=== PATIENT | female | born 1940 | race Caucasian/White ===

== ENCOUNTER 2019-10-17 12:17 | Outpatient (CLI) | payer MEDICARE, SELFPAY ==
[2019-10-17 12:37] LABS: Basophils Absolute Auto 0.1 K/mm3 (0.0-0.1); Basophils Percent Auto 0.7 % (0.2-1.2); Eosinophils Absolute Auto 0.3 K/mm3 (0-0.3); Eosinophils Percent Auto 2.5 % (0-4.4); Hematocrit 32.5 % (37.0-47.0); Hemoglobin 9.8 g/dL (12.0-15.0); Immature Granulocyte Absolute 0.35 K/mm3 (0.00-0.031); Immature Granulocyte Percent A 2.6 % (0-0.5); Lymphocytes Absolute Auto 2.33 K/mm3 (0.9-3.2); Lymphocytes Percent Auto 17.4 % (18.3-44.2); Mean Corpuscular HGB Conc 30.2 g/dl (32-36); Mean Corpuscular Hemoglobin 25.9 pg (26-34); Mean Platelet Volume 8.8 fl (7.4-10.4); Monocytes Absolute Auto 0.7 K/mm3 (0.1-0.6); Monocytes Percent Auto 5.1 % (2.6-8.5); Neutrophils Absolute Auto 9.6 K/mm3 (1.3-6.7); Neutrophils Percent Auto 71.7 % (45.5-73.1); Platelet Count Result 679 k/mm3 (150-375); Red Blood Count 3.78 M/mm3 (4.2-5.4); Red Cell Distribution Width 18.7 % (11.5-14.5); White Blood Count 13.4 K/mm3 (4.5-10.0)
[2019-10-17 15:13] LABS: Iron 48 ug/dL (37-170)
[2019-10-17 15:22] LABS: Alanine Aminotransferase 20 U/L (4-35); Albumin Level 3.7 g/dL (3.5-5.1); Alkaline Phosphatase 98 U/L (38-126); Aspartate Amino Transferase 28 U/L (14-36); Bilirubin,Total 0.5 mg/dL (0.2-1.3); Blood Urea Nitrogen 25 mg/dL (7-17); CRP 2.4 mg/dL (<1.0); Calcium 9.8 mg/dL (8.4-10.2); Carbon Dioxide 31 mmol/L (22-30); Chloride 95 mmol/L (98-107); Estimated Glomerular Filt Rate > 60; Glucose 93 mg/dL (65-105); Potassium 4.9 mmol/L (3.4-5.0); Sodium 136 mmol/L (137-145)
[2019-10-17 15:25] LABS: Percent Iron Saturation 19 % (20-50)
[2019-10-17 16:21] LABS: Vitamin B12 > 1000.0 pg/mL (239-931)
== END 2019-10-17 12:18 | disposition home or self-care (01) ==
PROVIDERS: PCP Family Medicine; Visit Provider Internal Medicine Hematology & Oncology
DX: D64.9 Anemia, unspecified (principal)
CPT/HCPCS: 36415; 80053; 82607; 82728; 83540; 83550; 85025; 86140

== ENCOUNTER 2019-10-23 12:50 | Outpatient (NON) | payer MEDICARE, SELFPAY ==
[2019-10-23 13:51] LABS: Add Urine Microscopic? YES; Appearance Urine Cloudy (Clear); Bacteria Urine Trace /hpf; Bilirubin Urine Negative (Negative); Blood Urine 3+ (Negative); Color Urine Yellow (Yellow); Glucose Urine UA Negative (Negative); Ketones Urine Negative (Negative); Leukocyte Esterase Ur 3+ LEU/UL (NEGATIVE); Mucus Urine Rare /lpf; Nitrate Urine Negative (Negative); Protein Urine 2+ mg/dL (Negative); RBC Urine >75 /hpf (0-2); Specific Grav Ur 1.018 (1.001-1.035); Squamous Epithelial Cell Urine Few /hpf (Few); Urobilinogen Urine Negative mg/dL (<2.0); WBC Clumps Urine Present /HPF; WBC Urine >75 /hpf (0-3)
== END 2019-10-23 12:51 ==
LOC: HOME HLTH 12:50
PROVIDERS: PCP Family Medicine; Visit Provider Family Medicine
DX: N39.0 Urinary tract infection, site not specified (principal); G62.81 Critical illness polyneuropathy; A41.9 Sepsis, unspecified organism; A49.1 Streptococcal infection, unspecified site
CPT/HCPCS: 81001; 87086; 87186

== ENCOUNTER 2019-11-09 09:44 | Outpatient (RCR) | payer MEDICARE, SELFPAY ==
[2019-11-09 09:50] VITALS: BMI 20.3
[2019-11-09 10:00] VITALS: BP 156/95; PULSE 87; RESP 14; TEMP 37.7; O2SAT 97
--- NOTE | 2019-11-09 13:27 | PC.NURSE ---
1040 Daptomycin 230 mg (50 ml) infusion started at 100 ml/hr per Midline in left arm.
--- NOTE | 2019-11-09 13:29 | PC.NURSE ---
1105 Daptomycin 230 mg infusion completed. Midline flushed with 10 ml of normal saline.
== END 2020-02-07 23:59 | disposition home or self-care (01) ==
LOC: ANHVASCINF 09:44
PROVIDERS: Visit Provider Internal Medicine Infectious Disease
DX: N15.1 Renal and perinephric abscess (principal)
CPT/HCPCS: 36569; 96360; 96361; 96365; C1751; J0878

== ENCOUNTER 2019-11-14 10:42 | Outpatient (CLI) | payer MEDICARE, SELFPAY ==
[2019-11-14 11:04] LABS: Basophils Absolute Auto 0.1 K/mm3 (0.0-0.1); Basophils Percent Auto 0.6 % (0.2-1.2); Eosinophils Absolute Auto 0.3 K/mm3 (0-0.3); Hematocrit 35.6 % (37.0-47.0); Hemoglobin 10.6 g/dL (12.0-15.0); Immature Granulocyte Absolute 0.05 K/mm3 (0.00-0.031); Immature Granulocyte Percent A 0.5 % (0-0.5); Lymphocytes Percent Auto 18.6 % (18.3-44.2); Mean Corpuscular HGB Conc 29.8 g/dl (32-36); Mean Corpuscular Hemoglobin 25.7 pg (26-34); Mean Corpuscular Volume 86.4 fl (80-100); Mean Platelet Volume 9.6 fl (7.4-10.4); Monocytes Absolute Auto 0.6 K/mm3 (0.1-0.6); Monocytes Percent Auto 5.8 % (2.6-8.5); Neutrophils Absolute Auto 6.9 K/mm3 (1.3-6.7); Neutrophils Percent Auto 71.5 % (45.5-73.1); Platelet Count Result 408 k/mm3 (150-375); Red Blood Count 4.12 M/mm3 (4.2-5.4); Red Cell Distribution Width 17.7 % (11.5-14.5); White Blood Count 9.7 K/mm3 (4.5-10.0)
[2019-11-14 11:07] LABS: Blood Urea Nitrogen 19 mg/dL (8-26); Carbon Dioxide 29 mmol/L (22-30); Chloride 105 mmol/L (98-109); Estimated Glomerular Filt Rate > 60; Glucose 99 mg/dL (70-105); Potassium 4.1 mmol/L (3.5-4.9); Sodium 142 mmol/L (138-146)
[2019-11-14 12:23] LABS: Iron 31 ug/dL (37-170)
[2019-11-14 12:28] LABS: Alanine Aminotransferase 11 U/L (4-35); Albumin Level 3.9 g/dL (3.5-5.1); Alkaline Phosphatase 81 U/L (38-126); Aspartate Amino Transferase 18 U/L (14-36); Bilirubin,Total 0.5 mg/dL (0.2-1.3); Blood Urea Nitrogen 20 mg/dL (7-17); CRP 6.7 mg/dL (<1.0); Calcium 9.7 mg/dL (8.4-10.2); Carbon Dioxide 28 mmol/L (22-30); Chloride 100 mmol/L (98-107); Estimated Glomerular Filt Rate > 60; Glucose 96 mg/dL (65-105); Potassium 4.3 mmol/L (3.4-5.0); Sodium 143 mmol/L (137-145)
[2019-11-14 12:34] LABS: Percent Iron Saturation 13 % (20-50)
[2019-11-15 18:25] LABS: Creatine Kinase 28 U/L (30-135)
== END 2019-11-14 10:43 | disposition home or self-care (01) ==
LOC: ANHLAB 10:43
PROVIDERS: Visit Provider Internal Medicine Hematology & Oncology
DX: D64.9 Anemia, unspecified (principal)
CPT/HCPCS: 36415; 80048; 80053; 82550; 82607; 82728; 83540; 83550; 85025; 86140

== ENCOUNTER 2019-11-16 11:06 | Outpatient (CLI) | payer MEDICARE, SELFPAY ==
[2019-11-16 11:40] LABS: Basophils Absolute Auto 0.1 K/mm3 (0.0-0.1); Basophils Percent Auto 0.8 % (0.2-1.2); Eosinophils Absolute Auto 0.2 K/mm3 (0-0.3); Eosinophils Percent Auto 2.3 % (0-4.4); Hemoglobin 10.6 g/dL (12.0-15.0); Immature Granulocyte Absolute 0.09 K/mm3 (0.00-0.031); Immature Granulocyte Percent A 0.9 % (0-0.5); Lymphocytes Percent Auto 18.5 % (18.3-44.2); Mean Corpuscular HGB Conc 29.4 g/dl (32-36); Mean Corpuscular Hemoglobin 26.1 pg (26-34); Mean Corpuscular Volume 88.7 fl (80-100); Mean Platelet Volume 9.6 fl (7.4-10.4); Monocytes Absolute Auto 0.6 K/mm3 (0.1-0.6); Monocytes Percent Auto 5.6 % (2.6-8.5); Neutrophils Absolute Auto 7.4 K/mm3 (1.3-6.7); Neutrophils Percent Auto 71.9 % (45.5-73.1); Platelet Count Result 423 k/mm3 (150-375); Red Blood Count 4.06 M/mm3 (4.2-5.4); Red Cell Distribution Width 17.8 % (11.5-14.5); White Blood Count 10.3 K/mm3 (4.5-10.0)
[2019-11-16 11:50] LABS: Hypochromasia 1+ (NORMAL)
[2019-11-16 12:26] LABS: Hemoglobin A1C 5.7 % (<5.7)
[2019-11-16 12:29] LABS: Alanine Aminotransferase 12 U/L (4-35); Albumin Level 3.9 g/dL (3.5-5.1); Alkaline Phosphatase 79 U/L (38-126); Aspartate Amino Transferase 21 U/L (14-36); Bilirubin,Total 0.4 mg/dL (0.2-1.3); Blood Urea Nitrogen 23 mg/dL (7-17); Calcium 9.7 mg/dL (8.4-10.2); Carbon Dioxide 27 mmol/L (22-30); Chloride 101 mmol/L (98-107); Estimated Glomerular Filt Rate > 60; Glucose 84 mg/dL (65-105); Potassium 4.3 mmol/L (3.4-5.0); Sodium 141 mmol/L (137-145)
[2019-11-16 13:32] LABS: CRP 3.8 mg/dL (<1.0); Creatine Kinase 27 U/L (30-135)
== END 2019-11-16 11:07 | disposition home or self-care (01) ==
LOC: ANHLAB 11:06
PROVIDERS: Visit Provider Family Medicine
DX: N39.0 Urinary tract infection, site not specified (principal); D64.9 Anemia, unspecified; N15.1 Renal and perinephric abscess; G62.81 Critical illness polyneuropathy; A41.9 Sepsis, unspecified organism; A49.1 Streptococcal infection, unspecified site; E11.22 Type 2 diabetes mellitus with diabetic chronic kidney disease; I10 Essential (primary) hypertension; R41.841 Cognitive communication deficit; R13.12 Dysphagia, oropharyngeal phase; M06.9 Rheumatoid arthritis, unspecified; I25.2 Old myocardial infarction; Z93.1 Gastrostomy status; Z99.2 Dependence on renal dialysis
CPT/HCPCS: 36415; 80053; 82550; 83036; 85025; 86140; 87086

== ENCOUNTER 2019-12-21 02:18 | Day surgery (SDC) | payer MEDICARE, SELFPAY ==
[2019-12-07 14:36] VITALS: BMI 23.0
--- NOTE | 2019-12-18 16:46 | PM.HPGS ---
History of Present Illness History of Present Illness Consent: Risks, benefits, and alternatives have been discussed and questions answered. Patient agrees to proceed with procedure. Chief complaint: Ureteral Stone, hydronephrosis Narrative: Aliya Richardson is a 79 year old female with an indwelling Ridley since developed profound septic shock following ESWL in 06/2019. Following the procedure imaging revealed a large left perinephric hematoma and multiple stone fragments. For now, we've managed to treat with indwelling stent rather than risk more aggressive interventions Review of Systems Cardiovascular: Cardiovascular: Denies chest pain, Denies lightheadedness, Denies palpitations and Denies dyspnea Respiratory: Respiratory: Denies dyspnea Gastrointestinal: Gastrointestinal: Denies diarrhea, Denies nausea and Denies vomiting Genitourinary: Genitourinary: Denies hematuria and Denies dysuria Endocrine: Endocrine: Denies palpitations [facility] Past Medical History Medical History Acute renal failure (ARF) Patient received intermittent hemodialysis between 07/23/2019 and 07/29/2019 as well as 07/31/2019 and 08/02/2019. Patient is now on long-term hemodialysis schedule managed by Dr. Gianni Larson Acute respiratory failure 07/19/2019 Anemia Anxiety Cardiac arrest Due to overwhelming sepsis and severe acidosis 07/19/2019 Chronic anemia Pt is also anaemia was treated with blood transfusion and epogen shot before, ordered epogen shot again for pt as her hb is 6. Pt will need work up for anaemia if Dr Larson does not think it is related to kidney disease, pt baseline is 7.5. Diabetes mellitus Diabetes mellitus Dialysis patient Dyslipidemia Essential tremor Family history of VRE (vancomycin resistant Enterococcus) infection Patient had VRE in her urine G tube feedings Only receiving supplemental feeds and 6 at night currently GERD (gastroesophageal reflux disease) Hemodialysis patient HTN (hypertension) Hypertension MVP (mitral valve prolapse) NSTEMI (non-ST elevated myocardial infarction) 07/19/2019 Obstructive sleep apnea Intolerant of CPAP Osteoarthritis Osteopenia after menopause Shock liver TIA (transient ischemic attack) Urethral stone Urge incontinence Uterine cancer UTI (urinary tract infection) Vancomycin-resistant enterococcus UTI Surgical History Surgical History H/O bilateral cataract extraction H/O inguinal hernia repair H/O lithotripsy H/O: hysterectomy History of bladder suspension procedure Two thousand four History of hysterectomy for malignancy History of urethral stent X2 Hx of tonsillectomy PEG (percutaneous endoscopic gastrostomy) status Placed 08/04/[address] Arboleda S/P dialysis catheter insertion Right chest S/P ureteral stent placement Family History Family History Father Acute myocardial infarction Family history of kidney disease Family history of aortic aneurysm Mother Cerebrovascular accident Mother Cerebrovascular accident Social History Social History Social History: The patient lives with her Davi. She has 2 children. 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 She is lifelong nonsmoker. She does not drink alcohol or use illicit substances. Prior to 5 weeks ago she was independent in all activities of daily living. Her primary care physician is Dr. Coni Oh. Code status is full code. The patient recently this past Wednesday came home from [facility]. Her daughter and live with her. The daughter is the POA. Barrera Smoking status: Never smoker Second hand tobacco smoke exposure: No Alcohol intake: never Substance use: never Gender identity (if verbalized by the patient): Female Bell
--- NOTE | ~2019-12-21 | XR_ITS ---
EXAMINATION: XR stent kub - surgery DATE: 12/21/2019 10:42 INDICATION: Left hydronephrosis. TECHNIQUE: 4 intraoperative fluoroscopic views of the abdomen and pelvis were obtained. I was not pre sent. Fluoroscopy exposure time was 11 seconds. COMPARISON: CT abdomen 10/14/2019 FINDINGS: The initial images demonstrate a left internal ureteral stent in expected position. The fin al images demonstrate a new left internal ureteral stent in expected position. IMPRESSION: 1. Left internal ureteral stent exchange with stent in expected position. Reviewed, dictated and finalized at location A.
--- NOTE | 2019-12-21 07:42 | WPDHPUPDATE1 ---
History and Physical Update Update Date/Time: 12/21/19 07:42 History and Physical has been reviewed, including an updated exam of the patient. There are NO changes in the patient's condition. Risks, benefits, and alternatives have been discussed and questions answered. Patient agrees to proceed with procedure.
[2019-12-21] MEDS: LACTATED RINGERS 1,000 ML 30 ML IV CONT (09:25)
[2019-12-21 09:30] LABS: Glucose Point of Care 99 (65-105)
[2019-12-21 09:40] LABS: Prothrombin Time 13.2 Seconds (11.1-14.7)
[2019-12-21 09:41] LABS: Partial Thromboplastin Time 35.1 SECONDS (22.3-36.8)
[2019-12-21 09:59] VITALS: BP 150/76; PULSE 90; RESP 20; TEMP 36.8; O2SAT 98
--- NOTE | 2019-12-21 10:08 | WPDANESEPPF ---
Anes - Initial Pre Proc Eval Procedure: Operation Date: 12/21/19 10:30 Proposed Procedures p Cystoscopy, Left Stent Exchange - Diego Villa MD Date/Time: 12/21/19 10:08 Surgeon: Diego Villa MD Pre Op Diagnosis: Ureteral Stone, hydronephrosis Patient Data Age: 79 Gender: F Height: 5 ft 3 in Weight: 58.3 kg Last Vital Signs Temp 36.8 C 12/21/19 09:59 Pulse 90 12/21/19 09:59 Resp 20 12/21/19 09:59 BP 150/76 H 12/21/19 09:59 Pulse Ox 98 12/21/19 09:59 Allergies Allergy/AdvReac Type Severity Reaction Status Date / Time tetracycline AdvReac Severe NAUSEA Verified 12/21/19 09:55 oxycodone AdvReac Unknown N&V Verified 12/21/19 09:55 Home Medications Medication Instructions Recorded Confirmed Type amitriptyline 25 mg PO HS 08/21/19 12/21/19 History baclofen 10 mg PO BID 08/21/19 12/21/19 History melatonin 3 mg PO HS PRN 08/21/19 12/21/19 History multivitamin 1 tablet PO DAILY 08/21/19 12/21/19 History zinc 50 mg PO DAILY 08/21/19 12/21/19 History Ferrex 150 150 mg PO BID 10/07/19 12/21/19 History Florastor 250 mg PO DAILY 10/07/19 12/21/19 History acetaminophen 325 mg PO Q6H PRN #30 tablet 10/15/19 12/21/19 Rx metoprolol tartrate 25 mg tablet 25 mg PO BID #180 tablet 11/02/19 12/21/19 Rx aspirin 81 mg PO DAILY 12/07/19 12/21/19 History atorvastatin 10 mg tablet 10 mg PO .QHS #90 tablet 12/07/19 12/21/19 Rx lansoprazole 30 mg capsule,delayed 30 mg PO DAILY cap 12/07/19 12/21/19 History release Laboratory Tests 12/21/19 12/21/19 09:06 09:26 PT 13.2 Seconds Seconds (11.1-14.7) INR 1.0 APTT 35.1 SECONDS SECONDS (22.3-36.8) POC Capillary Glucose 99 mg/dl mg/dl (65-105) Patient hx anesthesia problems: none Family hx anesthesia problems: none PMFSH Past Medical History Medical History Acute renal failure (ARF) Patient received intermittent hemodialysis between 07/23/2019 and 07/29/2019 as well as 07/31/2019 and 08/02/2019. Patient is now on long-term hemodialysis schedule managed by Dr. Gianni Larson Acute respiratory failure 07/19/2019 Anemia Anxiety Cardiac arrest Due to overwhelming sepsis and severe acidosis 07/19/2019 Chronic anemia Pt is also anaemia was treated with blood transfusion and epogen shot before, ordered epogen shot again for pt as her hb is 6. Pt will need work up for anaemia if Dr Larson does not think it is related to kidney disease, pt baseline is 7.5. Diabetes mellitus Diabetes mellitus Dialysis patient Dyslipidemia Essential tremor Family history of VRE (vancomycin resistant Enterococcus) infection Patient had VRE in her urine G tube feedings Only receiving supplemental feeds and 6 at night currently GERD (gastroesophageal reflux disease) Hemodialysis patient HTN (hypertension) Hypertension MVP (mitral valve prolapse) NSTEMI (non-ST elevated myocardial infarction) 07/19/2019 Obstructive sleep apnea Intolerant of CPAP Osteoarthritis Osteopenia after menopause Shock liver TIA (transient ischemic attack) Urethral stone Urge incontinence Uterine cancer UTI (urinary tract infection) Vancomycin-resistant enterococcus UTI Surgical History Surgical History H/O bilateral cataract extraction H/O inguinal hernia repair H/O lithotripsy H/O: hysterectomy History of bladder suspension procedure Two thousand four History of hysterectomy for malignancy History of urethral stent X2 Hx of tonsillectomy PEG (percutaneous endoscopic gastrostomy) status Placed 08/04/[address] Arboleda S/P dialysis catheter insertion Right chest S/P ureteral stent placement Family History Family History Father Acute myocardial infarction Family history of kidney disease Family history of aortic aneurysm Mother Cerebrovascular accident Mother Cerebro
[2019-12-21] MEDS: LIDOCAINE HCL 2% GEL UROJET 10 ML PKG MUCOUS MEM (10:27)
[2019-12-21 10:47] VITALS: BP 145/76; PULSE 78; RESP 18; O2SAT 100
--- NOTE | 2019-12-21 10:58 | PM.PROC ---
Procedure Note - Detailed Date of procedure: 12/21/19 Pre-op diagnosis: Ureteral Stone, hydronephrosis Post-op diagnosis: same Procedure performed: Cystoscopy, left ureteral stent replacement Description of procedure: The patient was brought to the operative suite where she was prepped and draped in a routine sterile fashion while in the dorsal lithotomy position. A 19 F rigid cystoscope was placed in her bladder and the bladder was circumferentially inspected. The bladder neck and urethra were endoscopically normal. The bladder mucosa was without hyperemia. TheThere was a single orthotopic ureteral orifice bilaterally. The tip of the indwelling stent as grasped. It had essentially no encrustation and, therefore, was removed with ease. I advanced .035 glidewire into the left renal pelvis under fluoroscopy. A new 4.8F variable length ureteral stent was positioned with the proximal coil in the renal pelvis and the distal coil in the bladder. Scopes and wires were removed after emptying the patient's bladder. Anesthesia: MAC Surgeon: Diego Villa MD Estimated blood loss (mL): 0 Drains: Yes (4.8F left ureteral stent) Packing: No Pathology: none sent Complications: No immediate complications Condition: stable Disposition: PACU
[2019-12-21 11:47] VITALS: BP 148/78; PULSE 76; RESP 16; O2SAT 98
[2019-12-21 12:17] VITALS: BP 150/74; PULSE 72; RESP 18; O2SAT 100
[2019-12-21 13:00] VITALS: BP 147/76; PULSE 70; RESP 16; O2SAT 100
== END 2019-12-21 13:00 | disposition home or self-care (01) ==
PROVIDERS: Anesthesiology; PCP Family Medicine; Visit Provider Urology
PROC: (CPT 52352; principal; 2019-12-21 10:30)
DX: N13.2 Hydronephrosis with renal and ureteral calculous obstruction (principal); S37.019D Minor contusion of unspecified kidney, subsequent encounter; I12.0 Hypertensive chronic kidney disease with stage 5 chronic kidney disease or end stage renal disease; E11.22 Type 2 diabetes mellitus with diabetic chronic kidney disease; N18.6 End stage renal disease; Z99.2 Dependence on renal dialysis; D64.9 Anemia, unspecified; E78.5 Hyperlipidemia, unspecified; G25.0 Essential tremor; K21.9 Gastro-esophageal reflux disease without esophagitis; I34.1 Nonrheumatic mitral (valve) prolapse; I25.2 Old myocardial infarction; G47.33 Obstructive sleep apnea (adult) (pediatric); M19.90 Unspecified osteoarthritis, unspecified site; M85.80 Other specified disorders of bone density and structure, unspecified site; Z86.73 Personal history of transient ischemic attack (TIA), and cerebral infarction without residual deficits; Z85.42 Personal history of malignant neoplasm of other parts of uterus; Z93.1 Gastrostomy status; Z79.82 Long term (current) use of aspirin
CPT/HCPCS: 52332; 36415; 85610; 85730; C1769; C2617; J0690; J2704; J7120

== ENCOUNTER 2020-01-15 11:28 | Outpatient (CLI) | payer MEDICARE, SELFPAY ==
[2020-01-15 11:41] LABS: Basophils Absolute Auto 0.1 K/mm3 (0.0-0.1); Basophils Percent Auto 0.5 % (0.2-1.2); Eosinophils Absolute Auto 0.3 K/mm3 (0-0.3); Eosinophils Percent Auto 2.6 % (0-4.4); Hematocrit 40.6 % (37.0-47.0); Hemoglobin 12.2 g/dL (12.0-15.0); Immature Granulocyte Absolute 0.06 K/mm3 (0.00-0.031); Immature Granulocyte Percent A 0.6 % (0-0.5); Lymphocytes Absolute Auto 1.65 K/mm3 (0.9-3.2); Lymphocytes Percent Auto 16.4 % (18.3-44.2); Mean Corpuscular Hemoglobin 26.8 pg (26-34); Mean Platelet Volume 10.1 fl (7.4-10.4); Monocytes Absolute Auto 0.5 K/mm3 (0.1-0.6); Monocytes Percent Auto 5.1 % (2.6-8.5); Neutrophils Absolute Auto 7.6 K/mm3 (1.3-6.7); Neutrophils Percent Auto 74.8 % (45.5-73.1); Platelet Count Result 283 k/mm3 (150-375); Red Blood Count 4.56 M/mm3 (4.2-5.4); Red Cell Distribution Width 16.3 % (11.5-14.5); White Blood Count 10.1 K/mm3 (4.5-10.0)
[2020-01-15 12:25] LABS: Iron 36 ug/dL (37-170)
[2020-01-15 12:34] LABS: Percent Iron Saturation 13 % (20-50)
== END 2020-01-15 11:29 | disposition home or self-care (01) ==
LOC: ANHLAB 11:31
PROVIDERS: PCP Family Medicine; Visit Provider Internal Medicine Hematology & Oncology
DX: D64.9 Anemia, unspecified (principal)
CPT/HCPCS: 36415; 82728; 83540; 83550; 85025

== ENCOUNTER 2020-04-12 16:06 | Outpatient (CLI) | payer MEDICARE, SELFPAY ==
--- NOTE | ~2020-04-12 | XR_ITS ---
EXAMINATION: XR abdomen/kub 1V EXAM DATE: 04/12/2020 16:27 INDICATION: Pain while urinating. Stent placed in December. Kidney stone history. TECHNIQUE: Frontal projection(s) of the abdomen for interpretation. Comparison is made to prior exami nation from 07/20/2019. FINDINGS: There is a left-sided double-J ureteral stent overlying expected position. There is calcif ic density projecting along the mid aspect of the stent, and sacrum, could be ureteral stone along it s course. This finding has been indicated, marked on the examination for review, clinical correlation . There is moderate amount of bowel stool and gas. There are bony degenerative changes. IMPRESSION: 1. Possible left mid ureteral calcification. 2. Stent in position. Reviewed, dictated and finalized at location A.
== END 2020-04-12 16:07 | disposition home or self-care (01) ==
LOC: ANHIMG 16:09
PROVIDERS: PCP Family Medicine; Visit Provider Urology
DX: N20.0 Calculus of kidney (principal)
CPT/HCPCS: 74018

== ENCOUNTER 2020-04-17 01:18 | Outpatient (CLI) | payer MEDICARE, SELFPAY ==
[2020-04-17 19:19] LABS: SARS-CoV-2 RNA PCR Negative
== END 2020-04-17 01:19 | disposition home or self-care (01) ==
LOC: ANHCOVIDDT 01:19
PROVIDERS: PCP Family Medicine; Visit Provider Urology
DX: Z01.818 Encounter for other preprocedural examination (principal); Z11.59 Encounter for screening for other viral diseases
CPT/HCPCS: 87635; C9803; U0003

== ENCOUNTER 2020-04-19 02:41 | Day surgery (SDC) | payer MEDICARE, SELFPAY ==
[2020-04-16 14:06] VITALS: BMI 24.1
--- NOTE | 2020-04-18 16:32 | PM.HPGS ---
History of Present Illness History of Present Illness Consent: Risks, benefits, and alternatives have been discussed and questions answered. Patient agrees to proceed with procedure. Chief complaint: Left Stone Narrative: Aliya Richardson is a 79 year old female well known to me with a history of recurring urolithiasis. Earlier this year she had a very complicated course following left renal ESWL which led to a fracture kidney and pyelonephritis with septic shock. Since then she has had an indwelling left ureteral stent. Multiple stone fragments have passed and she now appears to have only some small fragments in the distal left ureter. She has been she is beginning to develop intractable stent irritation leading to the decisions to do an endoscopic stone extraction and stent removal. Review of Systems Cardiovascular: Cardiovascular: Denies chest pain, Denies lightheadedness, Denies palpitations and Denies dyspnea Respiratory: Respiratory: Denies dyspnea Gastrointestinal: Gastrointestinal: Denies diarrhea, Denies nausea and Denies vomiting Genitourinary: Genitourinary: Denies hematuria and Denies dysuria Endocrine: Endocrine: Denies palpitations PMFSH Past Medical History Medical History Acute renal failure (ARF) Patient received intermittent hemodialysis between 07/23/2019 and 07/29/2019 as well as 07/31/2019 and 08/02/2019. Patient is now on long-term hemodialysis schedule managed by Dr. Gianni Larson Acute renal failure (ARF) Patient received intermittent hemodialysis between 07/23/2019 and 07/29/2019 as well as 07/31/2019 and 08/02/2019. Patient is now on long-term hemodialysis schedule managed by Dr. Gianni Larson Anemia Anemia Anemia Anxiety Anxiety Anxiety Chronic anemia Pt is also anaemia was treated with blood transfusion and epogen shot before, ordered epogen shot again for pt as her hb is 6. Pt will need work up for anaemia if Dr Larson does not think it is related to kidney disease, pt baseline is 7.5. Chronic anemia Pt is also anaemia was treated with blood transfusion and epogen shot before, ordered epogen shot again for pt as her hb is 6. Pt will need work up for anaemia if Dr Larson does not think it is related to kidney disease, pt baseline is 7.5. Chronic anemia Pt is also anaemia was treated with blood transfusion and epogen shot before, ordered epogen shot again for pt as her hb is 6. Pt will need work up for anaemia if Dr Larson does not think it is related to kidney disease, pt baseline is 7.5. Diabetes mellitus Diabetes mellitus Diabetes mellitus Dialysis patient Dyslipidemia Dyslipidemia Dyslipidemia Essential tremor Family history of VRE (vancomycin resistant Enterococcus) infection Patient had VRE in her urine Family history of VRE (vancomycin resistant Enterococcus) infection Patient had VRE in her urine Family history of VRE (vancomycin resistant Enterococcus) infection Patient had VRE in her urine G tube feedings Only receiving supplemental feeds and 6 at night currently G tube feedings Only receiving supplemental feeds and 6 at night currently G tube feedings GERD (gastroesophageal reflux disease) GERD (gastroesophageal reflux disease) GERD (gastroesophageal reflux disease) Hemodialysis patient Hemodialysis patient HTN (hypertension) Hypertension Hypertension MVP (mitral valve prolapse) MVP (mitral valve prolapse) MVP (mitral valve prolapse) Obstructive sleep apnea Intolerant of CPAP Obstructive sleep apnea Intolerant of CPAP JULIUS (obstructive sleep apnea) Osteoarthritis Osteopenia after menopause Osteopenia after menopause Parkinson's disease Shock liver Shock liver TIA (transient ischemic attack) TIA (transient ischemic attack) TIA (transient ischemic attack) Urethral stone Urethral stone Urethral stone Urge incontinence Uterine cancer Uterine cancer Uterine cancer UTI (urinary tract infection) Vancomycin-resistant
[2020-04-19] VITALS (9 sets, daily range): BP systolic 119–159; BP diastolic 63–89; PULSE 66–83; RESP 11–16; TEMP 36.1; O2SAT 97–99
--- NOTE | ~2020-04-19 | XR_ITS ---
. EXAMINATION: XR retrograde pyelo w/stent LT DATE: 04/19/2020 13:18 INDICATION: Left ureteral stone. TECHNIQUE: A intraoperative fluoroscopic views of the abdomen and pelvis were obtained. I was not pre sent. Fluoroscopy exposure time was 11 seconds. COMPARISON: CT abdomen 10/14/2019 FINDINGS: The retrograde pyelogram demonstrates left-sided hydronephrosis. The final images demonstra te a left internal ureteral stent in expected position. IMPRESSION: 1. Left-sided hydronephrosis. 2. Left internal ureteral stent in expected position. Reviewed, dictated and finalized at location A.
--- NOTE | 2020-04-19 06:46 | WPDHPUPDATE1 ---
History and Physical Update Update Date/Time: 04/19/20 06:46 History and Physical has been reviewed, including an updated exam of the patient. There are NO changes in the patient's condition. Risks, benefits, and alternatives have been discussed and questions answered. Patient agrees to proceed with procedure.
[2020-04-19] MEDS: LACTATED RINGERS 1,000 ML 30 ML IV CONT (11:50)
--- NOTE | 2020-04-19 11:54 | WPDANESEPPF ---
Anes - Initial Pre Proc Eval Procedure: Operation Date: 04/19/20 13:00 Proposed Procedures p Cystoscopy, Left Stone Extraction, Left Stent Removal With Possible Left Stent Replacement - Diego Villa MD s Holmium Laser Procedure - Diego Villa MD Date/Time: 04/19/20 11:54 Surgeon: Diego Villa MD Pre Op Diagnosis: Left Stone Patient Data Age: 79 Gender: F Height: 5 ft 3 in Weight: 61.8 kg Allergies Allergy/AdvReac Type Severity Reaction Status Date / Time tetracycline AdvReac Severe NAUSEA Verified 04/16/20 13:52 oxycodone AdvReac Unknown N&V Verified 04/16/20 13:52 Home Medications Medication Instructions Recorded Confirmed Type melatonin 3 mg PO HS PRN 08/21/19 04/16/20 History multivitamin 1 tablet PO DAILY 08/21/19 04/16/20 History zinc 50 mg PO DAILY 08/21/19 04/16/20 History Ferrex 150 150 mg PO BID 10/07/19 04/16/20 History acetaminophen 325 mg PO Q6H PRN #30 tablet 10/15/19 04/16/20 Rx lansoprazole 30 mg capsule,delayed 30 mg PO DAILY cap 12/07/19 04/16/20 History release amitriptyline 25 mg tablet 25 mg PO HS #90 tablet 12/22/19 04/16/20 Rx mirabegron 50 mg tablet,extended 50 mg PO DAILY 01/26/20 04/16/20 History release 24 hr oxybutynin chloride 5 mg tablet 5 mg PO TID 01/26/20 04/16/20 History baclofen 10 mg tablet 10 mg PO Q8H PRN #90 tablet 02/08/20 04/16/20 Rx metoprolol tartrate 25 mg tablet 25 mg PO BID #180 tablet 02/09/20 04/16/20 Rx atorvastatin 10 mg tablet 10 mg PO .QHS #90 tablet 03/05/20 04/16/20 Rx blood sugar diagnostic #100 each 04/01/20 04/07/20 Rx blood-glucose meter #1 each 04/01/20 04/07/20 Rx lancets 33 gauge #100 each 04/01/20 04/07/20 Rx aspirin 81 mg tablet,delayed 81 mg PO DAILY 04/05/20 04/16/20 History release Lactobac 40-Bifido 3-S.thermop 1 cap PO DAILY 04/16/20 04/16/20 History [Probiotic] sulfamethoxazole-trimethoprim 1 tablet PO BID 04/16/20 04/16/20 History Patient hx anesthesia problems: none Family hx anesthesia problems: none PMFSH Past Medical History Medical History Acute renal failure (ARF) Patient received intermittent hemodialysis between 07/23/2019 and 07/29/2019 as well as 07/31/2019 and 08/02/2019. Patient is now on long-term hemodialysis schedule managed by Dr. Gianni Larson Acute renal failure (ARF) Patient received intermittent hemodialysis between 07/23/2019 and 07/29/2019 as well as 07/31/2019 and 08/02/2019. Patient is now on long-term hemodialysis schedule managed by Dr. Gianni Larson Anemia Anemia Anemia Anxiety Anxiety Anxiety Chronic anemia Pt is also anaemia was treated with blood transfusion and epogen shot before, ordered epogen shot again for pt as her hb is 6. Pt will need work up for anaemia if Dr Larson does not think it is related to kidney disease, pt baseline is 7.5. Chronic anemia Pt is also anaemia was treated with blood transfusion and epogen shot before, ordered epogen shot again for pt as her hb is 6. Pt will need work up for anaemia if Dr Larson does not think it is related to kidney disease, pt baseline is 7.5. Chronic anemia Pt is also anaemia was treated with blood transfusion and epogen shot before, ordered epogen shot again for pt as her hb is 6. Pt will need work up for anaemia if Dr Larson does not think it is related to kidney disease, pt baseline is 7.5. Diabetes mellitus Diabetes mellitus Diabetes mellitus Dialysis patient Dyslipidemia Dyslipidemia Dyslipidemia Essential tremor Family history of VRE (vancomycin resistant Enterococcus) infection Patient had VRE in her urine Family history of VRE (vancomycin resistant Enterococcus) infection Patient had VRE in her urine Family history of VRE (vancomycin resistant Enterococcus) infection Patient had VRE in her urine G tube feedings Only receiving supplemental feeds and 6 at night currently G tube feedings Only receiving supplemental feeds and 6 at night currently G tube feedin
[2020-04-19] MEDS: ceFAZolin 2 GM/D5W 50 ML 2 GM/50 ML BAG IVPB (12:08)
[2020-04-19] MEDS: LIDOCAINE HCL 2% GEL UROJET 10 ML PKG MUCOUS MEM (12:46)
--- NOTE | 2020-04-19 13:21 | P.OP_ITS ---
Procedure Note - Detailed Date of procedure: 04/19/20 Pre-op diagnosis: Left Stone Post-op diagnosis: same Procedure performed: 1. Cystoscopy with left ureteral stent removal 2. Left retrograde pyelogram 3. Left ureteroscopy with laser lithotripsy and stone extraction 4. Left ureteral stent replacement Description of procedure: The patient was brought to the operative suite where she is prepped and draped in a routine sterile fashion while in the dorsal lithotomy position after the uneventful induction of a general LMA anesthetic. A 19F rigid cystoscope was placed in the bladder and the tip of the indwelling stent is grasped and the stent is removed with ease. The patient had no evidence of urethral stricture or bladder neck contracture. The bladder mucosa was endoscopically normal without hyperemia or neoplasm. There was a single, orthotopic ureteral orifice bilaterally. A 0.035 glidewire was advanced into the left renal pelvis under fluoroscopy. The distal ureter was dilated with an 8F/10F ureteral dilator. Ureteroscopy was undertaken with a short tapered semi- rigid ureteroscope and, later, a7.5F flexible ureteroscope. She has 2 large impacted stones in the left distal ureter. These were fragmented with a 273 micron holmium laser fiber and all fragments are extracted. In order to pass the 7.5 F flexible scope into the more proximal ureter I had to re-dilate with a 10cm ureteral balloon. With retrograde pyelography and the flexible ureteral scope inspected the entire collecting system and more proximal ureter. There were no additional significant stone fragments.Due to the extent of this manipul ation I did replace a 4.8F double-J ureteral stent. The proximal coil of the stent was confirmed to be in the renal pelvis and the distal coil in the bladder. The patient's bladder was emptied and he was taken to the recovery room having tolerated this procedure well. Anesthesia: GLMA Surgeon: Diego Villa MD Estimated blood loss (mL): 0 Drains: Yes (4.8F ureteral stent) Packing: No Pathology: yes Complications: No immediate complications Condition: stable Disposition: PACU
[2020-04-21 09:03] LABS: Glucose Point of Care 96 (65-105)
== END 2020-04-19 15:47 | disposition home or self-care (01) ==
PROVIDERS: PCP Family Medicine; Visit Provider Urology
PROC: (CPT 52352; principal; 2020-04-19 13:00)
PROC: (CPT 52356; 2020-04-19 13:00)
DX: N20.1 Calculus of ureter (principal); I12.0 Hypertensive chronic kidney disease with stage 5 chronic kidney disease or end stage renal disease; E11.22 Type 2 diabetes mellitus with diabetic chronic kidney disease; N18.6 End stage renal disease; Z99.2 Dependence on renal dialysis; E78.5 Hyperlipidemia, unspecified; G25.0 Essential tremor; D64.9 Anemia, unspecified; F41.9 Anxiety disorder, unspecified; K21.9 Gastro-esophageal reflux disease without esophagitis; I34.1 Nonrheumatic mitral (valve) prolapse; G47.33 Obstructive sleep apnea (adult) (pediatric); G20 Parkinson's disease; M85.80 Other specified disorders of bone density and structure, unspecified site; Z93.1 Gastrostomy status; Z86.73 Personal history of transient ischemic attack (TIA), and cerebral infarction without residual deficits; Z85.42 Personal history of malignant neoplasm of other parts of uterus; Z79.82 Long term (current) use of aspirin
CPT/HCPCS: 52356; 74420; 82365; 87635; 88300; A9270; C1726; C1769; C2617; C9803; J0690; J2405; J2704; J3010; J7120; Q9966; U0003

== ENCOUNTER 2020-07-16 10:07 | Outpatient (CLI) | payer MEDICARE, SELFPAY ==
[2020-07-16 10:21] LABS: Basophils Absolute Auto 0.1 K/mm3 (0.0-0.1); Basophils Percent Auto 0.9 % (0.2-1.2); Eosinophils Absolute Auto 0.6 K/mm3 (0-0.3); Eosinophils Percent Auto 7.2 % (0-4.4); Hematocrit 41.4 % (37.0-47.0); Hemoglobin 12.7 g/dL (12.0-15.0); Immature Granulocyte Absolute 0.06 K/mm3 (0.00-0.031); Immature Granulocyte Percent A 0.7 % (0-0.5); Lymphocytes Absolute Auto 1.64 K/mm3 (0.9-3.2); Lymphocytes Percent Auto 18.8 % (18.3-44.2); Mean Corpuscular HGB Conc 30.7 g/dl (32-36); Mean Corpuscular Hemoglobin 27.2 pg (26-34); Mean Corpuscular Volume 88.7 fl (80-100); Mean Platelet Volume 9.6 fl (7.4-10.4); Monocytes Absolute Auto 0.8 K/mm3 (0.1-0.6); Monocytes Percent Auto 8.7 % (2.6-8.5); Neutrophils Absolute Auto 5.6 K/mm3 (1.3-6.7); Neutrophils Percent Auto 63.7 % (45.5-73.1); Platelet Count Result 282 k/mm3 (150-375); Red Blood Count 4.67 M/mm3 (4.2-5.4); Red Cell Distribution Width 14.5 % (11.5-14.5); White Blood Count 8.7 K/mm3 (4.5-10.0)
[2020-07-16 10:24] LABS: Blood Urea Nitrogen 30 mg/dL (8-26); Carbon Dioxide 29 mmol/L (22-30); Chloride 104 mmol/L (98-109); Estimated Glomerular Filt Rate 43; Glucose 122 mg/dL (70-105); Sodium 143 mmol/L (138-146)
[2020-07-16 11:27] LABS: Iron 40 ug/dL (37-170)
[2020-07-16 11:36] LABS: Percent Iron Saturation 14 % (20-50)
== END 2020-07-16 10:08 | disposition home or self-care (01) ==
LOC: ANHLAB 10:09
PROVIDERS: PCP Family Medicine; Visit Provider Internal Medicine Hematology & Oncology
DX: D64.9 Anemia, unspecified (principal)
CPT/HCPCS: 36415; 80048; 82728; 83540; 83550; 85025

== ENCOUNTER 2020-11-12 13:10 | Outpatient (CLI) | payer MEDICARE, SELFPAY ==
[2020-11-12 13:46] LABS: Anion Gap 6 mmol/L (8-16); Blood Urea Nitrogen 29 mg/dL (7-17); Calcium 9.3 mg/dL (8.4-10.2); Carbon Dioxide 31 mmol/L (22-30); Chloride 106 mmol/L (98-107); Estimated Glomerular Filt Rate 53; Glucose 124 mg/dL (65-105); Sodium 143 mmol/L (137-145)
== END 2020-11-12 13:11 | disposition home or self-care (01) ==
PROVIDERS: PCP Family Medicine; Visit Provider Internal Medicine Cardiovascular Disease
DX: E11.59 Type 2 diabetes mellitus with other circulatory complications (principal); I10 Essential (primary) hypertension; Z86.79 Personal history of other diseases of the circulatory system
CPT/HCPCS: 36415; 80048

== ENCOUNTER 2021-01-14 11:16 | Outpatient (CLI) | payer MEDICARE, SELFPAY ==
[2021-01-14 11:33] LABS: Basophils Absolute Auto 0.1 K/mm3 (0.0-0.1); Eosinophils Absolute Auto 0.2 K/mm3 (0-0.3); Eosinophils Percent Auto 1.8 % (0-4.4); Hematocrit 46.2 % (37.0-47.0); Hemoglobin 14.1 g/dL (12.0-15.0); Immature Granulocyte Absolute 0.06 K/mm3 (0.00-0.031); Immature Granulocyte Percent A 0.7 % (0-0.5); Lymphocytes Absolute Auto 2.89 K/mm3 (0.9-3.2); Lymphocytes Percent Auto 32.1 % (18.3-44.2); Mean Corpuscular HGB Conc 30.5 g/dl (32-36); Mean Corpuscular Hemoglobin 26.5 pg (26-34); Mean Corpuscular Volume 86.7 fl (80-100); Mean Platelet Volume 9.8 fl (7.4-10.4); Monocytes Absolute Auto 0.6 K/mm3 (0.1-0.6); Monocytes Percent Auto 6.3 % (2.6-8.5); Neutrophils Absolute Auto 5.2 K/mm3 (1.3-6.7); Neutrophils Percent Auto 58.1 % (45.5-73.1); Platelet Count Result 290 k/mm3 (150-375); Red Blood Count 5.33 M/mm3 (4.2-5.4)
[2021-01-14 11:37] LABS: Blood Urea Nitrogen 28 mg/dL (8-26); Carbon Dioxide 31 mmol/L (22-30); Chloride 102 mmol/L (98-109); Estimated Glomerular Filt Rate 43; Glucose 91 mg/dL (70-105); Potassium 4.4 mmol/L (3.5-4.9); Sodium 141 mmol/L (138-146)
[2021-01-14 12:19] LABS: Iron 57 ug/dL (37-170)
[2021-01-14 12:25] LABS: Alanine Aminotransferase 16 U/L (4-35); Albumin Level 4.6 g/dL (3.5-5.1); Alkaline Phosphatase 78 U/L (38-126); Anion Gap 5 mmol/L (8-16); Aspartate Amino Transferase 25 U/L (14-36); Bilirubin,Total 0.7 mg/dL (0.2-1.3); Blood Urea Nitrogen 30 mg/dL (7-17); Calcium 9.6 mg/dL (8.4-10.2); Carbon Dioxide 32 mmol/L (22-30); Chloride 105 mmol/L (98-107); Estimated Glomerular Filt Rate 48; Glucose 95 mg/dL (65-105); Potassium 4.8 mmol/L (3.4-5.0); Sodium 142 mmol/L (137-145)
[2021-01-14 12:31] LABS: Percent Iron Saturation 18 % (20-50)
== END 2021-01-14 11:17 | disposition home or self-care (01) ==
LOC: ANHLAB 11:19
PROVIDERS: PCP Family Medicine; Visit Provider Internal Medicine Hematology & Oncology
DX: D64.9 Anemia, unspecified (principal)
CPT/HCPCS: 36415; 80048; 80053; 82728; 83540; 83550; 85025

== ENCOUNTER 2021-04-08 11:02 | Outpatient (CLI) | payer MEDICARE, SELFPAY ==
--- NOTE | ~2021-04-08 | XR_ITS ---
EXAMINATION: XR abdomen/kub 1V EXAM DATE: 04/08/2021 11:27 INDICATION: Left kidney stone. TECHNIQUE: Frontal projection(s) of the abdomen for interpretation. Correlation is made to CT abdomen pelvis 10/14/2019. FINDINGS: Moderate amount of colonic stool and gas. Can't identify any definite suspicious focal calc ifications through this. There is mild thoracolumbar dextroscoliosis. The spinal cord signal intensit y and intrinsic morphology is normal. There is no organomegaly. IMPRESSION: Moderate colonic stool and gas. Reviewed, dictated and finalized at location A.
== END 2021-04-08 11:03 | disposition home or self-care (01) ==
LOC: ANHIMG 11:08
PROVIDERS: PCP Physician Assistant; Visit Provider Urology
DX: N20.0 Calculus of kidney (principal)
CPT/HCPCS: 74018

== ENCOUNTER 2021-07-23 15:19 | Outpatient (CLI) | payer MEDICARE, SELFPAY ==
--- NOTE | ~2021-07-23 | XR_ITS ---
XR foot RT min 3V DATE: 07/23/2021 15:39 INDICATION: Foot pain for 3 days. No acute injury. TECHNIQUE: 4 views COMPARISON: None FINDINGS: There is diffuse osteopenia. Posterior calcaneal enthesopathy. There is hallux valgus and bunion deformity. There is mild osteoarthritis at the first metatarsophala ngeal joint and some interphalangeal joints. No fracture, dislocation, periosteal reaction or bone destruction or erosive change. IMPRESSION: Osteopenia Posterior calcaneal enthesopathy Hallux valgus and bunion deformity Polyarticular osteoarthritis Reviewed, dictated and finalized at location A.
== END 2021-07-23 15:20 | disposition home or self-care (01) ==
LOC: ANHIMG 15:23
PROVIDERS: PCP Physician Assistant; Visit Provider Physician Assistant
DX: M85.871 Other specified disorders of bone density and structure, right ankle and foot (principal); M77.31 Calcaneal spur, right foot; M19.071 Primary osteoarthritis, right ankle and foot; M20.11 Hallux valgus (acquired), right foot
CPT/HCPCS: 73630

== ENCOUNTER 2021-08-22 14:46 | Outpatient (CLI) | payer MEDICARE, SELFPAY ==
--- NOTE | ~2021-08-22 | XR_ITS ---
EXAMINATION: XR abdomen/kub 1V DATE: 08/22/2021 15:01 INDICATION: Kidney stone. TECHNIQUE: A supine view of the abdomen on 2 radiographs was obtained. COMPARISON: CT abdomen 10/14/2019, abdomen radiographs 04/08/2021 FINDINGS: There are no dilated loops of bowel. Cholelithiasis is noted. IMPRESSION: 1. No visible urolithiasis. 2. Cholelithiasis. Reviewed, dictated and finalized at location A. SER HAND
== END 2021-08-22 14:47 | disposition home or self-care (01) ==
LOC: ANHIMG 14:49
PROVIDERS: PCP Family Medicine; Visit Provider Urology
DX: Z87.442 Personal history of urinary calculi (principal); K80.20 Calculus of gallbladder without cholecystitis without obstruction
CPT/HCPCS: 74018

== ENCOUNTER 2021-12-16 09:17 | Outpatient (CLI) | payer MEDICARE, SELFPAY ==
[2021-12-16 09:57] LABS: Hematocrit 46.4 % (37.0-47.0); Hemoglobin 14.2 g/dL (12.0-15.0)
[2021-12-16 10:10] LABS: INR 0.9; Prothrombin Time 12.1 Seconds (11.1-14.7)
[2021-12-16 10:11] LABS: Partial Thromboplastin Time 37.1 SECONDS (22.3-36.8)
[2021-12-16 10:18] LABS: Anion Gap 7 mmol/L (8-16); Blood Urea Nitrogen 29 mg/dL (7-17); Calcium 9.4 mg/dL (8.4-10.2); Carbon Dioxide 31 mmol/L (22-30); Chloride 103 mmol/L (98-107); Estimated Glomerular Filt Rate 48; Glucose 160 mg/dL (65-110); Potassium 3.9 mmol/L (3.4-5.0); Sodium 141 mmol/L (137-145)
== END 2021-12-16 09:18 | disposition home or self-care (01) ==
LOC: ANHSURGERY 09:24
PROVIDERS: Anesthesiology; PCP Family Medicine; Visit Provider Urology
DX: N30.10 Interstitial cystitis (chronic) without hematuria (principal); N28.9 Disorder of kidney and ureter, unspecified; D64.9 Anemia, unspecified; E11.9 Type 2 diabetes mellitus without complications; Z01.818 Encounter for other preprocedural examination
CPT/HCPCS: 36415; 80048; 85014; 85018; 85610; 85730; 87086; 87088

== ENCOUNTER 2021-12-18 12:17 | Outpatient (CLI) | payer MEDICARE, SELFPAY ==
--- NOTE | ~2021-12-18 | CT_ITS ---
EXAMINATION: CT brain wo con EXAM DATE: 12/18/2021 12:43 INDICATION: G45.9 - Transient cerebral ischemic attack, unspecified . Dizziness episode. TECHNIQUE: Spiral CT of the head was performed without contrast. Axial, coronal and sagittal images were reviewed. The dose-length product (DLP) for this examination was 605.33 mGy-cm. The exposure w as tailored according to patient size, and iterative reconstruction (ASIR) was used as additional dos e reduction technique. Comparison is made to prior examination from 12/18/2021. FINDINGS: There is no acute intraparenchymal hemorrhage. No evidence of intraparenchymal brain mass lesion. No evidence of acute infarction. Please note that initial head CT has limited sensitivity f or small or acute infarctions. There is moderate periventricular and subcortical hypodensity, nonspe cific but probably related to small vessel ischemic disease. There is a right middle cranial fossa ar achnoid cyst unchanged There is moderate prominence of the sulci and ventricles related to cerebral atrophy. There is intracranial carotid arteriosclerosis. There are no extra-axial collections. Th ere is no mass effect or midline shift. The orbits are unremarkable. Soft tissue is unremarkable. The visualized sinuses and mastoid air cells are well aerated. IMPRESSION: 1. No acute intracranial findings. 2. Chronic age related findings. 3. Arachnoid cyst, not clinically significant. Reviewed, dictated and finalized at location B.
[2021-12-18 13:45] LABS: Basophils Absolute Auto 0.1 K/mm3 (0.0-0.1); Basophils Percent Auto 0.8 % (0.2-1.2); Eosinophils Absolute Auto 0.2 K/mm3 (0-0.3); Eosinophils Percent Auto 1.6 % (0-4.4); Hematocrit 47.5 % (37.0-47.0); Hemoglobin 14.8 g/dL (12.0-15.0); Immature Granulocyte Absolute 0.04 K/mm3 (0.00-0.031); Immature Granulocyte Percent A 0.4 % (0-0.5); Lymphocytes Percent Auto 35.7 % (18.3-44.2); Mean Corpuscular HGB Conc 31.2 g/dl (32-36); Mean Corpuscular Hemoglobin 27.6 pg (26-34); Mean Corpuscular Volume 88.6 fl (80-100); Mean Platelet Volume 10.3 fl (7.4-10.4); Monocytes Absolute Auto 0.6 K/mm3 (0.1-0.6); Monocytes Percent Auto 5.8 % (2.6-8.5); Neutrophils Absolute Auto 5.6 K/mm3 (1.3-6.7); Neutrophils Percent Auto 55.7 % (45.5-73.1); Platelet Count Result 287 k/mm3 (150-375); Red Blood Count 5.36 M/mm3 (4.2-5.4); Red Cell Distribution Width 15.8 % (11.5-14.5); White Blood Count 10.1 K/mm3 (4.5-10.0)
--- NOTE | 2021-12-18 13:48 | ECG_ITS ---
Measurements Intervals [place] Rate: 92 P: 51 RI: 200 QRS: -6 QRSD: 97 T: 63 QT: 365 QTc: 453 Interpretive Statements SINUS RHYTHM CANNOT RULE OUT ANTERIOR MYOCARDIAL INFARCTION , OF INDETERMINATE AGE [40+ ms Q WAVE AND/OR ST/T ABNORMALITY IN V3/V4] INFERIOR MYOCARDIAL INFARCTION , OF INDETERMINATE AGE [40+ ms Q WAVE AND/OR ST/T ABNORMALITY IN II/aVF] ABNORMAL ECG COMPARED TO ECG 10/07/2019 12:57:14 HEART RATE HAS DECREASED Electronically Signed On 12-18-2021 15:54:06 CDT by Jewel Conte M.D.
[2021-12-18 13:57] LABS: CRP < 0.5 mg/dL (<1.0)
== END 2021-12-18 12:18 | disposition home or self-care (01) ==
PROVIDERS: PCP Family Medicine; Visit Provider Family Medicine
DX: N30.00 Acute cystitis without hematuria (principal); G45.9 Transient cerebral ischemic attack, unspecified; R94.31 Abnormal electrocardiogram [ECG] [EKG]; G93.0 Cerebral cysts
CPT/HCPCS: 36415; 70450; 85025; 86140; 87040; 93005

== ENCOUNTER 2021-12-25 09:51 | Outpatient (CLI) | payer MEDICARE, SELFPAY ==
--- NOTE | ~2021-12-25 | US_ITS ---
EXAMINATION: US carotid duplex BI DATE: 12/25/2021 10:48 INDICATION: Carotid and cerebral atherosclerosis. Transient cerebral ischemic attack. TECHNIQUE: Grayscale, color Doppler, and pulsed Doppler images of the cervical carotid arteries were obtained. The degree of vessel stenosis is placed in one of the following categories: normal, <50%, 5 0-69%, >=70% but less than near-occlusion, near-occlusion, or total occlusion. Note that percent sten osis relative to normal distal artery lumen diameter is indirectly measured from velocity measurement s as described by Luis, et al. Radiology 2003; 229:340-346. COMPARISON: None. FINDINGS: RIGHT: The right common carotid artery (CCA) peak systolic velocity (PSV) is 151 cm/s. The right internal ca rotid artery (ICA) PSV is 76 cm/s. The right ICA end-diastolic velocity (EDV) is 18 cm/s. The right I CA/CCA PSV ratio is 0.5. Grayscale and color Doppler images yield an estimate of <50% diameter reduct ion from plaque in the ICA. The external carotid artery (ECA) PSV is 109 cm/s. There is antegrade jacqui w in the right vertebral artery. LEFT: The left CCA PSV is 70 cm/s. The left ICA PSV is 77 cm/s. The left ICA EDV is 23 cm/s. The left ICA/C CA PSV ratio is 1.1. Grayscale and color Doppler images yield an estimate of <50% diameter reduction from plaque in the ICA. The ECA PSV is 87 cm/s. There is antegrade flow in the left vertebral artery. IMPRESSION: 1. <50% stenosis in the right internal carotid artery. 2. <50% stenosis in the left internal carotid artery. Reviewed, dictated and finalized at location B.
== END 2021-12-25 09:52 | disposition home or self-care (01) ==
PROVIDERS: PCP Family Medicine; Visit Provider Family Medicine
DX: I65.23 Occlusion and stenosis of bilateral carotid arteries (principal)
CPT/HCPCS: 93880

== ENCOUNTER 2021-12-26 00:54 | Day surgery (SDC) | payer MEDICARE, SELFPAY ==
[2021-12-11 08:52] VITALS: BMI 25.0
--- NOTE | 2021-12-11 16:15 | PC.NURSE ---
Report to the Outpatient Waiting Room, entrance under the green pavilion located off [facility], at time _7:00AM on date __12/26/21 . OR Time: __9:00AM . - You and your visitor will be asked a series of questions to screen for COVID 19 for your protection. - A mask is required within the hospital. Preoperative COVID Testing Requirements: No COVID Test needed if: (proof is required; if not received patient will have Rapid Test prior to entry) - Patient has received COVID Vaccine at least 14 days prior to procedure date or - Patient has positive COVID test result within last 90 days of surgery date. COVID Test needed if above criteria is not met If not COVID vaccinated a COVID test must be conducted within 72 hours of surgery and patient is asked to isolate self from time of testing until procedure. You will go to the [facility] for your COVID testing. The [facility] site is located at the corner of [address] [facility]. You will only be called if COVID results are positive and your surgeon may reschedule your elective surgery date. Patients may have clear liquids (water, carbonated beverages, clear teas, apple juice) until 3 hours prior to surgery with a maximum of 20 ounces. - No food from midnight until time of surgery - Infants may have breast milk until 4 hours before surgery, infant formula 6 hours prior to surgery. - Children will be allowed to drink immediately following surgery. If applicable, please bring a bottle or sippy cup to assist with drinking. Juice, water, soda, and popsicles are readily available. For infants on formula, please bring formula the day of surgery. Pacifiers are allowed. Take the following medications with a SIP of water the morning of surgery: ____CEPHALEXIN, METOPROLOL Medications to discontinue per physician ____HOLD ASPIRIN 7 DAYS PRE-OP (LAST DOSE-12/19/21), HOLD ALL VITAMINS/SUPPLEMENTS 3 DAYS PRE-OP (LAST DOSE 12/22/21) Please no make-up, nail syriac, hairspray, perfume, deodorant, or body powder the day of surgery. No jewelry (including any body piercings) or valuables the day of surgery, leave them at home. Please take a shower or bath the night before, or the morning of, surgery with an antibacterial soap. Wear comfortable, loose fitting clothing. Children are encouraged to wear pajamas. - Jewelry must be removed prior to entering the operating room. Rings and piercings that are not removed may be cut off. - The hospital will not accept responsibility for valuables. - Please leave all valuables, including medications, at home the day of surgery. If you are going home after surgery, a licensed farm truck driver must drive you home. - NO public transportation without another adult. - We recommend that an adult stay with you for 24 hours following discharge. - We also recommend that you do not drive, make important decision, drink alcoholic beverages, or take any drugs that were not prescribed by your health care provider for at least 24 hours after your discharge time. For Pediatric surgeries, we recommend two adults accompany the child home (only one inside the building at this time). One visitor will be allowed to accompany the patient into the hospital. Patients visitor will be instructed to remain with patient at all times or leave the building. We will allow the visitor to come back to the postoperative area when patient is ready. Follow any additional instructions given to you from your surgeon. Telephone instructions given to _PATIENT and asked if any additional questions and then verbalized understanding. Patient advised to call surgeon office or pre surgery nurse liaison [phone] if any additional questions.
--- NOTE | 2021-12-25 05:13 | PM.IMHP ---
H&P: HPI History of Present Illness Date/Time: 12/25/21 05:13 get BOTOX for OAB. Bladder biopsy shows infmallation c/w Hunners Ulcer Chief Complaint: hunner ulcer Review of Systems Review of Systems: All systems reviewed & are unremarkable except as noted in HPI and below PMFSH Past Medical History Medical History Acute renal failure (ARF) Patient received intermittent hemodialysis between 07/23/2019 and 07/29/2019 as well as 07/31/2019 and 08/02/2019. Patient is now on long-term hemodialysis schedule managed by Dr. Gianni Larson Anemia Anxiety Chronic anemia Pt is also anaemia was treated with blood transfusion and epogen shot before, ordered epogen shot again for pt as her hb is 6. Pt will need work up for anaemia if Dr Larson does not think it is related to kidney disease, pt baseline is 7.5. Diabetes mellitus Dialysis patient Dyslipidemia Encounter for immunization Essential tremor Family history of VRE (vancomycin resistant Enterococcus) infection Patient had VRE in her urine G tube feedings Only receiving supplemental feeds and 6 at night currently GERD (gastroesophageal reflux disease) Hemodialysis patient HTN (hypertension) Hypertension MVP (mitral valve prolapse) Obstructive sleep apnea Intolerant of CPAP JULIUS (obstructive sleep apnea) Osteoarthritis Osteopenia after menopause Parkinson's disease Shock liver TIA (transient ischemic attack) Type 2 diabetes mellitus Urethral stone Urge incontinence Uterine cancer UTI (urinary tract infection) Vancomycin-resistant enterococcus UTI Surgical History Surgical History H/O bilateral cataract extraction H/O inguinal hernia repair H/O lithotripsy H/O: hysterectomy History of bladder suspension procedure Two thousand four History of hysterectomy for malignancy History of urethral stent X2 Hx of tonsillectomy PEG (percutaneous endoscopic gastrostomy) status Placed 08/04/[address] Arboleda S/P dialysis catheter insertion Right chest S/P ureteral stent placement Family History Family History Father Acute myocardial infarction Family history of kidney disease Family history of aortic aneurysm Mother Cerebrovascular accident Father No problems noted. Mother No problems noted. Mother Cerebrovascular accident Social History Social History Social History: The patient lives with her Davi. She has 2 children. 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 She is lifelong nonsmoker. She does not drink alcohol or use illicit substances. Prior to 5 weeks ago she was independent in all activities of daily living. Her primary care physician Dr. Franco/Agata Lopez PA-C. Code status is full code. The patient recently this past Wednesday came home from [facility]. Her daughter and live with her. The daughter is the Holly NICKERSON. Smoking status: Never smoker Second hand tobacco smoke exposure: No Alcohol intake: never Substance use: never Additional living arrangements comments: SPOUSE & DAUGHTER Gender identity (if verbalized by the patient): Female Spiritual care concerns: No Agree to blood products: Yes Meds Home Medications and Allergies Home Medications Medication Instructions Recorded Confirmed Type melatonin 3 mg PO HS PRN 08/21/19 12/18/21 History multivitamin 1 tablet PO DAILY 08/21/19 12/18/21 History zinc 50 mg PO DAILY 08/21/19 12/18/21 History blood sugar diagnostic #100 each 04/01/20 12/18/21 Rx blood-glucose meter #1 each 04/01/20 12/18/21 Rx aspirin 81 mg tablet,delayed 81 mg PO DAILY 04/05/20 12/18/21 History release Probiotic 1 cap PO DAILY 04/16/20 12/18/21 History atorvastatin 10 mg tablet 10 mg PO .QHS #90 tablet 08/29/21 03
--- NOTE | 2021-12-26 07:15 | WPDHPUPDATE1 ---
History and Physical Update Update Date/Time: 12/26/21 07:15 History and Physical has been reviewed, including an updated exam of the patient. There are NO changes in the patient's condition. Risks, benefits, and alternatives have been discussed and questions answered. Patient agrees to proceed with procedure.
[2021-12-26 08:00] VITALS: BP 180/84; PULSE 89; RESP 16; TEMP 36.2; O2SAT 97
[2021-12-26] MEDS: LACTATED RINGERS 1,000 ML 30 ML IV CONT (08:25)
[2021-12-26 08:32] LABS: Glucose Point of Care 114 mg/dl (65-105)
--- NOTE | 2021-12-26 08:39 | WPDANESEPPF ---
Anes - Initial Pre Proc Eval Procedure: Operation Date: 12/26/21 09:00 Proposed Procedures p Cystoscopy with Steroid Injection - Cm Ball MD Date/Time: 12/26/21 08:39 Surgeon: Cm Ball MD Pre Op Diagnosis: hunner's ulcers Patient Data Age: 81 Gender: F Height: 1.63 m Weight: 66 kg Allergies Allergy/AdvReac Type Severity Reaction Status Date / Time tetracycline AdvReac Severe NAUSEA Verified 12/18/21 10:50 oxycodone AdvReac Unknown N&V Verified 12/18/21 10:50 Home Medications Medication Instructions Recorded Confirmed Type melatonin 3 mg PO HS PRN 08/21/19 12/18/21 History multivitamin 1 tablet PO DAILY 08/21/19 12/18/21 History zinc 50 mg PO DAILY 08/21/19 12/18/21 History blood sugar diagnostic #100 each 04/01/20 12/18/21 Rx blood-glucose meter #1 each 04/01/20 12/18/21 Rx aspirin 81 mg tablet,delayed 81 mg PO DAILY 04/05/20 12/18/21 History release Probiotic 1 cap PO DAILY 04/16/20 12/18/21 History atorvastatin 10 mg tablet 10 mg PO .QHS #90 tablet 08/29/21 12/18/21 Rx lancets 33 gauge #100 each 11/03/21 12/18/21 Rx blood sugar diagnostic #100 ea 11/05/21 12/18/21 Rx acetaminophen 650 mg PO Q6H PRN 12/11/21 12/18/21 History amitriptyline 25 mg PO HS 12/11/21 12/18/21 History baclofen 10 mg PO BID PRN 12/11/21 12/18/21 History cephalexin 250 mg PO QAM 12/11/21 12/18/21 History docusate sodium [Colace] 100 mg PO TID 12/11/21 12/18/21 History ferrous sulfate [Slow Fe] 142 mg PO DAILY 12/11/21 12/18/21 History metoprolol succinate 25 mg PO QAM 12/11/21 12/18/21 History metformin 500 mg tablet,extended 1,000 mg PO QAM #90 tablet 12/17/21 12/18/21 Rx release 24 hr Laboratory Tests 12/26/21 08:26 POC Capillary Glucose 114 mg/dl H mg/dl (65-105) Patient hx anesthesia problems: none Family hx anesthesia problems: none Results Review: All pre-operative results and documents have been reviewed as part of the pre-operative evaluation. [facility] Past Medical History Medical History Acute renal failure (ARF) Patient received intermittent hemodialysis between 07/23/2019 and 07/29/2019 as well as 07/31/2019 and 08/02/2019. Patient is now on long-term hemodialysis schedule managed by Dr. Gianni Larson Anemia Anxiety Chronic anemia Pt is also anaemia was treated with blood transfusion and epogen shot before, ordered epogen shot again for pt as her hb is 6. Pt will need work up for anaemia if Dr Larson does not think it is related to kidney disease, pt baseline is 7.5. Diabetes mellitus Dialysis patient Dyslipidemia Encounter for immunization Essential tremor Family history of VRE (vancomycin resistant Enterococcus) infection Patient had VRE in her urine G tube feedings Only receiving supplemental feeds and 6 at night currently GERD (gastroesophageal reflux disease) Hemodialysis patient HTN (hypertension) Hypertension MVP (mitral valve prolapse) Obstructive sleep apnea Intolerant of CPAP JULIUS (obstructive sleep apnea) Osteoarthritis Osteopenia after menopause Parkinson's disease Shock liver TIA (transient ischemic attack) Type 2 diabetes mellitus Urethral stone Urge incontinence Uterine cancer UTI (urinary tract infection) Vancomycin-resistant enterococcus UTI Surgical History Surgical History H/O bilateral cataract extraction H/O inguinal hernia repair H/O lithotripsy H/O: hysterectomy History of bladder suspension procedure Two thousand four History of hysterectomy for malignancy History of urethral stent X2 Hx of tonsillectomy PEG (percutaneous endoscopic gastrostomy) status Placed 08/04/[address] Arboleda S/P dialysis catheter insertion Right chest S/P ureteral stent placement Family History Family History Father Acute myocardial infarction Family history of kidney disease F
[2021-12-26] MEDS: ceFAZolin 2 GM/D5W 50 ML 2 GM/50 ML BAG IVPB (09:17)
[2021-12-26] MEDS: TRIAMCINOLONE ACET INJ 40 MG/ML VIAL 200 MG XX (09:37)
[2021-12-26 09:48] VITALS: BP 143/89; PULSE 85; RESP 14; O2SAT 97
--- NOTE | 2021-12-26 09:51 | W.PM.PROC2 ---
Procedure Note - Detailed Date of Procedure 12/26/21 Pre-op Diagnosis hunner's ulcers Post-op Diagnosis Same Procedure Performed Cystoscopy, bladder biopsy, steroid injection Surgeon Cm Ball MD Anesthesia MAC Indications This is a with bladder lesion consistent inflammation. She has urgency frequency. She gets Botox. She is here today for bladder biopsy and steroid injection Findings Hunner's ulcer x2 on right lateral wall Description of Procedure She has correctly identified. Informed consent obtained. From the operating room. She was given MAC anesthesia. She was prepped and draped in a sterile fashion. She was placed in dorsal thigh position. Time-out performed. Cystoscopy revealed 2 areas of Hunner's ulceration on the right lateral wall. Will area was biopsied. I injected steroids. 40 milligrams/milliliter Kenalog. We injected 200 mils total. I fulgurated the biopsy injection sites. There was no bleeding under low insufflation pressures. She was awakened transferred to PACU in stable condition. Estimated Blood Loss 1 Drains No Packing No Pathology Yes (Bladder biopsy) Complications No immediate complications Condition Stable
[2021-12-26 10:02] LABS: Glucose Point of Care 112 mg/dl (65-105)
[2021-12-26 10:15] VITALS: BP 199/89; PULSE 79; RESP 14; O2SAT 97
--- NOTE | 2021-12-26 10:43 | SUR.PHASEII ---
DR. GREWAL NOTIFIED RE: ELEVATED BP'S. NO INTERVENTIONS ORDERED EXCEPT TO FOLLOW-UP WITH PRIMARY DOCTOR.
[2021-12-26 10:45] VITALS: BP 188/91; PULSE 74; RESP 14
== END 2021-12-26 11:00 | disposition home or self-care (01) ==
PROVIDERS: PCP Family Medicine; Visit Provider Urology
PROC: 0TBB8ZX Excision of Bladder, Via Natural or Artificial Opening Endoscopic, Diagnostic (ICD-10-PCS; CPT 52204; principal; 2021-12-26 09:00)
DX: N30.10 Interstitial cystitis (chronic) without hematuria (principal); G20 Parkinson's disease; G47.33 Obstructive sleep apnea (adult) (pediatric); I34.1 Nonrheumatic mitral (valve) prolapse; G25.0 Essential tremor; D64.9 Anemia, unspecified; E78.5 Hyperlipidemia, unspecified; I12.9 Hypertensive chronic kidney disease with stage 1 through stage 4 chronic kidney disease, or unspecified chronic kidney disease; E11.22 Type 2 diabetes mellitus with diabetic chronic kidney disease; N18.9 Chronic kidney disease, unspecified; F41.9 Anxiety disorder, unspecified; Z99.2 Dependence on renal dialysis; Z79.82 Long term (current) use of aspirin; Z79.84 Long term (current) use of oral hypoglycemic drugs; Z93.1 Gastrostomy status; Z85.42 Personal history of malignant neoplasm of other parts of uterus
CPT/HCPCS: 52204; 52283; 36415; 80048; 82948; 85014; 85018; 85610; 85730; 87086; 87088; 88305; A9270; J0690; J2704; J3301; J7120

== ENCOUNTER 2022-01-08 12:27 | Outpatient (CLI) | payer MEDICARE, SELFPAY ==
--- NOTE | 2022-01-08 12:52 | ECHO_ITS ---
Patient Info Name: Aliya Richardson Age: 81 years : 1940 Gender: Female Ht: 65 in Wt: 141 lbs BSA: 1.72 m2 HR: 91 bpm BP: 165 / 96 mmHg Technical Quality: Poor Exam Date: 01/08/2022 1:17 PM Exam Location: [facility] Patient Status: Outpatient Admit Date: 01/08/2022 Staff Ordering Physician: Agnieszka Franco MD Structural Analyst: Ilan Guidry, MARIA INES, RT Attending Provider: Agnieszka Franco MD Referring Physician: Salvador CASTRO; Exam Type: CA echo doppler color flow Study Info Indications G45.8 - Other transient cerebral ischemic attacks and related syndromes Complete two-dimensional, color flow and Doppler transthoracic echocardiogram is performed. Summary 1. Complete two-dimensional, color flow and Doppler transthoracic echocardiogram is performed. 2. Technically suboptimal study due to poor sonographic images. 3. Left ventricular chamber dimension is normal. 4. Left ventricular systolic function is normal, estimated at 65-70%. 5. There is mildly increased left ventricular wall thickness. 6. The left ventricular diastolic function is grade I diastolic dysfunction. 7. E/e' 10 is mildly elevated. 8. There is trace aortic valve regurgitation. 9. No pulmonary hypertension, estimated pulmonary arterial systolic pressure is 27 mmHg. Left Ventricle Technically suboptimal study due to poor sonographic images. E/e' 10 is mildly elevated. Left ventricular chamber dimension is normal. Left ventricular systolic function is normal, estimated at 65-70%. There is mildly increased left ventricular wall thickness. The left ventricular diastolic function is grade I diastolic dysfunction. Right Ventricle Right ventricular systolic function is normal and with normal TAPSE 2.0 cm. Right ventricular chamber dimension is not well visualized. Left Atria Left atrial chamber dimension is normal. Right Atria Right atrial chamber dimension is not well visualized. Aortic Valve The aortic valve is probable trileaflet. There is no aortic valve stenosis. There is trace aortic valve regurgitation. Pulmonic Valve The pulmonic valve is not well visualized. Mitral Valve There is no mitral valve stenosis. There is no mitral valve regurgitation. Tricuspid Valve The tricuspid valve leaflets are not well visualized. There is no tricuspid valve regurgitation. No pulmonary hypertension, estimated pulmonary arterial systolic pressure is 27 mmHg. Pericardium/Pleural There is no pericardial effusion. Inferior Vena Cava Normal inferior vena cava with >50% collapse upon inspiration consistent with normal right atrial pressure, 5 mmHg. Aorta The aortic root size at the sinus of Valsalva is not well visualized. Left Ventricular Outflow Tract Name Value Normal LVOT 2D LVOT Diameter 1.9 cm LVOT Doppler LVOT Peak Gradient 3 mmHg LVOT Mean Gradient 2 mmHg LVOT VTI 16 cm LVOT VTI/AV VTI Ratio 0.8 LVOT Stroke Volume 44 ml LVOT CO 3.6 l/min
== END 2022-01-08 12:28 | disposition home or self-care (01) ==
LOC: ANHCARD 12:32
PROVIDERS: PCP Family Medicine; Visit Provider Family Medicine
DX: G45.9 Transient cerebral ischemic attack, unspecified (principal)
CPT/HCPCS: 93306

== ENCOUNTER 2022-01-14 09:29 | Outpatient (CLI) | payer MEDICARE, SELFPAY ==
[2022-01-14 09:46] LABS: Basophils Absolute Auto 0.1 K/mm3 (0.0-0.1); Basophils Percent Auto 0.8 % (0.2-1.2); Eosinophils Absolute Auto 0.1 K/mm3 (0-0.3); Eosinophils Percent Auto 1.2 % (0-4.4); Hematocrit 52.6 % (37.0-47.0); Hemoglobin 14.7 g/dL (12.0-15.0); Immature Granulocyte Absolute 0.03 K/mm3 (0.00-0.031); Immature Granulocyte Percent A 0.3 % (0-0.5); Lymphocytes Absolute Auto 2.14 K/mm3 (0.9-3.2); Lymphocytes Percent Auto 23.5 % (18.3-44.2); Mean Corpuscular HGB Conc 27.9 g/dl (32-36); Mean Corpuscular Hemoglobin 27.2 pg (26-34); Mean Corpuscular Volume 97.4 fl (80-100); Monocytes Absolute Auto 0.4 K/mm3 (0.1-0.6); Monocytes Percent Auto 4.8 % (2.6-8.5); Neutrophils Absolute Auto 6.3 K/mm3 (1.3-6.7); Neutrophils Percent Auto 69.4 % (45.5-73.1); Platelet Count Result 149 k/mm3 (150-375); Red Cell Distribution Width 16.2 % (11.5-14.5); White Blood Count 9.1 K/mm3 (4.5-10.0)
[2022-01-14 09:55] LABS: Hypochromasia 1+ (NORMAL); Platelet Estimate Adequate (Adequate)
[2022-01-14 10:00] LABS: Blood Urea Nitrogen 32 mg/dL (8-26); Carbon Dioxide 25 mmol/L (22-30); Chloride 107 mmol/L (98-109); Estimated Glomerular Filt Rate 60; Glucose 108 mg/dL (70-105); Potassium 4.4 mmol/L (3.5-4.9); Sodium 141 mmol/L (138-146)
[2022-01-14 11:09] LABS: Alanine Aminotransferase 16 U/L (4-35); Albumin Level 4.5 g/dL (3.5-5.1); Alkaline Phosphatase 52 U/L (38-126); Anion Gap 11 mmol/L (8-16); Aspartate Amino Transferase 88 U/L (14-36); Blood Urea Nitrogen 33 mg/dL (7-17); Calcium 9.4 mg/dL (8.4-10.2); Carbon Dioxide 22 mmol/L (22-30); Chloride 107 mmol/L (98-107); Estimated Glomerular Filt Rate 60; Glucose 107 mg/dL (65-110); Potassium 4.5 mmol/L (3.4-5.0); Sodium 140 mmol/L (137-145)
== END 2022-01-14 09:30 | disposition home or self-care (01) ==
LOC: ANHLAB 09:30
PROVIDERS: PCP Family Medicine; Visit Provider Internal Medicine Hematology & Oncology
DX: D64.9 Anemia, unspecified (principal)
CPT/HCPCS: 36415; 80047; 80053; 85025

== ENCOUNTER 2022-04-09 07:32 | Outpatient (CLI) | payer MEDICARE, SELFPAY ==
--- NOTE | ~2022-04-09 | XR_ITS ---
XR abdomen/kub 1V DATE: 04/09/2022 07:57 INDICATION: Microscopic hematuria. TECHNIQUE: AP projection, 2 views COMPARISON: 04/09/2022 CT abdomen pelvis FINDINGS: A calcified calculus is noted overlying the distal left ureter, corresponding to the obstru cting calculus of the distal left ureter noted on 04/09/2022 CT abdomen pelvis examination. The several pinpoint calculi of the kidneys are not radiographically detected. No evidence of bowel obstruction. No visceromegaly is evident. Abdominal aortic and iliac arterial calcifications. IMPRESSION: Distal left ureteral calcified calculus Reviewed, dictated and finalized at [facility]. Reviewed, dictated and finalized at location B.
--- NOTE | ~2022-04-09 | CT_ITS ---
EXAMINATION: CT abdomen pelvis wo/w con DATE: 04/09/2022 08:32 INDICATION: Microscopic hematuria TECHNIQUE: Computed tomography (CT) of the abdomen and pelvis was performed without and subsequently with 130 CC Omnipaque 300 intravenous contrast. Automated exposure control and iterative reconstructi on technique were employed. Exam dose: 860.37 mGy-cm total exam DLP. COMPARISON: 04/09/2022 KUB 10/14/2019 CT abdomen 10/09/2019 CT abdomen pelvis FINDINGS: Minimal bilateral lower lobe dependent atelectasis. Prominent coronary artery calcifications. Cardiomegaly. No pericardial or pleural effusion. No hepatic or splenic or pancreatic space-occupying mass lesion. There are numerous stones in the dependent aspect of the gallbladder. No gallbladder wall thickening or pericholecystic fluid or fat stranding. No bile duct or pancreatic duct dilatation. Normal morphol ogy of the adrenal glands. Bilateral renal cysts, more numerous on the right, measuring up to approximately 1.5 cm on the right. There is approximately 1.6 x 1.3 cm area of irregular soft tissue density along the posterior aspect of the lower pole of the left kidney, with linear bands of density extending peripherally into the pe rinephric space and down. This is likely residual scarring from prior abscess of the kidney noted on 10/14/2019 CT examination. Hypernephroma would be much less likely. There is a pinpoint right lower pole renal nonobstructing calculus. There is a pinpoint nonobstructing upper pole left renal calculus. There is one or more left distal ureteral calculi, measuring up to 1.5 cm vertical length and up to 4 .7 mm transverse dimension. There is prominent proximal left hydroureteronephrosis. There is left renal atrophy with diminished thickness of the left renal cortex compared to the right. There is mild left perinephric stranding. No right ureteral calculus or right hydronephrosis. The urinary bladder is unremarkable. Status post hysterectomy. Occasional diverticula of left and right colon; no CT evidence of diverticulitis. There is a prominen t amount of fecal material throughout the colon. No evidence of appendicitis. No bowel obstruction, b owel wall thickening, pneumatosis or intraperitoneal free air. There is extensive calcification of the abdominal aorta, iliac and femoral arteries, but no aneurysm. No intraperitoneal or retroperitoneal or pelvic mass lesion or adenopathy or ascites. Fat-containing right inguinal hernia. No suspicious osteolytic or osteoblastic lesions. IMPRESSION: 4.7 x 15 mm calculus or calculi of distal left ureter with proximal moderately severe le ft hydroureteronephrosis Pinpoint nonobstructing calculus of each kidney Bilateral renal cysts Probable residual left renal scarring from prior abscess; left renal atrophy Cholelithiasis Mild left and right colon diverticulosis; no CT evidence of diverticulitis Status post hysterectomy Fat-containing right inguinal hernia Reviewed, dictated and finalized at [facility]. Reviewed, dictated and finalized at location B. IMPRESSION: 4.7 x 15 mm calculus or calculi of distal left ureter with proxima l moderately severe left hydroureteronephrosis Pinpoint nonobstructing calculus of each kidney Bilateral renal cysts Probable residual left renal scarring from prior abscess; left renal atrophy Cholelithiasis Mild left and right colon diverticulosis; no CT evidence of diverticulitis Status post hysterectomy Fat-containing right inguinal hernia
[2022-04-09 08:12] LABS: Estimated Glomerular Filt Rate 43
== END 2022-04-09 07:33 | disposition home or self-care (01) ==
PROVIDERS: PCP Family Medicine; Visit Provider Nurse Practitioner Adult Health
DX: R31.29 Other microscopic hematuria (principal); K40.90 Unilateral inguinal hernia, without obstruction or gangrene, not specified as recurrent; K57.30 Diverticulosis of large intestine without perforation or abscess without bleeding; K80.20 Calculus of gallbladder without cholecystitis without obstruction; N28.1 Cyst of kidney, acquired
CPT/HCPCS: 74018; 74178; Q9967

== ENCOUNTER 2022-04-10 10:55 | Outpatient (CLI) | payer MEDICARE, SELFPAY ==
[2022-04-10 11:43] LABS: Anion Gap 4 mmol/L (8-16); Blood Urea Nitrogen 23 mg/dL (7-17); Calcium 9.4 mg/dL (8.4-10.2); Carbon Dioxide 33 mmol/L (22-30); Chloride 102 mmol/L (98-107); Estimated Glomerular Filt Rate 60; Glucose 102 mg/dL (65-110); Sodium 139 mmol/L (137-145)
== END 2022-04-10 10:56 | disposition home or self-care (01) ==
PROVIDERS: Anesthesiology; PCP Family Medicine; Visit Provider Urology
DX: Z01.818 Encounter for other preprocedural examination (principal); E11.9 Type 2 diabetes mellitus without complications
CPT/HCPCS: 36415; 80048

== ENCOUNTER 2022-04-14 00:16 | Day surgery (SDC) | payer MEDICARE, SELFPAY ==
--- NOTE | 2022-04-10 09:25 | PC.NURSE ---
Report to the Outpatient Waiting Room, entrance under the green pavilion located off [facility], at time __1200 on date _04/14/22 . OR Time: _2:00PM . - You and your visitor will be asked a series of questions to screen for COVID 19 for your protection. - Only one visitor is allowed at this time. - The patient visitor is requested to leave or wait in car when not with patient. - A mask is required within the hospital. Patients may have clear liquids (water, carbonated beverages, clear teas, apple juice) until 3 hours prior to surgery with a maximum of 20 ounces. - No food from midnight until time of surgery - Infants may have breast milk until 4 hours before surgery, infant formula 6 hours prior to surgery. - Children will be allowed to drink immediately following surgery. If applicable, please bring a bottle or sippy cup to assist with drinking. Juice, water, soda, and popsicles are readily available. For infants on formula, please bring formula the day of surgery. Pacifiers are allowed. Take the following medications with a SIP of water the morning of surgery: __METOPROLOL Medications to discontinue per physician __ASPIRIN PER DR SERNA ALL VITAMINS AND SUPPLEMENTS 3 DAYS PRE OP Date to take last dose___04/10/22 Please no make-up, nail sri lankan, hairspray, perfume, deodorant, or body powder the day of surgery. No jewelry (including any body piercings) or valuables the day of surgery, leave them at home. Please take a shower or bath the night before, or the morning of, surgery with an antibacterial soap. Wear comfortable, loose fitting clothing. Children are encouraged to wear pajamas. - Jewelry must be removed prior to entering the operating room. Rings and piercings that are not removed may be cut off. - The hospital will not accept responsibility for valuables. - Please leave all valuables, including medications, at home the day of surgery. If you are going home after surgery, a licensed motor coach driver must drive you home. - NO public transportation without another adult. - We recommend that an adult stay with you for 24 hours following discharge. - We also recommend that you do not drive, make important decision, drink alcoholic beverages, or take any drugs that were not prescribed by your health care provider for at least 24 hours after your discharge time. For Pediatric surgeries, we recommend two adults accompany the child home (only one inside the building at this time). Follow any additional instructions given to you from your surgeon. If you or anyone in your household have experienced Covid symptoms in the past week, please notify your surgeon or the nurse liaison at the phone number below for possible testing. Telephone instructions given to __PATIENT and asked if any additional questions and then verbalized understanding. Patient advised to call surgeon office or pre surgery nurse liaison [phone] if any additional questions.
[2022-04-10 09:33] VITALS: BMI 22.9
--- NOTE | 2022-04-13 14:20 | WPDANESEPPF ---
Anes - Initial Pre Proc Eval Procedure: Operation Date: 04/14/22 15:00 Proposed Procedures p Cystoscopy, Left Ureteroscopy, Left Stone Extraction, Possible Left Retrograde Pyelogram, Possible Left Stent Placement, Possible Holmium Laser Procedure - Diego Villa MD Date/Time: 04/13/22 14:20 Surgeon: Diego Villa MD Pre Op Diagnosis: Left Ureteral Stone Patient Data Age: 81 Gender: F Height: 1.68 m Weight: 64.45 kg Allergies Allergy/AdvReac Type Severity Reaction Status Date / Time tetracycline AdvReac Severe NAUSEA Verified 04/10/22 09:11 oxycodone AdvReac Unknown N&V Verified 04/10/22 09:11 Home Medications Medication Instructions Recorded Confirmed Type melatonin 3 mg tablet 3 mg PO HS PRN Insomnia 08/21/19 04/10/22 History multivitamin 1 tablet PO DAILY 08/21/19 04/10/22 History zinc 50 mg tablet 50 mg PO DAILY 08/21/19 04/10/22 History blood sugar diagnostic (Blood #100 ea 04/01/20 01/07/22 Rx Glucose Test strips) blood-glucose meter #1 ea 04/01/20 01/07/22 Rx aspirin 81 mg tablet,delayed 81 mg PO DAILY 04/05/20 04/10/22 History release (Adult Low Dose Aspirin) Lactobacillus 40-Bifidobact 1 cap PO DAILY 04/16/20 04/10/22 History 3-S.thermophilus 100 billion cell capsule (Probiotic) lancets 33 gauge (OneTouch Delica #100 ea 11/03/21 01/07/22 Rx Lancets) blood sugar diagnostic (OneTouch #100 ea 11/05/21 01/07/22 Rx Ultra Test strips) acetaminophen 325 mg tablet 650 mg PO Q6H PRN Pain 12/11/21 04/10/22 History docusate sodium 100 mg capsule 100 mg PO TID 12/11/21 04/10/22 History (Colace) metoprolol succinate 25 mg 25 mg PO QAM 12/11/21 04/10/22 History tablet,extended release 24 hr atorvastatin 10 mg tablet 10 mg PO .QHS #90 tabs 02/17/22 04/10/22 Rx amitriptyline 25 mg tablet 25 mg PO HS #90 tabs 03/03/22 04/10/22 Rx metformin 500 mg tablet,extended 1,000 mg PO QAM #90 tabs 03/03/22 04/10/22 Rx release 24 hr baclofen 10 mg tablet 10 mg PO BID PRN muscle spasm #90 04/08/22 04/10/22 Rx tabs solifenacin 5 mg tablet 5 mg PO HS 04/10/22 04/10/22 History Patient hx anesthesia problems: none Family hx anesthesia problems: none Results Review: All pre-operative results and documents have been reviewed as part of the pre-operative evaluation. [facility] Past Medical History Medical History (Updated 04/13/22 @ 14:30 by Armin Monroe MD) Acute renal failure (ARF) Patient received intermittent hemodialysis between 07/23/2019 and 07/29/2019 as well as 07/31/2019 and 08/02/2019. Patient is now on long-term hemodialysis schedule managed by Dr. Gianni Larson Anemia Anxiety Anxiety Cardiac arrest Chronic anemia Pt is also anaemia was treated with blood transfusion and epogen shot before, ordered epogen shot again for pt as her hb is 6. Pt will need work up for anaemia if Dr Larson does not think it is related to kidney disease, pt baseline is 7.5. 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 G tube feedings Only receiving supplemental feeds and 6 at night currently GERD (gastroesophageal reflux disease) GERD (gastroesophageal reflux disease) Hemodialysis patient HTN (hypertension) Hypertension Hypertension MVP (mitral valve prolapse) MVP (mitral valve prolapse) NSTEMI (non-ST elevated myocardial infarction) Obstructive sleep apnea Intolerant of CPAP Obstructive sleep apnea Intolerant of CPAP JULIUS (obstructive sleep apnea) Osteoarthritis Osteopenia after menopause Parkinson's disease Polyneuropathy associated with critical illness Shock liver TIA (transient ischemic attack) TIA (transient ischemic attack) TIA (transient ischemic attack) Type 2 diabetes mellitus Urethral stone Urge incontinence Uterine cancer UTI (urinary tract infection) Vanc
--- NOTE | ~2022-04-14 | XR_ITS ---
EXAMINATION: XR retrograde pyelo w/stent LT DATE: 04/14/2022 16:24 INDICATION: Left internal ureteral stent placement TECHNIQUE: Fluoroscopic images from a left internal ureteral stent placement are submitted for review . 93 seconds of fluoroscopy time. 93 fluoroscopic images. FINDINGS: There is a left double-J internal ureteral stent projecting in expected position, with proximal [place] loop at the level of the renal pelvis and distal loop is not visualized. IMPRESSION: 1. Left internal ureteral stent placement. Please refer to real-time procedural findings for detail s. Reviewed, dictated and finalized at location A. IMPRESSION: 1. Left internal ureteral stent placement. Please refer to real-time procedur al findings for details.
[2022-04-14 13:30] VITALS: BP 171/92; PULSE 104; RESP 16; TEMP 36.8; O2SAT 97
[2022-04-14] MEDS: LACTATED RINGERS 1,000 ML 30 ML IV CONT (13:30)
[2022-04-14 13:42] LABS: Glucose Point of Care 98 mg/dl (65-105)
--- NOTE | 2022-04-14 13:57 | PM.HPGS ---
History of Present Illness History of Present Illness Consent: Risks, benefits, and alternatives have been discussed and questions answered. Patient agrees to proceed with procedure. Chief complaint: Left Ureteral Stone Narrative: Aliya Richardson is a 81 year old female with a history of recurrent urolithiasis who has required several urological procedures in the past. She recently presented with atypical flank discomfort and imaging reveals a 5 x 15 mm left distal ureteral calculus. After discussion of options she has elected to proceed with cystoscopy with left ureteroscopy, laser lithotripsy and stone extraction with possible stent placement. This is where the risk including, lot limited to, adverse cardiopulmonary events, residual stone fragments and possible need for stent placement. Review of Systems Cardiovascular: Cardiovascular: Denies chest pain, Denies lightheadedness, Denies palpitations and Denies dyspnea Respiratory: Respiratory: Denies dyspnea Gastrointestinal: Gastrointestinal: Denies diarrhea, Denies nausea and Denies vomiting Genitourinary: Genitourinary: Denies hematuria and Denies dysuria Endocrine: Endocrine: Denies palpitations [facility] Past Medical History Medical History (Updated 04/14/22 @ 13:59 by Diego Villa MD) Acute renal failure (ARF) Patient received intermittent hemodialysis between 07/23/2019 and 07/29/2019 as well as 07/31/2019 and 08/02/2019. Patient is now on long-term hemodialysis schedule managed by Dr. Gianni Larson Anemia Anxiety Anxiety Cardiac arrest Chronic anemia Pt is also anaemia was treated with blood transfusion and epogen shot before, ordered epogen shot again for pt as her hb is 6. Pt will need work up for anaemia if Dr Larson does not think it is related to kidney disease, pt baseline is 7.5. 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 G tube feedings Only receiving supplemental feeds and 6 at night currently GERD (gastroesophageal reflux disease) GERD (gastroesophageal reflux disease) Hemodialysis patient HTN (hypertension) Hypertension Hypertension MVP (mitral valve prolapse) MVP (mitral valve prolapse) NSTEMI (non-ST elevated myocardial infarction) Obstructive sleep apnea Intolerant of CPAP Obstructive sleep apnea Intolerant of CPAP JULIUS (obstructive sleep apnea) Osteoarthritis Osteopenia after menopause Parkinson's disease Polyneuropathy associated with critical illness Shock liver TIA (transient ischemic attack) TIA (transient ischemic attack) TIA (transient ischemic attack) Type 2 diabetes mellitus Urethral stone Urge incontinence Uterine cancer UTI (urinary tract infection) Vancomycin-resistant enterococcus UTI Surgical History Surgical History H/O bilateral cataract extraction H/O inguinal hernia repair H/O lithotripsy H/O: hysterectomy History of bladder suspension procedure Two thousand four History of hysterectomy for malignancy History of urethral stent X2 Hx of tonsillectomy PEG (percutaneous endoscopic gastrostomy) status Placed 08/04/[address] Arboleda S/P dialysis catheter insertion Right chest S/P ureteral stent placement Family History Family History Father Acute myocardial infarction Family history of kidney disease Family history of aortic aneurysm Mother Cerebrovascular accident Father No problems noted. Mother No problems noted. Mother Cerebrovascular accident Social History Social History Social History: The patient lives with her Davi. She has 2 children. 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 She
[2022-04-14] MEDS: ceFAZolin 2 GM/D5W 50 ML 2 GM/50 ML BAG IVPB (15:37)
--- NOTE | 2022-04-14 15:37 | WPDHPUPDATE1 ---
History and Physical Update Update Date/Time: 04/14/22 15:37 History and Physical has been reviewed, including an updated exam of the patient. There are NO changes in the patient's condition. Risks, benefits, and alternatives have been discussed and questions answered. Patient agrees to proceed with procedure.
[2022-04-14] MEDS: LIDOCAINE HCL 2% GEL UROJET 10 ML PKG MUCOUS MEM (15:53)
[2022-04-14 16:27] VITALS: BP 153/84; PULSE 96; RESP 18; TEMP 36.4; O2SAT 100
--- NOTE | 2022-04-14 16:35 | SUR.PHASEI ---
1630- oral airway removed
--- NOTE | 2022-04-14 16:35 | W.PM.PROC2 ---
Procedure Note - Detailed Date of Procedure 04/14/22 Pre-op Diagnosis Left Ureteral Stone Post-op Diagnosis Same Procedure Performed Cystoscopy, left ureteroscopy with laser lithotripsy, stone extraction, left ureteral pyelogram and stent placement Surgeon Diego Villa MD Description of Procedure The patient was brought to the operative suite where she is prepped and draped in a routine sterile fashion while in the dorsal lithotomy position after the uneventful induction of a general LMA anesthetic. A 19F rigid cystoscope was placed in the bladder. The patient had no evidence of urethral stricture or bladder neck contracture. The bladder mucosa was endoscopically normal without hyperemia or neoplasm. There was a single, orthotopic ureteral orifice bilaterally. A 0.035 glidewire was advanced into the left renal pelvis under fluoroscopy. The distal ureter was dilated with an 8F/10F ureteral dilator. Ureteroscopy was undertaken with a short tapered semi-rigid ureteroscope. With ureteroscopy I fractured the stone into smaller pieces using a 273micron Holmium laser fiber with the Holmium laser. I was able to then extract the stone pieces using a 1.9F Escape, disposable stone basket. Due to the extent of this manipulation I did place a 4.8F double-J ureteral stent. First outlined the renal pelvis via a retrograde pyelogram with an angiographic catheter. The proximal coil of the stent was confirmed to be in the renal pelvis and the distal coil in the bladder. The patient's bladder was emptied and he was taken to the recovery room having tolerated this procedure well. Drains Yes Packing No Pathology Yes Complications No immediate complications Disposition PACU
[2022-04-14 16:42] VITALS: BP 154/94; PULSE 84; RESP 14; O2SAT 99
[2022-04-14 16:50] LABS: Glucose Point of Care 83 mg/dl (65-105)
[2022-04-14 16:57] VITALS: BP 147/85; PULSE 81; RESP 16; O2SAT 98
[2022-04-14 17:05] VITALS: BP 156/96; PULSE 79; RESP 16
[2022-04-14 17:35] VITALS: BP 167/81; RESP 80
== END 2022-04-14 17:50 | disposition home or self-care (01) ==
PROVIDERS: PCP Family Medicine; Visit Provider Urology
PROC: (CPT 52352; principal; 2022-04-14 15:00)
DX: N20.1 Calculus of ureter (principal); I12.9 Hypertensive chronic kidney disease with stage 1 through stage 4 chronic kidney disease, or unspecified chronic kidney disease; E11.22 Type 2 diabetes mellitus with diabetic chronic kidney disease; N18.9 Chronic kidney disease, unspecified; E78.5 Hyperlipidemia, unspecified; I25.2 Old myocardial infarction; K21.9 Gastro-esophageal reflux disease without esophagitis; Z99.2 Dependence on renal dialysis; D64.9 Anemia, unspecified; F41.9 Anxiety disorder, unspecified; G25.0 Essential tremor; I34.1 Nonrheumatic mitral (valve) prolapse; G47.33 Obstructive sleep apnea (adult) (pediatric); G20 Parkinson's disease; Z86.73 Personal history of transient ischemic attack (TIA), and cerebral infarction without residual deficits; G62.9 Polyneuropathy, unspecified; Z93.1 Gastrostomy status; Z79.84 Long term (current) use of oral hypoglycemic drugs; Z79.82 Long term (current) use of aspirin
CPT/HCPCS: 52356; 36415; 74420; 80048; 82365; 82948; 88300; A9270; C1769; C1887; C2617; J0131; J0690; J2405; J2704; J3010; J7120; Q9966

== ENCOUNTER 2022-06-23 16:16 | Observation (INO) | payer MEDICARE, SELFPAY ==
[2022-06-23] VITALS (20 sets, daily range): BP systolic 148–190; BP diastolic 56–99; PULSE 69–81; RESP 13–24; TEMP 36.1–36.6; O2SAT 95–100; BMI 18.7
--- NOTE | ~2022-06-23 | MR_ITS ---
EXAMINATION: MR brain/brain stem wo/w con DATE: 06/24/2022 08:20 INDICATION: Dysarthria. TECHNIQUE: Magnetic resonance imaging (MRI) of the brain and brainstem was performed without and with 12 mL MultiHance intravenous contrast. COMPARISON: Brain MRI 11/03/2011, head CT 06/23/2022 FINDINGS: There are scattered foci of old microhemorrhage in the brain including in the deep fragoso nuc lei. There are scattered areas of nonspecific increased T2-weighted signal intensity in the cerebral white matter and vi. There is a 3.5 x 2.1 cm arachnoid cyst anterior to right temporal lobe. There is a small old infarct in the right basal ganglia. There is no intracranial hemorrhage, acute infarct ion, or abnormal intracranial mass lesion. The ventricles are normal in size. There are likely change s of ocular lens replacement surgeries. There is mild mucosal thickening in the ethmoid sinuses. IMPRESSION: 1. 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 2. Extensive nonspecific cerebral white matter disease and scattered foci of old microhemorrhage in t he brain, likely chronic hypertensive encephalopathy. Reviewed, dictated and finalized at location A. IMPRESSION: 1. 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 2. Extensive nonspecific cerebral white matter disease and scattered foci of ol d microhemorrhage in the brain, likely chronic hypertensive encephalopathy.
--- NOTE | ~2022-06-23 | XR_ITS ---
EXAMINATION: XR chest 1V portable Exam Date/Time: 06/23/2022 17:10 CDT HISTORY: r/o cva Comparison: 10/07/2019. RESULT: Lines, tubes, and devices: None. Lungs and pleura: Slightly low volumes with senescent change and bibasilar scar/atelectasis. Cardiomediastinal silhouette: Stable aortic ectasia and cardiomegaly. Other: No acute osseous or upper abdominal finding. IMPRESSION: No acute cardiopulmonary process. Reviewed, dictated and finalized at location K.
--- NOTE | ~2022-06-23 | CT_ITS ---
EXAMINATION: CT brain wo con DATE: 06/23/2022 16:33 INDICATION: r/o cva . TECHNIQUE: Computed tomography (CT) of the head was performed without intravenous contrast. The mA wa s adjusted according to patient size. Iterative reconstruction technique was employed. The dose-lengt h product was 605.33 mGy-cm. COMPARISON: None FINDINGS: No acute intracranial hemorrhage or extra-axial fluid collection. No hydrocephalus, mass, or herniation. No acute ischemic infarct. Unremarkable dural venous sinus attenuation. No acute osseous abnormality. The aerated spaces are clear. Moderate atrophy and chronic white matter change. Atherosclerotic intracranial calcification. Ectatic cerebral arteries. Right middle cranial fossa arachnoid cyst. Bilateral lens replacements. IMPRESSION: No acute intracranial process. Results reported telephonically to Dr. Young by Dr. Ann at 4: 38 PM on 06/23/2022. Reviewed, dictated and finalized at location K.
--- NOTE | ~2022-06-23 | US_ITS ---
EXAMINATION: US carotid duplex BI DATE: 06/24/2022 18:07 INDICATION: Infarct in right basal ganglia. Transient ischemic attack. TECHNIQUE: Grayscale, color Doppler, and pulsed Doppler images of the cervical carotid arteries were obtained. The degree of vessel stenosis is placed in one of the following categories: normal, <50%, 5 0-69%, >=70% but less than near-occlusion, near-occlusion, or total occlusion. Note that percent sten osis relative to normal distal artery lumen diameter is indirectly measured from velocity measurement s as described by Luis, et al. Radiology 2003; 229:340-346. COMPARISON: Ultrasound 12/25/2021 FINDINGS: RIGHT: The right common carotid artery (CCA) peak systolic velocity (PSV) is 96 cm/s. The right internal car otid artery (ICA) PSV is 112 cm/s. The right ICA end-diastolic velocity (EDV) is 27 cm/s. The right I CA/CCA PSV ratio is 1.2. Grayscale and color Doppler images yield an estimate of <50% diameter reduct ion from plaque in the ICA. There is antegrade flow in the right vertebral artery. LEFT: The left CCA PSV is 79 cm/s. The left ICA PSV is 71 cm/s. The left ICA EDV is 11 cm/s. The left ICA/C CA PSV ratio is 0.9. Grayscale and color Doppler images yield an estimate of <50% diameter reduction from plaque in the ICA. There is antegrade flow in the left vertebral artery. IMPRESSION: 1. <50% stenosis in the right internal carotid artery. 2. <50% stenosis in the left internal carotid artery. Reviewed, dictated and finalized at location A.
--- NOTE | 2022-06-23 16:22 | ECG_ITS ---
Measurements Intervals [place] Rate: P: CA: QRS: QRSD: T: QT: QTc: Interpretive Statements NORMAL SINUS RHYTHM WITH BORDERLINE FIRST-DEGREE AV BLOCK POOR R-WAVE PROGRESSION POSSIBLE OLD INFERIOR MYOCARDIAL INFARCTION NO PRIOR TRACING FOR COMPARISON Electronically Signed On 07-01-2022 19:42:05 CDT by Sierra Del Real M.D.
[2022-06-23 16:46] LABS: Basophils Absolute Auto 0.1 K/mm3 (0.0-0.1); Basophils Percent Auto 0.8 % (0.2-1.2); Eosinophils Absolute Auto 0.4 K/mm3 (0-0.3); Eosinophils Percent Auto 3.7 % (0-4.4); Hematocrit 45.7 % (37.0-47.0); Immature Granulocyte Absolute 0.05 K/mm3 (0.00-0.031); Immature Granulocyte Percent A 0.5 % (0-0.5); Lymphocytes Absolute Auto 2.74 K/mm3 (0.9-3.2); Lymphocytes Percent Auto 28.6 % (18.3-44.2); Mean Corpuscular HGB Conc 30.6 g/dl (32-36); Mean Corpuscular Hemoglobin 27.1 pg (26-34); Mean Corpuscular Volume 88.4 fl (80-100); Mean Platelet Volume 10.7 fl (7.4-10.4); Monocytes Absolute Auto 0.6 K/mm3 (0.1-0.6); Monocytes Percent Auto 6.4 % (2.6-8.5); Neutrophils Absolute Auto 5.8 K/mm3 (1.3-6.7); Platelet Count Result 311 k/mm3 (150-375); Red Blood Count 5.17 M/mm3 (4.2-5.4); Red Cell Distribution Width 15.5 % (11.5-14.5); White Blood Count 9.6 K/mm3 (4.5-10.0)
[2022-06-23 16:55] LABS: Alanine Aminotransferase 17 U/L (6-35); Albumin Level 4.7 g/dL (3.5-5.1); Alkaline Phosphatase 67 U/L (38-126); Anion Gap 9 mmol/L (8-16); Aspartate Amino Transferase 25 U/L (14-36); Bilirubin,Total 0.6 mg/dL (0.2-1.3); Blood Urea Nitrogen 26 mg/dL (7-17); Calcium 9.6 mg/dL (8.4-10.2); Carbon Dioxide 29 mmol/L (22-30); Chloride 104 mmol/L (98-107); Estimated CRCL calculation 40 ml/min; Estimated Glomerular Filt Rate 60; Glucose 105 mg/dL (65-110); Potassium 4.3 mmol/L (3.4-5.0); Sodium 142 mmol/L (137-145)
[2022-06-23 17:06] LABS: Troponin I < 0.012 ng/mL (0.000-0.034)
--- NOTE | 2022-06-23 17:53 | ED.NEUROSD ---
HPI - Neuro Symptoms/Deficit General Chief Complaint: Suspected CVA Stated Complaint: Confusion, Slurred Speech Per Time Seen by Provider: 06/23/22 16:25 History of Present Illness HPI Narrative: Patient is an 81-year-old female who presents ER with some confusion. Patient came outside and began walk around the house slurring her words. No facial droop. No weakness arm or leg. Patient has history of TIA in the past. Patient recently had UTI and finished antibiotics couple weeks ago. Recurred around 3 PM and has improved. Patient still has seems to be slow processing but does not appear to have expressive aphasia or dysarthria. Related Data Home Medications Medication Instructions Recorded Confirmed melatonin 3 mg tablet 3 mg PO HS PRN Insomnia 08/21/19 04/14/22 multivitamin 1 tablet PO DAILY 08/21/19 04/14/22 zinc 50 mg tablet 50 mg PO DAILY 08/21/19 04/14/22 aspirin 81 mg tablet,delayed 81 mg PO DAILY 04/05/20 04/14/22 release (Adult Low Dose Aspirin) Lactobacillus 40-Bifidobact 1 cap PO DAILY 04/16/20 04/14/22 3-S.thermophilus 100 billion cell capsule (Probiotic) acetaminophen 325 mg tablet 650 mg PO Q6H PRN Pain 12/11/21 04/14/22 docusate sodium 100 mg capsule 100 mg PO TID 12/11/21 04/14/22 (Colace) metoprolol succinate 25 mg 25 mg PO QAM 12/11/21 04/14/22 tablet,extended release 24 hr solifenacin 5 mg tablet 5 mg PO HS 04/10/22 04/14/22 Allergies Allergy/AdvReac Type Severity Reaction Status Date / Time tetracycline AdvReac Severe NAUSEA Verified 06/23/22 16:43 oxycodone AdvReac Unknown N&V Verified 06/23/22 16:43 Review of Systems Review of Systems: ROS unobtainable: Yes unobtainable due to medical condition PMFSH Past Medical History Medical History (Updated 06/23/22 @ 18:55 by Asif Young MD) Acute renal failure (ARF) Patient received intermittent hemodialysis between 07/23/2019 and 07/29/2019 as well as 07/31/2019 and 08/02/2019. Patient is now on long-term hemodialysis schedule managed by Dr. Gianni Larson Anemia Anxiety Anxiety Cardiac arrest Chronic anemia Pt is also anaemia was treated with blood transfusion and epogen shot before, ordered epogen shot again for pt as her hb is 6. Pt will need work up for anaemia if Dr Larson does not think it is related to kidney disease, pt baseline is 7.5. 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 G tube feedings Only receiving supplemental feeds and 6 at night currently GERD (gastroesophageal reflux disease) GERD (gastroesophageal reflux disease) Hemodialysis patient HTN (hypertension) Hypertension Hypertension MVP (mitral valve prolapse) MVP (mitral valve prolapse) NSTEMI (non-ST elevated myocardial infarction) Obstructive sleep apnea Intolerant of CPAP Obstructive sleep apnea Intolerant of CPAP JULIUS (obstructive sleep apnea) Osteoarthritis Osteopenia after menopause Parkinson's disease Polyneuropathy associated with critical illness Shock liver TIA (transient ischemic attack) TIA (transient ischemic attack) TIA (transient ischemic attack) Type 2 diabetes mellitus Urethral stone Urge incontinence Uterine cancer UTI (urinary tract infection) Vancomycin-resistant enterococcus UTI Surgical History Surgical History H/O bilateral cataract extraction H/O inguinal hernia repair H/O lithotripsy H/O: hysterectomy History of bladder suspension procedure Two thousand four History of hysterectomy for malignancy History of urethral stent X2 Hx of tonsillectomy PEG (percutaneous endoscopic gastrostomy) status Placed 08/04/[address] Arboleda S/P dialysis catheter insertion Right chest S/P ureteral stent placement Family History Family History (Review
[2022-06-23 17:57] LABS: Appearance Urine Slightly Cloudy (Clear); Bilirubin Urine Negative (Negative); Blood Urine Trace-lysed (Negative); Color Urine Yellow (Yellow); Glucose Urine UA Negative (Negative); Ketones Urine Negative (Negative); Leukocyte Esterase Ur Negative LEU/UL (Negative); Nitrate Urine Positive (Negative); Protein Urine Negative (Negative); Specific Grav Ur 1.015 (1.001-1.035); Urobilinogen Urine 0.2 mg/dL (<2.0)
[2022-06-23 18:03] LABS: Bacteria Urine Trace /hpf
[2022-06-23 18:05] LABS: Add Urine Microscopic? YES
[2022-06-23 20:12] LABS: INR 1.1; Prothrombin Time 14.2 Seconds (11.1-14.7)
[2022-06-23 20:13] LABS: Partial Thromboplastin Time 38.1 SECONDS (22.3-36.8)
--- NOTE | 2022-06-23 21:26 | ADMGEN ---
This patient, Aliya Richardson, was admitted to Medical Room 243-. Patient/family oriented to hospital policies and general routines including ID bracelet, bed and alarms, visiting hours, pain management, procedures, bathroom and other care routines, personal items, smoking policy, room service/diet, and visiting hours. Information on how to activate the Rapid Response Team has been discussed. Patient/Family are encouraged to report perceived risks to care and to ask questions if they do not understand what they are told or what they should do.
--- NOTE | 2022-06-23 22:52 | PM.IMHP ---
H&P: HPI History of Present Illness Date/Time: 06/23/22 22:52 Chief Complaint: speech disturbance Narrative: This is an 81-year-old female with past medical history significant for type 2 diabetes mellitus, non insulin dependent, dyslipidemia, essential tremor, gastroesophageal reflux disease, hypertension, Parkinson's disease, mitral valve prolapse, obstructive sleep apnea. patient presents to the emergency room after she had an episode of slurred speech she lives at home with who witnessed this event upon presentation to emergency room patient had resolution of symptoms. Patient is able to provide some history denies any headaches, vision changes, fevers, rigors, night sweats, cough, sputum production, shortness of breath. patient just recently was treated for urinary tract infection in the outpatient setting. preliminary workup was significant for CT of the head: IMPRESSION:? No acute intracranial process. a urinalysis showed 10-15 wbc's per high-power field patient has been admitted for further evaluation management and treatment. Review of Systems Review of Systems: Slurred speech Constitutional: Constitutional: Denies chills, Denies fever(s), Denies malaise, Denies night sweats and Denies weakness Eyes: Eyes: Denies change in vision ENT: Denies dysphagia, Denies vertigo, Denies dizziness and Denies odynophagia Cardiovascular: Cardiovascular: Denies chest pain, Denies syncope, Denies irregular heart rhythm, Denies lightheadedness, Denies palpitations and Denies dyspnea on exertion Respiratory: Respiratory: Denies chest congestion, Denies cough, Denies excessive phlegm production, Denies pain on inspiration, Denies dyspnea and Denies dyspnea on exertion Gastrointestinal: Gastrointestinal: Denies abdominal pain, Denies dyspepsia, Denies heartburn, Denies diarrhea, Denies nausea and Denies vomiting Genitourinary: Genitourinary: Denies dysuria Musculoskeletal: Musculoskeletal: Denies myalgias, Denies limited range of motion, Denies muscle weakness and Denies neck pain Integumentary/Breasts: Skin/Breast: Denies rash Neurologic: Reports Abnormal speech present, Denies vertigo, Denies dizziness, Denies focal weakness and Denies Sensory deficit (Neuro) Psychiatric: Psychiatric: Reports no additional psychiatric complaints and Reports as per HPI Endocrine: Endocrine: Denies cold intolerance, Denies fatigue, Denies flushing, Denies heat intolerance, Denies polyphagia, Denies polydipsia and Denies palpitations Hematologic/Lymphatic: Hematologic/Lymphatic: Reports no additional hematologic/lymphatic complaints and Reports as per HPI Allergic/Immunologic: Allergic/Immunologic: Reports no additional allergic/immunologic complaints and Reports as per HPI [facility] Past Medical History Medical History (Updated 06/23/22 @ 18:55 by Asif Young MD) Acute renal failure (ARF) Patient received intermittent hemodialysis between 07/23/2019 and 07/29/2019 as well as 07/31/2019 and 08/02/2019. Patient is now on long-term hemodialysis schedule managed by Dr. Gianni Larson Anemia Anxiety Anxiety Cardiac arrest Chronic anemia Pt is also anaemia was treated with blood transfusion and epogen shot before, ordered epogen shot again for pt as her hb is 6. Pt will need work up for anaemia if Dr Larson does not think it is related to kidney disease, pt baseline is 7.5. 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 G tube feedings Only receiving supplemental feeds and 6 at night currently GERD (gastroesophageal reflux disease) GERD (gastroesophageal reflux disease) Hemodialysis patient HTN (hypertension) Hypertension Hypertension MVP (mitral valve prolapse) MVP (mitral valve prolapse) NSTEMI (non-ST elevated myocard
[2022-06-24] VITALS (9 sets, daily range): BP systolic 140–167; BP diastolic 60–77; PULSE 71–83; RESP 16–18; TEMP 36.2–37; O2SAT 95–97
--- NOTE | 2022-06-24 | ECHO_ITS ---
Patient Info Name: Aliya Richardson Age: 81 years : 1940 Gender: Female HR: 72 bpm BP: 143 / 63 mmHg Heart Rhythm: Sinus Rhythm Technical Quality: Fair Exam Date: 06/24/2022 4:20 PM Exam Location: [facility] Pulmonary Patient Status: Inpatient Admit Date: 06/23/2022 Staff Ordering Physician: Madison Camargo MD Cancer Genetic Counselor: Agnes Rodriguez RDCS Attending Provider: Jaime Mata MD Referring Physician: Raman JACK; Exam Type: CA echo limited w bubble study Study Info Indications - TIA Limited two-dimensional transthoracic echocardiogram is performed with agitated saline. Contrast/Agitated Saline Contrast/Ag. Saline: Agitated Saline Amount: 20.00 ml Administered By: Agnes Rodriguez RDCS Existing IV Access: Yes IV Access Condition: patent with no signs of infiltration Summary 1. Limited study with limited views. 2. Left ventricular systolic function is normal, estimated at 65-70%. 3. Right ventricular chamber dimension is normal. 4. Right ventricular systolic function is normal. 5. No evidence for roilp-cq-grww shunt with injection of agitated saline with and without Valsalva. Left Ventricle Left ventricular systolic function is normal, estimated at 65-70%. Limited study with limited views. Right Ventricle Right ventricular chamber dimension is normal. Right ventricular systolic function is normal. Atrial Septum No evidence for xbais-ur-bglh shunt with injection of agitated saline with and without Valsalva. Mitral Valve The mitral valve has normal leaflets. Tricuspid Valve The tricuspid valve leaflets are normal. Report Signatures
[2022-06-24] MEDS: ACIDOPHILUS/BULGARICUS CHEWABLE TABLET 2 TABLET BY MOUTH (08:41)
[2022-06-24] MEDS: METOPROLOL SUCCINATE EXT REL 50 MG TABCR PO (08:42)
[2022-06-24] MEDS: ZINC SULFATE 220 MG CAPSULE PO (08:44)
[2022-06-24] MEDS: DOCUSATE SODIUM 100 MG CAPSULE PO ×3 (08:44→19:16)
[2022-06-24] MEDS: HEPARIN SODIUM 5,000 UNITS/ML VIAL 5000 UNITS SUB-Q ×2 (08:44→21:43)
[2022-06-24] MEDS: MULTIVITAMINS THERAPEUTIC TAB (*BKC) 1 TABLET PO (08:44)
--- NOTE | 2022-06-24 14:04 | PM.IMPN ---
Progress Note: A&P Assessment and Plan (1) Dysarthria: Code(s): R47.1 - Dysarthria and anarthria Status: Acute (2) Diabetes mellitus: Qualifiers: Diabetes mellitus complication status: without complication Diabetes mellitus prison insulin use: without prison use Diabetes mellitus type: type 2 Qualified Code(s): E11.9 - Type 2 diabetes mellitus without complications Code(s): E11.9 - Type 2 diabetes mellitus without complications Status: Acute (3) Obstructive sleep apnea: Code(s): G47.33 - Obstructive sleep apnea (adult) (pediatric) Status: Chronic (4) TIA (transient ischemic attack): Code(s): G45.9 - Transient cerebral ischemic attack, unspecified Status: Acute (5) Dyslipidemia: Code(s): E78.5 - Hyperlipidemia, unspecified Status: Acute (6) UTI (urinary tract infection): Qualifiers: Hematuria presence: without hematuria Urinary tract infection type: acute cystitis Qualified Code(s): N30.00 - Acute cystitis without hematuria Code(s): N39.0 - Urinary tract infection, site not specified Status: Acute (7) Hypertension: Qualifiers: Hypertension type: essential hypertension Qualified Code(s): I10 - Essential (primary) hypertension Code(s): I10 - Essential (primary) hypertension Status: Chronic (8) Obstructive sleep apnea: Code(s): G47.33 - Obstructive sleep apnea (adult) (pediatric) Status: Chronic Plan 06/23/22 (1) Dysarthria:resolved at the time of emergency room presentation ?MRI in the morning ?CT head reviewed ?supportive care (2) Diabetes mellitus: ?insulin sliding scale as needed (3) GERD (gastroesophageal reflux disease): ?PPI (4) Obstructive sleep apnea: ?continue CPAP at nighttime 06/24/22 recurrent episodes of slurred speech with confusion US carotid ECHO MRI EEG hydralazine 10mg IV q 8h prn Keppra 500mg PO BID PT/OT/ST ordered but pt declines all therapies c/s Dr Castillo Subjective Date/time seen: 06/24/22 14:04 pt ready to leave but has not completed workup yet case reviewed w Dr Castillo Review of Systems Review of Systems: All systems reviewed & are unremarkable except as noted in HPI and below Exam Narrative: GEN: NAD, AAOx3, cooperative HEENT: NCAT, MMM, EOMI Neck: no JVD Heart: S1S2 RRR Lungs: CTA B/l Abd: soft, NT, ND, bowel sounds normoactive Ext: moves all, no cyanosis, no clubbing, no edema Neuro: moves all extremities equally, no focal deficits appreciated CN intact Psych: mood and affect congruent Objective Data Vital Signs Vital Signs: Vital Signs - 24 hr 06/23/22 16:39 06/23/22 16:51 06/23/22 16:56 Temperature 97.9 F Pulse Rate 81 78 78 Respiratory Rate 18 22 H Blood Pressure 190/99 H Pulse Oximetry 97 98 Oxygen Delivery Room Air 06/23/22 17:00 06/23/22 17:01 06/23/22 17:15 Temperature Pulse Rate 79 78 81 Respiratory Rate 21 H 19 13 Blood Pressure 176/79 H Pulse Oximetry 98 98 98 Oxygen Delivery 06/23/22 17:30 06/23/22 17:31 06/23/22 17:45 Temperature Pulse Rate 73 71 71 Respiratory Rate 22 H 17 22 H Blood Pressure 155/65 H Pulse Oximetry 95 96 98 Oxygen Delivery 06/23/22 18:00 06/23/22 18:01 06/23/22 18:15 Temperature Pulse Rate 72 69 77 Respiratory Rate 20 21 H 19 Blood Pressure 148/67 H Pulse Oximetry 100 100 100 Oxygen Delivery 06/23/22 18:30 06/23/22 18:31 06/23/22 19:01 Temperature Pulse Rate 73 71 73 Respiratory Rate 19 20 21 H Blood Pressure 151/62 H 170/76 H Pulse Oximetry 96 96 99 Oxygen Delivery 06/23/22 19:31 06/23/22 20:01 06/23/22 20:31 Temperature Pulse Rate 73 69 74 Respiratory Rate 18 24 H 17 Blood Pressure 151/56 H 160/73 H 157/73 H Pulse Oximetry 98 100 97 Oxygen Delivery 06/23/22 22:32 06/23/22 22:58 06/23/22 23:02 Temperature 97.0 F L Pulse Rate 75 71 Respiratory Rate 18 Blood Pressure
--- NOTE | 2022-06-24 14:07 | PC.NURSE ---
On 06/24/22, the student, [Kathy Valiente], provided care and completed [facility] documentation on this patient. I have reviewed the student's documentation and agree with the findings.
--- NOTE | 2022-06-24 14:38 | PCPTNOTE ---
Hospitalist is cancelling PT and OT orders.
[2022-06-24] MEDS: levETIRAcetam 500 MG TABLET PO (21:43)
[2022-06-24] MEDS: AMITRIPTYLINE HCL 25 MG TABLET PO (21:43)
[2022-06-24] MEDS: ATORVASTATIN 10 MG TABLET PO (21:43)
[2022-06-24] MEDS: MELATONIN 3 MG TABLET PO (21:43)
[2022-06-24] MEDS: SOLIFENACIN 5 MG TABLET PO (21:43)
[2022-06-24] MEDS: BACLOFEN 10 MG TABLET PO (21:49)
[2022-06-24] MEDS: ACETAMINOPHEN 325 MG TABLET 650 MG PO (21:50)
[2022-06-25] VITALS: BP 119/52; PULSE 73; PULSE 77; RESP 12; TEMP 36.6; O2SAT 97
[2022-06-25 04:00] VITALS: BP 119/45; PULSE 70; PULSE 75; RESP 16; TEMP 36.5; O2SAT 97
[2022-06-25 05:08] LABS: Basophils Absolute Auto 0.1 K/mm3 (0.0-0.1); Basophils Percent Auto 0.9 % (0.2-1.2); Eosinophils Absolute Auto 0.4 K/mm3 (0-0.3); Eosinophils Percent Auto 5.8 % (0-4.4); Hematocrit 41.1 % (37.0-47.0); Hemoglobin 12.8 g/dL (12.0-15.0); Immature Granulocyte Absolute 0.03 K/mm3 (0.00-0.031); Immature Granulocyte Percent A 0.4 % (0-0.5); Lymphocytes Absolute Auto 2.58 K/mm3 (0.9-3.2); Lymphocytes Percent Auto 33.7 % (18.3-44.2); Mean Corpuscular HGB Conc 31.1 g/dl (32-36); Mean Corpuscular Volume 86.7 fl (80-100); Mean Platelet Volume 10.8 fl (7.4-10.4); Monocytes Absolute Auto 0.6 K/mm3 (0.1-0.6); Monocytes Percent Auto 7.5 % (2.6-8.5); Neutrophils Percent Auto 51.7 % (45.5-73.1); Platelet Count Result 280 k/mm3 (150-375); Red Blood Count 4.74 M/mm3 (4.2-5.4); Red Cell Distribution Width 15.4 % (11.5-14.5); White Blood Count 7.7 K/mm3 (4.5-10.0)
[2022-06-25 05:28] LABS: Anion Gap 12 mmol/L (8-16); Blood Urea Nitrogen 18 mg/dL (7-17); Calcium 8.9 mg/dL (8.4-10.2); Carbon Dioxide 27 mmol/L (22-30); Chloride 104 mmol/L (98-107); Estimated CRCL calculation 41 ml/min; Estimated Glomerular Filt Rate 60; Glucose 111 mg/dL (65-110); Magnesium 2.3 mg/dL (1.6-2.3); Potassium 3.7 mmol/L (3.4-5.0); Sodium 143 mmol/L (137-145)
[2022-06-25 08:00] VITALS: PULSE 74
[2022-06-25 09:30] VITALS: PULSE 93
[2022-06-25] MEDS: DOCUSATE SODIUM 100 MG CAPSULE PO ×2 (09:30→12:18)
[2022-06-25] MEDS: ZINC SULFATE 220 MG CAPSULE PO (09:30)
[2022-06-25] MEDS: MULTIVITAMINS THERAPEUTIC TAB (*BKC) 1 TABLET PO (09:30)
[2022-06-25] MEDS: METOPROLOL SUCCINATE EXT REL 50 MG TABCR PO (09:30)
[2022-06-25 09:31] VITALS: BP 158/82; PULSE 93; RESP 14; O2SAT 95
[2022-06-25] MEDS: ACIDOPHILUS/BULGARICUS CHEWABLE TABLET 2 TABLET BY MOUTH (09:31)
[2022-06-25] MEDS: lisinopriL 10 MG TABLET PO (09:32)
[2022-06-25] MEDS: levETIRAcetam 500 MG TABLET PO (09:32)
[2022-06-25] MEDS: HEPARIN SODIUM 5,000 UNITS/ML VIAL 5000 UNITS SUB-Q (09:38)
[2022-06-25] MEDS: NITROFURANTOIN MONOHYD MACROCR 100 MG CAP PO (10:41)
[2022-06-25] MEDS: BACLOFEN 10 MG TABLET PO (12:18)
--- NOTE | 2022-06-25 15:06 | PM.DS ---
DS: Admitting Diagnosis Discharge Date 06/25/22 Admitting Diagnosis (1) Dysarthria: ?Code(s): R47.1 - Dysarthria and anarthria ?Status:?Acute (2) Diabetes mellitus: ?Qualifiers: ?Diabetes mellitus type:?type 2??Diabetes mellitus fpc insulin use:?without fpc use??Diabetes mellitus complication status:?without complication? Qualified Code(s):?E11.9 - Type 2 diabetes mellitus without complications ?Code(s): (3) GERD (gastroesophageal reflux disease): ?Qualifiers: ?Esophagitis presence:?with esophagitis? Qualified Code(s):?K21.0 - Gastro-esophageal reflux disease with esophagitis (4) Obstructive sleep apnea: ?Code(s): DS: Discharge Diagnosis Discharge Diagnosis (1) Dysarthria: Code(s): R47.1 - Dysarthria and anarthria Status: Acute (2) Diabetes mellitus: Qualifiers: Diabetes mellitus type: type 2 Diabetes mellitus fpc insulin use: without fpc use Diabetes mellitus complication status: without complication Qualified Code(s): E11.9 - Type 2 diabetes mellitus without complications Code(s): E11.9 - Type 2 diabetes mellitus without complications Status: Acute (3) Obstructive sleep apnea: Code(s): G47.33 - Obstructive sleep apnea (adult) (pediatric) Status: Chronic (4) TIA (transient ischemic attack): Code(s): G45.9 - Transient cerebral ischemic attack, unspecified Status: Acute (5) Dyslipidemia: Code(s): E78.5 - Hyperlipidemia, unspecified Status: Acute (6) UTI (urinary tract infection): Qualifiers: Urinary tract infection type: acute cystitis Hematuria presence: without hematuria Qualified Code(s): N30.00 - Acute cystitis without hematuria Code(s): N39.0 - Urinary tract infection, site not specified Status: Acute (7) Hypertension: Qualifiers: Hypertension type: essential hypertension Qualified Code(s): I10 - Essential (primary) hypertension Code(s): I10 - Essential (primary) hypertension Status: Chronic (8) Multiple drug resistant organism (MDRO) culture positive: Code(s): Z16.24 - Resistance to multiple antibiotics Status: Acute (9) Acute metabolic encephalopathy: Code(s): G93.41 - Metabolic encephalopathy Status: Acute DS: Summary Hospital Course Reason for hospitalization: stroke like symptoms Hospital Course: 06/23/22 (1) Dysarthria:resolved at the time of emergency room presentation ?MRI in the morning ?CT head reviewed ?supportive care (2) Diabetes mellitus: ?insulin sliding scale as needed (3) GERD (gastroesophageal reflux disease): ?PPI (4) Obstructive sleep apnea: ?continue CPAP at nighttime 06/24/22 recurrent episodes of slurred speech with confusion US carotid ECHO MRI EEG hydralazine 10mg IV q 8h prn Keppra 500mg PO BID PT/OT/ST ordered but pt declines all therapies c/s Dr Castillo 06/25/22 seizure not ruled out dc home on Keppra and f/u w Dr Castillo in his office UTI MDRO dc home on Nitrofuantion x 10 days ASA added to statin x TIA Lisinopril added to home meds x improved bp control dc home in stable condition and f/u w PCP within 3 days f/u w Dr Castillo next week for results from EEG and further recs Status at Discharge Cognitive/behavioral status at discharge: at baseline Functional status at discharge: independent ambulation Time Spent with Patient Time attestation: Total time spent providing and/or coordinating discharge services: Exam Narrative: GEN: NAD, AAOx3, cooperative HEENT: NCAT, MMM, EOMI Neck: no JVD Heart: S1S2 RRR Lungs: CTA B/l Abd: soft, NT, ND, bowel sounds normoactive Ext: moves all, no cyanosis, no clubbing, no edema Neuro: moves all extremities equally, no focal deficits appreciated CN intact Psych: mood and affect congruent DS: Data Data Completed and Pending Labs on day of discharge: Labs from last 24 hours
[2022-06-25 15:14] VITALS: BP 144/73; PULSE 77; RESP 16; TEMP 36.2; O2SAT 97
--- NOTE | 2022-06-29 11:09 | WPDNEUROLOGY ---
Neurology EEG Report General Information Date of Study: 06/25/22 TEST Routine EEG DIAGNOSIS Seizure-like activity CONDITION OF RECORDING Awake and drowsy EEG NUMBER [id number] CLINICAL HISTORY Patient had history of recurrent episodes of slurred speech with confusion EEG DESCRIPTION During the awake state with eyes closed the background consists of 8 Hz posterior dominant rhythm which attenuates appropriately with eye opening. The recording is continuous. There is a well developed anterior-posterior gradient. There is occasional predominantly bifrontal rhythmic delta activity. With drowsiness there is was waxing and waning of the dominant rhythm with eventual replacement by a mixture of beta, alpha, and theta activity. Patient did not achieve stage II sleep. There are no epileptiform discharges or seizures during this recording. Hyperventilation and photic stimulation were not performed. IMPRESSION This is an abnormal EEG recorded in the awake and drowsy state due to the presence of occasional bifrontal predominant rhythmic delta activity, indicating focal cerebral dysfunction. There are no electrographic seizures identified, nor are there any epileptiform discharges. Clinical correlation is recommended.
== END 2022-06-25 16:50 | disposition home or self-care (01) ==
LOC: ANHED 18:55 → ANH2MED 20:44
PROVIDERS: Admitting Provider Internal Medicine; Emergency Provider Emergency Medicine; PCP Family Medicine; Visit Provider Hospitalist
DX: G45.9 Transient cerebral ischemic attack, unspecified (principal); E11.42 Type 2 diabetes mellitus with diabetic polyneuropathy; K21.00 Gastro-esophageal reflux disease with esophagitis, without bleeding; G47.33 Obstructive sleep apnea (adult) (pediatric); I12.9 Hypertensive chronic kidney disease with stage 1 through stage 4 chronic kidney disease, or unspecified chronic kidney disease; E11.22 Type 2 diabetes mellitus with diabetic chronic kidney disease; N18.9 Chronic kidney disease, unspecified; Z99.2 Dependence on renal dialysis; E78.5 Hyperlipidemia, unspecified; N30.00 Acute cystitis without hematuria; Z16.24 Resistance to multiple antibiotics; G93.41 Metabolic encephalopathy; R41.0 Disorientation, unspecified; D64.89 Other specified anemias; R90.82 White matter disease, unspecified; D68.9 Coagulation defect, unspecified; M19.90 Unspecified osteoarthritis, unspecified site; M85.80 Other specified disorders of bone density and structure, unspecified site; G20 Parkinson's disease; G25.0 Essential tremor; R94.31 Abnormal electrocardiogram [ECG] [EKG]; Z87.440 Personal history of urinary (tract) infections; Z86.74 Personal history of sudden cardiac arrest; I34.1 Nonrheumatic mitral (valve) prolapse; Z79.1 Long term (current) use of non-steroidal anti-inflammatories (NSAID); Z79.82 Long term (current) use of aspirin; Z79.899 Other long term (current) drug therapy
CPT/HCPCS: 36415; 51701; 70450; 70553; 71045; 80048; 80053; 81001; 83735; 84484; 85025; 85610; 85730; 87086; 87147; 87181; 87186; 93005; 93308; 93880; 95816; 96372; 96375; 99285; A9270; A9577; G0378; J0696; J1644

== ENCOUNTER 2022-09-24 07:29 | Outpatient (CLI) | payer MEDICARE, SELFPAY ==
[2022-09-24 07:59] LABS: Cholesterol 177 mg/dL (0-200); HDL Direct 43 mg/dL; Triglycerides 228 mg/dL (<150)
[2022-09-24 08:10] LABS: LDL Cholesterol Direct 81 mg/dL
== END 2022-09-24 07:30 | disposition home or self-care (01) ==
LOC: ANHLAB 07:35
PROVIDERS: PCP Family Medicine; Visit Provider Internal Medicine Cardiovascular Disease
DX: E11.69 Type 2 diabetes mellitus with other specified complication (principal); E78.2 Mixed hyperlipidemia
CPT/HCPCS: 36415; 80061

== ENCOUNTER 2022-10-14 13:53 | Observation (INO) | payer MEDICARE, SELFPAY ==
[2022-10-14] VITALS (22 sets, daily range): BP systolic 112–177; BP diastolic 40–86; PULSE 79–102; RESP 14–28; TEMP 36.4–36.8; O2SAT 95–98; BMI 23.4
--- NOTE | ~2022-10-14 | CT_ITS ---
EXAMINATION: CT brain wo con DATE: 10/14/2022 15:17 INDICATION: Syncope. TECHNIQUE: Computed tomography (CT) of the head was performed without intravenous contrast. The mA wa s adjusted according to patient size. Iterative reconstruction technique was employed. The dose-lengt h product was 605.33 mGy-cm. COMPARISON: Head CT 06/23/2022 FINDINGS: There is a 3.2 x 1.9 cm arachnoid cyst anterior to right temporal lobe. There are scattered areas of low attenuation in the cerebral white matter. There is no intracranial hemorrhage, acute in farction, or abnormal intracranial mass lesion. There are old infarcts in the bilateral basal ganglia . The ventricles are normal in size. There are likely changes of ocular lens replacement surgeries. T here is mild mucosal thickening in the ethmoid sinuses. The mastoid air cells are normal. There is le ft posterior superior scalp soft tissue swelling. IMPRESSION: 1. Old lacunar infarcts in the bilateral basal ganglia. 2. Stable extensive nonspecific cerebral white matter disease, which likely represents chronic small vessel ischemic disease. Reviewed, dictated and finalized at location A. ATER IMPRESSION: 1. Old lacunar infarcts in the bilateral basal ganglia. 2. Stable extensive nonspecific cerebral white matter disease, which likely rep resents chronic small vessel ischemic disease.
--- NOTE | ~2022-10-14 | CT_ITS ---
EXAMINATION: CT abdomen pelvis wo con DATE: 10/14/2022 20:20 INDICATION: nodule buttocks TECHNIQUE: Computed tomography (CT) of the abdomen and pelvis was performed without intravenous contr ast. Automated exposure control and iterative reconstruction technique were employed. The dose-length product was 399.79 mGy-cm. COMPARISON: None. FINDINGS: Lower thorax: Senescent change in the lungs. Mild dependent atelectasis/scar. Aortic ectasia. Coronar y artery calcification. Dilated central pulmonary arteries as can be seen with pulmonary arterial hyp ertension. Mitral and aortic valve calcification. Mild cardiomegaly. Liver: Normal. Biliary/Gallbladder: Cholelithiasis. No bile duct dilation. Pancreas: Mild fatty atrophy. Spleen: Normal. Adrenals:No mass. Kidneys: No suspicious mass. Multiple punctate bilateral nonobstructing calculi. No hydronephrosis. G rossly stable left midpole scar. Left renal scar/atrophy. GI tract: No small or large bowel dilation. Normal appendix. Diverticulosis without diverticulitis. Mesentery/Peritoneum: No ascites, mass, or free air. Retroperitoneum: No mass. Atherosclerotic abdominal aortic and/or arterial calcifications. Pelvis: Distended urinary bladder without significant wall thickening. Surgically absent uterus.. Soft Tissues: Mild subcutaneous stranding overlying the left gluteus gerhard. Uncomplicated appearing small fat-containing umbilical and right sided inguinal hernias. Bones: No acute osseous finding. IMPRESSION: Mild subcutaneous stranding overlying the left gluteus gerhard muscle, may represent contusion or arnold ma. No other acute abdominopelvic process detected. Reviewed, dictated and finalized at location K. LING BROKER IMPRESSION: Mild subcutaneous stranding overlying the left gluteus gerhard muscle, may repr esent contusion or edema. No other acute abdominopelvic process detected.
--- NOTE | ~2022-10-14 | US_ITS ---
Procedure: Duplex Doppler examination of the bilateral carotids. Indication: Syncope Technique: Real time, color-flow and pulse wave Doppler examination of the bilateral carotids was performed. Findings: Rico scale ultrasonography of the right neck demonstrated small calcified plaques at the right caroti d bulb. There was demonstration of normal color-flow and Doppler waveforms within the right common, i nternal and external carotid arteries. The peak systolic velocities in the right common, internal and external carotid arteries were demonstrated to be 109 cm/sec, 110 cm/sec and 102 cm/sec respectively . The right ICA/CCA ratio was 1.4.The proximal right internal carotid artery demonstrates 0% stenosis relative to the normal distal artery lumen diameter. Rico scale sonography of the left neck demonstrated small calcified plaques at the left carotid bulb. There was demonstration of normal color-flow and wave forms within the left common, internal and ext ernal carotid arteries. The peak systolic velocities in the left common, internal and external caroti d arteries were demonstrated to be 92cm/sec, 94 cm/sec and 88 cm/sec respectively. The left ICA/CCA r atio was 1.1. The proximal left internal carotid artery demonstrates 0% stenosis relative to the norm al distal artery lumen diameter. There was antegrade flow demonstrated in the bilateral vertebral arteries. Impression: No hemodynamically significant stenosis of the bilateral internal carotid arteries. Antegrade flow in the bilateral vertebral arteries. Note: The methodology used is an indirect measurement validated against a direct method (such as the NASCET criteria) that compares diameters at the stenosis to the distal ICA. Reviewed, dictated and finalized at location . P SETTER Impression: No hemodynamically significant stenosis of the bilateral internal carotid arter ies. Antegrade flow in the bilateral vertebral arteries. Note: The methodology used is an indirect measurement validated against a direct meth od (such as the NASCET criteria) that compares diameters at the stenosis to the distal ICA.
--- NOTE | ~2022-10-14 | XR_ITS ---
EXAMINATION: XR chest 1V DATE: 10/14/2022 15:25 INDICATION: Syncope. TECHNIQUE: A single frontal view of the chest was obtained. COMPARISON: Chest single view 06/23/2022, CT abdomen and pelvis 04/09/2022 FINDINGS: There is no pneumonia, pleural effusion, or pneumothorax. The heart size is normal. IMPRESSION: 1. No acute cardiopulmonary disease. Reviewed, dictated and finalized at location A. LINE ATTENDANT
--- NOTE | ~2022-10-14 | MR_ITS ---
EXAMINATION: MR brain/brain stem wo/w con DATE: 10/15/2022 07:57 INDICATION: Syncope. TECHNIQUE: Magnetic resonance imaging (MRI) of the brain and brainstem was performed without and with 12 mL MultiHance intravenous contrast. COMPARISON: Head CT 10/14/2022, brain MRI 06/24/2022 FINDINGS: There are scattered foci of old microhemorrhage involving the cerebrum, bilateral deep fragoso nuclei, vi, and cerebellum. There are scattered areas of nonspecific increased T2-weighted signal intensity in the cerebral white matter, deep fragoso nuclei, and vi. There is a 3.7 x 2.3 cm arachnoid cyst anterior to right temporal lobe. There is an old infarct in the right basal ganglia. There is a small old infarct in left cerebellum. There is no acute ischemic infarct or abnormal mass lesion. Th e ventricles are normal in size. There are likely changes of ocular lens replacement surgeries. The p aranasal sinuses are clear. The mastoid air cells are normal. IMPRESSION: 1. Small old infarcts in the right basal ganglia and left cerebellum. 2. Stable extensive nonspecific cerebral white matter disease and disease of the deep fragoso nuclei and vi and scattered foci of old microhemorrhage in the brain, likely chronic hypertensive encephalopa thy. Reviewed, dictated and finalized at location A. IL LOSS PREVENTION OFFICER IMPRESSION: 1. Small old infarcts in the right basal ganglia and left cerebellum. 2. Stable extensive nonspecific cerebral white matter disease and disease of th e deep fragoso nuclei and vi and scattered foci of old microhemorrhage in the br ain, likely chronic hypertensive encephalopathy.
--- NOTE | ~2022-10-14 | CT_ITS ---
EXAMINATION: CT lumbar spine wo con DATE: 10/14/2022 15:18 INDICATION: fall, low back pain . TECHNIQUE: Computed tomography (CT) of the lumbar spine was performed without intravenous contrast. A utomated exposure control and iterative reconstruction technique were employed. The dose-length produ ct was 910.57 mGy-cm. COMPARISON: CT abdomen pelvis 04/09/2022. FINDINGS: Mild lumbar scoliosis. 5 nonrib-bearing lumbar-type vertebral bodies. Pedicles intact. Norm al vertebral body alignment. Vertebral body heights preserved. Multilevel mild degenerative disc dise ase. Multilevel moderate-severe facet hypertrophy. No severe central canal or neural foraminal narrow ing. Moderate central canal stenosis at L3-4 and L4-5. 5 mm left subarticular protrusion at L3-4 whic h contributes to moderate left neural foraminal narrowing. Moderate left neural foraminal narrowing a lso noted at L4-5 and L5-S1. Bibasilar pulmonary scar/atelectasis. Atherosclerotic calcification. Lef t renal scarring/atrophy. IMPRESSION: No acute fracture or traumatic malalignment in the lumbar spine. Reviewed, dictated and finalized at location K. PRESSURE FIRER
--- NOTE | 2022-10-14 13:59 | ECG_ITS ---
Measurements Intervals Regina Rate: 95 P: 48 MD: 192 QRS: 1 QRSD: 96 T: 53 QT: 359 QTc: 453 Interpretive Statements SINUS RHYTHM ANTERIOR INFARCT, AGE INDETERMINATE INFERIOR INFARCT, AGE INDETERMINATE BORDERLINE ST ABNORMALITY- HIGH LATERAL LEADS BASELINE ARTIFACT- V6 ABNORMAL ECG COMPARED TO ECG 12/18/2021 13:54:05 NO SIGNIFICANT CHANGES Electronically Signed On 10-14-2022 14:58:22 COMPENSATION/BENEFITS SPECIALIST by Paul Cohen D.O.
[2022-10-14 14:16] LABS: Basophils Absolute Auto 0.1 K/mm3 (0.0-0.1); Basophils Percent Auto 0.8 % (0.2-1.2); Eosinophils Absolute Auto 0.1 K/mm3 (0-0.3); Eosinophils Percent Auto 1.7 % (0-4.4); Hematocrit 45.2 % (37.0-47.0); Immature Granulocyte Absolute 0.06 K/mm3 (0.00-0.031); Immature Granulocyte Percent A 0.7 % (0-0.5); Lymphocytes Absolute Auto 2.27 K/mm3 (0.9-3.2); Lymphocytes Percent Auto 26.8 % (18.3-44.2); Mean Corpuscular Hemoglobin 27.1 pg (26-34); Mean Corpuscular Volume 87.4 fl (80-100); Mean Platelet Volume 10.1 fl (7.4-10.4); Monocytes Absolute Auto 0.6 K/mm3 (0.1-0.6); Neutrophils Absolute Auto 5.4 K/mm3 (1.3-6.7); Platelet Count Result 283 k/mm3 (150-375); Red Blood Count 5.17 M/mm3 (4.2-5.4); Red Cell Distribution Width 16.2 % (11.5-14.5); White Blood Count 8.5 K/mm3 (4.5-10.0)
[2022-10-14 14:25] LABS: Alanine Aminotransferase 19 U/L (6-35); Albumin Level 4.2 g/dL (3.5-5.1); Alkaline Phosphatase 72 U/L (38-126); Anion Gap 6 mmol/L (8-16); Aspartate Amino Transferase 27 U/L (14-36); Bilirubin,Total 0.7 mg/dL (0.2-1.3); Blood Urea Nitrogen 25 mg/dL (7-17); Calcium 8.9 mg/dL (8.4-10.2); Carbon Dioxide 29 mmol/L (22-30); Chloride 105 mmol/L (98-107); Estimated CRCL calculation 34 ml/min; Estimated Glomerular Filt Rate 53; Glucose 139 mg/dL (65-110); Potassium 4.4 mmol/L (3.4-5.0); Sodium 140 mmol/L (137-145)
--- NOTE | 2022-10-14 15:06 | ED.SYNCOPE ---
HPI - Syncope General Chief Complaint: Syncope Stated Complaint: fall vs syncope Time Seen by Provider: 10/14/22 14:04 History of Present Illness HPI narrative: Patient is an 81-year-old female with a history of hypertension, CVA, hyperlipidemia, cardiomyopathy presenting with syncope. Patient states that she was in the kitchen making chili when she suddenly passed out. No prodrome. She fell straight back. Her daughter heard the thump and went up to check on her immediately. States that she found the patient on the ground and she seemed somewhat confused. No seizure-like activity. By the time EMS arrived, was back to baseline. Patient denies prior episodes of syncope. Denies chest pain, palpitations, shortness of breath. Currently complains of tailbone pain. No numbness or weakness. No recent infectious symptoms. Related Data Home Medications Medication Instructions Recorded Confirmed melatonin 3 mg tablet 3 mg PO HS 08/21/19 10/14/22 multivitamin 1 tablet PO DAILY 08/21/19 10/14/22 Lactobacillus 40-Bifidobact 1 cap PO DAILY 04/16/20 10/14/22 3-S.thermophilus 100 billion cell capsule (Probiotic) acetaminophen 325 mg tablet 650 mg PO Q6H PRN Pain 12/11/21 10/14/22 docusate sodium 100 mg capsule 100 mg PO TID 12/11/21 10/14/22 (Colace) solifenacin 5 mg tablet 5 mg PO HS 04/10/22 10/14/22 metoprolol succinate 50 mg 50 mg PO DAILY 06/23/22 10/14/22 tablet,extended release 24 hr atorvastatin 10 mg tablet 20 mg PO .QHS 10/14/22 10/14/22 d-mannose 500 mg capsule (AZO 2,000 mg PO DAILY 10/14/22 10/14/22 D-Mannose) Allergies Allergy/AdvReac Type Severity Reaction Status Date / Time tetracycline AdvReac Severe NAUSEA Verified 10/14/22 18:02 oxycodone AdvReac Unknown N&V Verified 10/14/22 18:02 Review of Systems Review of Systems: All systems reviewed & are unremarkable except as noted in HPI and below PMFSH Past Medical History Medical History (Updated 10/15/22 @ 17:11 by Bridget Mathur MD) Acute renal failure (ARF) Patient received intermittent hemodialysis between 07/23/2019 and 07/29/2019 as well as 07/31/2019 and 08/02/2019. Patient is now on long-term hemodialysis schedule managed by Dr. Gianni Larson Anemia Anxiety Anxiety Cardiac arrest Chronic anemia Pt is also anemia was treated with blood transfusion and epogen shot before, ordered epogen shot again for pt as her hb is 6. Pt will need work up for anaemia if Dr Larson does not think it is related to kidney disease, pt baseline is 7.5. 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 G tube feedings Only receiving supplemental feeds and 6 at night currently GERD (gastroesophageal reflux disease) GERD (gastroesophageal reflux disease) History of renal dialysis HTN (hypertension) Hypertension Hypertension MVP (mitral valve prolapse) MVP (mitral valve prolapse) NSTEMI (non-ST elevated myocardial infarction) Obstructive sleep apnea Intolerant of CPAP Obstructive sleep apnea Intolerant of CPAP JULIUS (obstructive sleep apnea) Osteoarthritis Osteopenia after menopause Polyneuropathy associated with critical illness Shock liver TIA (transient ischemic attack) TIA (transient ischemic attack) TIA (transient ischemic attack) Type 2 diabetes mellitus Urethral stone Urge incontinence Uterine cancer UTI (urinary tract infection) Vancomycin-resistant enterococcus UTI Surgical History Surgical History H/O bilateral cataract extraction H/O inguinal hernia repair H/O lithotripsy H/O: hysterectomy History of bladder suspension procedure Two thousand four History of hysterectomy for malignancy History of urethral stent X2 Hx of tonsillectomy PEG (percutaneous endoscopic gastrostomy) s
[2022-10-14] MEDS: SODIUM CHLORIDE 0.9% IV 1,000 ML 999 ML IV CONT (15:30)
[2022-10-14 15:46] LABS: Appearance Urine Cloudy (Clear); Bilirubin Urine Negative (Negative); Blood Urine Trace-intact (Negative); Color Urine Yellow (Yellow); Glucose Urine UA Negative (Negative); Ketones Urine Negative (Negative); Leukocyte Esterase Ur Trace LEU/UL (Negative); Nitrate Urine Negative (Negative); Protein Urine 1+ mg/dL (Negative); Urobilinogen Urine 0.2 mg/dL (<2.0); pH Urine 6.5 (5.0-9.0)
[2022-10-14 15:52] LABS: Prothrombin Time 13.1 Seconds (11.1-14.7)
[2022-10-14 15:53] LABS: Lactic Acid Reflex 2.4 mmol/L (0.7-2.0); Partial Thromboplastin Time 35.6 SECONDS (22.3-36.8)
[2022-10-14 15:55] LABS: Add Urine Microscopic? YES; Bacteria Urine Trace /hpf; WBC Urine 21-30 /hpf
[2022-10-14 16:10] LABS: NT Pro B Type Natriuretic Pept 558 pg/mL (19.9-100); Troponin I < 0.012 ng/mL (0.000-0.034)
--- NOTE | 2022-10-14 16:43 | PM.IMHP ---
H&P: HPI History of Present Illness Date/Time: 10/14/22 16:43 Chief Complaint: Syncope Narrative: This is an 81 year female patient who has a history of hypertension CVA hyperlipidemia and cardiomyopathy. The patient came to the hospital with complaints of syncope. In the past was thought that she had seizures and was on Keppra but had a bad reaction to Keppra. She had an EEG that was negative and is no longer on Keppra. The patient stated that she was in the kitchen make in [facility] when she suddenly passed out. She had no prodromal symptoms. The patient stated that she just woke up on the floor and was somewhat confused. She stated she did hit her head. She denies any seizure activity. When EMS arrived on scene the patient was back to her normal baseline. She denied any chest pain or shortness of breath. No fever chills. No dizziness. No numbness or tingling no weakness. No recent infections. No new medications. Lactic acid is 2.4. Troponin is nonreactive. BNP is only 558. Influenza A/B and COVID all negative. Chest x-ray was read as no acute cardiopulmonary disease. Lumbar spine CT was read as no acute fracture or traumatic malalignment and lumbar spine. CT of the head was read as old lacunar infarcts in the bilateral basal ganglia. Stable extensive nonspecific cerebral white matter disease which likely represents chronic small vessel ischemic disease. Patient was given IV fluids and IV Tylenol. The patient is being admitted to inpatient status on the date of service of 10/14/2022. Review of Systems Review of Systems: See HPI All systems reviewed & are unremarkable except as noted in HPI and below Constitutional: Constitutional: Reports as per HPI and Reports no additional constitutional complaints Eyes: Eyes: Reports as per HPI and Reports no additional eye complaints ENT: Reports system reviewed and no additional complaints, except as documented and Reports Normal hearing present Cardiovascular: Cardiovascular: Reports no additional cardiovascular complaints Respiratory: Respiratory: Reports no additional respiratory complaints and Reports no additional respiratory complaints Gastrointestinal: Gastrointestinal: Reports as per HPI and Reports no additional gastrointestinal complaints Musculoskeletal: Musculoskeletal: Reports no additional musculoskeletal complaints Integumentary/Breasts: Skin/Breast: Reports system reviewed and no additional complaints, except as docu and Reports as per HPI Neurologic: Reports system reviewed and no additional complaints, except as documented, Reports as per HPI and Reports Normal hearing present Psychiatric: Psychiatric: Reports no additional psychiatric complaints and Reports as per HPI Endocrine: Endocrine: Reports no additional endocrine complaints Hematologic/Lymphatic: Hematologic/Lymphatic: Reports no additional hematologic/lymphatic complaints Allergic/Immunologic: Allergic/Immunologic: Reports no additional allergic/immunologic complaints [facility] Past Medical History Medical History (Updated 10/14/22 @ 19:19 by Julia Mendoza NP) Acute renal failure (ARF) Patient received intermittent hemodialysis between 07/23/2019 and 07/29/2019 as well as 07/31/2019 and 08/02/2019. Patient is now on long-term hemodialysis schedule managed by Dr. Gianni Larson Anemia Anxiety Anxiety Cardiac arrest Chronic anemia Pt is also anemia was treated with blood transfusion and epogen shot before, ordered epogen shot again for pt as her hb is 6. Pt will need work up for anaemia if Dr Larson does not think it is related to kidney disease, pt baseline is 7.5. 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
[2022-10-14 16:48] LABS: Influenza A QL RT-PCR Negative (Negative); Influenza B QL RT-PCR Negative (Negative); SARS-CoV-2 RNA PCR Negative
--- NOTE | 2022-10-14 18:08 | ADMGEN ---
This patient, Aliya Richardson, was admitted to 2 Medical Room 256-. Patient/family oriented to hospital policies and general routines including ID bracelet, bed and alarms, visiting hours, pain management, procedures, bathroom and other care routines, personal items, smoking policy, room service/diet, and visiting hours. Information on how to activate the Rapid Response Team has been discussed. Patient/Family are encouraged to report perceived risks to care and to ask questions if they do not understand what they are told or what they should do. Report received from YUKI Cheema.
[2022-10-14 18:39] LABS: Reflex Lactic Acid Yes or No Add Lactic
[2022-10-14 19:15] LABS: Troponin I < 0.012 ng/mL (0.000-0.034)
[2022-10-14] MEDS: AMITRIPTYLINE HCL 25 MG TABLET PO (20:07)
[2022-10-14] MEDS: DOCUSATE SODIUM 100 MG CAPSULE PO (20:07)
[2022-10-14] MEDS: SOLIFENACIN 5 MG TABLET PO (20:07)
[2022-10-14] MEDS: ACETAMINOPHEN 325 MG TABLET 650 MG PO (20:07)
[2022-10-14] MEDS: ATORVASTATIN 10 MG TABLET 20 MG PO (20:07)
[2022-10-14] MEDS: MELATONIN 3 MG TABLET PO (20:08)
[2022-10-14 21:49] LABS: Troponin I < 0.012 ng/mL (0.000-0.034)
[2022-10-14 21:59] LABS: Glucose Point of Care 150 mg/dl (65-105)
[2022-10-15] VITALS (15 sets, daily range): BP systolic 127–135; BP diastolic 60–74; PULSE 79–111; RESP 14–16; TEMP 36.5–36.8; O2SAT 93–96
--- NOTE | 2022-10-15 | ECHO_ITS ---
Patient Info Name: Aliya Richardson Age: 81 years : 1940 Gender: Female Ht: 65 in Wt: 156 lbs BSA: 1.82 m2 HR: 93 bpm BP: 128 / 73 mmHg Technical Quality: Poor Exam Date: 10/15/2022 9:34 AM Exam Location: [facility] Patient Status: Inpatient Admit Date: 10/14/2022 Staff Ordering Physician: Julia Mendoza NP [employer] Kitchen: Ilan Guidry RDCS, RT Attending Provider: Jv Padilla MD Referring Physician: Reji IGLESIAS; Exam Type: CA echo doppler color flow Study Info Indications R55 - Syncope and collapse Complete two-dimensional, color flow and Doppler transthoracic echocardiogram is performed. Summary 1. Complete two-dimensional, color flow and Doppler transthoracic echocardiogram is performed. 2. Technically suboptimal study due to poor sonographic images. 3. Left ventricular chamber dimension is normal. 4. Left ventricular systolic function is normal, estimated at 60-65%. 5. There is moderately increased left ventricular wall thickness. 6. The left ventricular diastolic function is grade I diastolic dysfunction. Left Ventricle Technically suboptimal study due to poor sonographic images. Tissue doppler E/e' is not measured. Left ventricular chamber dimension is normal. Left ventricular systolic function is normal, estimated at 60-65%. There is moderately increased left ventricular wall thickness. The left ventricular diastolic function is grade I diastolic dysfunction. Right Ventricle Right ventricular chamber dimension is not well visualized. Left Atria Left atrial chamber dimension is normal. Right Atria Right atrial chamber dimension is not well visualized. Aortic Valve The aortic valve is not well visualized. Cannot determine number of aortic valve leaflets. There is no aortic valve stenosis based on valve area and gradients. There is no aortic valve regurgitation. Pulmonic Valve The pulmonic valve is not well visualized. Mitral Valve There is no mitral valve stenosis. There is no mitral valve regurgitation. Tricuspid Valve The tricuspid valve leaflets are not well visualized. There is no tricuspid valve regurgitation. Pericardium/Pleural There is no pericardial effusion. Inferior Vena Cava Inferior vena cava is not well visualized. Aorta The aortic root size at the sinus of Valsalva is not well visualized. Left Ventricular Outflow Tract Name Value Normal LVOT 2D LVOT Diameter 2.0 cm LVOT Doppler LVOT Peak Gradient 5 mmHg LVOT Mean Gradient 3 mmHg LVOT VTI 19 cm LVOT VTI/AV VTI Ratio 0.9 LVOT Stroke Volume 58 ml LVOT CO 5.8 l/min LVOT CI 3.2 l/min/m2 Mitral Valve Name Value Normal MV Doppler
[2022-10-15] MEDS: ACETAMINOPHEN 325 MG TABLET 650 MG PO ×3 (01:35→20:32)
[2022-10-15 05:32] LABS: Basophils Absolute Auto 0.1 K/mm3 (0.0-0.1); Basophils Percent Auto 0.8 % (0.2-1.2); Eosinophils Absolute Auto 0.2 K/mm3 (0-0.3); Hematocrit 40.3 % (37.0-47.0); Hemoglobin 12.2 g/dL (12.0-15.0); Immature Granulocyte Absolute 0.07 K/mm3 (0.00-0.031); Immature Granulocyte Percent A 0.7 % (0-0.5); Lymphocytes Absolute Auto 2.88 K/mm3 (0.9-3.2); Lymphocytes Percent Auto 28.5 % (18.3-44.2); Mean Corpuscular HGB Conc 30.3 g/dl (32-36); Mean Corpuscular Hemoglobin 26.8 pg (26-34); Mean Corpuscular Volume 88.4 fl (80-100); Mean Platelet Volume 10.1 fl (7.4-10.4); Monocytes Absolute Auto 0.8 K/mm3 (0.1-0.6); Monocytes Percent Auto 7.7 % (2.6-8.5); Neutrophils Absolute Auto 6.1 K/mm3 (1.3-6.7); Neutrophils Percent Auto 60.3 % (45.5-73.1); Platelet Count Result 235 k/mm3 (150-375); Red Blood Count 4.56 M/mm3 (4.2-5.4); White Blood Count 10.1 K/mm3 (4.5-10.0)
[2022-10-15 05:38] LABS: Lactic Acid Reflex 1.8 mmol/L (0.7-2.0)
[2022-10-15 05:40] LABS: Alanine Aminotransferase 17 U/L (6-35); Albumin Level 3.7 g/dL (3.5-5.1); Alkaline Phosphatase 63 U/L (38-126); Anion Gap 7 mmol/L (8-16); Aspartate Amino Transferase 23 U/L (14-36); Bilirubin,Total 0.8 mg/dL (0.2-1.3); Blood Urea Nitrogen 21 mg/dL (7-17); Calcium 8.2 mg/dL (8.4-10.2); Carbon Dioxide 26 mmol/L (22-30); Chloride 107 mmol/L (98-107); Estimated CRCL calculation 34 ml/min; Estimated Glomerular Filt Rate 53; Glucose 109 mg/dL (65-110); Magnesium 2.2 mg/dL (1.6-2.3); Potassium 3.9 mmol/L (3.4-5.0); Sodium 140 mmol/L (137-145)
[2022-10-15 08:28] LABS: Glucose Point of Care 113 mg/dl (65-105)
[2022-10-15] MEDS: DOCUSATE SODIUM 100 MG CAPSULE PO ×3 (08:35→17:16)
[2022-10-15] MEDS: MULTIVITAMINS THERAPEUTIC TAB (*BKC) 1 TABLET PO (08:35)
[2022-10-15] MEDS: METOPROLOL SUCCINATE EXT REL 50 MG TABCR PO (08:35)
[2022-10-15] MEDS: LOSARTAN POTASSIUM 50 MG TABLET PO (08:36)
[2022-10-15] MEDS: ASPIRIN 81 MG ENTERIC TABLET PO (08:36)
[2022-10-15 12:09] LABS: Glucose Point of Care 126 mg/dl (65-105)
[2022-10-15 13:40] LABS: Hemoglobin A1C 5.9 % (<5.7)
--- NOTE | 2022-10-15 15:53 | PM.IMPN ---
Progress Note: A&P Assessment and Plan (1) Syncope and collapse: Code(s): R55 - Syncope and collapse Status: Acute Assessment and Plan: -orthostatic blood pressures Q shift -CT scan of the brain was negative for anything acute but shows an old infarction. -echo has been ordered. -carotid Dopplers -the patient is diabetic but her blood sugar was noted to be 139. -monitor telemetry overnight. -the patient may need to be sent home on a Holter monitor. -in the past the patient was on Keppra for possibility of seizures. However she had an EEG and that was ruled out. -the patient does take baclofen but I am unsure of if she took any prior to her syncopal episode. 10/15/2022 interval history: patient remains clinically stable denies any complaint chest pain shortness a breath or dizziness so far CT scan of the head, CT scan of the cervical spine, and MRI of the brain do not show any acute injury similarly bilateral carotid ultrasound did not show any stenosis, cardiac echo is pending, will have PT OT evaluate the patient patient may benefit with acute rehab will continue to monitor. (2) Stroke of right basal ganglia: Code(s): I63.81 - Other cerebral infarction due to occlusion or stenosis of small artery Status: Acute Assessment and Plan: -old infarction was noted on her CT tonight. The patient is already on an aspirin. (3) Diabetes mellitus: Qualifiers: Diabetes mellitus type: type 2 Diabetes mellitus group home insulin use: without terminal clerk use Diabetes mellitus complication status: without complication Qualified Code(s): E11.9 - Type 2 diabetes mellitus without complications Code(s): E11.9 - Type 2 diabetes mellitus without complications Status: Acute Assessment and Plan: -holding metformin -Accu-Cheks AC and HS with sliding scale insulin and hypoglycemic protocol. -check A1c. -diabetic diet (4) Hypertension: Qualifiers: Hypertension type: primary hypertension Qualified Code(s): I10 - Essential (primary) hypertension Code(s): I10 - Essential (primary) hypertension Status: Chronic Assessment and Plan: -continue with losartan -continue metoprolol (5) TIA (transient ischemic attack): Code(s): G45.9 - Transient cerebral ischemic attack, unspecified Status: Acute Assessment and Plan: -continue with aspirin. (6) Dyslipidemia: Code(s): E78.5 - Hyperlipidemia, unspecified Status: Acute Assessment and Plan: -continue with atorvastatin Plan Is reported that the patient has a lump on her right buttocks. Most likely a hematoma. However I will get a CT of pelvis and abdomen without contrast. Subjective Date/time seen: 10/15/22 15:53 Chief Complaint: HPI-Syncope Narrative: This is an 81 year female patient who has a history of hypertension CVA hyperlipidemia and cardiomyopathy.? The patient came to the hospital with complaints of syncope.? In the past was thought that she had seizures and was on Keppra but had a bad reaction to Keppra.? She had an EEG that was negative and is no longer on Keppra.? The patient stated that she was in the kitchen make in [facility] when she suddenly passed out.? She had no prodromal symptoms.? The patient stated that she just woke up on the floor and was somewhat confused.? She stated she did hit her head.? She denies any seizure activity.? When EMS arrived on scene the patient was back to her normal baseline.? She denied any chest pain or shortness of breath.? No fever chills.? No dizziness.? No numbness or tingling no weakness.? No recent infections.? No new medications.? Lactic acid is 2.4.? Troponin is nonreactive.? BNP is only 558.? Influenza A/B and COVID all negative.? Chest x-ray was read as no acute cardiopulmonary disease.? Lumbar spine CT was read as no acute fracture or traumatic malalignment and lumbar spine.? CT of the head was read as old lacunar infarcts in the bi
[2022-10-15] MEDS: NONFORMULARY NUTRITIONAL SUPPLEMENT 1 EACH XX (17:18)
[2022-10-15 17:31] LABS: Glucose Point of Care 86 mg/dl (65-105)
[2022-10-15] MEDS: MELATONIN 3 MG TABLET PO (20:31)
[2022-10-15] MEDS: AMITRIPTYLINE HCL 25 MG TABLET PO (20:31)
[2022-10-15] MEDS: ATORVASTATIN 10 MG TABLET 20 MG PO (20:31)
[2022-10-15] MEDS: SOLIFENACIN 5 MG TABLET PO (20:32)
[2022-10-15 20:58] LABS: Glucose Point of Care 168 mg/dl (65-105)
[2022-10-16] VITALS: PULSE 85
[2022-10-16 04:00] VITALS: PULSE 95
[2022-10-16 05:47] VITALS: BP 128/77; PULSE 96; RESP 16; TEMP 36.9; O2SAT 98
[2022-10-16 08:00] VITALS: PULSE 83
[2022-10-16 08:37] LABS: Glucose Point of Care 109 mg/dl (65-105)
[2022-10-16] MEDS: ACETAMINOPHEN 325 MG TABLET 650 MG PO (08:43)
[2022-10-16] MEDS: DOCUSATE SODIUM 100 MG CAPSULE PO (08:44)
[2022-10-16] MEDS: LOSARTAN POTASSIUM 50 MG TABLET PO (08:44)
[2022-10-16] MEDS: ASPIRIN 81 MG ENTERIC TABLET PO (08:44)
[2022-10-16 08:45] VITALS: PULSE 99
[2022-10-16] MEDS: MULTIVITAMINS THERAPEUTIC TAB (*BKC) 1 TABLET PO (08:45)
[2022-10-16] MEDS: METOPROLOL SUCCINATE EXT REL 50 MG TABCR PO (08:45)
[2022-10-16] MEDS: ACIDOPHILUS/BULGARICUS CHEWABLE TABLET 1 TABLET PO (10:14)
--- NOTE | 2022-10-16 11:19 | PM.DS ---
DS: Admitting Diagnosis Discharge Date October 16, 2022 Admitting Diagnosis Syncope DS: Discharge Diagnosis Discharge Diagnosis (1) Syncope and collapse: Code(s): R55 - Syncope and collapse Status: Acute Assessment and Plan: Workup unrevealing (2) Stroke of right basal ganglia: Code(s): I63.81 - Other cerebral infarction due to occlusion or stenosis of small artery Status: Acute Assessment and Plan: -old infarction was noted on her CT tonight. The patient is already on an aspirin. (3) Diabetes mellitus: Qualifiers: Diabetes mellitus type: type 2 Diabetes mellitus jail insulin use: without terminal makeup operator use Diabetes mellitus complication status: without complication Qualified Code(s): E11.9 - Type 2 diabetes mellitus without complications Code(s): E11.9 - Type 2 diabetes mellitus without complications Status: Acute Assessment and Plan: -holding metformin -Accu-Cheks AC and HS with sliding scale insulin and hypoglycemic protocol. -check A1c. -diabetic diet (4) Hypertension: Qualifiers: Hypertension type: primary hypertension Qualified Code(s): I10 - Essential (primary) hypertension Code(s): I10 - Essential (primary) hypertension Status: Chronic Assessment and Plan: -continue with losartan -continue metoprolol (5) TIA (transient ischemic attack): Code(s): G45.9 - Transient cerebral ischemic attack, unspecified Status: Acute Assessment and Plan: -continue with aspirin. (6) Dyslipidemia: Code(s): E78.5 - Hyperlipidemia, unspecified Status: Acute Assessment and Plan: -continue with atorvastatin Plan Is reported that the patient has a lump on her right buttocks. Most likely a hematoma. However I will get a CT of pelvis and abdomen without contrast. DS: Summary Hospital Course Hospital Course: Patient is an 81-year-old female came with syncope. Vitals have remained stable. Workup was unrevealing. Echo was noted and normal. Should be sent home on a Holter monitor and follow Cardiology. Time Spent with Patient Time attestation: Total time spent providing and/or coordinating discharge services: Exam Narrative: Patient is comfortable, NAD HEENT: eyes are clear and none icteric LUNGS: normal respiratory effort ABD: not distended Lower extremities: no edema SKIN: nonjaundiced Neuro: grossly intact. DS: Data Data Completed and Pending Labs on day of discharge: Labs from last 24 hours 10/16/22 10/15/22 10/15/22 08:15 20:30 17:16 POC Capillary Glucose 109 H 168 H 86 Hemoglobin A1c 10/15/22 10/15/22 12:02 05:13 POC Capillary Glucose 126 H Hemoglobin A1c 5.9 H Discharge Plan Discharge Attending physician on discharge: Americo Dominguez Discharging Clinician: Americo Dominguez Patient Disposition: Home, Self-Care Activity: no preference Diet: as tolerated Patient Instructions: Antibiotic Form Stand Alone Forms: General Discharge Information Follow-up/Referrals: Agnieszka Franco MD [Primary Care Provider] - Jewel Conte MD [Physician] - Discharge Medications: Continued docusate sodium [Colace] 100 mg Capsule 100 mg PO TID acetaminophen 325 mg tablet 650 mg PO Q6H PRN (Reason: Pain) metoprolol succinate 50 mg tablet extended release 24 hr 50 mg PO DAILY aspirin 81 mg tablet,delayed release (DR/EC) 81 mg PO DAILY Qty: 30 2RF atorvastatin 10 mg tablet 20 mg PO .QHS AZO D-Mannose 500 mg Capsule 2,000 mg PO DAILY Rx Instructions: Take 4 tabs daily multivitamin Tablet 1 tablet PO DAILY Hold Instructions: Order Change melatonin 3 mg tablet 3 mg PO HS Hold Instructions: Order Change Probiotic 100 billion cell Capsule 1 cap PO DAILY solifenacin 5 mg tablet 5 mg PO HS (DME) blood-glucose meter Misc See Rx Instru
[2022-10-16 12:26] LABS: Glucose Point of Care 155 mg/dl (65-105)
== END 2022-10-16 12:36 | disposition home health service (06) ==
LOC: ANHED 15:06 → ANH2MED 17:57
PROVIDERS: Nurse Practitioner; Admitting Provider Internal Medicine; Emergency Provider Emergency Medicine; PCP Family Medicine; Visit Provider Chiropractor
DX: R55 Syncope and collapse (principal); I10 Essential (primary) hypertension; E78.5 Hyperlipidemia, unspecified; Z99.2 Dependence on renal dialysis; K21.9 Gastro-esophageal reflux disease without esophagitis; G47.33 Obstructive sleep apnea (adult) (pediatric); Z86.73 Personal history of transient ischemic attack (TIA), and cerebral infarction without residual deficits; Z85.42 Personal history of malignant neoplasm of other parts of uterus; Z79.82 Long term (current) use of aspirin; E11.9 Type 2 diabetes mellitus without complications
CPT/HCPCS: 36415; 51701; 70450; 70553; 71045; 72131; 74176; 80053; 81001; 82948; 83036; 83605; 83735; 83880; 84443; 84484; 85025; 85610; 85730; 87086; 87088; 87636; 93005; 93306; 93880; 96361; 96365; 99285; A9270; A9577; G0378; J0131; J7030

== ENCOUNTER 2022-11-13 11:00 | Outpatient (CLI) | payer MEDICARE, SELFPAY ==
--- NOTE | ~2022-11-13 | XR_ITS ---
XR abdomen/kub 1V 11/13/2022 11:32 Indication: History of kidney stones Procedure: KUB Comparison: Comparison to multiple prior studies sequentially, with oldest reviewed study dated 04/12. Findings: Bowel gas pattern is nonobstructive. Moderate gas in the stomach. Moderate colonic fecal lo ading. Bowel content obscures the kidneys limiting evaluation for renal stones there is lower thoraci c and lumbar spondylosis. No acute osseous abnormality. Impression: 1: No acute abdominal abnormality. Reviewed, dictated and finalized at location B. ITIAN CHIEF Impression: 1: No acute abdominal abnormality.
--- NOTE | ~2022-11-13 | US_ITS ---
EXAMINATION: US retroperitoneal comp DATE: 11/13/2022 12:06 INDICATION: hypertension TECHNIQUE: Multiple ultrasound grayscale images of the kidneys were obtained. COMPARISON: CT abdomen and pelvis dated 10/14/2022 FINDINGS: The right kidney measures 10.7 x 5.4 x 4.5 cm. The left kidney measures 7.1 x 3.2 x 3.8 cm. The kidne ys demonstrate normal echogenicity. Small echogenic foci with posterior twinkle artifact at both kidn eys corresponding to bilateral small renal stones on prior CT. There is no hydronephrosis in either k idney. No stones identified. The bladder is normal. IMPRESSION: 1. Bilateral nonobstructing nephrolithiasis with no hydronephrosis. 2. Asymmetric mild left renal atrophy. Reviewed, dictated and finalized at location A. [employer]
== END 2022-11-13 11:01 | disposition home or self-care (01) ==
PROVIDERS: PCP Family Medicine; Visit Provider Urology
DX: N20.0 Calculus of kidney (principal)
CPT/HCPCS: 74018; 76770

== ENCOUNTER 2022-12-07 02:23 | Day surgery (SDC) | payer MEDICARE, SELFPAY ==
[2022-12-04 15:36] VITALS: BMI 22.6
[2022-12-07 07:45] VITALS: BP 173/83; PULSE 72; RESP 19; TEMP 36.2; O2SAT 96; BMI 23.8
[2022-12-07 08:30] VITALS: BP 168/77; PULSE 70; RESP 18; O2SAT 99
[2022-12-07 08:44] VITALS: BP 187/89; PULSE 79; RESP 14; O2SAT 98
--- NOTE | 2022-12-07 08:49 | P.PCNCC_ITS ---
Cardiac Cath Procedure Note Date of procedure:: 12/07/22 Performing physician:: Americo Fabian MD Indication:: Intermittent/unexplained syncope Brief clinical history:: This is an 82-year-old woman who is followed by my partner in the office who has been having syncopal episodes which are unexplained. Outpatient event monitoring has failed to yield a diagnosis and for this reason a loop recorder implant has been scheduled for today Procedure Procedure performed:: Implantation of Medtronic Linq loop recorder Sedation/Medication given:: No sedation Access site:: Left anterior chest Estimated blood loss:: Minimal Procedure note:: Patient was brought to the cardiac catheterization old area where the left anterior chest wall was prepped and draped in the normal fashion. A wilma was made in the midclavicular line in the 4th intercostal space. 1% lidocaine was injected for local anesthesia. The LINQ insertion kit was opened and the puncture tool was used to create a stab at the wilma that was created. Following this the LINQ device was deployed using the insertion tool inferior to the puncture wound uneventfully. Manual pressure was held for hemostasis a drop of bio glue was placed and a Band-Aid. Findings:: Patient received Medtronic LINQ 2 loop recorder serial number [id number] Conclusion:: Uncomplicated implantation of Medtronic LINQ loop recorder for evaluation of unexplained intermittent syncope in this 82-year-old lady Americo Fabian MD [facility]
[2022-12-07 08:50] VITALS: BP 173/81; PULSE 75; RESP 12; O2SAT 100
[2022-12-07 08:55] VITALS: BP 173/93; PULSE 75; RESP 20; O2SAT 99
[2022-12-07 09:03] VITALS: BP 152/77; PULSE 71; RESP 22; O2SAT 97
== END 2022-12-07 09:39 | disposition home or self-care (01) ==
PROVIDERS: PCP Family Medicine; Visit Provider Specialist
PROC: (CPT 33285; principal; 2022-12-07 08:30)
DX: R55 Syncope and collapse (principal)
CPT/HCPCS: 33285; C1764

== ENCOUNTER 2023-01-13 08:18 | Emergency (ER) | payer MEDICARE, SELFPAY ==
--- NOTE | ~2023-01-13 | XR_ITS ---
EXAMINATION: XR hip RT 2V w AP pelvis DATE: 01/13/2023 09:14 INDICATION: Right hip pain. Fall. TECHNIQUE: An anteroposterior view of the pelvis and 2 views of right hip were obtained. COMPARISON: CT abdomen and pelvis 10/14/2022 FINDINGS: There is lumbar dextrocurvature and mild spondylosis. No fracture. There is mild osteoarthr itis of the hips. IMPRESSION: 1. Mild osteoarthritis of the hips. Reviewed, dictated and finalized at location A.
--- NOTE | ~2023-01-13 | CT_ITS ---
EXAMINATION: CT brain wo con INDICATION: Head injury COMPARISON: 10/14/2022 TECHNIQUE: Standard unenhanced head CT. The dose-length product (DLP) was 681.00 mGy-cm. The mA was a djusted according to patient size. Iterative reconstruction technique was employed. FINDINGS: There is a large right lateral frontal scalp hematoma. There is an acute subdural hematoma along the right frontoparietal convexity extending anteriorly into the right temporal fossa. Maximum thickness is 1.4 cm. A small contrecoup subdural hematoma seen along the left frontal and temporal lo bes. There is no acute intraparenchymal hemorrhage. No evidence of mass lesion. No evidence of acute infarction. There is mild periventricular and subcortical hypodensity probably related to small vesse l ischemic disease. There is mild prominence of the sulci and ventricles related to cerebral atrophy. Intracranial calcified cerebral atherosclerosis is noted. Changes in the globes are likely from ocul ar lens surgery. The visualized sinuses and mastoid air cells are well aerated. IMPRESSION: 1. Acute bilateral subdural hematomas, right greater than left with mild mass effect on the right. Th carloz findings were discussed with Dr. Asif Young MD in the Emergency Department at 0920 hours on 01/13/2023. 2. Age related findings. Reviewed, dictated and finalized at location B. IMPRESSION: 1. Acute bilateral subdural hematomas, right greater than left with mild mass e ffect on the right. These findings were discussed with Jim Wolff in the Emergency Department at 0920 hours on 01/13/2023. 2. Age related findings.
[2023-01-13 08:30] VITALS: BP 150/88; BP 166/120; PULSE 78; PULSE 91; RESP 16; RESP 18; TEMP 36.8; TEMP 37; O2SAT 97
[2023-01-13 09:25] VITALS: BP 170/71; PULSE 72; RESP 18; O2SAT 98
--- NOTE | 2023-01-13 09:36 | ED.HEATRA ---
HPI - Head Injury General Chief complaint: Head Injury Stated complaint: fall, head injury Time Seen by Provider: 01/13/23 08:29 History of Present Illness HPI Narrative: Patient is an 82-year-old female who presents ER with head injury. Was going into her bathroom this morning and tripped and fell. She struck her head on the ground. No loss of consciousness. She denies change in vision or hearing. Has some pain to her right hip but has no pain with range of motion. She is on Plavix and aspirin due to TIAs in the past. Patient also has history of non-ST elevation MO. Related Data Home Medications Medication Instructions Recorded Confirmed melatonin 3 mg tablet 3 mg PO HS 08/21/19 01/11/23 multivitamin 1 tablet PO DAILY 08/21/19 01/11/23 Lactobacillus 40-Bifidobact 1 cap PO DAILY 04/16/20 01/11/23 3-S.thermophilus 100 billion cell capsule (Probiotic) acetaminophen 325 mg tablet 325 mg PO Q6H PRN Pain 12/11/21 01/11/23 docusate sodium 100 mg capsule 100 mg PO TID 12/11/21 01/11/23 (Colace) solifenacin 5 mg tablet 5 mg PO HS 04/10/22 01/11/23 metoprolol succinate 50 mg 50 mg PO DAILY 06/23/22 01/11/23 tablet,extended release 24 hr atorvastatin 10 mg tablet 40 mg PO QHS 10/14/22 01/11/23 d-mannose 500 mg capsule (AZO 8,000 mg PO DAILY 10/14/22 01/11/23 D-Mannose) zinc 50 mg tablet 50 mg PO DAILY 12/04/22 01/11/23 clopidogrel 75 mg tablet 75 mg PO DAILY 01/11/23 01/11/23 losartan 100 mg tablet 100 mg PO DAILY 01/11/23 01/11/23 Allergies Allergy/AdvReac Type Severity Reaction Status Date / Time tetracycline AdvReac Severe NAUSEA Verified 01/13/23 08:26 oxycodone AdvReac Unknown N&V Verified 01/13/23 08:26 Review of Systems Review of Systems: All systems reviewed & are unremarkable except as noted in HPI and below Eyes: Eyes: Denies change in vision ENT: Denies nasal congestion and Denies sore throat Cardiovascular: Cardiovascular: Denies chest pain, Denies rapid heart rate and Denies radiating jaw, neck or arm pain Gastrointestinal: Gastrointestinal: Denies abdominal pain, Denies nausea and Denies vomiting Musculoskeletal: Musculoskeletal: Denies back pain, Reports arthralgias and Denies joint swelling Neurologic: Denies dizziness, Denies syncope, Reports headache(s), Denies focal weakness and Denies numbness PMFSH Past Medical History Medical History (Updated 01/13/23 @ 09:40 by Asif Young MD) Acute renal failure (ARF) Patient received intermittent hemodialysis between 07/23/2019 and 07/29/2019 as well as 07/31/2019 and 08/02/2019. Patient is now on long-term hemodialysis schedule managed by Dr. Gianni Larson Anemia Anxiety Anxiety CAD (coronary artery disease) Cardiac arrest Chronic anemia Pt is also anemia was treated with blood transfusion and epogen shot before, ordered epogen shot again for pt as her hb is 6. Pt will need work up for anaemia if Dr Larson does not think it is related to kidney disease, pt baseline is 7.5. 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 G tube feedings Only receiving supplemental feeds and 6 at night currently GERD (gastroesophageal reflux disease) GERD (gastroesophageal reflux disease) History of renal dialysis HTN (hypertension) Hypertension Hypertension MVP (mitral valve prolapse) MVP (mitral valve prolapse) NSTEMI (non-ST elevated myocardial infarction) Obstructive sleep apnea Intolerant of CPAP Obstructive sleep apnea Intolerant of CPAP JULIUS (obstructive sleep apnea) Osteoarthritis Osteopenia after menopause Polyneuropathy associated with critical illness Shock liver TIA (transient ischemic attack) TIA (transient ischemic attack) TIA (transient ischemic attack) Type 2 diabetes mellitus Urethral stone Urge incontinence Uterine cance
--- NOTE | 2023-01-13 09:40 | PC.NURSE ---
C Collar placed per EDP Dr Hector RICHARDS
[2023-01-13 09:50] LABS: Basophils Absolute Auto 0.1 K/mm3 (0.0-0.1); Basophils Percent Auto 0.9 % (0.2-1.2); Eosinophils Absolute Auto 0.2 K/mm3 (0-0.3); Eosinophils Percent Auto 1.8 % (0-4.4); Hematocrit 41.2 % (37.0-47.0); Hemoglobin 12.6 g/dL (12.0-15.0); Immature Granulocyte Absolute 0.06 K/mm3 (0.00-0.031); Immature Granulocyte Percent A 0.7 % (0-0.5); Lymphocytes Absolute Auto 1.57 K/mm3 (0.9-3.2); Lymphocytes Percent Auto 17.4 % (18.3-44.2); Mean Corpuscular HGB Conc 30.6 g/dl (32-36); Mean Corpuscular Hemoglobin 27.1 pg (26-34); Mean Corpuscular Volume 88.6 fl (80-100); Mean Platelet Volume 10.5 fl (7.4-10.4); Monocytes Absolute Auto 0.5 K/mm3 (0.1-0.6); Monocytes Percent Auto 5.1 % (2.6-8.5); Neutrophils Absolute Auto 6.7 K/mm3 (1.3-6.7); Neutrophils Percent Auto 74.1 % (45.5-73.1); Platelet Count Result 246 k/mm3 (150-375); Red Blood Count 4.65 M/mm3 (4.2-5.4); Red Cell Distribution Width 15.8 % (11.5-14.5)
[2023-01-13 10:03] LABS: Anion Gap 5 mmol/L (8-16); Blood Urea Nitrogen 27 mg/dL (7-17); Calcium 9.4 mg/dL (8.4-10.2); Carbon Dioxide 32 mmol/L (22-30); Chloride 104 mmol/L (98-107); Estimated CRCL calculation 34 ml/min; Estimated Glomerular Filt Rate 53; Glucose 122 mg/dL (65-110); Potassium 4.3 mmol/L (3.4-5.0); Sodium 141 mmol/L (137-145)
[2023-01-13 10:12] LABS: Appearance Urine Clear (Clear); Bacteria Urine 2+ /hpf; Bilirubin Urine Negative (Negative); Blood Urine Negative (Negative); Color Urine Yellow (Yellow); Glucose Urine UA Negative (Negative); Ketones Urine Negative (Negative); Leukocyte Esterase Ur 1+ LEU/UL (Negative); Need Manual Microscopic Reviewed; Nitrate Urine Positive (Negative); Non Pathogenic Casts 0-2; Protein Urine Trace mg/dL (Negative); RBC Urine 0-2 /hpf (0-2); Specific Grav Ur 1.014 (1.001-1.035); Squamous Epithelial Cell Urine None seen /hpf (Few); Urobilinogen Urine 0.2 mg/dL (<2.0); WBC Urine 21-50 /hpf
[2023-01-13] MEDS: ONDANSETRON INJ 4 MG/2 ML VIAL IV PUSH (10:14)
[2023-01-13] MEDS: MORPHINE SULFATE (*CRX) 2 MG/ML INJ IV PUSH (10:14)
[2023-01-13 10:25] VITALS: BP 161/64; PULSE 90; RESP 18; O2SAT 96
[2023-01-13 10:28] LABS: Add Urine Microscopic? YES
== END 2023-01-13 10:35 | disposition short-term general hospital (02) ==
PROVIDERS: Emergency Provider Emergency Medicine; PCP Family Medicine
DX: S06.5X0A Traumatic subdural hemorrhage without loss of consciousness, initial encounter (principal); E78.5 Hyperlipidemia, unspecified; I25.10 Atherosclerotic heart disease of native coronary artery without angina pectoris; D64.9 Anemia, unspecified; I10 Essential (primary) hypertension; E11.42 Type 2 diabetes mellitus with diabetic polyneuropathy; I25.2 Old myocardial infarction; G47.33 Obstructive sleep apnea (adult) (pediatric); K21.9 Gastro-esophageal reflux disease without esophagitis; M16.0 Bilateral primary osteoarthritis of hip; M85.80 Other specified disorders of bone density and structure, unspecified site; Z85.42 Personal history of malignant neoplasm of other parts of uterus; Z86.73 Personal history of transient ischemic attack (TIA), and cerebral infarction without residual deficits; Z87.440 Personal history of urinary (tract) infections; Z87.442 Personal history of urinary calculi; Z98.42 Cataract extraction status, left eye; Z98.41 Cataract extraction status, right eye; Z90.710 Acquired absence of both cervix and uterus; Z79.02 Long term (current) use of antithrombotics/antiplatelets; Z79.82 Long term (current) use of aspirin; Z79.84 Long term (current) use of oral hypoglycemic drugs; W01.0XXA Fall on same level from slipping, tripping and stumbling without subsequent striking against object, initial encounter
CPT/HCPCS: 36415; 70450; 73502; 80048; 81001; 85025; 87086; 96374; 96375; 99285; J2270; J2405; L0140

== ENCOUNTER 2023-03-03 08:26 | Observation (INO) | payer MEDICARE, SELFPAY ==
--- NOTE | ~2023-03-03 | XR_ITS ---
EXAMINATION: XR chest 2V DATE: 03/03/2023 INDICATION: Confusion, superior TECHNIQUE: AP and lateral views of the chest are obtained. COMPARISON: None available FINDINGS: The lungs are free of acute opacities. No pleural effusion or pneumothorax. Cardiomegaly is noted. There is mild thoracic spondylosis. An electronic device is implanted in the anterior subcuta neous tissues over the left heart. IMPRESSION: 1. No acute cardiopulmonary abnormality. Reviewed, dictated and finalized at location A.
--- NOTE | ~2023-03-03 | CT_ITS ---
EXAMINATION: CT brain wo con DATE: 03/04/2023 12:34 INDICATION: Altered mental status. Subdural hematoma. TECHNIQUE: Computed tomography (CT) of the head was performed without intravenous contrast. The mA wa s adjusted according to patient size. Iterative reconstruction technique was employed. The dose-lengt h product was 832.33 mGy-cm. COMPARISON: Head CT 03/03/2023, 01/13/23 FINDINGS: There are changes of right-sided parietal craniotomy with underlying dural thickening versu s chronic small subdural hematoma. There are scattered areas of low attenuation in the cerebral white matter. There is no acute ischemic infarct or abnormal mass lesion. The ventricles are normal in siz e. The paranasal sinuses are clear. There are likely changes of ocular lens replacement surgeries. Th e mastoid air cells are normal. IMPRESSION: 1. Stable right parietal dural thickening versus chronic small subdural hematoma subjacent to the craft artist niotomy. 2. Stable extensive nonspecific cerebral white matter disease, which likely represents chronic small vessel ischemic disease. Reviewed, dictated and finalized at location A. IMPRESSION: 1. Stable right parietal dural thickening versus chronic small subdural hematom a subjacent to the craniotomy. 2. Stable extensive nonspecific cerebral white matter disease, which likely rep resents chronic small vessel ischemic disease.
--- NOTE | ~2023-03-03 | CT_ITS ---
EXAMINATION: CT brain wo con INDICATION: Altered mental status COMPARISON: 01/13/2023 TECHNIQUE: Standard unenhanced head CT. The dose-length product (DLP) was 681 mGy-cm. The mA was adju sted according to patient size. Iterative reconstruction technique was employed. FINDINGS: There are changes of interval right frontoparietal craniotomy and subdural hematoma evacuat ion. A trace amount of residual subacute extra-axial subdural hemorrhage is seen. The previously desc ribed left subdural hematoma is no longer identified. There is no acute intraparenchymal hemorrhage. No evidence of mass lesion. No evidence of acute infarction. There is mild periventricular and subcor tical hypodensity probably related to small vessel ischemic disease. There is mild prominence of the sulci and ventricles related to cerebral atrophy. Intracranial calcified cerebral atherosclerosis is noted. There are no extra-axial collections. There is no mass effect or midline shift. Changes in the globes are likely from ocular lens surgery. The visualized sinuses and mastoid air cells are well ae rated. IMPRESSION: 1. Interval right subdural hematoma evacuation with trace amount of residual subacute hematoma seen. Resolved left subdural hematoma. 2. Age related findings. Reviewed, dictated and finalized at location A. IMPRESSION: 1. Interval right subdural hematoma evacuation with trace amount of residual steven bacute hematoma seen. Resolved left subdural hematoma. 2. Age related findings.
--- NOTE | ~2023-03-03 | US_ITS ---
US renal BI DATE: 03/06/2023 10:28 INDICATION: Acute urinary retention TECHNIQUE: Real-time imaging of kidneys and urinary bladder COMPARISON: 10/14/2022 CT abdomen pelvis 10/14/2019 CT abdomen FINDINGS: The right kidney measures approximately 10.5 cm length, left kidney 7.7 cm. There is chroni c small left kidney since 10/14/2022. Left renal abscess or emphysematous pyelonephritis was noted on 10/14/2019. No renal mass lesion or hydronephrosis is detected on either side. The urinary bladder is unremarkable. IMPRESSION: Chronic left renal atrophy No evidence of hydronephrosis of either kidney Reviewed, dictated and finalized at Location A. Reviewed, dictated and finalized at location A.
[2023-03-03 20:00] VITALS: BP 140/60; PULSE 86; PULSE 89; RESP 16; TEMP 36.1; O2SAT 94
[2023-03-03 22:06] LABS: Glucose Point of Care 151 mg/dl (65-105)
--- NOTE | 2023-03-03 22:24 | PC.NURSE ---
Paper documentation exists on this patient due to [employer] downtime on 03/03/23 from 0030 to [1930] .
[2023-03-04] VITALS (10 sets, daily range): BP systolic 129–142; BP diastolic 59–80; PULSE 72–100; RESP 18; TEMP 36.2–36.8; O2SAT 95–100
--- NOTE | 2023-03-04 04:20 | HP_ITS ---
DATE OF SERVICE: 03/03/2023 TIME OF EVALUATION: 1929 CHIEF COMPLAINT: Altered mental status. HISTORY OF THE PRESENT ILLNESS: This is a very pleasant 82-year-old female with history of fall and traumatic subdural hematomas complicated by focal seizures on 01/13/2023, stroke, hypertension, hyperlipidemia, diabetes, sleep apnea, and several other comorbidities who presented to the emergency department from home for evaluation of altered mental status. At the time of my evaluation, she is alert and oriented x3; however, she does not really remember the events that occurred last night and earlier this morning and thus some of the following history is obtained via a review of her electronic medical records and information provided by her familiy. As mentioned above, she sustained a fall at home on 01/13/2023, and brain CT showed bilateral subdural hematomas for which she had a right-sided craniotomy with evacuation of the hematoma. She was discharged to [facility] on 02/10/2023 and she was discharged home just 3 days ago. Since last night, the patient has reportedly had a change in mentation. Family members report that she has been talking excessively and her behavior has been erratic. They gave several examples including the patient attempting to climb the stairs with a walker, going to the bathroom and trying to urinate with her clothes on, and hallucinating that her mother and grandmother were running down the klein. Family members were concerned that she had another stroke or perhaps urine infection. On arrival to the emergency department, her blood pressure was 155/72, pulse 87, respiratory rate 16, pulse ox 96% on room air, and temperature 97.6. Brain CT showed interval right subdural hematoma evacuation with a trace amount of residual subacute hematoma and resolved left subdural hematoma as well as age-related findings. Her labs were really unremarkable and her UA was normal. She was admitted to the medical tele floor for closer monitoring. At the time of my evaluation this evening, she is alert and oriented x4. At times, she has circumstantial speech, but she is able to provide a pretty good history. She complains of a mild headache, where she had her craniotomy, which is not unusual for her. She denies fever, chills, sweats, sinus congestion, sore throat, cough, chest pain, shortness of breath, nausea, vomiting, diarrhea, and dysuria. She takes Tylenol at home for pain and does not think that she has been taking anything stronger. MEDICAL HISTORY: 1. Traumatic bilateral subdural hematoma complicated by focal seizures on 01/13/2023. 2. Cerebrovascular accident. 3. Hypertension. 4. Hyperlipidemia. 5. Obstructive sleep apnea, intolerant to CPAP. 6. Type 2 diabetes mellitus. 7. History of transient ischemic attack, on aspirin and Plavix. 8. History of syncope. 9. Gastroesophageal reflux disease. 10. History of kidney stones. 11. Osteoarthritis. 12. Anemia. 13. Anxiety. 14. History of uterine cancer. SURGICAL HISTORY: 1. Right craniotomy with hematoma evacuation. 2. Cataract extraction with lens implant. 3. Lithotripsy. 4. Bladder suspension. 5. Tonsillectomy. 6. Hysterectomy. HOME MEDICATIONS: 1. Hydroxyzine 25 mg q.6 hours as needed for itching. 2. Nystatin powder topically q.12 hours. 3. Lidocaine patch 1 patch transdermally daily. 4. Multivitamin daily. 5. Melatonin 3 mg at bedtime. 6. Probiotic daily. 7. Acetaminophen 325 mg q.6 hours as needed for pain. 8. Solifenacin 5 mg at bedtime. 9. Metoprolol succinate 50 mg daily. 10. Amitriptyline 25 mg at bedtime. 11. Atorvastatin 40 mg at bedtime. 12. Zinc 500 mg daily. 13. Metformin 1000 mg twice daily. 14. Losartan 100 mg daily. 15. Baclofen 10 mg q.12 hours as needed. 16. Docusate sodi
[2023-03-04] MEDS: ACETAMINOPHEN 325 MG TABLET PO ×2 (04:37→18:44)
[2023-03-04 08:14] LABS: Glucose Point of Care 101 mg/dl (65-105)
[2023-03-04] MEDS: MULTIVITAMINS THERAPEUTIC TAB (*BKC) 1 TABLET PO (08:56)
[2023-03-04] MEDS: LOSARTAN POTASSIUM 100 MG TABLET PO (08:56)
[2023-03-04] MEDS: ZINC SULFATE 220 MG CAPSULE PO (08:56)
[2023-03-04] MEDS: ACIDOPHILUS/BULGARICUS CHEWABLE TABLET 1 TABLET PO (08:56)
[2023-03-04] MEDS: METOPROLOL SUCCINATE EXT REL 50 MG TABCR PO (08:57)
[2023-03-04] MEDS: LIDOCAINE 5% PATCH 1 PATCH TRANSDERM (09:01)
[2023-03-04] MEDS: TOLNAFTATE 1% POWDER 45 GM BTL 1 APPLIC TOPICAL ×2 (09:27→20:47)
[2023-03-04 09:46] LABS: Basophils Absolute Auto 0.1 K/mm3 (0.0-0.1); Basophils Percent Auto 0.7 % (0.2-1.2); Eosinophils Absolute Auto 0.2 K/mm3 (0-0.3); Eosinophils Percent Auto 2.5 % (0-4.4); Immature Granulocyte Absolute 0.04 K/mm3 (0.00-0.031); Immature Granulocyte Percent A 0.6 % (0-0.5); Lymphocytes Absolute Auto 1.94 K/mm3 (0.9-3.2); Lymphocytes Percent Auto 27.1 % (18.3-44.2); Mean Corpuscular HGB Conc 29.7 g/dl (32-36); Mean Corpuscular Hemoglobin 27.6 pg (26-34); Mean Corpuscular Volume 92.7 fl (80-100); Mean Platelet Volume 10.1 fl (7.4-10.4); Monocytes Absolute Auto 0.4 K/mm3 (0.1-0.6); Neutrophils Absolute Auto 4.5 K/mm3 (1.3-6.7); Neutrophils Percent Auto 63.1 % (45.5-73.1); Platelet Count Result 357 k/mm3 (150-375); Red Blood Count 3.99 M/mm3 (4.2-5.4); Red Cell Distribution Width 19.1 % (11.5-14.5); White Blood Count 7.2 K/mm3 (4.5-10.0)
[2023-03-04 09:56] LABS: Ammonia < 9 umol/L (9-30)
[2023-03-04 10:00] LABS: Anion Gap 4 mmol/L (8-16); Blood Urea Nitrogen 19 mg/dL (7-17); Calcium 9.1 mg/dL (8.4-10.2); Carbon Dioxide 33 mmol/L (22-30); Chloride 105 mmol/L (98-107); Estimated Glomerular Filt Rate > 60; Glucose 119 mg/dL (65-110); Potassium 4.1 mmol/L (3.4-5.0); Sodium 142 mmol/L (137-145)
[2023-03-04 11:09] LABS: Folic Acid > 20.0 ng/mL (2.76->20)
[2023-03-04 11:42] LABS: Glucose Point of Care 189 mg/dl (65-105)
[2023-03-04 12:01] LABS: Troponin I < 0.012 ng/mL (0.000-0.034)
[2023-03-04 12:01] LABS: Hematocrit 39.6 % (37.0-47.0); Hemoglobin 11.9 g/dL (12.0-15.0); Mean Corpuscular HGB Conc 30.1 g/dl (32-36); Mean Corpuscular Hemoglobin 27.9 pg (26-34); Mean Corpuscular Volume 92.7 fl (80-100); Red Blood Count 4.27 M/mm3 (4.2-5.4); White Blood Count 8.9 K/mm3 (4.5-10.0)
[2023-03-04 12:02] LABS: Basophils Absolute Auto 0.1 K/mm3 (0.0-0.1); Basophils Percent Auto 0.9 % (0.2-1.2); Eosinophils Absolute Auto 0.2 K/mm3 (0-0.3); Eosinophils Percent Auto 1.9 % (0-4.4); Immature Granulocyte Absolute 0.06 K/mm3 (0.00-0.031); Immature Granulocyte Percent A 0.7 % (0-0.5); Lymphocytes Absolute Auto 1.66 K/mm3 (0.9-3.2); Lymphocytes Percent Auto 18.7 % (18.3-44.2); Mean Platelet Volume 10.4 fl (7.4-10.4); Monocytes Absolute Auto 0.5 K/mm3 (0.1-0.6); Monocytes Percent Auto 5.3 % (2.6-8.5); Neutrophils Absolute Auto 6.4 K/mm3 (1.3-6.7); Neutrophils Percent Auto 72.5 % (45.5-73.1); Platelet Count Result 368 k/mm3 (150-375); Red Cell Distribution Width 19.5 % (11.5-14.5)
[2023-03-04 12:03] LABS: Appearance Urine Clear (Clear); Bilirubin Urine Negative (Negative); Blood Urine Negative (Negative); Color Urine Yellow (Yellow); Glucose Urine UA Negative (Negative); Ketones Urine Negative (Negative); Nitrate Urine Negative (Negative); Protein Urine Negative (Negative); Specific Grav Ur 1.013 (1.001-1.035)
[2023-03-04 12:04] LABS: Add Urine Microscopic? NO; Leukocyte Esterase Ur Negative LEU/UL (Negative); Urobilinogen Urine 0.2 mg/dL (<2.0)
[2023-03-04 12:05] LABS: Anion Gap 7 mmol/L (8-16); Carbon Dioxide 31 mmol/L (22-30); Chloride 101 mmol/L (98-107); Potassium 4.4 mmol/L (3.4-5.0); Sodium 139 mmol/L (137-145)
[2023-03-04 12:06] LABS: Alanine Aminotransferase 19 U/L (6-35); Albumin Level 4.5 g/dL (3.5-5.1); Alkaline Phosphatase 70 U/L (38-126); Aspartate Amino Transferase 36 U/L (14-36); Bilirubin,Total 1.3 mg/dL (0.2-1.3); Blood Urea Nitrogen 25 mg/dL (7-17); Calcium 9.6 mg/dL (8.4-10.2); Estimated Glomerular Filt Rate > 60; Glucose 105 mg/dL (65-110); Troponin I < 0.012 ng/mL (0.000-0.034)
--- NOTE | 2023-03-04 12:27 | WPDNEURCNPN ---
Assessment and Plan Assessment and plan (1) Seizure: Code(s): R56.9 - Unspecified convulsions Status: Acute (2) Bilateral subdural hematomas: Code(s): S06.5XAA - Traumatic subdural hemorrhage with loss of consciousness status unknown, initial encounter Status: Acute (3) Stroke-like symptom: Code(s): R29.90 - Unspecified symptoms and signs involving the nervous system Status: Acute (4) Diabetes mellitus: Qualifiers: Diabetes mellitus type: type 2 Diabetes mellitus custodial insulin use: without emt intermediate use Diabetes mellitus complication status: without complication Qualified Code(s): E11.9 - Type 2 diabetes mellitus without complications Code(s): E11.9 - Type 2 diabetes mellitus without complications Status: Acute (5) Hypertension: Qualifiers: Hypertension type: primary hypertension Qualified Code(s): I10 - Essential (primary) hypertension Code(s): I10 - Essential (primary) hypertension Status: Chronic Plan transfer for the change in the mental status with all the ongoing medical problems as outlined above a CT scan of the head will be repeated and further adjustment in the treatment will be accordingly Consult date: 03/04/23 HPI: Aliya Richardson is a 82 year old female admitted to the hospital on transfer from the acute rehab of [facility] with resultant focal seizures. Patient has ongoing history of 1. Congestive heart failure 2. Hypertension 3. Hyperlipidemia 4. Obstructive sleep apnea 5. Type 2 diabetes mellitus 6. TIA has been on aspirin and Plavix. She initially presented to [facility] January 13, 2023 subsequent to a fall at home on initial evaluation in the emergency room she was documented to have bilateral subdural hematoma 1.4cm on the right and 0.5cm on the left with 1 to 2 mm midline shift and small amount of subarachnoid hemorrhage as well she was transferred to [facility] where a repeat CT scan documented enlarging right cerebral convexity subdural hematoma with increased extension posteriorly and a midline shift of 7mm she was somewhat drowsy but was opening the eyes to commands and was following the commands accordingly a CT scan of the head was repeated by the neurosurgical service she received 2units of platelets aspirin and Plavix were discontinued she was continued on valproate for the prevention of seizures as she was allergic to Keppra she was never documented to have atrial fibrillation or flutter or bradycardia by the cardiac evaluation subsequently it was noted that her subdural hematoma on the right side was somewhat increased overnight EEG was done at [facility] to rule out the possibly of seizure and patient was documented to have focal right hemispheric slowing but no active seizures in the hospital it was documented that she had left twitching on the face with left gaze deviation when a repeat EEG was altered neurology was consulted for focal status epilepticus when she was started on Depakote 500 mg b.i.d. along with Vimpat 200 mg b.i.d. and Onfi 5 mg b.i.d. as her neurological status was not improving and she was developing the focal seizures is small craniotomy was performed for the evacuation of hematoma on January 26, 2023 on February 01, 2023 she had an MBS and mother advanced dysphagia 1 puree diet nectar thick liquids and NG tube removed. Now she has been transferred back to the hospital with maximum message for the bed mobility minute assist for eating Maria Teresa for grooming Main for upper body dressing and dependent for the lower body dressing PMFSH Past Medical History Medical History Acute renal failure (ARF) Patient received intermittent hemodialysis between 07/23/2019 and 07/29/2019 as well as 07/31/2019 and 08/02/2019. Patient is now on long-term hemodialysis schedule managed by Dr. Gianni Larson Anemia Anxiety Anxiety CAD (coronary artery disease) Cardiac arrest
--- NOTE | 2023-03-04 15:41 | PM.IMPN ---
Progress Note: A&P Assessment and Plan (1) Altered mental status: Qualifiers: Altered mental status type: disorientation Qualified Code(s): R41.0 - Disorientation, unspecified Code(s): R41.82 - Altered mental status, unspecified Status: Acute Assessment and Plan: Patient presented to the ED from home for evaluation of altered mental status. Patient currently AOx4 and back to baseline. CT head with interval right subdural hematoma evacuation with trace amount of residual subacute hematoma seen. Resolved left subdural hematoma 03/04/[address] head shows stable right parietal dural thickening versus chronic small subdural hematoma subjacent to the craniotomy. Stable extensive nonspecific cerebral white matter disease, which likely represents chronic small vessel ischemic disease. UA reportedly negative on admission serum electrolytes within normal limits B12, folate and TSH within normal limits neurology consulted and appreciate recommendations. patient reportedly was had focal seizures at [place], but resolved and she was taken off antiepileptic medications after craniotomy procedure. PT/OT evaluation Patient is not hypoglycemic. 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 Continue losartan at home dose. Time Spent With Patient Time with patient: 25 - 35 minutes Subjective Date/time seen: 03/04/23 15:41 Interval history: Patient is working with OT. She c/o burning with urination today. She has chronic headaches that are unchanged. She denies vision changes, facial droop, facial paresthesia, slurred speech, word finding, unilateral extremity weakness or paresthesia. Review of Systems Review of Systems: All systems reviewed & are unremarkable except as noted in HPI and below Exam Narrative: GENERAL:? Thin, frail-appearing female, sitting up in bed. HEENT:? Recent craniotomy for subdural evacuation.? PERRL. EOM intact without nystagmus. Mucous membranes moist. NECK:? Supple.? No JVD. ? RESPIRATORY:? Lungs are clear to auscultation. RR regular and unlabored. CARDIOVASCULAR:? Regular rate and rhythm with normal S1, S2. ?No murmur. GASTROINTESTINAL:? Abdomen soft, nontender, nondistended with positive bowel sounds. No suprapubic tenderness. SKIN:? Warm, dry, and slightly pale. EXTREMITIES:? No cyanosis, clubbing, or edema.? Peripheral pulses palpable. NEUROLOGIC:? alert and oriented x4.? Cranial nerves II through XII intact.? No pronator drift. BUE 4/5 strength. BLE 3-4/5 strength.?LLE minimally weaker than right. no facial droop or tongue deviation. No tremors or fasciculation. PSYCHIATRIC:? pleasant and cooperative.? Neutral mood and affect. Objective Data Vital Signs Vital Signs: Vital Signs - 24 hr 03/03/23 20:00 03/03/23 23:27 03/04/23 00:00 Temperature Pulse Rate 89 84 Respiratory Rate Blood Pressure Pulse Oximetry Oxygen Delivery Room Air 03/03/23 20:00 03/04/23 04:19 03/04/23 04:00 Temperature 97 F L 97.6 F Pulse Rate 86 77 75 Respiratory Rate 16
--- NOTE | 2023-03-04 16:18 | PCPTNOTE ---
On 03/04/23, the student, [Nati Villasenor], provided care and completed [facility] documentation on this patient. I have reviewed the student's documentation and agree with the findings.
[2023-03-04 16:46] LABS: Glucose Point of Care 151 mg/dl (65-105)
[2023-03-04] MEDS: MELATONIN 3 MG TABLET PO (20:41)
[2023-03-04] MEDS: AMITRIPTYLINE HCL 25 MG TABLET PO (20:41)
[2023-03-04] MEDS: SOLIFENACIN 5 MG TABLET PO (20:41)
[2023-03-04] MEDS: ATORVASTATIN 40 MG TABLET PO (20:41)
[2023-03-04] MEDS: SENNA/DOCUSATE SODIUM TABLET 1 TAB PO (20:41)
[2023-03-04 21:00] LABS: Glucose Point of Care 144 mg/dl (65-105)
[2023-03-05] VITALS (10 sets, daily range): BP systolic 123–132; BP diastolic 53–77; PULSE 75–111; RESP 16–18; TEMP 36.2–36.6; O2SAT 95–100; BMI 22.4
--- NOTE | 2023-03-05 05:05 | PC.NURSE ---
Patient voided for first time tonight only 125 ml. Bladder scan done and 393ml remain. Patient unable to void any more. Called and spoke with Dr. Lind. New orders received to straight cath patient.
[2023-03-05 06:00] LABS: Add Urine Microscopic? YES; Appearance Urine Clear (Clear); Bacteria Urine None Seen /hpf; Bilirubin Urine Negative (Negative); Blood Urine 1+ (Negative); Color Urine Yellow (Yellow); Glucose Urine UA Negative (Negative); Ketones Urine Negative (Negative); Leukocyte Esterase Ur 1+ LEU/UL (Negative); Need Manual Microscopic Reviewed; Nitrate Urine Positive (Negative); Non Pathogenic Casts 0-2; Protein Urine 2+ mg/dL (Negative); RBC Urine 0-2 /hpf (0-2); Specific Grav Ur 1.016 (1.001-1.035); Squamous Epithelial Cell Urine None seen /hpf (Few); Urobilinogen Urine 0.2 mg/dL (<2.0); WBC Urine 51-100 /hpf; pH Urine 6.5 (5.0-9.0)
--- NOTE | 2023-03-05 08:02 | P.PNIM_ITS ---
Progress Note: A&P Assessment and Plan (1) Altered mental status: Qualifiers: Altered mental status type: disorientation Qualified Code(s): R41.0 - Disorientation, unspecified Code(s): R41.82 - Altered mental status, unspecified Status: Acute Assessment and Plan: Patient presented to the ED from home for evaluation of altered mental status. Patient currently AOx4 and back to baseline. * CT head with interval right subdural hematoma evacuation with trace amount of residual subacute hematoma seen. Resolved left subdural hematoma * 03/04/[address] head shows stable right parietal dural thickening versus chronic small subdural hematoma subjacent to the craniotomy. Stable extensive nonspecific cerebral white matter disease, which likely represents chronic small vessel ischemic disease. * UA reportedly negative on admission * serum electrolytes within normal limits * B12, folate and TSH within normal limits * neurology consulted and appreciate recommendations. * patient reportedly was had focal seizures at [place], but resolved and she was taken off antiepileptic medications after craniotomy procedure. * PT/OT evaluation * Patient is not hypoglycemic. * It may be secondary to polypharmacy versus recurrent/persistent UTI as 03/05/23 UA suggests acute infection. 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 Continue losartan at home dose. (5) UTI (urinary tract infection): Qualifiers: Hematuria presence: without hematuria Urinary tract infection type: acute cystitis Qualified Code(s): N30.00 - Acute cystitis without hematuria Code(s): N39.0 - Urinary tract infection, site not specified Status: Acute Assessment and Plan: UA repeated 03/04 d/t c/o dysuria. * UA shows 2+ protein, 1+ blood, positive nitrates, 1+ leukocytes, 51-100 WBC. * Prior urine culture from 02/15/23 showing pseudomonas aeruginosa resistant to fluoroquinolones. * Review of acute rehab notes shows patient was treated with Rocephin for UTI at that time, which would not cover. * 03/05 start Cefepime 2 grams Q12 hours. Adjust dose based on culture results. If confirms pseudomonas infection, patient will need IV antibiotic therapy given it has been resistant to the only oral option * Stop Vesicare that can cause urinary retention and lead to UTIs. Plan CODE STATUS: FULL CODE Discharge disposition: recently treated at acute rehab and discharged home, awaiting SNF rehab placement. Time Spent With Patient Time with
--- NOTE | 2023-03-05 08:02 | PM.IMPN ---
Progress Note: A&P Assessment and Plan (1) Altered mental status: Qualifiers: Altered mental status type: disorientation Qualified Code(s): R41.0 - Disorientation, unspecified Code(s): R41.82 - Altered mental status, unspecified Status: Acute Assessment and Plan: Patient presented to the ED from home for evaluation of altered mental status. Patient currently AOx4 and back to baseline. CT head with interval right subdural hematoma evacuation with trace amount of residual subacute hematoma seen. Resolved left subdural hematoma 03/04/[address] head shows stable right parietal dural thickening versus chronic small subdural hematoma subjacent to the craniotomy. Stable extensive nonspecific cerebral white matter disease, which likely represents chronic small vessel ischemic disease. UA reportedly negative on admission serum electrolytes within normal limits B12, folate and TSH within normal limits neurology consulted and appreciate recommendations. patient reportedly was had focal seizures at [place], but resolved and she was taken off antiepileptic medications after craniotomy procedure. PT/OT evaluation Patient is not hypoglycemic. It may be secondary to polypharmacy versus recurrent/persistent UTI as 03/05/23 UA suggests acute infection. 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 Continue losartan at home dose. (5) UTI (urinary tract infection): Qualifiers: Hematuria presence: without hematuria Urinary tract infection type: acute cystitis Qualified Code(s): N30.00 - Acute cystitis without hematuria Code(s): N39.0 - Urinary tract infection, site not specified Status: Acute Assessment and Plan: UA repeated 03/04 d/t c/o dysuria. UA shows 2+ protein, 1+ blood, positive nitrates, 1+ leukocytes, 51-100 WBC. Prior urine culture from 02/15/23 showing pseudomonas aeruginosa resistant to fluoroquinolones. Review of acute rehab notes shows patient was treated with Rocephin for UTI at that time, which would not cover. 03/05 start Cefepime 2 grams Q12 hours. Adjust dose based on culture results. If confirms pseudomonas infection, patient will need IV antibiotic therapy given it has been resistant to the only oral option Stop Vesicare that can cause urinary retention and lead to UTIs. Plan CODE STATUS: FULL CODE Discharge disposition: recently treated at acute rehab and discharged home, awaiting SNF rehab placement. Time Spent With Patient Time with patient: 25 - 35 minutes Subjective Date/time seen: 03/05/23 08:02 Interval history: She has not urinated since the Pure-Wick was stopped this afternoon. She denies lower abdominal pain, flank pain, N/V/D. Family does not know if she had a BM since last Wednesday. Patient is unsure. She had to be straight catheterized overnight with -425 mL drained. Review of Systems Review of Systems:
[2023-03-05 08:45] LABS: Glucose Point of Care 107 mg/dl (65-105)
[2023-03-05] MEDS: ACIDOPHILUS/BULGARICUS CHEWABLE TABLET 1 TABLET PO (08:48)
[2023-03-05] MEDS: LOSARTAN POTASSIUM 100 MG TABLET PO (08:48)
[2023-03-05] MEDS: MULTIVITAMINS THERAPEUTIC TAB (*BKC) 1 TABLET PO (08:48)
[2023-03-05] MEDS: METOPROLOL SUCCINATE EXT REL 50 MG TABCR PO (08:48)
[2023-03-05] MEDS: TOLNAFTATE 1% POWDER 45 GM BTL 1 APPLIC TOPICAL ×2 (08:52→20:09)
[2023-03-05] MEDS: CEFEPIME 1 GM/NS 50 ML 1 GM/50 ML BAG IVPB ×2 (09:54→20:09)
[2023-03-05 12:38] LABS: Glucose Point of Care 111 mg/dl (65-105)
[2023-03-05 17:09] LABS: Glucose Point of Care 96 mg/dl (65-105)
[2023-03-05] MEDS: ACETAMINOPHEN 325 MG TABLET PO (19:20)
[2023-03-05] MEDS: ATORVASTATIN 40 MG TABLET PO (20:09)
[2023-03-05] MEDS: MELATONIN 3 MG TABLET PO (20:09)
[2023-03-05] MEDS: AMITRIPTYLINE HCL 25 MG TABLET PO (20:09)
[2023-03-05] MEDS: SENNA/DOCUSATE SODIUM TABLET 1 TAB PO (20:09)
[2023-03-05 20:59] LABS: Glucose Point of Care 192 mg/dl (65-105)
[2023-03-06] VITALS (8 sets, daily range): BP systolic 113–134; BP diastolic 53–70; PULSE 76–92; RESP 16–18; TEMP 36–36.8; O2SAT 95–99
[2023-03-06 06:07] LABS: Basophils Absolute Auto 0.1 K/mm3 (0.0-0.1); Basophils Percent Auto 0.8 % (0.2-1.2); Eosinophils Absolute Auto 0.2 K/mm3 (0-0.3); Eosinophils Percent Auto 2.9 % (0-4.4); Hematocrit 36.4 % (37.0-47.0); Hemoglobin 10.6 g/dL (12.0-15.0); Immature Granulocyte Absolute 0.04 K/mm3 (0.00-0.031); Immature Granulocyte Percent A 0.5 % (0-0.5); Lymphocytes Absolute Auto 2.14 K/mm3 (0.9-3.2); Lymphocytes Percent Auto 27.9 % (18.3-44.2); Mean Corpuscular HGB Conc 29.1 g/dl (32-36); Mean Corpuscular Hemoglobin 27.1 pg (26-34); Mean Corpuscular Volume 93.1 fl (80-100); Mean Platelet Volume 10.2 fl (7.4-10.4); Monocytes Absolute Auto 0.5 K/mm3 (0.1-0.6); Monocytes Percent Auto 6.8 % (2.6-8.5); Neutrophils Absolute Auto 4.7 K/mm3 (1.3-6.7); Neutrophils Percent Auto 61.1 % (45.5-73.1); Platelet Count Result 345 k/mm3 (150-375); Red Blood Count 3.91 M/mm3 (4.2-5.4); Red Cell Distribution Width 18.7 % (11.5-14.5); White Blood Count 7.7 K/mm3 (4.5-10.0)
[2023-03-06 06:27] LABS: Alanine Aminotransferase 16 U/L (6-35); Albumin Level 3.9 g/dL (3.5-5.1); Alkaline Phosphatase 59 U/L (38-126); Anion Gap 7 mmol/L (8-16); Aspartate Amino Transferase 19 U/L (14-36); Bilirubin,Total 0.9 mg/dL (0.2-1.3); Blood Urea Nitrogen 22 mg/dL (7-17); Calcium 9.1 mg/dL (8.4-10.2); Carbon Dioxide 31 mmol/L (22-30); Chloride 102 mmol/L (98-107); Estimated CRCL calculation 42 ml/min; Estimated Glomerular Filt Rate > 60; Glucose 109 mg/dL (65-110); Sodium 140 mmol/L (137-145)
[2023-03-06 06:31] LABS: Anisocytosis 1+ (NORMAL); Hypochromasia 2+ (NORMAL); Platelet Estimate Adequate (Adequate); Schistocytes None Seen (NORMAL)
[2023-03-06 07:52] LABS: Hemoglobin A1C 5.3 % (<5.7)
[2023-03-06] MEDS: METOPROLOL SUCCINATE EXT REL 50 MG TABCR PO (08:07)
[2023-03-06] MEDS: MULTIVITAMINS THERAPEUTIC TAB (*BKC) 1 TABLET PO (08:08)
[2023-03-06] MEDS: TOLNAFTATE 1% POWDER 45 GM BTL 1 APPLIC TOPICAL ×2 (08:08→20:19)
[2023-03-06] MEDS: ACIDOPHILUS/BULGARICUS CHEWABLE TABLET 1 TABLET PO (08:08)
[2023-03-06] MEDS: ZINC SULFATE 220 MG CAPSULE PO (08:08)
[2023-03-06] MEDS: LOSARTAN POTASSIUM 100 MG TABLET PO (08:08)
[2023-03-06] MEDS: CEFEPIME 1 GM/NS 50 ML 1 GM/50 ML BAG IVPB ×2 (08:10→20:12)
[2023-03-06 08:31] LABS: Glucose Point of Care 105 mg/dl (65-105)
--- NOTE | 2023-03-06 09:39 | P.PNIM_ITS ---
Progress Note: A&P Assessment and Plan (1) Altered mental status: Qualifiers: Altered mental status type: disorientation Qualified Code(s): R41.0 - Disorientation, unspecified Code(s): R41.82 - Altered mental status, unspecified Status: Acute Assessment and Plan: Patient presented to the ED from home for evaluation of altered mental status. Patient currently AOx4 and back to baseline. * CT head with interval right subdural hematoma evacuation with trace amount of residual subacute hematoma seen. Resolved left subdural hematoma * 03/04/[address] head shows stable right parietal dural thickening versus chronic small subdural hematoma subjacent to the craniotomy. Stable extensive nonspecific cerebral white matter disease, which likely represents chronic small vessel ischemic disease. * UA reportedly negative on admission * serum electrolytes within normal limits * B12, folate and TSH within normal limits * neurology consulted and appreciate recommendations. * patient reportedly was had focal seizures at [place], but resolved and she was taken off antiepileptic medications after craniotomy procedure. * PT/OT evaluation * Patient is not hypoglycemic. * It may be secondary to polypharmacy versus recurrent/persistent UTI as 03/05/23 UA suggests acute infection. * Appears at baseline. 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 Continue losartan at home dose. (5) UTI (urinary tract infection): Qualifiers: Hematuria presence: without hematuria Urinary tract infection type: acute cystitis Qualified Code(s): N30.00 - Acute cystitis without hematuria Code(s): N39.0 - Urinary tract infection, site not specified Status: Acute Assessment and Plan: UA repeated 03/04 d/t c/o dysuria. * UA shows 2+ protein, 1+ blood, positive nitrates, 1+ leukocytes, 51-100 WBC. * Prior urine culture from 02/15/23 showing pseudomonas aeruginosa resistant to fluoroquinolones. * Review of acute rehab notes shows patient was treated with Rocephin for UTI at that time, which would not cover. * 03/05 start Cefepime 2 grams Q12 hours. Adjust dose based on culture results. If confirms pseudomonas infection, patient will need IV antibiotic therapy given it has been resistant to the only oral option * Stop Vesicare that can cause urinary retention and lead to UTIs. (6) Urinary retention: Code(s): R33.9 - Retention of urine, unspecified Status: Acute Assessment and Plan: Patient requiring straight catheterization again thi
--- NOTE | 2023-03-06 09:39 | PM.IMPN ---
Progress Note: A&P Assessment and Plan (1) Altered mental status: Qualifiers: Altered mental status type: disorientation Qualified Code(s): R41.0 - Disorientation, unspecified Code(s): R41.82 - Altered mental status, unspecified Status: Acute Assessment and Plan: Patient presented to the ED from home for evaluation of altered mental status. Patient currently AOx4 and back to baseline. CT head with interval right subdural hematoma evacuation with trace amount of residual subacute hematoma seen. Resolved left subdural hematoma 03/04/[address] head shows stable right parietal dural thickening versus chronic small subdural hematoma subjacent to the craniotomy. Stable extensive nonspecific cerebral white matter disease, which likely represents chronic small vessel ischemic disease. UA reportedly negative on admission serum electrolytes within normal limits B12, folate and TSH within normal limits neurology consulted and appreciate recommendations. patient reportedly was had focal seizures at [place], but resolved and she was taken off antiepileptic medications after craniotomy procedure. PT/OT evaluation Patient is not hypoglycemic. It may be secondary to polypharmacy versus recurrent/persistent UTI as 03/05/23 UA suggests acute infection. Appears at baseline. 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 Continue losartan at home dose. (5) UTI (urinary tract infection): Qualifiers: Hematuria presence: without hematuria Urinary tract infection type: acute cystitis Qualified Code(s): N30.00 - Acute cystitis without hematuria Code(s): N39.0 - Urinary tract infection, site not specified Status: Acute Assessment and Plan: UA repeated 03/04 d/t c/o dysuria. UA shows 2+ protein, 1+ blood, positive nitrates, 1+ leukocytes, 51-100 WBC. Prior urine culture from 02/15/23 showing pseudomonas aeruginosa resistant to fluoroquinolones. Review of acute rehab notes shows patient was treated with Rocephin for UTI at that time, which would not cover. 03/05 start Cefepime 2 grams Q12 hours. Adjust dose based on culture results. If confirms pseudomonas infection, patient will need IV antibiotic therapy given it has been resistant to the only oral option Stop Vesicare that can cause urinary retention and lead to UTIs. (6) Urinary retention: Code(s): R33.9 - Retention of urine, unspecified Status: Acute Assessment and Plan: Patient requiring straight catheterization again this morning. Patient voided 100, PVR 458, straight cath 400. Start Tamsulosin 0.4 mg daily Vesicare stopped check renal US for hydronephrosis consult Urology given retention and frequent UTIs Plan CODE STATUS: FULL CODE Discharge disposition: recently treated at acute rehab and discharged home, awaiting SNF rehab placement. Time Spent With Patient Time with patient: 25 - 35 leora
--- NOTE | 2023-03-06 11:07 | WPDURCON ---
Assessment and Plan Assessment and plan (1) Urinary retention: Code(s): R33.9 - Retention of urine, unspecified Status: Acute Assessment and Plan: Retention - check PVR every 8 hours - if PVR > 300, perform CIC - patient states she would like to avoid a [place] catheter Plan UTI - treat per primary medical team Urology Consult Note HPI Date Seen: 03/06/23 Requesting Physician: Americo Dominguez MD Primary Care Provider: Agnieszka Franco MD Consult Narrative Narrative: Aliya Richardson is a 82 year old female with urinary retention and UTI. She reports a history of overactive bladder treated by Dr. Ball with Botox injections. She states another Botox was scheduled for April. During this hospitalization, she has had elevated post void residual urine volumes. She has required CIC. In discussion with her nurse, the last PVR was 150cc about and hour or 2 ago. The patient reports no bladder pain. NO flank pain. She does have a UTI, and a new culture is pending as there was concern for resistance to oral antibiotics per the notes from the primary team. [facility] Past Medical History Medical History Acute renal failure (ARF) Patient received intermittent hemodialysis between 07/23/2019 and 07/29/2019 as well as 07/31/2019 and 08/02/2019. Patient is now on long-term hemodialysis schedule managed by Dr. Gianni Larson Anemia Anxiety Anxiety CAD (coronary artery disease) Cardiac arrest Chronic anemia Pt is also anemia was treated with blood transfusion and epogen shot before, ordered epogen shot again for pt as her hb is 6. Pt will need work up for anaemia if Dr Larson does not think it is related to kidney disease, pt baseline is 7.5. 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 G tube feedings Only receiving supplemental feeds and 6 at night currently GERD (gastroesophageal reflux disease) GERD (gastroesophageal reflux disease) History of renal dialysis HTN (hypertension) Hypertension Hypertension MVP (mitral valve prolapse) MVP (mitral valve prolapse) NSTEMI (non-ST elevated myocardial infarction) Obstructive sleep apnea Intolerant of CPAP Obstructive sleep apnea Intolerant of CPAP JULIUS (obstructive sleep apnea) Osteoarthritis Osteopenia after menopause Polyneuropathy associated with critical illness Shock liver TIA (transient ischemic attack) TIA (transient ischemic attack) TIA (transient ischemic attack) Type 2 diabetes mellitus Urethral stone Urge incontinence Uterine cancer UTI (urinary tract infection) Vancomycin-resistant enterococcus UTI Surgical History Surgical History H/O bilateral cataract extraction H/O inguinal hernia repair H/O lithotripsy H/O: hysterectomy History of bladder suspension procedure Two thousand four History of hysterectomy for malignancy History of urethral stent X2 Hx of tonsillectomy PEG (percutaneous endoscopic gastrostomy) status Placed 08/04/[address] Arboleda S/P dialysis catheter insertion Right chest S/P ureteral stent placement Family History Family History Father Acute myocardial infarction Family history of kidney disease Family history of aortic aneurysm Mother Cerebrovascular accident Father No problems noted. Mother No problems noted. Mother Cerebrovascular accident Social History Social History Social History: The patient lives with her Davi. She has 2 children. 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 She is lifelong nonsmoker. She does not drink alcohol or use
[2023-03-06 12:27] LABS: Glucose Point of Care 133 mg/dl (65-105)
[2023-03-06] MEDS: ACETAMINOPHEN 325 MG TABLET PO (14:39)
--- NOTE | 2023-03-06 14:46 | PCPTNOTE ---
On 03/06/23, the student, [Nati Villasenor], provided care and completed [facility] documentation on this patient. I have reviewed the student's documentation and agree with the findings.
[2023-03-06 17:23] LABS: Glucose Point of Care 112 mg/dl (65-105)
[2023-03-06] MEDS: AMITRIPTYLINE HCL 25 MG TABLET PO (20:11)
[2023-03-06] MEDS: MELATONIN 3 MG TABLET PO (20:11)
[2023-03-06] MEDS: SENNA/DOCUSATE SODIUM TABLET 1 TAB PO (20:11)
[2023-03-06] MEDS: ATORVASTATIN 40 MG TABLET PO (20:11)
[2023-03-06 20:35] LABS: Glucose Point of Care 138 mg/dl (65-105)
[2023-03-07] MEDS: ACETAMINOPHEN 325 MG TABLET PO ×3 (03:37→20:29)
[2023-03-07 05:07] VITALS: BP 113/50; PULSE 76; RESP 18; TEMP 36.5; O2SAT 97
[2023-03-07 08:42] LABS: Glucose Point of Care 101 mg/dl (65-105)
[2023-03-07 09:30] VITALS: PULSE 101; RESP 18; O2SAT 97
[2023-03-07 09:33] VITALS: PULSE 101
[2023-03-07] MEDS: METOPROLOL SUCCINATE EXT REL 50 MG TABCR PO (09:33)
[2023-03-07] MEDS: MULTIVITAMINS THERAPEUTIC TAB (*BKC) 1 TABLET PO (09:33)
[2023-03-07] MEDS: TAMSULOSIN HCL 0.4 MG CAPSULE PO (09:33)
[2023-03-07] MEDS: LOSARTAN POTASSIUM 100 MG TABLET PO (09:33)
[2023-03-07] MEDS: ZINC SULFATE 220 MG CAPSULE PO (09:34)
[2023-03-07] MEDS: ACIDOPHILUS/BULGARICUS CHEWABLE TABLET 1 TABLET PO (09:34)
[2023-03-07] MEDS: TOLNAFTATE 1% POWDER 45 GM BTL 1 APPLIC TOPICAL ×2 (09:35→20:30)
[2023-03-07] MEDS: LINEZOLID 600 MG TABLET PO (10:51)
[2023-03-07 11:35] LABS: Glucose Point of Care 135 mg/dl (65-105)
--- NOTE | 2023-03-07 11:41 | P.DS_ITS ---
DS: Admitting Diagnosis Discharge Date 03/07/2023 DS: Discharge Diagnosis Discharge Diagnosis (1) Altered mental status: Qualifiers: Altered mental status type: disorientation Qualified Code(s): R41.0 - Disorientation, unspecified Code(s): R41.82 - Altered mental status, unspecified Status: Acute Assessment and Plan: Patient presented to the ED from home for evaluation of altered mental status. Patient currently AOx4 and back to baseline. * CT head with interval right subdural hematoma evacuation with trace amount of residual subacute hematoma seen. Resolved left subdural hematoma * 03/04/[address] head shows stable right parietal dural thickening versus chronic small subdural hematoma subjacent to the craniotomy. Stable extensive nonspecific cerebral white matter disease, which likely represents chronic small vessel ischemic disease. * UA reportedly negative on admission * serum electrolytes within normal limits * B12, folate and TSH within normal limits * neurology consulted and appreciate recommendations. * patient reportedly was had focal seizures at [place], but resolved and she was taken off antiepileptic medications after craniotomy procedure. * PT/OT evaluation * Patient is not hypoglycemic. * It may be secondary to polypharmacy versus recurrent/persistent UTI as 03/05/23 UA suggests acute infection. * Appears at baseline. (2) Hyperlipidemia: Qualifiers: Hyperlipidemia type: unspecified Qualified Code(s): E78.5 - Hyperlipidemia, unspecified Code(s): E78.5 - Hyperlipidemia, unspecified Status: Chronic Assessment and Plan: Chronic, continue statin (3) Diabetes mellitus: Qualifiers: Diabetes mellitus complication status: without complication Diabetes mellitus terminal block assembler insulin use: without jail use Diabetes mellitus type: type 2 Qualified Code(s): E11.9 - Type 2 diabetes mellitus without complications Code(s): E11.9 - Type 2 diabetes mellitus without complications Status: Chronic Assessment and Plan: Chronic, * hold metformin inpatient * accu-checks AC/HS with aspart sliding scale insulin and hypoglycemia protocol * A1c 5.3% (4) Hypertension: Qualifiers: Hypertension type: primary hypertension Qualified Code(s): I10 - Essential (primary) hypertension Code(s): I10 - Essential (primary) hypertension Status: Chronic Assessment and Plan: Chronic. Continue losartan at home dose. (5) UTI (urinary tract infection): Qualifiers: Hematuria presence: without hematuria Urinary tract infection type: acute cystitis Qualified Code(s): N30.00 - Acute cystitis without hematuria Code(s): N39.0 - Urinary tract infection, site not specified Status: Acute Assessment and Plan: UA repeated 03/04 d/t c/o dysuria. * UA shows 2+ protein, 1+ blood, positive nitrates, 1+ leukocytes, 51-100 WBC. * Prior urine culture from 02/15/23 showing pseudomonas aeruginosa resistant to fluoroquinolones. * Review of acute rehab notes shows patient was treated with Rocephin for UTI at that time, which would not cover. * 03/05 start Cefepime 2 grams Q12 hours. Adjust dose based on culture results. If confirms pseudomonas infection, patient will need IV antibiotic therapy given it has been resistant to the only oral option * Stop Vesicare that can cause urinary retention and lead to UTIs. (6) Urinary retention: Code(s): R33.9 - Retention of urine, unspecified Status: Acute
--- NOTE | 2023-03-07 11:41 | PM.DS ---
DS: Admitting Diagnosis Discharge Date 03/07/2023 DS: Discharge Diagnosis Discharge Diagnosis (1) Altered mental status: Qualifiers: Altered mental status type: disorientation Qualified Code(s): R41.0 - Disorientation, unspecified Code(s): R41.82 - Altered mental status, unspecified Status: Acute Assessment and Plan: Patient presented to the ED from home for evaluation of altered mental status. Patient currently AOx4 and back to baseline. CT head with interval right subdural hematoma evacuation with trace amount of residual subacute hematoma seen. Resolved left subdural hematoma 03/04/[address] head shows stable right parietal dural thickening versus chronic small subdural hematoma subjacent to the craniotomy. Stable extensive nonspecific cerebral white matter disease, which likely represents chronic small vessel ischemic disease. UA reportedly negative on admission serum electrolytes within normal limits B12, folate and TSH within normal limits neurology consulted and appreciate recommendations. patient reportedly was had focal seizures at [place], but resolved and she was taken off antiepileptic medications after craniotomy procedure. PT/OT evaluation Patient is not hypoglycemic. It may be secondary to polypharmacy versus recurrent/persistent UTI as 03/05/23 UA suggests acute infection. Appears at baseline. (2) Hyperlipidemia: Qualifiers: Hyperlipidemia type: unspecified Qualified Code(s): E78.5 - Hyperlipidemia, unspecified Code(s): E78.5 - Hyperlipidemia, unspecified Status: Chronic Assessment and Plan: Chronic, continue statin (3) Diabetes mellitus: Qualifiers: Diabetes mellitus complication status: without complication Diabetes mellitus custodial insulin use: without rat exterminator use Diabetes mellitus type: type 2 Qualified Code(s): E11.9 - Type 2 diabetes mellitus without complications Code(s): E11.9 - Type 2 diabetes mellitus without complications Status: Chronic Assessment and Plan: Chronic, hold metformin inpatient accu-checks AC/HS with aspart sliding scale insulin and hypoglycemia protocol A1c 5.3% (4) Hypertension: Qualifiers: Hypertension type: primary hypertension Qualified Code(s): I10 - Essential (primary) hypertension Code(s): I10 - Essential (primary) hypertension Status: Chronic Assessment and Plan: Chronic. Continue losartan at home dose. (5) UTI (urinary tract infection): Qualifiers: Hematuria presence: without hematuria Urinary tract infection type: acute cystitis Qualified Code(s): N30.00 - Acute cystitis without hematuria Code(s): N39.0 - Urinary tract infection, site not specified Status: Acute Assessment and Plan: UA repeated 03/04 d/t c/o dysuria. UA shows 2+ protein, 1+ blood, positive nitrates, 1+ leukocytes, 51-100 WBC. Prior urine culture from 02/15/23 showing pseudomonas aeruginosa resistant to fluoroquinolones. Review of acute rehab notes shows patient was treated with Rocephin for UTI at that time, which would not cover. 03/05 start Cefepime 2 grams Q12 hours. Adjust dose based on culture results. If confirms pseudomonas infection, patient will need IV antibiotic therapy given it has been resistant to the only oral option Stop Vesicare that can cause urinary retention and lead to UTIs. (6) Urinary retention: Code(s): R33.9 - Retention of urine, unspecified Status: Acute Assessment and Plan: Patient requiring straight catheterization again this morning. Patient voided 100, PVR 458, straight cath 400. Start Tamsulosin 0.4 mg daily Vesicare stopped check renal US for hydronephrosis consult Urology given retention and frequent UTIs Plan CODE STATUS: FULL CODE Discharge disposition: recently treated at acute rehab and discharged home, awaiting SNF rehab placement.
--- NOTE | 2023-03-07 13:58 | P.PNIM_ITS ---
Progress Note: A&P Assessment and Plan (1) Altered mental status: Qualifiers: Altered mental status type: disorientation Qualified Code(s): R41.0 - Disorientation, unspecified Code(s): R41.82 - Altered mental status, unspecified Status: Resolved Assessment and Plan: Patient presented to the ED from home for evaluation of altered mental status. Patient currently AOx4 and back to baseline. * CT head with interval right subdural hematoma evacuation with trace amount of residual subacute hematoma seen. Resolved left subdural hematoma * 03/04/[address] head shows stable right parietal dural thickening versus chronic small subdural hematoma subjacent to the craniotomy. Stable extensive nonspecific cerebral white matter disease, which likely represents chronic small vessel ischemic disease. * UA reportedly negative on admission * serum electrolytes within normal limits * B12, folate and TSH within normal limits * neurology consulted and appreciate recommendations. * patient reportedly was had focal seizures at [place], but resolved and she was taken off antiepileptic medications after craniotomy procedure. * PT/OT evaluation * Patient is not hypoglycemic. * It may be secondary to polypharmacy versus recurrent/persistent UTI as 03/05/23 UA suggests acute infection. * Appears at baseline. Consider outpatient dementia workup when urinary symptoms and infection resolved. (2) Hyperlipidemia: Qualifiers: Hyperlipidemia type: unspecified Qualified Code(s): E78.5 - Hyperlipidemia, unspecified Code(s): E78.5 - Hyperlipidemia, unspecified Status: Chronic Assessment and Plan: Chronic, continue statin (3) Diabetes mellitus: Qualifiers: Diabetes mellitus type: type 2 Diabetes mellitus technician terminal and repeater insulin use: without fpc use Diabetes mellitus complication status: without complication Qualified Code(s): E11.9 - Type 2 diabetes mellitus without complications Code(s): E11.9 - Type 2 diabetes mellitus without complications Status: Chronic Assessment and Plan: Chronic, * hold metformin inpatient * accu-checks AC/HS with aspart sliding scale insulin and hypoglycemia protocol * A1c 5.3% * Stable. (4) Hypertension: Qualifiers: Hypertension type: primary hypertension Qualified Code(s): I10 - Essential (primary) hypertension Code(s): I10 - Essential (primary) hypertension Status: Chronic Assessment and Plan: Chronic. Continue losartan at home dose. (5) UTI (urinary tract infection): Qualifiers: Urinary tract infection type: acute cystitis Hematuria presence: without hematuria Qualified Code(s): N30.00 - Acute cystitis without hematuria Code(s): N39.0 - Urinary tract infection, site not specified Status: Acute Assessment and Plan: UA repeated 03/04 d/t c/o dysuria. * UA shows 2+ protein, 1+ blood, positive nitrates, 1+ leukocytes, 51-100 WBC. * Prior urine culture from 02/15/23 showing pseudomonas aeruginosa resistant to fluoroquinolones. * Review of acute rehab notes shows patient was treated with Rocephin for UTI at that time, which would not cover. * 03/05 start Cefepime 2 grams Q12 hours; given 03/05-03/07 stopped d/t culture results. * Stopped Vesicare that can cause urinary retention and lead to UTIs. * 03/07 urine culture shows Enterococcus growth pansensitive. Change to amoxicillin 500 mg Q8 hours x7 days. Continue to address urinary retention to prevent future infections. (6) Urinary retention:
--- NOTE | 2023-03-07 13:58 | PM.IMPN ---
Progress Note: A&P Assessment and Plan (1) Altered mental status: Qualifiers: Altered mental status type: disorientation Qualified Code(s): R41.0 - Disorientation, unspecified Code(s): R41.82 - Altered mental status, unspecified Status: Resolved Assessment and Plan: Patient presented to the ED from home for evaluation of altered mental status. Patient currently AOx4 and back to baseline. CT head with interval right subdural hematoma evacuation with trace amount of residual subacute hematoma seen. Resolved left subdural hematoma 03/04/[address] head shows stable right parietal dural thickening versus chronic small subdural hematoma subjacent to the craniotomy. Stable extensive nonspecific cerebral white matter disease, which likely represents chronic small vessel ischemic disease. UA reportedly negative on admission serum electrolytes within normal limits B12, folate and TSH within normal limits neurology consulted and appreciate recommendations. patient reportedly was had focal seizures at [place], but resolved and she was taken off antiepileptic medications after craniotomy procedure. PT/OT evaluation Patient is not hypoglycemic. It may be secondary to polypharmacy versus recurrent/persistent UTI as 03/05/23 UA suggests acute infection. Appears at baseline. Consider outpatient dementia workup when urinary symptoms and infection resolved. 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 (4) Hypertension: Qualifiers: Hypertension type: primary hypertension Qualified Code(s): I10 - Essential (primary) hypertension Code(s): I10 - Essential (primary) hypertension Status: Chronic Assessment and Plan: Chronic. Continue losartan at home dose. (5) UTI (urinary tract infection): Qualifiers: Urinary tract infection type: acute cystitis Hematuria presence: without hematuria Qualified Code(s): N30.00 - Acute cystitis without hematuria Code(s): N39.0 - Urinary tract infection, site not specified Status: Acute Assessment and Plan: UA repeated 03/04 d/t c/o dysuria. UA shows 2+ protein, 1+ blood, positive nitrates, 1+ leukocytes, 51-100 WBC. Prior urine culture from 02/15/23 showing pseudomonas aeruginosa resistant to fluoroquinolones. Review of acute rehab notes shows patient was treated with Rocephin for UTI at that time, which would not cover. 03/05 start Cefepime 2 grams Q12 hours; given 03/05-03/07 stopped d/t culture results. Stopped Vesicare that can cause urinary retention and lead to UTIs. 03/07 urine culture shows Enterococcus growth pansensitive. Change to amoxicillin 500 mg Q8 hours x7 days. Continue to address urinary retention to prevent future infections. (6) Urinary retention: Code(s): R33.9 - Retention of urine, unspecified Status: Acute Assessment and Plan: Patient requiring straight catheterization again this morning. Patient voided 100, PVR 458, straight cath 400. Start Tamsulosin 0.4 mg daily Vesicare stopped renal US negative for hydronephrosis consulted Urology given retention and frequent UTIs 03/07 patient is still requiring intermitte
[2023-03-07 14:00] VITALS: BP 168/90; PULSE 97; RESP 18; TEMP 36.6; O2SAT 93
[2023-03-07] MEDS: AMOXICILLIN 500 MG CAPSULE PO ×2 (14:45→20:29)
[2023-03-07 17:07] LABS: Glucose Point of Care 112 mg/dl (65-105)
[2023-03-07 20:26] LABS: Glucose Point of Care 183 mg/dl (65-105)
[2023-03-07] MEDS: SENNA/DOCUSATE SODIUM TABLET 1 TAB PO (20:29)
[2023-03-07] MEDS: MELATONIN 3 MG TABLET PO (20:29)
[2023-03-07] MEDS: AMITRIPTYLINE HCL 25 MG TABLET PO (20:29)
[2023-03-07] MEDS: ATORVASTATIN 40 MG TABLET PO (20:29)
[2023-03-07 21:41] VITALS: BP 142/65; PULSE 88; RESP 20; TEMP 36.4; O2SAT 97
[2023-03-08] MEDS: AMOXICILLIN 500 MG CAPSULE PO ×2 (05:19→11:23)
[2023-03-08 05:22] VITALS: BP 155/75; PULSE 79; RESP 18; TEMP 36.4; O2SAT 95
[2023-03-08] MEDS: ACETAMINOPHEN 325 MG TABLET PO (05:49)
[2023-03-08 08:16] LABS: Glucose Point of Care 100 mg/dl (65-105)
[2023-03-08 08:59] LABS: Basophils Absolute Auto 0.1 K/mm3 (0.0-0.1); Basophils Percent Auto 0.9 % (0.2-1.2); Eosinophils Absolute Auto 0.2 K/mm3 (0-0.3); Eosinophils Percent Auto 2.7 % (0-4.4); Hematocrit 37.9 % (37.0-47.0); Hemoglobin 11.3 g/dL (12.0-15.0); Immature Granulocyte Absolute 0.05 K/mm3 (0.00-0.031); Immature Granulocyte Percent A 0.6 % (0-0.5); Lymphocytes Absolute Auto 1.73 K/mm3 (0.9-3.2); Lymphocytes Percent Auto 22.4 % (18.3-44.2); Mean Corpuscular HGB Conc 29.8 g/dl (32-36); Mean Corpuscular Hemoglobin 27.4 pg (26-34); Monocytes Absolute Auto 0.4 K/mm3 (0.1-0.6); Monocytes Percent Auto 5.4 % (2.6-8.5); Neutrophils Absolute Auto 5.2 K/mm3 (1.3-6.7); Platelet Count Result 353 k/mm3 (150-375); Red Blood Count 4.12 M/mm3 (4.2-5.4); White Blood Count 7.7 K/mm3 (4.5-10.0)
[2023-03-08 09:16] LABS: Anion Gap 6 mmol/L (8-16); Blood Urea Nitrogen 18 mg/dL (7-17); Calcium 9.1 mg/dL (8.4-10.2); Carbon Dioxide 30 mmol/L (22-30); Chloride 106 mmol/L (98-107); Estimated CRCL calculation 54 ml/min; Estimated Glomerular Filt Rate > 60; Glucose 109 mg/dL (65-110); Sodium 142 mmol/L (137-145)
[2023-03-08 09:28] LABS: Hypochromasia 1+ (NORMAL); Platelet Estimate Adequate (Adequate); Schistocytes None Seen (NORMAL)
[2023-03-08 10:00] VITALS: PULSE 72; RESP 18; O2SAT 95
--- NOTE | 2023-03-08 11:12 | PCPTNOTE ---
On 03/08/23, the student SAUL Meraz, provided care and completed [facility] documentation on this patient. I have reviewed the student's documentation and agree with the findings.
[2023-03-08 11:23] VITALS: PULSE 72
[2023-03-08] MEDS: METOPROLOL SUCCINATE EXT REL 50 MG TABCR PO (11:23)
[2023-03-08] MEDS: MULTIVITAMINS THERAPEUTIC TAB (*BKC) 1 TABLET PO (11:23)
[2023-03-08] MEDS: LOSARTAN POTASSIUM 100 MG TABLET PO (11:23)
[2023-03-08] MEDS: ACIDOPHILUS/BULGARICUS CHEWABLE TABLET 1 TABLET PO (11:23)
[2023-03-08] MEDS: ZINC SULFATE 220 MG CAPSULE PO (11:23)
[2023-03-08] MEDS: TOLNAFTATE 1% POWDER 45 GM BTL 1 APPLIC TOPICAL (11:24)
[2023-03-08] MEDS: TAMSULOSIN HCL 0.4 MG CAPSULE PO (11:24)
--- NOTE | 2023-03-08 12:12 | P.DS_ITS ---
DS: Admitting Diagnosis Discharge Date 03/08/2023 Admitting Diagnosis Altered mental status Hypertension, chronic Type 2 diabetes mellitus, chronic Hyperlipidemia, chronic H/O traumatic bilateral subdural hematomas DS: Discharge Diagnosis Discharge Diagnosis (1) Altered mental status: Qualifiers: Altered mental status type: disorientation Qualified Code(s): R41.0 - Disorientation, unspecified Code(s): R41.82 - Altered mental status, unspecified Status: Resolved Assessment and Plan: Patient presented to the ED from home for evaluation of altered mental status. Patient currently AOx4 and back to baseline. * CT head with interval right subdural hematoma evacuation with trace amount of residual subacute hematoma seen. Resolved left subdural hematoma * 03/04/[address] head shows stable right parietal dural thickening versus chronic small subdural hematoma subjacent to the craniotomy. Stable extensive nonspecific cerebral white matter disease, which likely represents chronic small vessel ischemic disease. * UA reportedly negative on admission. Repeat UA 03/05 positive nitrates, 1+ leukocytes, WBC 51-100. * serum electrolytes within normal limits * B12, folate and TSH within normal limits * neurology consulted and appreciate recommendations- patient reportedly was had focal seizures at [place], but resolved and she was taken off antiepileptic medications after craniotomy procedure. * PT/OT evaluation * Patient is not hypoglycemic. * May be secondary to polypharmacy versus recurrent/persistent UTI as 03/05/23 UA suggests acute infection. * Returned to baseline. Consider outpatient dementia workup when urinary symptoms and infection resolved. (2) Hyperlipidemia: Qualifiers: Hyperlipidemia type: unspecified Qualified Code(s): E78.5 - Hyperlipidemia, unspecified Code(s): E78.5 - Hyperlipidemia, unspecified Status: Chronic Assessment and Plan: Chronic, continue statin (3) Diabetes mellitus: Qualifiers: Diabetes mellitus complication status: without complication Diabetes mellitus skilled nursing insulin use: without terminal makeup operator use Diabetes mellitus type: type 2 Qualified Code(s): E11.9 - Type 2 diabetes mellitus without complications Code(s): E11.9 - Type 2 diabetes mellitus without complications Status: Chronic Assessment and Plan: Chronic, * hold metformin inpatient * accu-checks AC/HS with aspart sliding scale insulin and hypoglycemia protocol * A1c 5.3% * Stable. (4) Hypertension: Qualifiers: Hypertension type: primary hypertension Qualified Code(s): I10 - Essential (primary) hypertension Code(s): I10 - Essential (primary) hypertension Status: Chronic Assessment and Plan: Chronic. Continue losartan at home dose. (5) UTI (urinary tract infection): Qualifiers: Hematuria presence: without hematuria Urinary tract infection type: acute cystitis Qualified Code(s): N30.00 - Acute cystitis without hematuria Code(s): N39.0 - Urinary tract infection, site not specified Status: Acute Assessment and Plan: UA repeated 03/04 d/t c/o dysuria. * UA shows 2+ protein, 1+ blood, positive nitrates, 1+ leukocytes, 51-100 WBC. * Prior urine culture from 02/15/23 showing pseudomonas aeruginosa resistant to fluoroquinolones. * Review of acute rehab notes shows patient was treated with Rocephin for UTI at that time, which would not cover. * 03/05 start Cefepime 2 grams Q12 hours; given 03/05-03/07 s
--- NOTE | 2023-03-08 12:12 | PM.DS ---
DS: Admitting Diagnosis Discharge Date 03/08/2023 Admitting Diagnosis Altered mental status Hypertension, chronic Type 2 diabetes mellitus, chronic Hyperlipidemia, chronic H/O traumatic bilateral subdural hematomas DS: Discharge Diagnosis Discharge Diagnosis (1) Altered mental status: Qualifiers: Altered mental status type: disorientation Qualified Code(s): R41.0 - Disorientation, unspecified Code(s): R41.82 - Altered mental status, unspecified Status: Resolved Assessment and Plan: Patient presented to the ED from home for evaluation of altered mental status. Patient currently AOx4 and back to baseline. CT head with interval right subdural hematoma evacuation with trace amount of residual subacute hematoma seen. Resolved left subdural hematoma 03/04/[address] head shows stable right parietal dural thickening versus chronic small subdural hematoma subjacent to the craniotomy. Stable extensive nonspecific cerebral white matter disease, which likely represents chronic small vessel ischemic disease. UA reportedly negative on admission. Repeat UA 03/05 positive nitrates, 1+ leukocytes, WBC 51-100. serum electrolytes within normal limits B12, folate and TSH within normal limits neurology consulted and appreciate recommendations- patient reportedly was had focal seizures at [place], but resolved and she was taken off antiepileptic medications after craniotomy procedure. PT/OT evaluation Patient is not hypoglycemic. May be secondary to polypharmacy versus recurrent/persistent UTI as 03/05/23 UA suggests acute infection. Returned to baseline. Consider outpatient dementia workup when urinary symptoms and infection resolved. (2) Hyperlipidemia: Qualifiers: Hyperlipidemia type: unspecified Qualified Code(s): E78.5 - Hyperlipidemia, unspecified Code(s): E78.5 - Hyperlipidemia, unspecified Status: Chronic Assessment and Plan: Chronic, continue statin (3) Diabetes mellitus: Qualifiers: Diabetes mellitus complication status: without complication Diabetes mellitus public speaking professor insulin use: without public speaking professor use Diabetes mellitus type: type 2 Qualified Code(s): E11.9 - Type 2 diabetes mellitus without complications Code(s): E11.9 - Type 2 diabetes mellitus without complications Status: Chronic Assessment and Plan: Chronic, hold metformin inpatient accu-checks AC/HS with aspart sliding scale insulin and hypoglycemia protocol A1c 5.3% Stable. (4) Hypertension: Qualifiers: Hypertension type: primary hypertension Qualified Code(s): I10 - Essential (primary) hypertension Code(s): I10 - Essential (primary) hypertension Status: Chronic Assessment and Plan: Chronic. Continue losartan at home dose. (5) UTI (urinary tract infection): Qualifiers: Hematuria presence: without hematuria Urinary tract infection type: acute cystitis Qualified Code(s): N30.00 - Acute cystitis without hematuria Code(s): N39.0 - Urinary tract infection, site not specified Status: Acute Assessment and Plan: UA repeated 03/04 d/t c/o dysuria. UA shows 2+ protein, 1+ blood, positive nitrates, 1+ leukocytes, 51-100 WBC. Prior urine culture from 02/15/23 showing pseudomonas aeruginosa resistant to fluoroquinolones. Review of acute rehab notes shows patient was treated with Rocephin for UTI at that time, which would not cover. 03/05 start Cefepime 2 grams Q12 hours; given 03/05-03/07 stopped d/t culture results. Stopped Vesicare that can cause urinary retention and lead to UTIs. 03/07 urine culture shows Enterococcus growth pansensitive. Changed to amoxicillin 500 mg Q8 hours x7 days. 03/08 PVR <300 mL today. No chronic or intermittent indwelling catheter needed. (6) Urinary retention: Code(s): R33.9 - Retention of urine, unspecified Status: Acute Assessment and Plan: [place]
[2023-03-08 12:13] LABS: Glucose Point of Care 165 mg/dl (65-105)
== END 2023-03-08 14:40 | disposition home health service (06) ==
LOC: ANHED 21:07 → ANH3MED 22:39
PROVIDERS: Nurse Practitioner Family; Admitting Provider Chiropractor; Emergency Provider Emergency Medicine; PCP Family Medicine; Visit Provider Student in an Organized Health Care Education/Training Program
DX: R41.82 Altered mental status, unspecified (principal); E78.5 Hyperlipidemia, unspecified; I10 Essential (primary) hypertension; N30.00 Acute cystitis without hematuria; B95.2 Enterococcus as the cause of diseases classified elsewhere; R33.9 Retention of urine, unspecified; E11.9 Type 2 diabetes mellitus without complications; R35.0 Frequency of micturition; R11.0 Nausea; N32.81 Overactive bladder; N26.1 Atrophy of kidney (terminal); K21.9 Gastro-esophageal reflux disease without esophagitis; D64.9 Anemia, unspecified; G47.33 Obstructive sleep apnea (adult) (pediatric); Z99.89 Dependence on other enabling machines and devices; I25.10 Atherosclerotic heart disease of native coronary artery without angina pectoris; Z98.890 Other specified postprocedural states; R90.82 White matter disease, unspecified; F41.9 Anxiety disorder, unspecified; R51.9 Headache, unspecified; Z87.891 Personal history of nicotine dependence; Z86.79 Personal history of other diseases of the circulatory system; Z86.73 Personal history of transient ischemic attack (TIA), and cerebral infarction without residual deficits; Z85.42 Personal history of malignant neoplasm of other parts of uterus; Z86.74 Personal history of sudden cardiac arrest; Z87.440 Personal history of urinary (tract) infections; Z79.84 Long term (current) use of oral hypoglycemic drugs; Z79.1 Long term (current) use of non-steroidal anti-inflammatories (NSAID); Z79.82 Long term (current) use of aspirin; Z79.02 Long term (current) use of antithrombotics/antiplatelets; Z79.899 Other long term (current) drug therapy; Z82.3 Family history of stroke
CPT/HCPCS: 36415; 70450; 71046; 76775; 80048; 80053; 81001; 81003; 82140; 82607; 82746; 82948; 83036; 84443; 84484; 85025; 86140; 87086; 87147; 87181; 87186; 96365; 97110; 97116; 97161; 97530; 99285; A9270; G0378; J0692

== ENCOUNTER 2023-03-12 12:48 | Outpatient (CLI) | payer MEDICARE, SELFPAY ==
--- NOTE | ~2023-03-12 | XR_ITS ---
MODIFIED ESOPHAGRAM HISTORY: Fluid in the larynx causing is fixation. TECHNIQUE: Modified barium esophagram was performed on 03/12/2023. I administered fluoroscopy and perf ormed the exam with speech pathologist. Patient was seated for lateral fluoroscopic imaging for kelsi stion of thin liquids, pudding, solids and quantified amounts, followed by thin liquids in uncontroll ed amounts. This was recorded on tape. A single fluoroscopic spot image was also recorded. The DAP fo r this procedure was 1.194 Gycm2. The amount of fluoroscopy time used during this procedure was 1.8 m inutes. FINDINGS: Oral stage: Adequate function. Pharyngeal stage: Single episode of transient trace laryngeal penetration without aspiration. Otherwi se normal. Cervical/esophageal stage: Adequate function. IMPRESSION: Single episode of transient trace laryngeal penetration without aspiration. Otherwise nor mal study. Please correlate with speech pathologist findings and specific feeding recommendations. Reviewed, dictated and finalized at location A. IMPRESSION: Single episode of transient trace laryngeal penetration without asp iration. Otherwise normal study. Please correlate with speech pathologist findi ngs and specific feeding recommendations.
--- NOTE | ~2023-03-12 | XR_ITS ---
XR chest 2V 03/12/2023 13:42 Indication: Cough Procedure: AP and lateral views of the chest Comparison: 10/14/2022 Findings: Cardiomegaly. No focal air space disease, pulmonary edema, pleural effusion or suspected pn eumothorax. There is atherosclerosis and ectasia of the aorta. Impression: 1: No acute cardiopulmonary disease. Reviewed, dictated and finalized at location [] Impression: 1: No acute cardiopulmonary disease.
--- NOTE | 2023-03-12 14:25 | REHSTMBS ---
Assessment and note entered by Julee Nicolas, BREAKER TABLE WORKER Modified Barium Swallow Evaluation Feeding Type Recommended Oral Food Consistency Regular, Level 7 Liquid Consistency Thin (0) ST Clinical Summary MODIFIED BARIUM SWALLOW STUDY (MBSS) This patient was seen for a Modified Barium Swallow at the request of her physician. She reported she fell and had a brain bleed and was taken to [facility] for treatment. Patient reported her swallowing was assessed and she was placed on thickened liquids. Patient then entered [facility] and received a Modified Barium Swallow prior to discharge which indicated that she passed and no longer required thickener in her liquids. Patient stated that she thinks this MBS was ordered because of coughing on thin liquids. Patient was presented with thin liquid contrast medium, pudding mixed with semi-solid contrast medium, and crackers/fruit coated with the semi- solid mixture. She independently used head flexion with all consistencies. Today the patient exhibited only one instance of trace penetration on thin liquid per spoon, not replicated again or with larger amounts of thin liquid per cup. Results indicate this patient's swallowing skills are grossly within normal limits. She may have thin liquid but should continue to use head flexion on all consistencies. Thank you for this referral.
== END 2023-03-12 12:49 | disposition home or self-care (01) ==
PROVIDERS: PCP Family Medicine; Visit Provider Family Medicine
DX: T17.320A Food in larynx causing asphyxiation, initial encounter (principal); R05.9 Cough, unspecified
CPT/HCPCS: 71046; 92611

== ENCOUNTER 2023-04-08 15:53 | Outpatient (CLI) | payer MEDICARE, SELFPAY ==
--- NOTE | ~2023-04-08 | CT_ITS ---
EXAMINATION: CT brain wo con DATE: 04/08/2023 16:28 INDICATION: SUBDURAL HEMORRHAGE . TECHNIQUE: Computed tomography (CT) of the head was performed without intravenous contrast. The mA wa s adjusted according to patient size. Iterative reconstruction technique was employed. The dose-lengt h product was 605.33 mGy-cm. COMPARISON: 03/04/2023, 01/13/2023; MR brain 10/15/2022. FINDINGS: No acute intracranial hemorrhage or extra-axial fluid collection. Small chronic right hemispheric sub dural collection/thickening, remains heterogeneous, overall smaller in size measuring up to 5 mm (pre viously 7 mm). No hydrocephalus, mass, or herniation. No acute ischemic infarct. Unremarkable dural venous sinus attenuation. No acute osseous abnormality. Right parietal craniotomy defect The aerated spaces are clear. Moderate atrophy and severe chronic white matter change. Atherosclerotic intracranial calcification. Bilateral lens replacements. 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 IMPRESSION: No acute intracranial process. Improving right parietal postsurgical change/small chronic subdural. Reviewed, dictated and finalized at location K. IMPRESSION: No acute intracranial process. Improving right parietal postsurgical change/sma ll chronic subdural.
== END 2023-04-08 15:54 | disposition home or self-care (01) ==
PROVIDERS: PCP Family Medicine
DX: I62.00 Nontraumatic subdural hemorrhage, unspecified (principal)
CPT/HCPCS: 70450

== ENCOUNTER 2023-07-09 09:30 | Outpatient (RCR) | payer MEDICARE, SELFPAY ==
--- NOTE | 2023-04-13 12:42 | PTOPEVAL1 ---
Assessment and note entered by Carlitos Hoover, PT Evaluation Information Assessment Status Evaluation Diagnosis TIA, Generalized weakness Subjective Information Reports that she had a history of sepsis last year and spent sometime in the Rehab center. She had a TIA in December resulting in a fall and subdural hematoma. She spent time in Acute care, Rehab institute, and home health which was discharged last week. She was independent prior to December with all activity. Denies any pain. She is using a cane around the house but a wheeled walker for outside and long distances. She would like to be more active and build her endurance. Wants to be able to climb steps to get into congregation. Reported Pain Level Pain Score 0: Self Report Assessment PT Clinical Summary Patient demonstrating deficits in strength, endurance, and stability with all functional activity at this time. She presents with deficits placing her in the high fall risk category and this is consistent with her medical history since TIA. She will benefit from skilled therapy to address these deficits for full functional improvement and fall risk reduction. Plan of Care Interventions Gait Training,Neuro Re-education,Therapeutic Activities,Therapeutic Exercise PT Services Indicated Yes These treatments will address the objective and functional deficits as defined above. The patient will be advanced safely and appropriately in order for the patient to progress towards his/her prior level of function. Additional exercises will be introduced and as well as a comprehensive home exercise program upon discharge, if needed, ?to ensure carryover of functional gains achieved in the clinic. This treatment plan has been reviewed and agreement upon by the patient.
--- NOTE | 2023-04-13 12:42 | OPREHPOC ---
Outpatient Therapy Plan of Care This is a Multidisciplinary Plan of Care that may contain components documented by all disciplines (PT, OT, and ST.) PT Problem 1 PT Problem #1 Knowledge Deficit PT Goal 1 Goal Independent with HEP for LE strengthening PT Goal 2 Target Visit 24 PT Problem 2 PT Problem #2 Impaired Balance PT Goal 1 Goal Demonstrate 10 point improvement in Tinetti score to reduce fall risk Target Visit 24 PT Problem 3 PT Problem #3 Impaired Strength PT Goal 1 Goal Improve ayan hip flexion strength to 4+/5 to improve foot clearence to reduce fall risk Target Visit 24 PT Goal 2 Goal Improve ayan knee hip abduction strength to 4/5 to improve lateral stability with standing and transfer activity Target Visit 24 PT Problem 4 PT Problem #4 Impaired Gait PT Goal 1 Goal Ambulate with even stride length bilaterally with use of spc and no lateral deviation Target Visit 24
--- NOTE | 2023-05-04 10:48 | OPREHPOC ---
Outpatient Therapy Plan of Care This is a Multidisciplinary Plan of Care that may contain components documented by all disciplines (PT, OT, and ST.) PT Problem 1 PT Problem #1 Knowledge Deficit PT Goal 1 Goal Independent with HEP for LE strengthening Target Visit 24 Progress Partially Met PT Goal 2 Target Visit 24 PT Problem 2 PT Problem #2 Impaired Balance PT Goal 1 Goal Demonstrate 10 point improvement in Tinetti score to reduce fall risk Target Visit 24 Comment not assessed 05/04/23 PT Problem 3 PT Problem #3 Impaired Strength PT Goal 1 Goal Improve ayan hip flexion strength to 4+/5 to improve foot clearence to reduce fall risk Target Visit 24 Progress Partially Met PT Goal 2 Goal Improve ayan knee hip abduction strength to 4/5 to improve lateral stability with standing and transfer activity New goal 3. Improve pelvic floor strength to 3/5 to decrease urinary incontinence New goal 4. Improve pelvic floor endurance to 10 seconds to decrease urinary incontinence Target Visit 24 Progress Partially Met PT Problem 4 PT Problem #4 Impaired Gait PT Goal 1 Goal Ambulate with even stride length bilaterally with use of spc and no lateral deviation Target Visit 24 Progress Partially Met PT Problem 5 PT Problem #5 Impaired Functional ADLs PT Goal 1 Goal 1. Patient able to do typical ADL's with no more than 2 instances of urinary incontinence a week Target Visit 24
--- NOTE | 2023-05-04 10:48 | PTOPREEVAL ---
Assessment and note entered by Latha Van DPT Evaluation Information Assessment Status Re-evaluation Diagnosis TIA, Generalized weakness Subjective Information Pt reports she is feeling that therapy is helping, has only been using her walker in the middle of the night. Using the cane during the day but sometimes goes without a device at all. No falls since starting therapy. Has been able to navigate stairs at [employer] and home. Thinks her legs feel like they have gotten stronger so far. Pt reports she gets a lot of incontinence. Wakes frequently at night to void. States her urologist wants her to keep up fluid intake for the health of her kidneys. Incontinence 3-4 times a day. Wears multiple pads and diapers a day. Voids a couple times a day. Burning with urination maybe every other time . BM once a day. Fecal incontinence daily. Reports incontinence started after her fall in late December. Denies history of pelvic pain. Has had 1 vaginal delivery, no complications. Hysterectomy in approximately 2011, surgery for prolapse in 1998. History of frequent kidney stones. Patient goal: get rid of accidents, be able to go while on the toilet. Reported Pain Level Pain Score 0: Self Report Assessment PT Clinical Summary The patient has made progress so far in therapy and reports improvements in her ability to navigate stairs, walk without an assistive device, and has been able to cook more. She demonstrates improved LE strength and improved 5 time sit to stand score as well. She also reports urinary incontinence that occurs multiple times a day. She demonstrates significantly decreased pelvic floor strength and endurance and will highly benefit from additional skilled therapy to address her strength, balance, and incontinence to return to prior level of function. Plan of Care Interventions Electrical Stimulation,Gait Training,Hot Pack/Cold Pack,Manual Therapy,Neuro Re-education,Patient/ Caregiver Education,Therapeutic Activities, Therapeutic Exercise PT Services Indicated Yes Treatment Frequency and 3 times a week for 12 visits Duration These treatments will address the objective and functional deficits as d
--- NOTE | 2023-05-27 10:22 | OPREHPOC ---
Outpatient Therapy Plan of Care This is a Multidisciplinary Plan of Care that may contain components documented by all disciplines (PT, OT, and ST.) PT Problem 1 PT Problem #1 Knowledge Deficit PT Goal 1 Goal Independent with HEP for LE strengthening Target Visit 24 Progress Partially Met PT Goal 2 Target Visit 24 PT Problem 2 PT Problem #2 Impaired Balance PT Goal 1 Goal Demonstrate 10 point improvement in Tinetti score to reduce fall risk Target Visit 24 Progress Partially Met Comment improved 5 points PT Problem 3 PT Problem #3 Impaired Strength PT Goal 1 Goal Improve ayan hip flexion strength to 4+/5 to improve foot clearence to reduce fall risk Target Visit 24 Progress Partially Met PT Goal 2 Goal Improve ayan knee hip abduction strength to 4/5 to improve lateral stability with standing and transfer activity New goal 3. Improve pelvic floor strength to 3/5 to decrease urinary incontinence New goal 4. Improve pelvic floor endurance to 10 seconds to decrease urinary incontinence Target Visit 24 Progress Partially Met Comment 4. Improved to 8 seconds PT Problem 4 PT Problem #4 Impaired Gait PT Goal 1 Goal Ambulate with even stride length bilaterally with use of spc and no lateral deviation Target Visit 24 Progress Partially Met PT Problem 5 PT Problem #5 Impaired Functional ADLs PT Goal 1 Goal 1. Patient able to do typical ADL's with no more than 2 instances of urinary incontinence a week Target Visit 24 Progress Partially Met Comment no incontinence in the last 24 hours
--- NOTE | 2023-05-27 10:22 | PTOPPROG ---
Assessment and note entered by Latha Van DPT Evaluation Information Assessment Status Progress Diagnosis TIA, Generalized weakness Subjective Information Pt reports no falls. Does not feel back to normal with her typical walking ability. Was able to go to the grocery store once with her and used the cart for support. States she has not had any urinary incontinence in the past 24 hours which is great . Also is not rushing to the bathroom quite as much. Wants to continue addressing gait to take longer/more normal steps. Assessment PT Clinical Summary The patient has continued to make progress in therapy and reports improvements in her walking ability and was able to go to the grocery store once with assistance. She also reports no incontinence for the last day and less rushing to void. She demonstrates a 5 point improvement on the Tinetti but continues to remain in the high fall risk category. She also demonstrates improved pelvic floor endurance but continued weakness. She will highly benefit from continued skilled therapy to improve her overall strength, gait, and balance in order to reduce incontinence and return to full function. Plan of Care Interventions Gait Training,Manual Therapy,Neuro Re-education, Patient/Caregiver Education,Therapeutic Activities, Therapeutic Exercise PT Services Indicated Yes Treatment Frequency and 3 x a week for 12 visits Duration These treatments will address the objective and functional deficits as defined above. The patient will be advanced safely and appropriately in order for the patient to progress towards his/her prior level of function. Additional exercises will be introduced and as well as a comprehensive home exercise program upon discharge, if needed, ?to ensure carryover of functional gains achieved in the clinic. This treatment plan has been reviewed and agreement upon by the patient.
--- NOTE | 2023-06-01 09:57 | PCPTNOTE ---
Patient called and canceled appointment due to illness.
--- NOTE | 2023-06-18 13:44 | OPREHPOC ---
Outpatient Therapy Plan of Care This is a Multidisciplinary Plan of Care that may contain components documented by all disciplines (PT, OT, and ST.) PT Problem 1 PT Problem #1 Knowledge Deficit PT Goal 1 Goal Independent with HEP for LE strengthening Target Visit 32 Progress Partially Met PT Goal 2 Target Visit 24 PT Problem 2 PT Problem #2 Impaired Balance PT Goal 1 Goal Demonstrate 10 point improvement in Tinetti score to reduce fall risk Target Visit 32 Progress Partially Met Comment improved 8 points PT Problem 3 PT Problem #3 Impaired Strength PT Goal 1 Goal Improve ayan hip flexion strength to 4+/5 to improve foot clearence to reduce fall risk Target Visit 32 Progress Partially Met PT Goal 2 Goal Improve ayan knee hip abduction strength to 4/5 to improve lateral stability with standing and transfer activity New goal 3. Improve pelvic floor strength to 3/5 to decrease urinary incontinence New goal 4. Improve pelvic floor endurance to 10 seconds to decrease urinary incontinence Target Visit 32 Progress Partially Met Comment 4. Improved to 8 seconds PT Problem 4 PT Problem #4 Impaired Gait PT Goal 1 Goal Ambulate with even stride length bilaterally with use of spc and no lateral deviation Target Visit 32 Progress Partially Met PT Problem 5 PT Problem #5 Impaired Functional ADLs PT Goal 1 Goal 1. Patient able to do typical ADL's with no more than 2 instances of urinary incontinence a week Target Visit 32 Progress Partially Met Comment no incontinence in the last 24 hours
--- NOTE | 2023-06-18 13:45 | PTOPPROG ---
Assessment and note entered by Latha Van DPT Evaluation Information Assessment Status Progress Diagnosis TIA, Generalized weakness Subjective Information Pt reports no recent falls. Reports she is able to hold her bladder more now but is still getting incontinence. Able to do more of her normal activities now but is still not cooking as much, not able to carry a basket of laundry. Keeps someone close by when takes a shower in the event she needs help but she does shower independently. Assessment PT Clinical Summary The patient has continued to make good progress in therapy and reports decreased frequency of incontinence and no recent falls. She does continue to have difficulty with some activities including carrying a laundry basket and cooking. She demonstrates improved LE strength, improved balance score on the Tinetti to the medium fall risk category, and improved pelvic floor strength. She will benefit from further therapy to continue reducing incontinence and improving strength and balance. Plan of Care Interventions Gait Training,Manual Therapy,Neuro Re-education, Patient/Caregiver Education,Therapeutic Activities, Therapeutic Exercise PT Services Indicated Yes Treatment Frequency and 2 times a week for 8 visits Duration These treatments will address the objective and functional deficits as defined above. The patient will be advanced safely and appropriately in order for the patient to progress towards his/her prior level of function. Additional exercises will be introduced and as well as a comprehensive home exercise program upon discharge, if needed, ?to ensure carryover of functional gains achieved in the clinic. This treatment plan has been reviewed and agreement upon by the patient.
== END 2023-07-12 23:59 | disposition home or self-care (01) ==
LOC: ANHGOSHPT 09:30
PROVIDERS: PCP Family Medicine; Visit Provider Physician Assistant
DX: S06.5XAD Traumatic subdural hemorrhage with loss of consciousness status unknown, subsequent encounter (principal); Z86.73 Personal history of transient ischemic attack (TIA), and cerebral infarction without residual deficits
CPT/HCPCS: 97110; 97112; 97116; 97161; 97530

== ENCOUNTER 2023-07-12 10:10 | Outpatient (CLI) | payer MEDICARE, SELFPAY ==
[2023-07-12 19:06] LABS: Hematocrit 46.1 % (37.0-47.0); Hemoglobin 13.6 g/dL (12.0-15.0); Mean Corpuscular HGB Conc 29.5 g/dl (32-36); Mean Corpuscular Hemoglobin 25.8 pg (26-34); Mean Corpuscular Volume 87.3 fl (80-100); Mean Platelet Volume 11.4 fl (7.4-10.4); Platelet Count Result 289 k/mm3 (150-375); Red Blood Count 5.28 M/mm3 (4.2-5.4); Red Cell Distribution Width 17.6 % (11.5-14.5); White Blood Count 7.8 K/mm3 (4.5-10.0)
[2023-07-12 19:11] LABS: Iron 53 ug/dL (37-170)
[2023-07-12 19:21] LABS: Percent Iron Saturation 14 % (20-50)
[2023-07-12 20:51] LABS: Alanine Aminotransferase 17 U/L (6-35); Albumin Level 4.6 g/dL (3.5-5.1); Alkaline Phosphatase 72 U/L (38-126); Anion Gap 10 mmol/L (8-16); Aspartate Amino Transferase 36 U/L (14-36); Bilirubin,Total 1.1 mg/dL (0.2-1.3); Blood Urea Nitrogen 26 mg/dL (7-17); Calcium 9.7 mg/dL (8.4-10.2); Carbon Dioxide 30 mmol/L (22-30); Chloride 103 mmol/L (98-107); Cholesterol 138 mg/dL (0-200); Estimated Glomerular Filt Rate > 60; Glucose 91 mg/dL (65-110); HDL Direct 45 mg/dL; Potassium 4.3 mmol/L (3.4-5.0); Sodium 143 mmol/L (137-145); Triglycerides 138 mg/dL (<150)
[2023-07-12 21:05] LABS: LDL Cholesterol Direct 61 mg/dL
[2023-07-12 23:52] LABS: Hemoglobin A1C 6.1 % (<5.7)
== END 2023-07-12 10:11 | disposition home or self-care (01) ==
PROVIDERS: PCP Family Medicine; Visit Provider Physician Assistant
DX: D64.9 Anemia, unspecified (principal); Z13.1 Encounter for screening for diabetes mellitus; E11.9 Type 2 diabetes mellitus without complications; Z13.220 Encounter for screening for lipoid disorders
CPT/HCPCS: 36415; 80053; 80061; 83036; 83540; 83550; 85027

== ENCOUNTER 2023-08-11 11:00 | Outpatient (RCR) | payer MEDICARE, SELFPAY ==
--- NOTE | 2023-07-14 10:17 | OPREHPOC ---
Outpatient Therapy Plan of Care This is a Multidisciplinary Plan of Care that may contain components documented by all disciplines (PT, OT, and ST.) PT Problem 1 PT Problem #1 Knowledge Deficit PT Goal 1 Goal Independent with HEP for LE strengthening Target Visit 32 Progress Partially Met PT Problem 2 PT Problem #2 Impaired Balance PT Goal 1 Goal 1. Demonstrate 10 point Tinetti improvement to reduce fall risk Target Visit 32 Progress Met PT Problem 3 PT Problem #3 Impaired Strength PT Goal 1 Goal Improve ayan hip flexion strength to 4+/5 to improve foot clearance to reduce fall risk Target Visit 32 Progress Met PT Goal 2 Goal Improve ayan knee hip abduction strength to 4/5 to improve lateral stability with standing and transfer activity New goal 3. Improve pelvic floor strength to 3/5 to decrease urinary incontinence New goal 4. Improve pelvic floor endurance to 10 seconds to decrease urinary incontinence Target Visit 3 Progress Partially Met PT Problem 4 PT Problem #4 Impaired Gait PT Goal 1 Goal Ambulate with even stride length ayan with use of spc and no lateral deviation Target Visit 32 Progress Partially Met
--- NOTE | 2023-07-14 10:17 | PTOPPROG ---
Assessment and note entered by Latha Van DPT Evaluation Information Assessment Status Progress Subjective Information Pt reports she is feeling ok today. Pt reports therapy is going well and feels that she is getting better. States she is noticing she is able to do stairs easier and feels more stable when walking. Is going out to [employer] and the grocery store. Is not yet going down her driveway again as it is steep and kassidy. Reports her incontinence has improved and thinks it has only happened once in the last week. Can hold urge to void 2 minutes. Assessment PT Clinical Summary The patient has continued to make good progress in therapy and reports her gait stability has improved at home. She also reports decreased urinary incontinence to 1 time in the last week. She demonstrates improved LE strength, improved pelvic floor endurance, and a 4 point improvement on the Tinetti. Due to her progress but continued weakness she will benefit from further therapy to improve strength and safety as well as to further reduce incontinence. Plan of Care Interventions Gait Training,Manual Therapy,Neuro Re-education, Patient/Caregiver Education,Therapeutic Activities, Therapeutic Exercise PT Services Indicated Yes Treatment Frequency and 1 time a week for 4 visits Duration These treatments will address the objective and functional deficits as defined above. The patient will be advanced safely and appropriately in order for the patient to progress towards his/her prior level of function. Additional exercises will be introduced and as well as a comprehensive home exercise program upon discharge, if needed, ?to ensure carryover of functional gains achieved in the clinic. This treatment plan has been reviewed and agreement upon by the patient.
--- NOTE | 2023-08-11 11:46 | PTOPDC ---
Assessment and note entered by Latha Van DPRoderick Evaluation Information Assessment Status Discharge Subjective Information Pt reports she is not really using her cane at home. Has continued to be able to get out and navigate stairs to go to [employer]. Still not able to do laundry due to difficulty carrying a basket of laundry down the stairs. Reports the incontinence has been happening if she waits to void too long. Occurring 1-2 times a day, medium volume. Reported Pain Level Pain Score 0: Self Report Assessment PT Clinical Summary The patient has made good progress overall in therapy. She reports improved function and balance , and less reliance on her cane. She demonstrates improved LE strength. Due to her progress, plan for discharge at this times. She and her family have been educated on ways to continue improving independently and to follow up with MD and/or PT as needed. Plan of Care PT Services Indicated No
== END 2023-08-11 13:31 | disposition home or self-care (01) ==
LOC: ANHGOSHPT 11:00
PROVIDERS: PCP Family Medicine; Visit Provider Physician Assistant
DX: S06.5XAD Traumatic subdural hemorrhage with loss of consciousness status unknown, subsequent encounter (principal); R32 Unspecified urinary incontinence; Z86.73 Personal history of transient ischemic attack (TIA), and cerebral infarction without residual deficits
CPT/HCPCS: 97110; 97112; 97530

== ENCOUNTER → 2023-08-17 11:43 | Outpatient (CLI) | payer MEDICARE, SELFPAY ==
--- NOTE | ~2023-08-17 | XR_ITS ---
XR abdomen/kub 1V 08/17/2023 12:00 INDICATION: Kidney stones TECHNIQUE: KUB COMPARISON: 11/13/2022 FINDINGS: Bowel gas pattern is normal. Moderate colonic fecal loading. There is no evidence of free a ir, mass, organomegaly, ascites or obstruction. No abnormal calculi are seen. The bones appear inta ct. IMPRESSION: 1: No acute abdominal abnormality identified. Reviewed, dictated and finalized at location L. CLEANER
== END ==
PROVIDERS: PCP Family Medicine; Visit Provider Urology
DX: N20.0 Calculus of kidney (principal)
CPT/HCPCS: 74018

== ENCOUNTER 2023-12-09 13:16 | Outpatient (CLI) | payer MEDICARE, SELFPAY ==
[2023-12-09 14:51] LABS: Influenza A QL RT-PCR Negative (Negative); Influenza B QL RT-PCR Negative (Negative); RSV RNA, RT-PCR Negative (Negative); SARS-CoV-2 RNA PCR Positive (Negative)
== END 2023-12-09 13:17 | disposition home or self-care (01) ==
LOC: ANHLAB 13:16
PROVIDERS: PCP Family Medicine; Visit Provider Family Medicine
DX: U07.1 COVID-19 (principal)
CPT/HCPCS: 87637

== ENCOUNTER 2024-02-24 11:55 | Observation (INO) | payer MEDICARE, SELFPAY ==
[2024-02-24] VITALS (9 sets, daily range): BP systolic 111–184; BP diastolic 57–86; PULSE 79–97; RESP 16–19; TEMP 36.1–36.9; O2SAT 97–100
--- NOTE | ~2024-02-24 | US_ITS ---
EXAMINATION: US renal BI DATE: 02/24/2024 12:43 INDICATION: Hematuria. TECHNIQUE: Multiple ultrasound grayscale images of the kidneys were obtained. COMPARISON: Ultrasound 03/06/2023, CT abdomen and pelvis was FINDINGS: The right kidney measures 9.2 x 5.3 x 5.1 cm. The left kidney measures 6.9 cm, but is not well visual ized. The kidneys demonstrate normal parenchymal echogenicity. There is no hydronephrosis. The bladde r is decompressed by a Ridley catheter. There are gallstones in the gallbladder, which is normal in si ze. IMPRESSION: 1. Mild atrophy of left kidney. No hydronephrosis. Reviewed, dictated and finalized at location A.
--- NOTE | 2024-02-24 12:07 | ED.FEMALEGU ---
HPI - Female Genitourinary General Chief complaint: Urogenital-Female Stated complaint: blood clots in catheter Time Seen by Provider: 02/24/24 12:01 Source: patient and family Mode of arrival: ambulatory Limitations: no limitations History of Present Illness HPI Narrative: 83-year-old female (goes by Nikole ) presents with concern for hematuria and blood clots in her leg bag with her indwelling Ridley catheter. Patient was seen by Urology yesterday and was advised to come to the emergency department today when this problem persisted. Her symptoms started Wednesday but have continually gotten worse. She was seen by Marta the physician bioinformatics assistant for Urology yesterday and has previously been under the care of urologists Dr. Urbina and Dr. Evans. Underwent Botox recently. 81mg aspirin discontinued; no other anticoagulation. States she has been on cephalexin for UTI prophylaxis and is on soliphencicin for overactive bladder. Denies any abdominal or back/flank pain. No fevers but family is concerned as she has a history of sepsis. Urology physician bioinformatics assistant Marta had a ready called in advance to notify the emergency department this patient's arrival. Recommended 3 would be placed and start continuous bladder irrigation and obtain renal ultrasound and consult Urology. Patient recently on cefdinir. Related Data Home Medications Medication Instructions Recorded Confirmed Lactobacillus 40-Bifidobact 1 cap PO DAILY 04/16/20 12/28/23 3-S.thermophilus 100 billion cell capsule (Probiotic) acetaminophen 325 mg tablet 325 mg PO Q6H PRN Pain 12/11/21 12/28/23 zinc 50 mg tablet 50 mg PO DAILY 12/04/22 12/28/23 losartan 100 mg tablet 100 mg PO DAILY 01/11/23 12/28/23 cephalexin 250 mg capsule 250 mg PO DAILY 03/25/23 12/28/23 solifenacin 5 mg tablet 5 mg PO DAILY 12/28/23 12/28/23 Allergies Allergy/AdvReac Type Severity Reaction Status Date / Time tetracycline AdvReac Severe NAUSEA Verified 12/28/23 10:42 oxycodone AdvReac Unknown N&V Verified 12/28/23 10:42 [facility] Past Medical History Medical History (Updated 02/24/24 @ 13:09 by Gwendolyn Mak MD) Acute renal failure (ARF) Patient received intermittent hemodialysis between 07/23/2019 and 07/29/2019 as well as 07/31/2019 and 08/02/2019. Patient is now on long-term hemodialysis schedule managed by Dr. Gianni Larson Anemia Anxiety Bilateral subdural hematomas December 2022 CAD (coronary artery disease) Cardiac arrest Chronic anemia Pt is also anemia was treated with blood transfusion and epogen shot before, ordered epogen shot again for pt as her hb is 6. Pt will need work up for anaemia if Dr Larson does not think it is related to kidney disease, pt baseline is 7.5. Coagulopathy Dialysis patient Dyslipidemia Encephalopathy Encounter for immunization Essential tremor Family history of VRE (vancomycin resistant Enterococcus) infection Patient had VRE in her urine G tube feedings Only receiving supplemental feeds and 6 at night currently GERD (gastroesophageal reflux disease) History of renal dialysis Hypertension MVP (mitral valve prolapse) NSTEMI (non-ST elevated myocardial infarction) Obstructive sleep apnea Intolerant of CPAP Osteoarthritis Osteopenia after menopause Polyneuropathy associated with critical illness Shock liver TIA (transient ischemic attack) Type 2 diabetes mellitus Urethral stone Urge incontinence Uterine cancer UTI (urinary tract infection) Vancomycin-resistant enterococcus UTI Surgical History Surgical History H/O bilateral cataract extraction H/O craniotomy H/O inguinal hernia repair H/O lithotripsy H/O: hysterectomy History of bladder suspension procedure Two thousand four History of hysterectomy for malignancy History of urethral stent X2 Hx of tonsillectomy PEG (percutaneous endoscopic gastrostomy) status Placed 08/04/[address] Arboleda S/P dialysis catheter in
--- NOTE | 2024-02-24 12:26 | WPDURCON ---
Urology Consult Note HPI Date Seen: 02/24/24 Primary Care Provider: Agnieszka Franco MD Consult Narrative Narrative: Aliya Richardson is a 83 year old female with a history of overactive bladder maintained on Botox injections q.6 months was being seen in consultation for gross hematuria. She had her routine Botox injection on 02/18/2024 and took 3 days of prophylactic Bactrim following this. She reports that she had some mild hematuria for about 2 days after the initial Botox injection but this promptly resolved. Unfortunately, shortly after she had recurrence of gross hematuria and presented to the office yesterday, 02/23/24 with concerns of grossly bloody urine x1 day. In the office, her urine was bright red and she had of bladder scan that showed about 560 cc of urine. A Ridley catheter was placed but had difficulty draining due to blood clots. The catheter was irrigated with return of large clots and eventually urine became clear and was flowing freely. The patient was started on cefdinir, which she has taken 2 doses of so far, and instructed to hold aspirin. She was also instructed to call the office or go to ER if bleeding worsened. She returned to the office this morning with persistent gross hematuria and after discussion, it was recommended that she proceed to the emergency room to have appropriate labs and imaging and initiate CBI. On arrival to the emergency room, her vital signs were stable and she is afebrile. A 3 way catheter was placed and she has been started on CBI. Renal ultrasound was completed without evidence of clots in the bladder. Hemoglobin and hematocrit are stable. [facility] Past Medical History Medical History (Updated 02/24/24 @ 12:26 by Gwendolyn Mak MD) Acute renal failure (ARF) Patient received intermittent hemodialysis between 07/23/2019 and 07/29/2019 as well as 07/31/2019 and 08/02/2019. Patient is now on long-term hemodialysis schedule managed by Dr. Gianni Larson Anemia Anxiety Bilateral subdural hematomas December 2022 CAD (coronary artery disease) Cardiac arrest Chronic anemia Pt is also anemia was treated with blood transfusion and epogen shot before, ordered epogen shot again for pt as her hb is 6. Pt will need work up for anaemia if Dr Larson does not think it is related to kidney disease, pt baseline is 7.5. Coagulopathy Dialysis patient Dyslipidemia Encephalopathy Encounter for immunization Essential tremor Family history of VRE (vancomycin resistant Enterococcus) infection Patient had VRE in her urine G tube feedings Only receiving supplemental feeds and 6 at night currently GERD (gastroesophageal reflux disease) History of renal dialysis Hypertension MVP (mitral valve prolapse) NSTEMI (non-ST elevated myocardial infarction) Obstructive sleep apnea Intolerant of CPAP Osteoarthritis Osteopenia after menopause Polyneuropathy associated with critical illness Shock liver TIA (transient ischemic attack) Type 2 diabetes mellitus Urethral stone Urge incontinence Uterine cancer UTI (urinary tract infection) Vancomycin-resistant enterococcus UTI Surgical History Surgical History H/O bilateral cataract extraction H/O craniotomy H/O inguinal hernia repair H/O lithotripsy H/O: hysterectomy History of bladder suspension procedure Two thousand four History of hysterectomy for malignancy History of urethral stent X2 Hx of tonsillectomy PEG (percutaneous endoscopic gastrostomy) status Placed 08/04/[address] Arboleda S/P dialysis catheter insertion Right chest S/P ureteral stent placement Family History Family History Father Acute myocardial infarction Family history of kidney disease Family history of aortic aneurysm Mother Cerebrovascular accident Father No problems noted. Mother No problems noted. Mother Cerebrovascular ac
[2024-02-24 12:28] LABS: Basophils Absolute Auto 0.1 K/mm3 (0.0-0.1); Basophils Percent Auto 0.7 % (0.2-1.2); Eosinophils Absolute Auto 0.2 K/mm3 (0-0.3); Eosinophils Percent Auto 1.8 % (0-4.4); Hematocrit 43.5 % (37.0-47.0); Hemoglobin 13.7 g/dL (12.0-15.0); Immature Granulocyte Absolute 0.04 K/mm3 (0.00-0.031); Immature Granulocyte Percent A 0.4 % (0-0.5); Lymphocytes Percent Auto 31.3 % (18.3-44.2); Mean Corpuscular HGB Conc 31.5 g/dl (32-36); Mean Platelet Volume 10.9 fl (7.4-10.4); Monocytes Absolute Auto 0.5 K/mm3 (0.1-0.6); Neutrophils Absolute Auto 5.4 K/mm3 (1.3-6.7); Neutrophils Percent Auto 59.8 % (45.5-73.1); Platelet Count Result 253 k/mm3 (150-375); Red Blood Count 4.89 M/mm3 (4.2-5.4); Red Cell Distribution Width 16.4 % (11.5-14.5)
[2024-02-24 12:46] LABS: Prothrombin Time 13.2 Seconds (11.1-14.7)
[2024-02-24 12:47] LABS: Partial Thromboplastin Time 35.7 Seconds (22.3-36.8)
[2024-02-24 12:53] LABS: Alanine Aminotransferase 16 U/L (6-35); Albumin Level 4.7 g/dL (3.5-5.1); Alkaline Phosphatase 54 U/L (38-126); Anion Gap 7 mmol/L (4-12); Aspartate Amino Transferase 29 U/L (14-36); Bilirubin,Total 1.1 mg/dL (0.2-1.3); Blood Urea Nitrogen 28 mg/dL (7-17); Calcium 9.8 mg/dL (8.4-10.2); Carbon Dioxide 26 mmol/L (22-30); Chloride 108 mmol/L (98-107); Estimated Glomerular Filt Rate 60; Glucose 90 mg/dL (65-110); Sodium 141 mmol/L (137-145)
--- NOTE | 2024-02-24 13:18 | PM.IMHP ---
H&P: HPI History of Present Illness Date/Time: 02/24/24 13:18 Chief Complaint: Gross hematuria Narrative: Aliya Richardson is a 83 year old female with a history of overactive bladder maintained on Botox injections q.6 months was being seen in consultation for gross hematuria. She had her routine Botox injection on 02/18/2024 and took 3 days of prophylactic Bactrim following this. She reports that she had some mild hematuria for about 2 days after the initial Botox injection but this promptly resolved. Unfortunately, shortly after she had recurrence of gross hematuria and presented to the office yesterday, 02/23/24 with concerns of grossly bloody urine x1 day. In the office, her urine was bright red and she had of bladder scan that showed about 560 cc of urine. A Ridley catheter was placed but had difficulty draining due to blood clots. The catheter was irrigated with return of large clots and eventually urine became clear and was flowing freely. The patient was started on cefdinir, which she has taken 2 doses of so far, and instructed to hold aspirin. She was also instructed to call the office or go to ER if bleeding worsened. She returned to the office this morning with persistent gross hematuria and after discussion, it was recommended that she proceed to the emergency room to have appropriate labs and imaging and initiate CBI. On arrival to the emergency room, her vital signs were stable and she is afebrile. A 3 way catheter was placed and she has been started on CBI. Renal ultrasound was completed without evidence of clots in the bladder. Hemoglobin and hematocrit are stable. Review of Systems Review of Systems: All systems reviewed & are unremarkable except as noted in HPI and below PMFSH Past Medical History Medical History (Updated 02/24/24 @ 13:09 by Gwendolyn Mak MD) Acute renal failure (ARF) Patient received intermittent hemodialysis between 07/23/2019 and 07/29/2019 as well as 07/31/2019 and 08/02/2019. Patient is now on long-term hemodialysis schedule managed by Dr. Gianni Larson Anemia Anxiety Bilateral subdural hematomas December 2022 CAD (coronary artery disease) Cardiac arrest Chronic anemia Pt is also anemia was treated with blood transfusion and epogen shot before, ordered epogen shot again for pt as her hb is 6. Pt will need work up for anaemia if Dr Neo does not think it is related to kidney disease, pt baseline is 7.5. Coagulopathy Dialysis patient Dyslipidemia Encephalopathy Encounter for immunization Essential tremor Family history of VRE (vancomycin resistant Enterococcus) infection Patient had VRE in her urine G tube feedings Only receiving supplemental feeds and 6 at night currently GERD (gastroesophageal reflux disease) History of renal dialysis Hypertension MVP (mitral valve prolapse) NSTEMI (non-ST elevated myocardial infarction) Obstructive sleep apnea Intolerant of CPAP Osteoarthritis Osteopenia after menopause Polyneuropathy associated with critical illness Shock liver TIA (transient ischemic attack) Type 2 diabetes mellitus Urethral stone Urge incontinence Uterine cancer UTI (urinary tract infection) Vancomycin-resistant enterococcus UTI Surgical History Surgical History H/O bilateral cataract extraction H/O craniotomy H/O inguinal hernia repair H/O lithotripsy H/O: hysterectomy History of bladder suspension procedure Two thousand four History of hysterectomy for malignancy History of urethral stent X2 Hx of tonsillectomy PEG (percutaneous endoscopic gastrostomy) status Placed 08/04/[address] Arboleda S/P dialysis catheter insertion Right chest S/P ureteral stent placement Family History Family History Father Acute myocardial infarction Family history of kidney disease Family history of aortic aneurysm Mother Cerebrovascular
[2024-02-24 14:30] LABS: Appearance Urine Turbid (Clear); Blood Urine 3+ (Negative); Color Urine Red (Yellow); Glucose Urine UA Negative (Negative); Ketones Urine Negative (Negative); Leukocyte Esterase Ur 2+ LEU/UL (Negative); Nitrate Urine Positive (Negative); Protein Urine 3+ mg/dL (Negative); Urobilinogen Urine 0.2 mg/dL (<2.0); pH Urine 5.5 (5.0-9.0)
[2024-02-24 14:36] LABS: RBC Urine >100 /hpf (0-2)
[2024-02-24 14:43] LABS: Add Urine Microscopic? YES
--- NOTE | 2024-02-24 15:08 | ADMGEN ---
This patient, Aliya Richardson, was admitted to [facility] Surg Room 307-02. Patient/family oriented to hospital policies and general routines including ID bracelet, bed and alarms, visiting hours, pain management, procedures, bathroom and other care routines, personal items, smoking policy, room service/diet, and visiting hours. Information on how to activate the Rapid Response Team has been discussed. Patient/Family are encouraged to report perceived risks to care and to ask questions if they do not understand what they are told or what they should do.
[2024-02-24 19:28] LABS: Hematocrit 40.8 % (37.0-47.0); Hemoglobin 12.6 g/dL (12.0-15.0)
[2024-02-24] MEDS: oxyBUTYnin CHLORIDE 5 MG TABLET PO (21:00)
--- NOTE | 2024-02-24 21:30 | PM.IMCN ---
Assessment and Plan Assessment and plan (1) Gross hematuria: Code(s): R31.0 - Gross hematuria Status: Acute Assessment and Plan: - UA consistent with UTI - urine culture obtained on 02/23 - 3 way catheter placed, CBI started, titrate to keep urine clean - US renal bilateral: Mild atrophy of left kidney. No hydronephrosis. - urology to primarily managed - hold ASA - trend labs (2) Urinary retention: Code(s): R33.9 - Retention of urine, unspecified Status: Acute Assessment and Plan: - bladder scan in Urology office on 02/22 showed mL, Ridley placed - exchanged to 3 way catheter today for CBI - may be secondary to UTI - Urology to manage - Solifenacin discontinued (3) UTI (urinary tract infection): Qualifiers: Hematuria presence: without hematuria Urinary tract infection type: acute cystitis Qualified Code(s): N30.00 - Acute cystitis without hematuria Code(s): N39.0 - Urinary tract infection, site not specified Status: Acute Assessment and Plan: - UA: Red, turbid, 3+ protein, 3+ blood, positive nitrates, 2+ leuks, greater than 100 RBC, 6-10 WBC. Unable to test for epithelial cells, bacteria, casts. - UC pending, obtained on 02/23 - previous micro reviewed, has hx of multidrug resistant UTI in 2021 and in 2019 - started on Ceftriaxone on 02/23 per Urology (4) Chronic anemia: Code(s): D64.9 - Anemia, unspecified Status: Acute Assessment and Plan: - Hgb 13.7 -> 12.6 - monitor CBC (5) Diabetes mellitus: Qualifiers: Diabetes mellitus complication status: without complication Diabetes mellitus termite helper insulin use: without termite helper use Diabetes mellitus type: type 2 Qualified Code(s): E11.9 - Type 2 diabetes mellitus without complications Code(s): E11.9 - Type 2 diabetes mellitus without complications Status: Chronic Assessment and Plan: - hypoglycemia protocol - POC blood glucose ACHS - home medication: hold metformin - correct regimen ordered - low dose TIDWM and HS - A1C 6.8% on 12/28/2023 (6) Hypertension: Qualifiers: Hypertension type: essential hypertension Qualified Code(s): I10 - Essential (primary) hypertension Code(s): I10 - Essential (primary) hypertension Status: Chronic Assessment and Plan: - chronic, currently 149/80 - continue home medications: losartan 100 mg daily - monitor Plan Patient here with gross hematuria, UA consistent with UTI, 3 way catheter placed for CBI. Primary management through urology. Started on ceftriaxone on 02/23. Does have history of MDR UTIs in 2019 in 2018. Urine culture pending. Home medications reviewed and resumed as appropriate. Diet: Diabetic GI Prophylaxis: Not currently indicated DVT Prophylaxis: SCDs Lines: Peripheral Code Status: Full code HPI Date of Consult Consult date: 02/25/24 Primary Care Provider: Agnieszka Franco MD Consult Narrative Reason for consult: Medical Managment Narrative: 83 y/o F presents here with gross hematuria with PMH of overactive bladder (treatment with Botox [id number]), acute renal failure (on HD in 2018), bilateral SDH (2022), CAD, cardiac arrest, chronic anemia, essential tremor, G-tube feeds??, GERD, HTN, MVP, NSTEMI, JULIUS (intolerant of CPAP), TIA, diabetes, uterine cancer, and urethral stone. The patient presents here with gross hematuria from her indwelling Ridley (placed on 02/22). Has been receiving Botox injections every 6 months for treatment of overactive bladder, most recent injection on 02/18/2024, was placed on a prophylactic Bactrim x3 days post injection. Has previously developed an infection after another injection treatment. Reports onset of mild hematuria on 02/19, 2 days after the Botox injection, that was short in duration and resolved with the 3 day course of Bactrim. Patient presented to the Urology office yesterday, 02/22, due to fausto
[2024-02-24] MEDS: AMITRIPTYLINE HCL 25 MG TABLET PO (21:47)
[2024-02-25] MEDS: MELATONIN 3 MG TABLET PO ×2 (03:11→21:34)
[2024-02-25 06:00] VITALS: BP 141/83; PULSE 88; RESP 18; TEMP 35.6; O2SAT 98
[2024-02-25 06:05] LABS: Basophils Absolute Auto 0.1 K/mm3 (0.0-0.1); Eosinophils Absolute Auto 0.2 K/mm3 (0-0.3); Eosinophils Percent Auto 2.7 % (0-4.4); Hematocrit 42.2 % (37.0-47.0); Hemoglobin 12.9 g/dL (12.0-15.0); Immature Granulocyte Absolute 0.05 K/mm3 (0.00-0.031); Immature Granulocyte Percent A 0.6 % (0-0.5); Lymphocytes Absolute Auto 2.64 K/mm3 (0.9-3.2); Lymphocytes Percent Auto 31.8 % (18.3-44.2); Mean Corpuscular HGB Conc 30.6 g/dl (32-36); Mean Corpuscular Hemoglobin 27.7 pg (26-34); Mean Corpuscular Volume 90.8 fl (80-100); Mean Platelet Volume 10.9 fl (7.4-10.4); Monocytes Absolute Auto 0.6 K/mm3 (0.1-0.6); Monocytes Percent Auto 6.6 % (2.6-8.5); Neutrophils Absolute Auto 4.8 K/mm3 (1.3-6.7); Neutrophils Percent Auto 57.3 % (45.5-73.1); Platelet Count Result 231 k/mm3 (150-375); Red Blood Count 4.65 M/mm3 (4.2-5.4); Red Cell Distribution Width 16.2 % (11.5-14.5); White Blood Count 8.3 K/mm3 (4.5-10.0)
[2024-02-25 06:07] LABS: Alanine Aminotransferase 16 U/L (6-35); Albumin Level 4.2 g/dL (3.5-5.1); Alkaline Phosphatase 51 U/L (38-126); Anion Gap 5 mmol/L (4-12); Aspartate Amino Transferase 24 U/L (14-36); Bilirubin,Total 0.9 mg/dL (0.2-1.3); Blood Urea Nitrogen 22 mg/dL (7-17); Calcium 9.3 mg/dL (8.4-10.2); Carbon Dioxide 28 mmol/L (22-30); Chloride 108 mmol/L (98-107); Estimated Glomerular Filt Rate 60; Glucose 102 mg/dL (65-110); Potassium 4.5 mmol/L (3.4-5.0); Sodium 141 mmol/L (137-145)
--- NOTE | 2024-02-25 07:03 | WPDUROPN2 ---
Progress Note: A&P Assessment and Plan (1) Gross hematuria: Code(s): R31.0 - Gross hematuria Status: Acute Assessment and Plan: urine clear on very slow CBI. Will stop CBI this morning and plan voiding trial later this morning if urine remains clear. Subjective Subjective Date/Time Seen: 02/25/24 07:03 Interval history: Occasional bladder spasms overnight but otherwise feeling well. Urine clear on slow CBI Review of Systems Review of Systems: All systems reviewed & are unremarkable except as noted in HPI and below Exam Const: General: no acute distress Resp: Effort & Inspection: normal respiratory effort GI: Inspection: non-distended GI Palp: No abdominal tenderness and No Guarding due to palpation present (GI) Auscultation: normal bowel sounds Urinary Catheter: Urinary Catheter: patent and draining and urine clear Objective Data Vital Signs Vital Signs: Vital Signs - 24 hr 02/24/24 12:08 02/24/24 12:08 02/24/24 12:31 Temperature 98.5 F Pulse Rate 97 88 Respiratory Rate 18 17 Blood Pressure 162/73 H 162/73 H 119/61 Pulse Oximetry 100 99 97 Oxygen Delivery Room Air 02/24/24 13:01 02/24/24 13:16 02/24/24 13:32 Temperature Pulse Rate Respiratory Rate Blood Pressure 140/58 L 149/67 H 111/57 L Pulse Oximetry 98 99 Oxygen Delivery 02/24/24 13:46 02/24/24 14:01 02/24/24 14:57 Temperature Pulse Rate 87 79 Respiratory Rate 16 19 Blood Pressure 124/77 118/86 Pulse Oximetry 98 97 Oxygen Delivery Room Air 02/24/24 15:45 02/24/24 21:15 Temperature 97.5 F L 97 F L Pulse Rate 81 80 Respiratory Rate 18 18 Blood Pressure 149/80 H 184/75 H Pulse Oximetry 98 97 Oxygen Delivery Intake/Output Intake/Output: Intake & Output 02/22/24 02/23/24 02/24/24 02/25/24 23:59 23:59 23:59 23:59 Intake Total 290 Output Total 3256 7150 Balance -1937 -0157 Meds/Results Medications: Active Medications Generic Name Dose Route Start Last Admin Trade Name Freq PRN Reason Stop Dose Admin Acetaminophen 325 mg 02/24/24 21:36 Acetaminophen 325 Mg Tablet PO Q6H PRN Pain Amitriptyline HCl 25 mg 02/24/24 21:45 02/24/24 21:47 Amitriptyline Hcl 25 Mg Tablet PO 25 mg HS [facility] Administration Atorvastatin Calcium 40 mg 02/25/24 09:00 Atorvastatin 40 Mg Tablet PO DAILY [facility] Baclofen 10 mg 02/25/24 09:00 Baclofen 10 Mg Tablet PO DAILY [facility] Dextrose 12.5 gm 02/24/24 21:37 Dextrose 50% 25 Gm/50 Ml Syringe IV PUSH PRN PRN Hypoglycemia Protocol Glucagon 1 mg 02/24/24 21:37 Glucagon For Inj 1 Mg Vial IM PRN PRN Hypoglycemia Protocol Glucose 15 gm 02/24/24 21:37 Glucose Oral Gel 15 Gm Of Glucse In 37.5 Gm Tube PO PRN PRN Hypoglycemia Protocol Ceftriaxone Sodium 1 gm in 50 mls @ 100 mls/hr 02/25/24 12:00 Rocephin 1 Gm/Ns 50 Ml IVPB Q24H YNES Dextrose 1,000 mls @ 100 mls/hr 02/24/24 21:37 Dextrose 5% 1,000 Ml IVPB PRN PRN Hypoglycemia Protocol Insulin Aspart 2 - 5 units 02/25/24 08:00 Insulin Aspart (*Bkc) 100 Units/Ml SUB-Q TIDWM [facility] Protocol Losartan Potassium 100 mg 02/25/24 09:00 Losartan Potassium 100 Mg Tablet PO DAILY [facility] Melatonin 3 mg 02/25/24 21:00 Melatonin 3 Mg Tablet PO HS [facility] Miscellaneous Information 1 each 02/24/24 00:01 External Med History Indicates Patient Takes Baclofen 10 Mg Every 12 Hours Prn, Please Cla XX 03/25/24 00:00 CLARIFY [facility] Ondansetron HCl 4 mg 02/24/24 13:19 Ondansetron Inj 4 Mg/2 Ml Vial IV PUSH Q4H PRN Nausea Oxybutynin Chloride 5 mg 02/24/24 15:37 02/24/24 21:00 Oxybutynin Chloride 5 Mg Tablet PO 5 mg TID PRN Administration bladder spasms Saccharomyces Boulardii 250 mg 02/25/24 09:00 Saccharomyces Boulardii 250 Mg Capsule PO TID [facility] Zinc Sulfate 50 mg 02/25/24 09:00
[2024-02-25] MEDS: ACETAMINOPHEN 325 MG TABLET PO ×2 (08:26→21:34)
[2024-02-25] MEDS: oxyBUTYnin CHLORIDE 5 MG TABLET PO ×3 (08:26→21:42)
[2024-02-25] MEDS: ATORVASTATIN 40 MG TABLET PO (08:26)
[2024-02-25] MEDS: LOSARTAN POTASSIUM 100 MG TABLET PO (08:27)
[2024-02-25 09:02] VITALS: O2SAT 98
[2024-02-25 09:12] LABS: Glucose Point of Care 120 mg/dl (65-105)
--- NOTE | 2024-02-25 09:12 | PM.IMPN ---
Progress Note: A&P Assessment and Plan (1) Gross hematuria: Code(s): R31.0 - Gross hematuria Status: Acute Assessment and Plan: - UA consistent with UTI - urine culture obtained on 02/23: pending - CBI discontinued, plan for voiding trial today - US renal bilateral: Mild atrophy of left kidney. No hydronephrosis. - urology to primarily managed - hold ASA - trend labs (2) Urinary retention: Code(s): R33.9 - Retention of urine, unspecified Status: Acute Assessment and Plan: - bladder scan in Urology office on 02/22 showed mL, Ridley placed, exchanged to 3 way catheter today for CBI, CBI discontinued this am - may be secondary to UTI - Urology to manage - Solifenacin discontinued (3) UTI (urinary tract infection): Qualifiers: Hematuria presence: without hematuria Urinary tract infection type: acute cystitis Qualified Code(s): N30.00 - Acute cystitis without hematuria Code(s): N39.0 - Urinary tract infection, site not specified Status: Acute Assessment and Plan: - UA: Red, turbid, 3+ protein, 3+ blood, positive nitrates, 2+ leuks, greater than 100 RBC, 6-10 WBC. Unable to test for epithelial cells, bacteria, casts. - UC pending, obtained on 02/23 - previous micro reviewed, has hx of multidrug resistant UTI in 2021 and in 2019 - started on Ceftriaxone on 02/23 per Urology (4) Chronic anemia: Code(s): D64.9 - Anemia, unspecified Status: Acute Assessment and Plan: - Hgb 13.7 -> 12.6 - monitor CBC (5) Diabetes mellitus: Qualifiers: Diabetes mellitus complication status: without complication Diabetes mellitus nursing home insulin use: without supervisor intermediates use Diabetes mellitus type: type 2 Qualified Code(s): E11.9 - Type 2 diabetes mellitus without complications Code(s): E11.9 - Type 2 diabetes mellitus without complications Status: Chronic Assessment and Plan: - hypoglycemia protocol - POC blood glucose ACHS - home medication: hold metformin - correct regimen ordered - low dose TIDWM and HS - A1C 6.8% on 12/28/2023 (6) Hypertension: Qualifiers: Hypertension type: essential hypertension Qualified Code(s): I10 - Essential (primary) hypertension Code(s): I10 - Essential (primary) hypertension Status: Chronic Assessment and Plan: - chronic, currently 149/80 - continue home medications: losartan 100 mg daily - monitor Time Spent With Patient Time with patient: 25 - 35 minutes Subjective Date/time seen: 02/25/24 09:12 Interval history: 83 y/o F presents here with gross hematuria with PMH of overactive bladder (treatment with Botox [id number]), acute renal failure (on HD in 2018), bilateral SDH (2022), CAD, cardiac arrest, chronic anemia, essential tremor, G-tube feeds??, GERD, HTN, MVP, NSTEMI, JULIUS (intolerant of CPAP), TIA, diabetes, uterine cancer, and urethral stone. Patient is pleasant lying in bed. Urology evaluated patient earlier this morning and stopped the CBI as the urine was clear, however during my assessment patient had clots clogging the catheter. The urine at that time was dark red with several clots present that required nurse to suction clots out with syringe to clear the catheter. RN called to inform urology. Patient denies any pain and is non tender on exam. Patient remains on rocephin at this time with urine culture pending. Review of Systems Review of Systems: All systems reviewed & are unremarkable except as noted in HPI and below Exam Narrative: AF HR 92 RR 18 SpO2 96 BP 146/70 General: female in no acute respiratory distress who is nontoxic appearing, lying semi recumbent in bed. HEENT: Normocephalic. Atraumatic. Pupils equal round reactive to light. Extraocular movement intact. Sclera clear and anicteric. No facial asymmetry. Chest: Lungs are clear to auscultation bilaterally. No wheezes or crackles. CV: Heart was regular rate and rhythm
[2024-02-25 11:43] LABS: Glucose Point of Care 149 mg/dl (65-105)
[2024-02-25 14:00] VITALS: BP 146/70; PULSE 92; TEMP 35.8; O2SAT 96
[2024-02-25 16:41] LABS: Glucose Point of Care 142 mg/dl (65-105)
[2024-02-25] MEDS: SACCHAROMYCES BOULARDII 250 MG CAPSULE PO (17:07)
[2024-02-25 20:00] VITALS: PULSE 82; RESP 16; O2SAT 97
[2024-02-25 21:02] VITALS: BP 135/61; PULSE 82; RESP 16; TEMP 36.7; O2SAT 97
[2024-02-25] MEDS: AMITRIPTYLINE HCL 25 MG TABLET PO (21:34)
[2024-02-26] MEDS: ACETAMINOPHEN 325 MG TABLET PO ×2 (02:39→20:43)
[2024-02-26 05:20] VITALS: BP 142/74; PULSE 79; RESP 18; TEMP 36.4; O2SAT 98
[2024-02-26 06:13] LABS: Basophils Absolute Auto 0.1 K/mm3 (0.0-0.1); Basophils Percent Auto 1.2 % (0.2-1.2); Eosinophils Absolute Auto 0.2 K/mm3 (0-0.3); Eosinophils Percent Auto 3.2 % (0-4.4); Hematocrit 39.5 % (37.0-47.0); Hemoglobin 12.2 g/dL (12.0-15.0); Immature Granulocyte Absolute 0.02 K/mm3 (0.00-0.031); Immature Granulocyte Percent A 0.3 % (0-0.5); Lymphocytes Absolute Auto 2.34 K/mm3 (0.9-3.2); Lymphocytes Percent Auto 32.1 % (18.3-44.2); Mean Corpuscular HGB Conc 30.9 g/dl (32-36); Mean Corpuscular Hemoglobin 27.9 pg (26-34); Mean Corpuscular Volume 90.4 fl (80-100); Mean Platelet Volume 10.7 fl (7.4-10.4); Monocytes Absolute Auto 0.5 K/mm3 (0.1-0.6); Monocytes Percent Auto 7.4 % (2.6-8.5); Neutrophils Absolute Auto 4.1 K/mm3 (1.3-6.7); Neutrophils Percent Auto 55.8 % (45.5-73.1); Platelet Count Result 219 k/mm3 (150-375); Red Blood Count 4.37 M/mm3 (4.2-5.4); Red Cell Distribution Width 15.8 % (11.5-14.5); White Blood Count 7.3 K/mm3 (4.5-10.0)
[2024-02-26 06:24] LABS: Alanine Aminotransferase 19 U/L (6-35); Albumin Level 3.8 g/dL (3.5-5.1); Alkaline Phosphatase 50 U/L (38-126); Anion Gap 5 mmol/L (4-12); Aspartate Amino Transferase 25 U/L (14-36); Bilirubin,Total 0.7 mg/dL (0.2-1.3); Blood Urea Nitrogen 20 mg/dL (7-17); Calcium 9.2 mg/dL (8.4-10.2); Carbon Dioxide 29 mmol/L (22-30); Chloride 108 mmol/L (98-107); Estimated Glomerular Filt Rate 60; Glucose 109 mg/dL (65-110); Sodium 142 mmol/L (137-145)
[2024-02-26 07:24] LABS: Glucose Point of Care 109 mg/dl (65-105)
[2024-02-26] MEDS: LOSARTAN POTASSIUM 100 MG TABLET PO (09:20)
[2024-02-26] MEDS: ATORVASTATIN 40 MG TABLET PO (09:20)
--- NOTE | 2024-02-26 11:09 | PM.DS ---
DS: Admitting Diagnosis Discharge Date 02/26/24 Admitting Diagnosis Clot retention DS: Discharge Diagnosis Discharge Diagnosis Plan D/c home after clot evac and CBI/catheter removed. DS: Summary Hospital Course Hospital Course: Clot retnetion - s/p clot evac, and catheter with CBI. Catheter removed 02/25 and patient urinated. Status at Discharge Cognitive/behavioral status at discharge: sTABLE Time Spent with Patient Time attestation: Total time spent providing and/or coordinating discharge services: Exam : Other: Completely cleear urine DS: Data Data Completed and Pending Labs on day of discharge: Labs from last 24 hours 02/26/24 02/26/24 02/26/24 07:19 06:00 05:58 WBC 7.3 RBC 4.37 Hgb 12.2 Hct 39.5 MCV 90.4 MCH 27.9 MCHC 30.9 L RDW 15.8 H Plt Count 219 MPV 10.7 H Immature Gran % (Auto) 0.3 Neut % (Auto) 55.8 Lymph % (Auto) 32.1 [place] % (Auto) 7.4 Eos % (Auto) 3.2 Baso % (Auto) 1.2 Lymph # (Auto) 2.34 [place] # (Auto) 0.5 Eos # (Auto) 0.2 Baso # (Auto) 0.1 Abs Immat Gran (auto) 0.02 Absolute Neuts (auto) 4.1 Absolute Nucleated RBC 0.000 Nucleated RBC % 0.0 Sodium 142 Potassium 4.0 Chloride 108 H Carbon Dioxide 29 Anion Gap 5 BUN 20 H Creatinine 0.90 Estim Creat Clear Calc Not Reportable Estimated GFR 60 Glucose 109 POC Capillary Glucose 109 H Calcium 9.2 Total Bilirubin 0.7 AST 25 ALT 19 Alkaline Phosphatase 50 Total Protein 7.0 Albumin 3.8 02/25/24 02/25/24 16:32 11:25 WBC RBC Hgb Hct MCV MCH MCHC RDW Plt Count MPV Immature Gran % (Auto) Neut % (Auto) Lymph % (Auto) [place] % (Auto) Eos % (Auto) Baso % (Auto) Lymph # (Auto) [place] # (Auto) Eos # (Auto) Baso # (Auto) Abs Immat Gran (auto) Absolute Neuts (auto) Absolute Nucleated RBC Nucleated RBC % Sodium Potassium Chloride Carbon Dioxide Anion Gap BUN Creatinine Estim Creat Clear Calc Estimated GFR Glucose POC Capillary Glucose 142 H 149 H Calcium Total Bilirubin AST ALT Alkaline Phosphatase Total Protein Albumin Discharge Plan Discharge Attending physician on discharge: Diego Villa Consulting providers: Diego Villa; Jaime Mata Discharging Clinician: Diego Villa Patient Disposition: Home, Self-Care Activity: other - see discharge instructions Diet: other - see discharge instructions Discharge Instructions: 1) Activity: no driving or important decisions x24 hours. 2) Diet: resume your normal, pre-admission diet. 3) Follow-up: 2-3 weeks / call for appointment ([phone]). Patient Instructions: Antibiotic Form, Pain Management in Older Adults (DC) Stand Alone Forms: General Discharge Information Follow-up/Referrals: Diego Villa MD [Physician] - Discharge Medications: Continued losartan 100 mg tablet 100 mg PO DAILY acetaminophen 325 mg tablet 325 mg PO Q6H PRN (Reason: Pain) zinc 50 mg Tablet 50 mg PO DAILY Probiotic 100 billion cell Capsule 1 cap PO DAILY baclofen 10 mg tablet 10 mg PO DAILY (DME) lancets [FreeStyle Lancets] 28 gauge misc See Rx Instructions .Route Qty: 100 4RF Rx Instructions: use As directed daily to check glucose (DME) blood-glucose meter [FreeStyle Precision Edward Meter] Misc See Rx Instructions .ROUTE .MEDSUPPLY Qty: 1 0RF Rx Instructions: Use to check blood sugar daily while fasting atorvastatin 40 mg tablet 40 mg PO DAILY Qty: 90 2RF (DME) FreeStyle Test Strip See Rx Instructions .Route Qty: 100 4RF Rx Instructions: use daily As directed to check glucose metformin 500 mg tablet extended release 24 hr 1,000 mg PO QAM Qty: 90 2RF amitriptyline 25 mg tablet 25 mg PO HS Qty: 90 1RF Rx Instructions:
[2024-02-26 11:50] LABS: Glucose Point of Care 143 mg/dl (65-105)
[2024-02-26 14:00] VITALS: BP 133/64; PULSE 96; RESP 14; TEMP 36.8; O2SAT 96
--- NOTE | 2024-02-26 15:27 | PM.IMPN ---
Progress Note: A&P Assessment and Plan (1) Gross hematuria: Code(s): R31.0 - Gross hematuria Status: Acute Assessment and Plan: -urine culture, final no growth -patient voiding on her own - US renal bilateral: Mild atrophy of left kidney. No hydronephrosis. - urology to primarily managed, urology has recommended discharge to home, hospitalist service will sign off - hold ASA (2) Urinary retention: Code(s): R33.9 - Retention of urine, unspecified Status: Acute Assessment and Plan: - bladder scan in Urology office on 02/22 showed mL, Ridley placed, exchanged to 3 way catheter today for CBI, CBI discontinued this am - may be secondary to UTI - Urology to manage - Solifenacin discontinued (3) UTI (urinary tract infection): Qualifiers: Urinary tract infection type: acute cystitis Hematuria presence: without hematuria Qualified Code(s): N30.00 - Acute cystitis without hematuria Code(s): N39.0 - Urinary tract infection, site not specified Status: Acute Assessment and Plan: - UA: Red, turbid, 3+ protein, 3+ blood, positive nitrates, 2+ leuks, greater than 100 RBC, 6-10 WBC. Unable to test for epithelial cells, bacteria, casts. 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 Diabetes mellitus complication status: without complication Qualified Code(s): E11.9 - Type 2 diabetes mellitus without complications Code(s): E11.9 - Type 2 diabetes mellitus without complications Status: Chronic Assessment and Plan: - hypoglycemia protocol - POC blood glucose ACHS - home medication: hold metformin - correct regimen ordered - low dose TIDWM and HS - A1C 6.8% on 12/28/2023 (6) Hypertension: Qualifiers: Hypertension type: essential hypertension Qualified Code(s): I10 - Essential (primary) hypertension Code(s): I10 - Essential (primary) hypertension Status: Chronic Assessment and Plan: - chronic, currently 149/80 - continue home medications: losartan 100 mg daily - monitor Time Spent With Patient Time with patient: 25 - 35 minutes Subjective Date/time seen: 02/26/24 15:27 Interval history: 83 y/o F presents here with gross hematuria with PMH of overactive bladder (treatment with Botox [id number]), acute renal failure (on HD in 2018), bilateral SDH (2022), CAD, cardiac arrest, chronic anemia, essential tremor, G-tube feeds??, GERD, HTN, MVP, NSTEMI, JULIUS (intolerant of CPAP), TIA, diabetes, uterine cancer, and urethral stone. Patient is pleasant sitting on the side of the bed. Urology evaluated patient earlier this morning and has recommended discharge to home. Labs reviewed, urine culture final with no growth, labs unremarkable.Pt reports she was not able to sleep well last night, she is somewhat anxious to be discharged home. Review of Systems Review of Systems: All systems reviewed & are unremarkable except as noted in HPI and below Exam Narrative: General: female in no acute respiratory distress who is nontoxic appearing, sitting bedside with family in the room HEENT: Normocephalic. Atraumatic. Pupils equal round reactive to light. Extraocular movement intact. Sclera clear and anicteric. No facial asymmetry. Chest: Lungs are clear to auscultation bilaterally. No wheezes or crackles. CV: Heart was regular rate and rhythm. S1-S2. No murmurs, gallops, or rubs. Abd: Abdomen was soft. Nontender. Nondistended. Positive bowel sounds. No organomegaly or masses. : No Ridley catheter present, patient voiding on her own Ext: No clubbing, cyanosis, or edema. 2+ DP pulses bilaterally. Neuro: Patient is alert and oriented x4. Cranial nerves
[2024-02-26 16:37] LABS: Glucose Point of Care 122 mg/dl (65-105)
[2024-02-26] MEDS: SACCHAROMYCES BOULARDII 250 MG CAPSULE PO (17:22)
[2024-02-26] MEDS: AMITRIPTYLINE HCL 25 MG TABLET PO (20:43)
[2024-02-26 20:44] LABS: Glucose Point of Care 181 mg/dl (65-105)
[2024-02-26] MEDS: MELATONIN 3 MG TABLET PO (20:44)
[2024-02-26 21:10] VITALS: BP 166/87; PULSE 99; RESP 18; TEMP 36.6; O2SAT 97
[2024-02-26 21:48] VITALS: BMI 23.6
--- NOTE | 2024-02-26 22:46 | PC.NURSE ---
I did a post void bladder scan which pt was retaining 374mL. I called Dr. Winkler and informed him of the situation. He instructed me to do another post void scan after pt has had additional time to go. He ordered me to place a fournier catheter if pt bladder scanned more than 300mL and for pt to be discharged with the fournier in place and it would be addressed outpatient. Pt voided two more times and then was bladder scanned again which revealed 455mL retention. I then placed a fournier catheter as ordered.
[2024-02-27 05:43] VITALS: BP 159/82; PULSE 83; RESP 18; TEMP 36.4; O2SAT 98
[2024-02-27 06:23] LABS: Basophils Absolute Auto 0.1 K/mm3 (0.0-0.1); Basophils Percent Auto 0.9 % (0.2-1.2); Eosinophils Absolute Auto 0.2 K/mm3 (0-0.3); Eosinophils Percent Auto 3.1 % (0-4.4); Hematocrit 40.6 % (37.0-47.0); Hemoglobin 12.8 g/dL (12.0-15.0); Immature Granulocyte Absolute 0.03 K/mm3 (0.00-0.031); Immature Granulocyte Percent A 0.4 % (0-0.5); Lymphocytes Absolute Auto 2.48 K/mm3 (0.9-3.2); Lymphocytes Percent Auto 33.3 % (18.3-44.2); Mean Corpuscular HGB Conc 31.5 g/dl (32-36); Mean Corpuscular Hemoglobin 28.2 pg (26-34); Mean Corpuscular Volume 89.4 fl (80-100); Mean Platelet Volume 10.5 fl (7.4-10.4); Monocytes Absolute Auto 0.5 K/mm3 (0.1-0.6); Monocytes Percent Auto 6.7 % (2.6-8.5); Neutrophils Absolute Auto 4.1 K/mm3 (1.3-6.7); Neutrophils Percent Auto 55.6 % (45.5-73.1); Platelet Count Result 234 k/mm3 (150-375); Red Blood Count 4.54 M/mm3 (4.2-5.4); Red Cell Distribution Width 15.9 % (11.5-14.5); White Blood Count 7.5 K/mm3 (4.5-10.0)
[2024-02-27 06:42] LABS: Alanine Aminotransferase 26 U/L (6-35); Albumin Level 4.2 g/dL (3.5-5.1); Alkaline Phosphatase 55 U/L (38-126); Anion Gap 6 mmol/L (4-12); Aspartate Amino Transferase 35 U/L (14-36); Bilirubin,Total 0.7 mg/dL (0.2-1.3); Blood Urea Nitrogen 21 mg/dL (7-17); Calcium 9.3 mg/dL (8.4-10.2); Carbon Dioxide 29 mmol/L (22-30); Chloride 107 mmol/L (98-107); Estimated CRCL calculation 33 ml/min; Estimated Glomerular Filt Rate 53; Glucose 111 mg/dL (65-110); Potassium 3.9 mmol/L (3.4-5.0); Sodium 142 mmol/L (137-145)
[2024-02-27 07:33] LABS: Glucose Point of Care 117 mg/dl (65-105)
[2024-02-27] MEDS: ATORVASTATIN 40 MG TABLET PO (08:21)
[2024-02-27] MEDS: LOSARTAN POTASSIUM 100 MG TABLET PO (08:21)
--- NOTE | 2024-02-27 10:29 | WPDUROPN2 ---
Progress Note: A&P Assessment and Plan (1) Gross hematuria: Code(s): R31.0 - Gross hematuria Status: Acute Plan 83F with botox injection s/p clot evacuation now with fournier catheter draining clear off CBI. - Remove fournier today, trial of void. If passes, potential discharge today. Time Spent With Patient Time with patient: 25 - 35 minutes Subjective Subjective Date/Time Seen: 02/26/24 10:29 Interval history: NAEO. Catheter in place, CBI off, clear yellow. Pt feeling well, anxious to have fournier removed. Exam Urinary Catheter: Urinary Catheter: patent and draining, urine clear and urine pink Objective Data Vital Signs Vital Signs: Vital Signs - 24 hr 02/26/24 14:00 02/26/24 21:10 02/26/24 20:00 Temperature 36.8 C 36.6 C Pulse Rate 96 99 Respiratory Rate 14 18 Blood Pressure 133/64 166/87 H Pulse Oximetry 96 97 Oxygen Delivery Room Air 02/27/24 05:43 Temperature 36.4 C Pulse Rate 83 Respiratory Rate 18 Blood Pressure 159/82 H Pulse Oximetry 98 Oxygen Delivery Intake/Output Intake/Output: Intake & Output 02/24/24 02/25/24 02/26/24 02/27/24 23:59 23:59 23:59 23:59 Intake Total 920 627 2834 470 Output Total 2225 4700 2850 300 [facility]1935 -4172 -212 170 Meds/Results Medications: Active Medications Generic Name Dose Route Start Last Admin Trade Name Freq PRN Reason Stop Dose Admin Acetaminophen 325 mg 02/24/24 21:36 02/26/24 20:43 Acetaminophen 325 Mg Tablet PO 325 mg Q6H PRN Administration Pain Amitriptyline HCl 25 mg 02/24/24 21:45 02/26/24 20:43 Amitriptyline Hcl 25 Mg Tablet PO 25 mg HS YNES Administration Atorvastatin Calcium 40 mg 02/25/24 09:00 02/27/24 08:21 Atorvastatin 40 Mg Tablet PO 40 mg DAILY YNES Administration Baclofen 10 mg 02/27/24 09:00 Baclofen 10 Mg Tablet PO Q12H PRN MUSCLE SPASM Dextrose 12.5 gm 02/24/24 21:37 Dextrose 50% 25 Gm/50 Ml Syringe IV PUSH PRN PRN Hypoglycemia Protocol Glucagon 1 mg 06/06/24 21:37 Glucagon For Inj 1 Mg Vial IM PRN PRN Hypoglycemia Protocol Glucose 15 gm 02/24/24 21:37 Glucose Oral Gel 15 Gm Of Glucse In 37.5 Gm Tube PO PRN PRN Hypoglycemia Protocol Ceftriaxone Sodium 1 gm in 50 mls @ 100 mls/hr 02/25/24 12:00 02/26/24 13:26 Rocephin 1 Gm/Ns 50 Ml IVPB Infused Q24H YNES Infusion Dextrose 1,000 mls @ 100 mls/hr 02/24/24 21:37 Dextrose 5% 1,000 Ml IVPB PRN PRN Hypoglycemia Protocol Insulin Aspart 2 - 5 units 02/25/24 08:00 02/27/24 07:52 Insulin Aspart (*Bkc) 100 Units/Ml SUB-Q Not Given TIDWM YNES Protocol Losartan Potassium 100 mg 02/25/24 09:00 02/27/24 08:21 Losartan Potassium 100 Mg Tablet PO 100 mg DAILY YNES Administration Melatonin 3 mg 02/25/24 21:00 02/26/24 20:44 Melatonin 3 Mg Tablet PO 3 mg HS YNES Administration Ondansetron HCl 4 mg 02/24/24 13:19 Ondansetron Inj 4 Mg/2 Ml Vial IV PUSH Q4H PRN Nausea Oxybutynin Chloride 5 mg 02/24/24 15:37 02/25/24 21:42 Oxybutynin Chloride 5 Mg Tablet PO 5 mg TID PRN Administration bladder spasms Saccharomyces Boulardii 250 mg 02/25/24 09:00 02/27/24 08:19 Saccharomyces Boulardii 250 Mg Capsule PO Not Given TID YNES Zinc Sulfate 50 mg 02/25/24 09:00 02/27/24 08:19 Zinc Sulfate 220 Mg Capsule PO Not Given DAILY [facility] Radiology Results: ITS Impressions Renal Ultrasound 02/24/24 12:48 IMPRESSION: 1. Mild atrophy of left kidney. No hydronephrosis. Labs Labs: Laboratory Results - last 24 hr 02/26/24 02/26/24 02/26/24 11:45 16:31 20:41 WBC RBC Hgb Hct MCV MCH MCHC RDW Plt Count MPV Immature Gran % (Auto) Neut % (Auto) Lymph % (Auto) [place] % (Auto) Eos % (Auto) Baso % (Auto) Lymph # (Auto) [place] # (Auto) Eos # (Auto) Baso # (Auto)
[2024-02-27 11:32] LABS: Glucose Point of Care 147 mg/dl (65-105)
--- NOTE | 2024-02-27 11:37 | WPDUROPN2 ---
Progress Note: A&P Assessment and Plan (1) Urinary retention: Code(s): R33.9 - Retention of urine, unspecified Status: Acute Assessment and Plan: 83F with botox to bladder s/p clot evacuation now with completely clear urine but urinary retention, catheter in place. - Keep catheter in place. In hospital one more day per patietn preference, then discharge tomorrow with likely trial of void in office outpatient. Subjective Subjective Date/Time Seen: 02/27/24 11:37 Interval history: Urinated with clear yellow urine but had PVR of above 400; therefore catheter was replaced overnight. Patient doing well today but very anxious about going home with a catheter. Exam : Other: Catheter in place, clear yellow urine. Objective Data Vital Signs Vital Signs: Vital Signs - 24 hr 02/26/24 14:00 02/26/24 21:10 02/26/24 20:00 Temperature 36.8 C 36.6 C Pulse Rate 96 99 Respiratory Rate 14 18 Blood Pressure 133/64 166/87 H Pulse Oximetry 96 97 Oxygen Delivery Room Air 02/27/24 05:43 02/27/24 08:00 Temperature 36.4 C Pulse Rate 83 Respiratory Rate 18 Blood Pressure 159/82 H Pulse Oximetry 98 Oxygen Delivery Room Air Intake/Output Intake/Output: Intake & Output 02/24/24 02/25/24 02/26/24 02/27/24 23:59 23:59 23:59 23:59 Intake Total 558 685 6185 470 Output Total 2225 4700 2850 300 [facility] -1935 -4172 -212 170 Meds/Results Medications: Active Medications Generic Name Dose Route Start Last Admin Trade Name Freq PRN Reason Stop Dose Admin Acetaminophen 325 mg 02/24/24 21:36 02/26/24 20:43 Acetaminophen 325 Mg Tablet PO 325 mg Q6H PRN Administration Pain Amitriptyline HCl 25 mg 02/24/24 21:45 02/26/24 20:43 Amitriptyline Hcl 25 Mg Tablet PO 25 mg HS YNES Administration Atorvastatin Calcium 40 mg 02/25/24 09:00 02/27/24 08:21 Atorvastatin 40 Mg Tablet PO 40 mg DAILY YNES Administration Baclofen 10 mg 02/27/24 09:00 Baclofen 10 Mg Tablet PO Q12H PRN MUSCLE SPASM Dextrose 12.5 gm 02/24/24 21:37 Dextrose 50% 25 Gm/50 Ml Syringe IV PUSH PRN PRN Hypoglycemia Protocol Glucagon 1 mg 02/24/24 21:37 Glucagon For Inj 1 Mg Vial IM PRN PRN Hypoglycemia Protocol Glucose 15 gm 02/24/24 21:37 Glucose Oral Gel 15 Gm Of Glucse In 37.5 Gm Tube PO PRN PRN Hypoglycemia Protocol Ceftriaxone Sodium 1 gm in 50 mls @ 100 mls/hr 02/25/24 12:00 02/26/24 13:26 Rocephin 1 Gm/Ns 50 Ml IVPB Infused Q24H YNES Infusion Dextrose 1,000 mls @ 100 mls/hr 02/24/24 21:37 Dextrose 5% 1,000 Ml IVPB PRN PRN Hypoglycemia Protocol Insulin Aspart 2 - 5 units 02/25/24 08:00 02/27/24 07:52 Insulin Aspart (*Bkc) 100 Units/Ml SUB-Q Not Given TIDWM [facility] Protocol Losartan Potassium 100 mg 02/25/24 09:00 02/27/24 08:21 Losartan Potassium 100 Mg Tablet PO 100 mg DAILY YNES Administration Melatonin 3 mg 02/25/24 21:00 02/26/24 20:44 Melatonin 3 Mg Tablet PO 3 mg HS YNES Administration Ondansetron HCl 4 mg 02/24/24 13:19 Ondansetron Inj 4 Mg/2 Ml Vial IV PUSH Q4H PRN Nausea Oxybutynin Chloride 5 mg 02/24/24 15:37 02/25/24 21:42 Oxybutynin Chloride 5 Mg Tablet PO 5 mg TID PRN Administration bladder spasms Saccharomyces Boulardii 250 mg 02/25/24 09:00 02/27/24 08:19 Saccharomyces Boulardii 250 Mg Capsule PO Not Given TID YNES Zinc Sulfate 50 mg 02/25/24 09:00 02/27/24 08:19 Zinc Sulfate 220 Mg Capsule PO Not Given DAILY [facility] Radiology Results: ITS Impressions Renal Ultrasound 02/24/24 12:48 IMPRESSION: 1. Mild atrophy of left kidney. No hydronephrosis. Labs Labs: Laboratory Results - last 24 hr 02/26/24 02/26/24 02/26/24 11:45 16:31 20:41 WBC RBC Hgb Hct MCV MCH MCHC RDW Plt Count MPV Immature Gran % (Auto)
[2024-02-27 14:00] VITALS: BP 121/62; PULSE 101; RESP 22; TEMP 36.5; O2SAT 96
[2024-02-27 16:31] LABS: Glucose Point of Care 122 mg/dl (65-105)
[2024-02-27] MEDS: SACCHAROMYCES BOULARDII 250 MG CAPSULE PO (17:06)
[2024-02-27 20:37] LABS: Glucose Point of Care 160 mg/dl (65-105)
[2024-02-27] MEDS: MELATONIN 3 MG TABLET PO (21:00)
[2024-02-27] MEDS: AMITRIPTYLINE HCL 25 MG TABLET PO (21:00)
[2024-02-27 21:11] VITALS: BP 140/83; PULSE 94; RESP 18; TEMP 36.7; O2SAT 97
[2024-02-28] MEDS: ACETAMINOPHEN 325 MG TABLET PO (00:18)
--- NOTE | 2024-02-28 05:57 | WPDUROPN2 ---
Progress Note: A&P Assessment and Plan (1) Gross hematuria: Code(s): R31.0 - Gross hematuria Status: Acute (2) Urinary retention: Code(s): R33.9 - Retention of urine, unspecified Status: Acute Assessment and Plan: One more voiding trial today. If fails, will need to go home with a catheter Subjective Subjective Date/Time Seen: 02/28/24 05:57 Interval history: Comfortable, no complaints Review of Systems Review of Systems: All systems reviewed & are unremarkable except as noted in HPI and below Exam Const: General: no acute distress Resp: Effort & Inspection: normal respiratory effort GI: Inspection: non-distended GI Palp: No abdominal tenderness and No Guarding due to palpation present (GI) Auscultation: normal bowel sounds Objective Data Vital Signs Vital Signs: Vital Signs - 24 hr 02/27/24 08:00 02/27/24 14:00 02/27/24 21:11 Temperature 97.7 F 98.1 F Pulse Rate 101 H 94 Respiratory Rate 22 H 18 Blood Pressure 121/62 140/83 Pulse Oximetry 96 97 Oxygen Delivery Room Air 02/27/24 21:00 Temperature Pulse Rate Respiratory Rate Blood Pressure Pulse Oximetry Oxygen Delivery Room Air Intake/Output Intake/Output: Intake & Output 02/25/24 02/26/24 02/27/24 02/28/24 23:59 23:59 23:59 23:59 Intake Total 528 2638 1548 Output Total 4700 2850 800 Balance -4172 -194 748 Meds/Results Medications: Active Medications Generic Name Dose Route Start Last Admin Trade Name Freq PRN Reason Stop Dose Admin Acetaminophen 325 mg 02/24/24 21:36 02/28/24 00:18 Acetaminophen 325 Mg Tablet PO 325 mg Q6H PRN Administration Pain Amitriptyline HCl 25 mg 02/24/24 21:45 02/27/24 21:00 Amitriptyline Hcl 25 Mg Tablet PO 25 mg HS YNES Administration Atorvastatin Calcium 40 mg 02/25/24 09:00 02/27/24 08:21 Atorvastatin 40 Mg Tablet PO 40 mg DAILY YNES Administration Baclofen 10 mg 02/27/24 09:00 Baclofen 10 Mg Tablet PO Q12H PRN MUSCLE SPASM Dextrose 12.5 gm 02/24/24 21:37 Dextrose 50% 25 Gm/50 Ml Syringe IV PUSH PRN PRN Hypoglycemia Protocol Glucagon 1 mg 02/24/24 21:37 Glucagon For Inj 1 Mg Vial IM PRN PRN Hypoglycemia Protocol Glucose 15 gm 02/24/24 21:37 Glucose Oral Gel 15 Gm Of Glucse In 37.5 Gm Tube PO PRN PRN Hypoglycemia Protocol Ceftriaxone Sodium 1 gm in 50 mls @ 100 mls/hr 02/25/24 12:00 02/27/24 13:46 Rocephin 1 Gm/Ns 50 Ml IVPB Infused Q24H YNES Infusion Dextrose 1,000 mls @ 100 mls/hr 02/24/24 21:37 Dextrose 5% 1,000 Ml IVPB PRN PRN Hypoglycemia Protocol Insulin Aspart 2 - 5 units 02/25/24 08:00 02/27/24 17:06 Insulin Aspart (*Bkc) 100 Units/Ml SUB-Q Not Given TIDWM [facility] Protocol Losartan Potassium 100 mg 02/25/24 09:00 02/27/24 08:21 Losartan Potassium 100 Mg Tablet PO 100 mg DAILY YNES Administration Melatonin 3 mg 02/25/24 21:00 02/27/24 21:00 Melatonin 3 Mg Tablet PO 3 mg HS YNES Administration Ondansetron HCl 4 mg 02/24/24 13:19 Ondansetron Inj 4 Mg/2 Ml Vial IV PUSH Q4H PRN Nausea Oxybutynin Chloride 5 mg 02/24/24 15:37 02/25/24 21:42 Oxybutynin Chloride 5 Mg Tablet PO 5 mg TID PRN Administration bladder spasms Saccharomyces Boulardii 250 mg 02/25/24 09:00 02/27/24 17:06 Saccharomyces Boulardii 250 Mg Capsule PO 250 mg TID YNES Administration Zinc Sulfate 50 mg 02/25/24 09:00 02/27/24 08:19 Zinc Sulfate 220 Mg Capsule PO Not Given DAILY [facility] Radiology Results: ITS Impressions Renal Ultrasound 02/24/24 12:48 IMPRESSION: 1. Mild atrophy of left kidney. No hydronephrosis. Labs Labs: Laboratory Results - last 24 hr 02/27/24 02/27/24 02/27/24 06:15 07:22 11:22 WBC 7.5 RBC 4.54 Hgb 12.8 Hct 40.6 MCV 89.4 MCH 28.2 MCHC 31.5 L RDW 15.9 H P
[2024-02-28 06:00] VITALS: BP 120/82; PULSE 93; RESP 18; TEMP 36.7; O2SAT 96
[2024-02-28 06:25] LABS: Basophils Absolute Auto 0.1 K/mm3 (0.0-0.1); Basophils Percent Auto 0.9 % (0.2-1.2); Eosinophils Absolute Auto 0.2 K/mm3 (0-0.3); Eosinophils Percent Auto 3.1 % (0-4.4); Hematocrit 39.2 % (37.0-47.0); Hemoglobin 12.3 g/dL (12.0-15.0); Immature Granulocyte Absolute 0.03 K/mm3 (0.00-0.031); Immature Granulocyte Percent A 0.4 % (0-0.5); Lymphocytes Absolute Auto 2.49 K/mm3 (0.9-3.2); Lymphocytes Percent Auto 32.3 % (18.3-44.2); Mean Corpuscular HGB Conc 31.4 g/dl (32-36); Mean Corpuscular Volume 89.3 fl (80-100); Mean Platelet Volume 10.7 fl (7.4-10.4); Monocytes Absolute Auto 0.5 K/mm3 (0.1-0.6); Neutrophils Absolute Auto 4.4 K/mm3 (1.3-6.7); Neutrophils Percent Auto 56.3 % (45.5-73.1); Platelet Count Result 233 k/mm3 (150-375); Red Blood Count 4.39 M/mm3 (4.2-5.4); Red Cell Distribution Width 15.7 % (11.5-14.5); White Blood Count 7.7 K/mm3 (4.5-10.0)
[2024-02-28 06:26] LABS: Alanine Aminotransferase 30 U/L (6-35); Albumin Level 3.9 g/dL (3.5-5.1); Alkaline Phosphatase 53 U/L (38-126); Anion Gap 3 mmol/L (4-12); Aspartate Amino Transferase 34 U/L (14-36); Bilirubin,Total 0.7 mg/dL (0.2-1.3); Blood Urea Nitrogen 25 mg/dL (7-17); Calcium 9.1 mg/dL (8.4-10.2); Carbon Dioxide 32 mmol/L (22-30); Chloride 105 mmol/L (98-107); Estimated CRCL calculation 33 ml/min; Estimated Glomerular Filt Rate 53; Glucose 113 mg/dL (65-110); Potassium 3.8 mmol/L (3.4-5.0); Sodium 140 mmol/L (137-145)
[2024-02-28 07:54] LABS: Glucose Point of Care 113 mg/dl (65-105)
[2024-02-28] MEDS: LOSARTAN POTASSIUM 100 MG TABLET PO (08:53)
[2024-02-28] MEDS: SACCHAROMYCES BOULARDII 250 MG CAPSULE PO (08:54)
[2024-02-28] MEDS: ATORVASTATIN 40 MG TABLET PO (08:54)
[2024-02-28] MEDS: ZINC SULFATE 220 MG CAPSULE PO (08:55)
[2024-02-28 12:00] LABS: Glucose Point of Care 140 mg/dl (65-105)
--- NOTE | 2024-02-28 12:34 | PM.DS ---
DS: Admitting Diagnosis Discharge Date 02/28/2024 Admitting Diagnosis Gross hematuria DS: Discharge Diagnosis Discharge Diagnosis (1) Gross hematuria: Code(s): R31.0 - Gross hematuria Status: Acute (2) Urinary retention: Code(s): R33.9 - Retention of urine, unspecified Status: Acute DS: Summary Hospital Course Hospital Course: Aliya Richardson is an 83 year old female with a history of overactive bladder maintained on botox injections q6 months who was admitted for gross hematuria after Botox injection on 02/18/24. She was admitted on 02/24/24 for persistent gross hematuria requiring CBI. CBI was slowly weaned and urine eventually cleared. Solifenacin was discontinued due to retention. On 02/28/24 her fournier catheter was removed and she was able to void without difficulty. She will f/u in1-2 weeks for repeat bladder scan. She felt overall much improved and felt comfortable with plans for discharge home. Discussed worrisome signs and symtpoms for which to return and all questions answered. Status at Discharge Overall status at discharge: patient is back to baseline Time Spent with Patient Time attestation: Total time spent providing and/or coordinating discharge services:35 minutes Time spent: Greater than 30 minutes Exam Narrative: General: Awake, alert, comfortable, no acute distress HEENT: Normocephalic, atraumatic, sclerae anicteric Respiratory: Normal respiratory effort, no accessory muscle use Abdomen: Nondistended, soft, nontender : fournier draining dark red urine Skin: Normal coloration, warm and dry Neurologic: No focal neuro deficits noted Psychiatric: Appropriate mood and affect, judgment and insight intact DS: Data Data Completed and Pending Labs on day of discharge: Labs from last 24 hours 02/28/24 02/28/24 02/28/24 11:22 07:36 05:55 WBC 7.7 RBC 4.39 Hgb 12.3 Hct 39.2 MCV 89.3 MCH 28.0 MCHC 31.4 L RDW 15.7 H Plt Count 233 MPV 10.7 H Immature Gran % (Auto) 0.4 Neut % (Auto) 56.3 Lymph % (Auto) 32.3 [place] % (Auto) 7.0 Eos % (Auto) 3.1 Baso % (Auto) 0.9 Lymph # (Auto) 2.49 [place] # (Auto) 0.5 Eos # (Auto) 0.2 Baso # (Auto) 0.1 Abs Immat Gran (auto) 0.03 Absolute Neuts (auto) 4.4 Absolute Nucleated RBC 0.000 Nucleated RBC % 0.0 Sodium 140 Potassium 3.8 Chloride 105 Carbon Dioxide 32 H Anion Gap 3 L BUN 25 H Creatinine 1.00 Estim Creat Clear Calc 33 Estimated GFR 53 L Glucose 113 H POC Capillary Glucose 140 H 113 H Calcium 9.1 Total Bilirubin 0.7 AST 34 ALT 30 Alkaline Phosphatase 53 Total Protein 7.0 Albumin 3.9 02/27/24 02/27/24 20:34 16:28 WBC RBC Hgb Hct MCV MCH MCHC RDW Plt Count MPV Immature Gran % (Auto) Neut % (Auto) Lymph % (Auto) [place] % (Auto) Eos % (Auto) Baso % (Auto) Lymph # (Auto) [place] # (Auto) Eos # (Auto) Baso # (Auto) Abs Immat Gran (auto) Absolute Neuts (auto) Absolute Nucleated RBC Nucleated RBC % Sodium Potassium Chloride Carbon Dioxide Anion Gap BUN Creatinine Estim Creat Clear Calc Estimated GFR Glucose POC Capillary Glucose 160 H 122 H Calcium Total Bilirubin AST ALT Alkaline Phosphatase Total Protein Albumin Discharge Plan Discharge Attending physician on discharge: Diego Villa Consulting providers: Diego Villa; Jaime Mata Discharging Clinician: Marta Juárez Patient Disposition: Home, Self-Care Activity: other - see discharge instructions Diet: other - see discharge instructions Discharge Instructions: 1) Activity: no driving or important decisions x24 hours. 2) Diet: resume your normal, pre-admission diet. 3) Follow-up: 2-3 weeks / call for appointment ([phone]). 4) Stop taking solifenacin Patient Instructions: Antibiotic Form, Pain M
[2024-02-28 14:00] VITALS: BP 130/59; PULSE 99; RESP 16; TEMP 35.9; O2SAT 93
== END 2024-02-28 16:25 | disposition home or self-care (01) ==
LOC: ANHED 14:01 → ANH3MEDSUR 14:19
PROVIDERS: Student in an Organized Health Care Education/Training Program; Admitting Provider Urology; Emergency Provider Student in an Organized Health Care Education/Training Program; PCP Family Medicine; Visit Provider Nurse Practitioner Acute Care
DX: N30.01 Acute cystitis with hematuria (principal); R33.9 Retention of urine, unspecified; Z96.0 Presence of urogenital implants; R79.89 Other specified abnormal findings of blood chemistry; I10 Essential (primary) hypertension; E78.5 Hyperlipidemia, unspecified; I25.2 Old myocardial infarction; G47.33 Obstructive sleep apnea (adult) (pediatric); I25.10 Atherosclerotic heart disease of native coronary artery without angina pectoris; D64.9 Anemia, unspecified; Z99.2 Dependence on renal dialysis; K21.9 Gastro-esophageal reflux disease without esophagitis; I34.1 Nonrheumatic mitral (valve) prolapse; E11.9 Type 2 diabetes mellitus without complications; N32.81 Overactive bladder; Z86.73 Personal history of transient ischemic attack (TIA), and cerebral infarction without residual deficits; Z85.42 Personal history of malignant neoplasm of other parts of uterus; Z93.1 Gastrostomy status; Z79.84 Long term (current) use of oral hypoglycemic drugs; Z79.82 Long term (current) use of aspirin
CPT/HCPCS: 36415; 76775; 80053; 81001; 82948; 85014; 85018; 85025; 85610; 85730; 87086; 96365; 99285; A9270; G0378; J0696

== ENCOUNTER 2024-06-22 12:15 | Emergency (ER) | payer MEDICARE, SELFPAY ==
--- NOTE | ~2024-06-22 | XR_ITS ---
EXAMINATION: XR chest 2V DATE: 06/22/2024 12:51 INDICATION: 4 days of shortness of breath TECHNIQUE: PA and lateral views of the chest were obtained. COMPARISON: Chest radiograph dated 03/12/2023 FINDINGS: The lungs remain clear with no focal airspace opacities, pulmonary edema, pleural effusion or pneumot horax. The cardiomediastinal silhouette is normal. 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 IMPRESSION: 1. No acute cardiopulmonary disease. Reviewed, dictated and finalized at location A.
[2024-06-22 12:32] VITALS: BP 106/95; PULSE 104; RESP 20; TEMP 36.6; O2SAT 98
--- NOTE | 2024-06-22 12:35 | ED.SOB ---
HPI - SOB/Dyspnea General Chief Complaint: Shortness of Breath/Dyspnea Stated Complaint: sob Time Seen by Provider: 06/22/24 12:35 Source: patient Mode of arrival: ambulatory Limitations: no limitations History of Present Illness HPI Narrative: 83 y/o female with hx CAD, TIA, DM HTN presented for c/o 'shortness of breath' for about 4 days. Patient states I cannot breathe through my nose. She is accompanied by . Denies chest pain, palpitations, cough, n/v/d/f/c. No treatment for nasal congestion. Says PCP advised evaluation. Related Data Home Medications Medication Instructions Recorded Confirmed Lactobacillus 40-Bifidobact 1 cap PO DAILY 04/16/20 06/22/24 3-S.thermophilus 100 billion cell capsule (Probiotic) acetaminophen 325 mg tablet 325 mg PO Q6H PRN Pain 12/11/21 06/22/24 zinc 50 mg tablet 50 mg PO DAILY 12/04/22 06/22/24 losartan 100 mg tablet 100 mg PO DAILY 01/11/23 06/22/24 baclofen 10 mg tablet 10 mg PO Q12H 02/24/24 06/22/24 ascorbate calcium (vitamin C) 500 500 mg PO BID 06/22/24 06/22/24 mg tablet aspirin 81 mg tablet,delayed 81 mg PO DAILY 06/22/24 06/22/24 release cephalexin 250 mg tablet 250 mg PO DAILY 06/22/24 06/22/24 docusate sodium 100 mg capsule 100 mg PO DAILY 06/22/24 06/22/24 (Colace) ferrous sulfate 137 mg (45 mg 137 mg PO USEASDIRECTD 06/22/24 06/22/24 iron) tablet,extended release melatonin 3 mg capsule 3 mg PO HS PRN Sleep 06/22/24 06/22/24 multivit with minerals-iron 18 1 tablet PO DAILY 06/22/24 06/22/24 mg-folic ac 400 mcg-vit K 25 mcg tablet (Adults Multivitamin) Allergies Allergy/AdvReac Type Severity Reaction Status Date / Time tetracycline AdvReac Severe NAUSEA Verified 06/22/24 12:28 oxycodone AdvReac Unknown N&V Verified 06/22/24 12:28 Review of Systems Review of Systems: CONSTITUTIONAL: Denies body aches, fever, chills, or sweats. EYES: Denies visual changes, redness, or discharge. ENT: reports rhinorrhea, congestion, denies sore throat, or otalgia. CARDIOVASCULAR: Denies chest pain, palpitations, or edema. RESPIRATORY: Reports sob, denies cough, wheezing. GASTROINTESTINAL: Denies abdominal pain, nausea, vomiting, or diarrhea. SKIN: Denies rash, itching, or wounds. MUSCULOSKELETAL: Denies back pain, joint pain, or myalgia. NEUROLOGIC: Denies headache All systems reviewed & are unremarkable except as noted in HPI and below PMFSH Past Medical History Medical History Acute renal failure (ARF) Patient received intermittent hemodialysis between 07/23/2019 and 07/29/2019 as well as 07/31/2019 and 08/02/2019. Patient is now on long-term hemodialysis schedule managed by Dr. Gianni Larson Anemia Anxiety Bilateral subdural hematomas Fall/December 2022 CAD (coronary artery disease) Cardiac arrest Chronic anemia Pt is also anemia was treated with blood transfusion and epogen shot before, ordered epogen shot again for pt as her hb is 6. Pt will need work up for anaemia if Dr Larson does not think it is related to kidney disease, pt baseline is 7.5. 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
[2024-06-22 12:38] VITALS: BP 106/95; PULSE 104; RESP 20; TEMP 36.6; O2SAT 98
[2024-06-22 12:58] LABS: EDCOVIDSCREEN Negative (Negative)
== END 2024-06-22 13:14 | disposition home or self-care (01) ==
PROVIDERS: Emergency Provider Nurse Practitioner Family; PCP Family Medicine
DX: J06.9 Acute upper respiratory infection, unspecified (principal); I25.10 Atherosclerotic heart disease of native coronary artery without angina pectoris; E11.9 Type 2 diabetes mellitus without complications; I10 Essential (primary) hypertension; Z86.73 Personal history of transient ischemic attack (TIA), and cerebral infarction without residual deficits; Z79.82 Long term (current) use of aspirin; E78.5 Hyperlipidemia, unspecified; K21.9 Gastro-esophageal reflux disease without esophagitis; Z85.42 Personal history of malignant neoplasm of other parts of uterus; Z87.891 Personal history of nicotine dependence; Z20.822 Contact with and (suspected) exposure to COVID-19
CPT/HCPCS: 71046; 87426; 99213; G0463

== ENCOUNTER 2024-11-01 10:30 | Outpatient (RCR) | payer MEDICARE, SELFPAY ==
[2024-08-24 08:18] VITALS: BMI 21.3
[2024-09-28 13:30] VITALS: BMI 21.2
[2024-09-28 14:41] VITALS: BMI 21.2
== END 2024-11-20 08:57 | disposition home or self-care (01) ==
LOC: ANHDMC 10:30
PROVIDERS: PCP Family Medicine; Visit Provider Family Medicine
DX: E11.9 Type 2 diabetes mellitus without complications (principal); Z71.3 Dietary counseling and surveillance
CPT/HCPCS: 97802; 97803; G0108

== ENCOUNTER 2025-01-08 01:41 | Day surgery (SDC) | payer MEDICARE, SELFPAY ==
[2025-01-05 12:27] VITALS: BMI 21.7
[2025-01-08] VITALS (14 sets, daily range): BP systolic 160–176; BP diastolic 69–104; PULSE 82–102; RESP 11–26; TEMP 36.1–36.7; O2SAT 97–100; BMI 22.5
--- OUTSIDE RECORDS SUMMARY | 2025-01-08 01:45 | XMS_ITS | Clinical Summary ---
Author Organization [facility] Address [address] [place] [id number] Phone Care Team Providers Care Spinner Box Name Role Phone Swati Oh MD Primary Care Provider [phone] Allergies Active Allergy Reactions Criticality Noted Date Comments Oxycodone Nausea And Vomiting Low 03/08/2012 Tetracycline Nausea Only,Nausea And Vomiting Low Medications baclofen (LIORESAL) 10 MG tablet TK 1/2 TO 1 T PO TID PRN 07/03/2019 Active amitriptyline (ELAVIL) 25 MG tablet 09/29/2019 Active Ferrous Fumarate 324 (106 Fe) MG tablet Take 324 mg by mouth Active lansoprazole (PREVACID) [address] capsule TK 1 C VIA FEEDING TUBE BID 10/06/2019 Active metoprolol tartrate (LOPRESSOR) 25 MG tablet TK 1 T PO BID 11/02/2019 Active mirtazapine (REMERON) 15 MG tablet TK 1 T PO QD 10/23/2019 Active Active Problems Problem Noted Date Diagnosed Date Acute kidney failure 09/03/2019 Anemia in chronic kidney disease 09/03/2019 Hyperlipidemia 04/22/2018 Benign hypertension 04/22/2018 Immunizations Immunization Administration Dates Next Due Influenza TIV (IM) 05/21/2019 Influenza, Injectable, Quadrivalent 07/03/2019 Influenza, Injectable, Quadrivalent, Preservativ e Free 06/21/2018 Pneumococcal Conjugate 05/21/2017 Pneumococcal Conjugate 13-Valent 08/08/2015 Pneumococcal Polysaccharide 05/11/2005 TD Preservative Free 05/11/2005 Zoster 04/12/2006 Social History Tobacco Use Types Packs/Day Years Used Date Smoking Tobacco: Never Smokeless Tobacco: Never Alcohol Use Standard Drinks/Week Comments Not Currently 0 (1 standard drink = 0.6 oz pur e alcohol) Comments Unknown Sex and Gender Information Value Date Recorded Sex Assigned at Not on file Legal Sex Female 1:59 PM MST Gender Identity Not on file Sexual Orientation Not on file Last Filed Vital Signs Vital Sign Reading Time Taken Comments Blood Pressure 130/76 12/04/2019 11:15 AM CDT Pulse 84 12/04/2019 11:15 AM CDT Temperature 35.9 C (96.7 F) 12/04/2019 11:15 AM CDT Respiratory Rate - - Oxygen Saturation - - Inhaled Oxygen Concentration - - Weight 59.4 kg (131 lb) 12/04/2019 11:15 AM CDT Height 160 cm (5' 3 ) 12/04/2019 11:15 AM CDT Body Mass Index 23.21 12/04/2019 11:15 AM CDT Plan of Treatment Health Maintenance Due Date Last Done Comments Influenza Vaccine (Season Ended) 2025 05/21/20, 06/21/2018 Pneumococcal PPSV23/PCV13 65 + Years / Low and Medium Risk Completed 08/08/2015, 05/11/2005 Insurance [employer] MED[employer]ARE Care Teams Spinner Box Relationship Specialty Start Date End Date Swati Oh MD [address] [place] [id number] PCP - General Internal Medicine 08/31/19
--- OUTSIDE RECORDS SUMMARY | 2025-01-08 01:45 | XMS_ITS | Encounter Summary ---
Author Organization [facility] Address [address] [facility] Attn: Epic Prelude ADT NETO GARCIA [address] Care Team Providers Care Internal Controls Manager Name Role Phone Swati Oh MD Primary Care Provi patricia Encounter Details Date Type Department Care Team (Late st Contact Info) Description 01/23/1995 Outpatient Historical Conversion, History Social History Tobacco Use Types Packs/Day Years Used Date Smoking Tobacco: Never Assessed Comments Unknown Sex and Gender Information Value Date Recorded Sex Assigned at Not on file Legal Sex Female 5:13 AM CELL COVERER Gender Identity Not on file Sexual Orientation Not on file documented as of this encounter Plan of Treatment Upcoming Encounters Date Type Department Care Team (Late st Contact Info) Description 2025 11:00 AM CELL COVERER Office Visit [facility] Oncology and Hematology - [place] [address] [facility] [address] [place] [address] Zhou Gustafson MD [address] [facility] [address] [place] [address] documented as of this encounter Visit Diagnoses Not on filedocumented in this encounter Care Teams Internal Controls Manager Relationship Specialty Start Date End Date Swati Oh MD [address] [place] [address] PCP - General Family Practice 10/17/19 documented as of this encounter
--- OUTSIDE RECORDS SUMMARY | 2025-01-08 01:45 | XMS_ITS | Clinical Summary ---
Author Organization [facility] miguelina [facility] Address [address] [facility] [place] [address] Care Team Providers Care Folding Machine Operator Name Role Phone Swati Oh MD Primary Care Provi patricia Allergies Active Allergy Reactions Criticality Noted Date Comments Oxycodone Nausea and Vomiting Low 03/08/2012 Tetracycline Nausea and Vomiting Low 02/09/2012 Medications lansoprazole (PREVACID) 30 mg Capsule, Delayed Release(E.C.) TK 1 C VIA FEEDING TUBE BID 10/06/2019 Active amitriptyline (ELAVIL) 25 mg tablet 09/29/2019 Active mirtazapine (REMERON) 15 mg tablet 10/02/2019 Active traMADol (ULTRAM) 50 mg tablet TK 1 T PO Q 6 H PRN FOR PAIN 10/15/2019 Active Saccharomyces boulardii (FLORASTOR) 250 mg Capsule Take by mouth. Active vitamin A 10,000 unit capsule Take 10,000 Units by mouth daily. Active ferrous fumarate (FERROCITE,HEMO CYTE) 324 mg (106 mg iron) Tablet Take 324 mg by mouth. Active calcium as carbonate (TUMS) 500 mg (200 mg elemental) Tablet, Chewable Take by mouth. Active polyethylene glycol 3350 (MIRALAX) 17 gram/dose Powder Take 17 Grams by mouth daily. Dissolve in 8 ounces of fluid and drink entire liquid Active Zinc Gluconate 100 mg Tablet Take by mouth. Active heparin, porcine, pf, 10 unit/mL Syringe 11/09/2019 Act elizabet linezolid (ZYVOX) 600 mg tablet TK 1 T PO BID 11/02/2019 Activ e NORMAL SALINE FLUSH Syringe 11/09/2019 Activ e atorvastatin (LIPITOR) 10 mg tablet TK 1 T PO QHS 12/07/2019 Activ e oxybutynin chloride (DITROPAN) 5 mg tablet TK 1 T PO TID PRN 12/28/2019 Active baclofen (LIORESAL) 10 mg tablet TK 1 T PO BID 12/22/2019 Activ e acetaminophen (TYLENOL) 325 mg tablet Take 325 mg by mouth. Active aspirin (ECOTRIN EC) 81 mg Tablet, Delayed Release (E.C.) Take 81 mg by mouth. 07/03/2020 Active ferrous sulfate (SLOW RELEASE IRON) 159 mg (45 mg iron) Tablet Sustained Release Take by mouth. Active HYDROcodone-ingrid taminophen (NORCO) 5-325 mg tablet TK 1-2 TS PO Q 6 H PRN 04/19/2020 Active acidophilus-pec tin, citrus 100 million cell-10 mg Capsule Take by mouth. Active melatonin 3 mg Tablet Take 3 mg by mouth. Active Myrbetriq 50 mg Extended Release 24 hour tablet TK 1 T PO D 06/23/2020 Active mirabegron (MYRBETRIQ) 50 mg Extended Release 24 hour tablet Take 50 mg by mouth. Active Multivitamin Capsule Take 1 Capsule by mouth. Active ondansetron (ZOFRAN ODT) 4 mg Tablet, Rapid Dissolve DIS 1 T ON THE TONGUE Q 6 H PRF NAUSEA 04/23/2020 Active sulfamethoxazol e-trimethoprim (BACTRIM DS) 800-160 mg tablet TK 1 T PO BID 04/20/2020 Activ e zinc 50 mg Tablet Take 50 mg by mouth. Active docusate sodium (COLACE) 100 mg capsule Take by mouth. Active metoprolol succinate (TOPROL XL) 25 mg Extended Release 24 hour tablet Take 25 mg by mouth daily. 10/24/2021 Active Active Problems Problem Noted Date Diagnosed Date Chronic anemia 10/17/2019 Encounters Date Type Department Care Team Description 11/07/2024 External Device Data [facility] ABSTRACTION Provider, Abstract 2024 4:30 PM GED PREPARATION TEACHER Telephone Check Up [facility] Oncology and Hematology - [place] [address] [place] [phone] Zhou Gustafson MD Chronic anemia (Primary Dx) 10/24/2024 External Device Data [facility] ABSTRACTION Provider, Abstract 10/24/2024 External Device Data [facility] ABSTRACTION Provider, Abstract 10/24/[address] [facility] Oncology and Hematology - [place] [address] [place] [phone] Zhou Gustafson MD 10/23/[address] [facility] Oncology and Hematology - [place] [address] [place] [phone] Zhou Gustafson MD 10/20/[address] [facility] Oncology and Hematology - [place] [address] [place] [phone] Zhou Gustafson MD labs for appts 10/19/[address] [facility] Oncology and Hematology - [place] [address] [place] [address] Zhou Gustafson MD Chronic anemia (Primary Dx) from Last 3 Months Family History Medical History Relation Name Comments Heart Disease Father Relation Name Status Comments Brother Alive Daughter Alive Father Mother Son Alive Social History Tobacco Use Types Packs/Day Years Used Date Smoking Tobacco: Never Smokeless Tobacco: Never Tobacco Cessation:Counseling Given: Not Answered Alcohol Use Standard Drinks/Week Comments Not Currently 0 (1 standard drink = 0.6 oz pur e alcohol) Comments No Sex and Gender Information Value Date Recorded Sex Assigned at Not on file Legal Sex Female 5:13 AM GED PREPARATION TEACHER Gender Identity Not on file Sexual Orientation Not on file Last Filed Vital Signs Vital Sign Reading Time Taken Comments Blood Pressure 150/80 08/04/2023 11:35 AM GED PREPARATION TEACHER Pulse 107 08/04/2023 11:27 AM GED PREPARATION TEACHER Temperature 36.9 C (98.4 F) 08/04/2023 11:27 AM GED PREPARATION TEACHER Respiratory Rate 18 08/04/2023 11:27 AM GED PREPARATION TEACHER Oxygen Saturation 98% 08/04/2023 11:27 AM GED PREPARATION TEACHER Inhaled Oxygen Concentration - - Weight 63.2 kg (139 lb 6.4 oz) 08/04/2023 11:27 AM GED PREPARATION TEACHER Height 161.3 cm (5' 3.5 ) 01/14/2022 10:00 AM CD T Body Mass Index 24.31 01/14/2022 10:00 AM CDT Plan of Treatment Upcoming Encounters Date Type Department Care Team (Late st Contact Info) Description 2025 11:00 AM GED PREPARATION TEACHER Office Visit [facility] Oncology and Hematology - [place] [address] [facility] [address] [place] [address] Zhou Gustafson MD [address] [facility] [address] [place] [address] Health Maintenance Due Date Last Done Comments DIABETES ANNUAL FOOT EXAM 1957 DIABETES ANNUAL RETINAL EXAM 1957 DIABETES MICROALBUMIN ANNUAL SCREEN 1957 LDL CHOLESTEROL ANNUAL 1957 OSTEOPOROSIS SCREENING 2004 DTAP/TDAP/TD VACCINES (1 - Tdap) 05/12/2005 05/11/20 05 ZOSTER VACCINE (2 of 3) 06/07/2006 04/12/2006 RSV VACCINE (60+ or ) (1 - 1-dose 75+ series) 2014 DIABETES HBA1C Q 6 MONTHS 06/27/2023 12/26/2022, 03/2023 INFLUENZA VACCINE (#1) 2024 , 05/21/2019, 06/21/2018 PNEUMOCOCCAL VACCINE 50+ YEARS Completed 0 05/21/2017, 08/07/2015, 05/11/2005 Procedures Procedure Name Priority Date/Time Associated Diagnosis Comments CBC WITH DIFFERENTIAL Routine 10/23/2024 4:19 PM GED PREPARATION TEACHER COMPREHENSIVE METABOLIC PANEL Routine 10/23/2024 2:01 PM GED PREPARATION TEACHER IRON PANEL Routine 10/23/2024 1:34 PM GED PREPARATION TEACHER from Last 3 Months Results * CBC WITH DIFFERENTIAL (10/23/2024 4:19 PM GED PREPARATION TEACHER) Blood us Zhou Gustafson MD HEMATOLOGY ORDERABLES Final Res ult * COMPREHENSIVE METABOLIC PANEL (10/23/2024 2:01 PM GED PREPARATION TEACHER) Blood Zhou Gustafson MD CHEMISTRY ORDERABLES Final Resu lt * IRON PANEL (10/23/2024 1:34 PM GED PREPARATION TEACHER) Blood Zhou Gustafson MD CHEMISTRY ORDERABLES Final Resu lt from Last [address] [place] [address] [employer] P[employer] [facility] [place] [address] Care Teams Folding Machine Operator Relationship Specialty Start Date End Date Swati Oh MD [address] [place] [phone] PCP - General Family Practice 10/17/19
--- OUTSIDE RECORDS SUMMARY | 2025-01-08 01:45 | XMS_ITS | Continuity of Care Document ---
Author Organization [facility] Address [address] [place] [address] [address] [place] [address] Phone Care Team Providers Care Paving Block Cutter Name Role Phone Kaden Goldman DO Unavailable Unavailable Advance Directives Directive Yes / No Effective Date File Name No Information Encounters Encounter Description Practice Location Reason(s) For Visit Diagnoses Date Provider Providers Copied on Encounter [facility], [address], [place], [place], [id number], [place] [phone] [facility] No Information Susi Loyola. [address] [facility], [place], [address], [place]. tel: [phone] Family History Family Member Type Diagnosis Age At Onset No Information Payers Payer name Insurance type Covered democrat ID Authoriza tion(s) [employer] SOI CI [id number] Social History Type Description Quantity Date Captured [...]
--- NOTE | 2025-01-08 12:00 | ECG_ITS ---
Test Date: 2025-01-08 13:21:32 Measurements Intervals [place] Rate: 81 P: 42 TX: 246 QRS: -6 QRSD: 93 T: 55 QT: 374 QTc: 437 Interpretive Statements SINUS RHYTHM WITH FIRST DEGREE AV BLOCK LEFT VENTRICULAR HYPERTROPHY WITH ST-T CHANGE INFERIOR INFARCT, AGE INDETERMINATE ANTEROSEPTAL INFARCT, AGE INDETERMINATE BASELINE ARTIFACT- I, III, V6 ABNORMAL ECG No previous ECG available for comparison Electronically Signed On 01-08-2025 13:39:06 CDT by Paul Cohen D.O.
[2025-01-08 12:38] LABS: Basophils Absolute Auto 0.1 K/mm3 (0.0-0.1); Basophils Percent Auto 1.1 % (0.2-1.2); Eosinophils Absolute Auto 0.2 K/mm3 (0-0.3); Eosinophils Percent Auto 2.9 % (0-4.4); Hematocrit 46.2 % (37.0-47.0); Hemoglobin 14.1 g/dL (12.0-15.0); Immature Granulocyte Absolute 0.07 K/mm3 (0.00-0.031); Immature Granulocyte Percent A 0.9 % (0-0.5); Lymphocytes Absolute Auto 2.23 K/mm3 (0.9-3.2); Lymphocytes Percent Auto 29.7 % (18.3-44.2); Mean Corpuscular HGB Conc 30.5 g/dl (32-36); Mean Corpuscular Hemoglobin 28.1 pg (26-34); Mean Platelet Volume 10.8 fl (7.4-10.4); Monocytes Absolute Auto 0.5 K/mm3 (0.1-0.6); Monocytes Percent Auto 6.5 % (2.6-8.5); Neutrophils Absolute Auto 4.4 K/mm3 (1.3-6.7); Neutrophils Percent Auto 58.9 % (45.5-73.1); Platelet Count Result 218 k/mm3 (150-375); Red Blood Count 5.02 M/mm3 (4.2-5.4); Red Cell Distribution Width 15.5 % (11.5-14.5); White Blood Count 7.5 K/mm3 (4.5-10.0)
[2025-01-08 12:40] LABS: Anion Gap 8 mmol/L (4-12); Blood Urea Nitrogen 25 mg/dL (7-17); Calcium 9.4 mg/dL (8.4-10.2); Carbon Dioxide 31 mmol/L (22-30); Chloride 103 mmol/L (98-107); Estimated CRCL calculation 37 ml/min; Estimated Glomerular Filt Rate > 60; Glucose 97 mg/dL (65-110); Potassium 4.5 mmol/L (3.4-5.0); Sodium 142 mmol/L (137-145)
--- NOTE | 2025-01-08 14:40 | ECG_ITS ---
Test Date: 2025-01-08 15:51:49 Measurements Intervals [place] Rate: 84 P: 41 DE: 228 QRS: 57 QRSD: 150 T: -22 QT: 412 QTc: 490 Interpretive Statements SINUS RHYTHM WITH FIRST DEGREE AV BLOCK WITH OCCASIONAL VENTRICULAR PREMATURE COMPLEXES RIGHT BUNDLE BRANCH BLOCK CONSIDER INFERIOR INFARCT, AGE INDETERMINATE BASELINE ARTIFACT- I, II, III, AVR, AVL, AVF ABNORMAL ECG Compared to ECG 01/08/2025 13:21:32 NO SIGNIFICANT CHANGE Electronically Signed On 01-08-2025 15:56:43 CDT by Paul Cohen D.O.
--- NOTE | 2025-01-08 14:41 | WPDCARDPROC ---
Cardiac Cath Procedure Note Date of procedure:: 01/08/25 Performing physician:: Americo Fabian MD Indication:: Syncope with symptomatic pauses and paroxysmal AFib Brief clinical history:: This is an 84-year-old woman with a history of syncope who received a loop recorder implant in 2022 for evaluation of this. Recently a she has been found to have symptomatic pauses between 6 and 8 seconds in duration. She also has evidence of paroxysmal atrial fibrillation which I believe was not previously identified. For treatment of this a pacemaker implant has been recommended. Procedure Procedure performed:: Implantation of permanent Medtronic Micra AV leadless pacemaker Sedation/Medication given:: Fentanyl 50 mg Versed 5 mg Access site:: Right femoral vein Estimated blood loss:: 15 cc Procedure note:: Patient was brought to the cardiac catheterization lab in the postabsorptive state where the right femoral triangle repaired draped in the usual fashion. Using the modified Seldinger technique the right femoral vein was punctured and a 6 Singaporean vascular sheath was placed. Through the 6 Singaporean sheath a Amplatz Super Stiff wire was advanced through the venous circulation through the right atrium and out into the SVC. The 6 Singaporean sheath was then removed and a 14 Singaporean dilator was used to pre dilate the puncture site. Following this the 23 Singaporean Micra sheath and dilator were advanced over the Super Stiff wire to the level of the right atrium. The wire and dilator were then removed the sheath in position. This was connected to continuous flushing normal saline. The Micra insertion tool was then prepared and connected to saline flush and de-aired. The leadless pacemaker was retracted into the insertion tool. The micro insertion device was then inserted into the sheath and placed at the level of the right atrium. The sheath was then withdrawn to the level of the inferior vena cava. Using the deflector control the insertion tool was directed easily across the tricuspid valve into the right ventricle. This was then directed fluoroscopically into a mid septal position. Following this appropriate positioning of the insertion tool was confirmed in the ROMANSH and HIGGINBOTHAM projection using saline contrast flush. In the HIGGINBOTHAM projection I then exerted pressure and to the insertion tool creating a gooseneck appearance and then unlocked the tether and the device was then deployed into that location and was visually and fluoroscopically intact. The analyzer was then used to test electrode performance of the device with good sensing pacing and impedances as detailed below. Following this under cineangiography the tug test was used to confirm good positioning of the tines. This was then confirmed. Following this the tether was cut and carefully withdrawn from the leadless pacemaker leaving it deployed in position in the right ventricular septum. The Micra delivery system was then withdrawn from the sheath and from the patient. 0 Ethibond was then used to make a [id number] stitch at the site of the femoral venous puncture. The sheath was removed and the suture was tied. Manual pressure was held for the balance of 19 minutes. Procedure was well tolerated and uncomplicated. Findings:: The patient received a Medtronic leadless pacemaker model [id number] serial number [id number]. The R-waves are sensed at 3.1 mV threshold 0.38 volts at 0.24 milliseconds impedance 890 Ohms. Device is programmed in the DDD mode lower rate limit 50 upper rate limit 130. Conclusion:: Successful uncomplicated implantation of permanent Medtronic MICRA AV leadless pacemaker system for treatment of symptomatic pauses in this 84-year-old lady who also has paroxysmal atrial fibrillation. Americo Fabian MD [facility]
--- NOTE | 2025-01-08 16:35 | ADMGEN ---
This patient, Aliya Richardson, was admitted to -. Patient/family oriented to hospital policies and general routines including ID bracelet, bed and alarms, visiting hours, pain management, procedures, bathroom and other care routines, personal items, smoking policy, room service/diet, and visiting hours. Information on how to activate the Rapid Response Team has been discussed. Patient/Family are encouraged to report perceived risks to care and to ask questions if they do not understand what they are told or what they should do.
[2025-01-08] MEDS: ASCORBIC ACID 500 MG TABLET PO (17:27)
[2025-01-08] MEDS: AZELASTINE HCL NASAL 0.1% 137 MCG/SPR 30 ML BTL NASAL (20:12)
[2025-01-08] MEDS: BACLOFEN 10 MG TABLET PO (20:12)
[2025-01-08] MEDS: AMITRIPTYLINE HCL 25 MG TABLET PO (20:24)
[2025-01-08] MEDS: ACETAMINOPHEN 325 MG TABLET PO (21:37)
[2025-01-09] VITALS (10 sets, daily range): BP systolic 136–157; BP diastolic 67–79; PULSE 80–121; RESP 16–18; TEMP 36.3–36.9; O2SAT 95–99
[2025-01-09] MEDS: ACETAMINOPHEN 325 MG TABLET PO (05:05)
[2025-01-09] MEDS: DOCUSATE SODIUM 100 MG CAPSULE PO (08:35)
[2025-01-09] MEDS: LOSARTAN POTASSIUM 100 MG TABLET PO (08:35)
[2025-01-09] MEDS: ATORVASTATIN 10 MG TABLET PO (08:35)
[2025-01-09] MEDS: metFORMIN HCL XR 500 MG TAB.SR.24H 1000 MG PO (08:36)
[2025-01-09] MEDS: SITagliptin PHOSPHATE 50 MG TABLET PO (08:36)
[2025-01-09] MEDS: ASCORBIC ACID 500 MG TABLET PO (08:37)
[2025-01-09] MEDS: BACLOFEN 10 MG TABLET PO (08:37)
[2025-01-09] MEDS: ASPIRIN 81 MG ENTERIC TABLET PO (08:37)
[2025-01-09] MEDS: CEPHALEXIN 250 MG CAPSULE PO (08:37)
[2025-01-09] MEDS: MULTIVITAMINS /C LUTEIN (CENTRUM SILVER) TABLET *BKC 1 TAB PO (08:37)
[2025-01-09] MEDS: ZINC SULFATE 220 MG CAPSULE PO (08:41)
--- NOTE | 2025-01-09 11:53 | PM.DS ---
DS: Admitting Diagnosis Discharge Date 01/09/2025 Admitting Diagnosis Sinus pause DS: Discharge Diagnosis Discharge Diagnosis (1) Sinus node dysfunction: Code(s): I49.5 - Sick sinus syndrome Status: Acute Assessment and Plan: status post Medtronic leadless pacemaker on 01/08/2025. DS: Summary Hospital Course Hospital Course: Admitted for observation following uncomplicated implantation of Micra leadless pacemaker. No post-procedural complications. VSstable and patient is feeling well. Discharge today. Follow up with Dr. Ospina 01/12. Time Spent with Patient Time attestation: Total time spent providing and/or coordinating discharge services: Exam Const: General: comfortable, no acute distress, alert and awake Orientation/consciousness: patient oriented x3 HENMT: Head: normal to inspection Eyes: General: appearance normal, both eyes and all related structures Pupils: Equal, round and reactive pupils present Neck: Neck: normal visual inspection, supple and no JVD Carotids: normal carotid upstroke Resp: Effort & Inspection: normal respiratory effort Auscultation: clear to auscultation bilaterally Cardio: Rate: regular rate Rhythm: regular rhythm Heart sounds: S1 normal heart sound present, S2 normal heart sound present and no murmurs GI: Auscultation: normal bowel sounds Skin: General skin exam: normal color Neuro: General: patient oriented x3 Cranial nerves: Yes Equal, round and reactive pupils present Extrem: General: normal to inspection Other: right femoral figure of 8 suture removed. No bleeding or oozing. Psych: Appearance: grossly normal Mental Status: mental status grossly normal DS: Data Data Completed and Pending Labs on day of discharge: Labs from last 24 hours 01/08/25 12:21 WBC 7.5 RBC 5.02 Hgb 14.1 Hct 46.2 MCV 92.0 MCH 28.1 MCHC 30.5 L RDW 15.5 H Plt Count 218 MPV 10.8 H Immature Gran % (Auto) 0.9 H Neut % (Auto) 58.9 Lymph % (Auto) 29.7 Wetzel % (Auto) 6.5 Eos % (Auto) 2.9 Baso % (Auto) 1.1 Lymph # (Auto) 2.23 Wetzel # (Auto) 0.5 Eos # (Auto) 0.2 Baso # (Auto) 0.1 Abs Immat Gran (auto) 0.07 H Absolute Neuts (auto) 4.4 Absolute Nucleated RBC 0.000 Nucleated RBC % 0.0 Sodium 142 Potassium 4.5 Chloride 103 Carbon Dioxide 31 H Anion Gap 8 BUN 25 H D Creatinine 0.88 Estim Creat Clear Calc 37 Estimated GFR > 60 Glucose 97 Calcium 9.4 Discharge Plan Discharge Patient Disposition: Home Discharge Instructions: [facility] Cardiology [address] [place] [address] DISCHARGE INSTRUCTIONS - POST MICRA PACEMAKER Follow Up You will need a 1 week post-procedure follow-up appointment with us. Please call us at to schedule this appointment if one was not made for you at the time of your discharge from the hospital. What To Expect At Home ? Bruising of the trunk, groin and leg around the puncture site is normal and should resolve in a few days. ? You will be sent home with a bandage over the area which can typically be removed the day after the procedure. ? Shower as usual after the bandages are removed. You may gently wash the area with soap and water but do not scrub the puncture site. ? If you discontinued any medications pre-procedure, resume taking them unless told otherwise by your physician upon discharge from the hospital. ? Do not lift over 10 lbs. for 5 days post-procedure. ? You may resume physical activity after 1-2 days but avoid any strenuous activity such as exercise for 1 week post-procedure. ? Do not take a tub bath, Jacuzzi or swim for 7 days. ? Discuss with your physician prior to discharge about when it is appropriate for you to return to work. Call If You Experience: ? Significant redness, heat, swelling, drainage or severe pain at your puncture site. If any bleeding occurs, hold direct pressure at the site with gauze or a Band-Aid. If the bleeding continues past 10 minutes, call your physician and seek immediate medical attention. ? Fever of 100 degrees or higher. A high temperature can be early signs of infection. Patient Language: Niuean Stand Alone Forms: General Discharge Instructions Follow-up/Referrals: Jorge Ospina MD [Physician] - Discharge Medications: Continued cephalexin 250 mg tablet 250 mg PO DAILY aspirin 81 mg Tablet,Delayed Release (Dr/Ec) 81 mg PO DAILY ascorbate calcium (vitamin C) 500 mg Tablet 500 mg PO BID docusate sodium [Colace] 100 mg Capsule 100 mg PO DAILY Adults Multivitamin 18 mg iron-400 mcg-25 mcg Tablet 1 tablet PO DAILY melatonin 3 mg Capsule 3 mg PO HS PRN (Reason: Sleep) losartan 100 mg tablet 100 mg PO DAILY azelastine 137 mcg (0.1 %) spray,non-aerosol 137 mcg intranasal . q.h.s. Qty: 30 2RF Rx Instructions: administer into each nostril 1 or 2 sprays q.h.s. at bedtime fluticasone propionate [Flonase Allergy Relief] 50 mcg/actuation spray,suspension 2 spray intranasal DAILY Qty: 18 2RF Rx Instructions: administer into each nostril 1 or 2 sprays at bedtime acetaminophen 325 mg tablet 325 mg PO Q6H PRN (Reason: Pain) zinc 50 mg Tablet 50 mg PO DAILY atorvastatin 40 mg tablet 10 mg PO DAILY Gemtesa 75 mg tablet 75 mg PO DAILY amitriptyline 25 mg tablet 25 mg PO HS (DME) blood-glucose meter [FreeStyle Precision Edward Meter] Misc See Rx Instructions .ROUTE .MEDSUPPLY Qty: 1 0RF Rx Instructions: Use to check blood sugar daily while fasting baclofen 10 mg tablet 10 mg PO Q12H Qty: 60 3RF (DME) FreeStyle Test Strip See Rx Instructions .Route Qty: 100 4RF Rx Instructions: use daily As directed to check glucose (DME) lancets [FreeStyle Lancets] [facility] See Rx Instructions .Route Qty: 100 4RF Rx Instructions: use As directed daily to check glucose ipratropium bromide 21 mcg (0.03 %) spray,non-aerosol 2 spray intranasal BID Qty: 30 0RF Rx Instructions: administer into each nostril montelukast 10 mg tablet 10 mg PO QHS Qty: 30 6RF Januvia 50 mg tablet 50 mg PO DAILY Qty: 30 5RF metformin 500 mg tablet extended release 24 hr 1,000 mg PO QAM Qty: 180 2RF
--- NOTE | 2025-01-09 12:35 | PC.NURSE ---
On 01/09/25, the student, [Nikole Sierra ], provided care and completed [facility] documentation on this patient. I have reviewed the student's documentation and agree with the findings.
== END 2025-01-09 14:47 | disposition home or self-care (01) ==
LOC: ANHCATHLAB 14:51 → ANHIMU 16:49
PROVIDERS: PCP Family Medicine; Visit Provider Specialist
PROC: 02HK3NZ Insertion of Intracardiac Pacemaker into Right Ventricle, Percutaneous Approach (ICD-10-PCS; CPT 33274; principal; 2025-01-08 13:30)
DX: I49.5 Sick sinus syndrome (principal); I48.0 Paroxysmal atrial fibrillation; I47.10 Supraventricular tachycardia, unspecified; Z79.82 Long term (current) use of aspirin; Z79.84 Long term (current) use of oral hypoglycemic drugs; Z79.4 Long term (current) use of insulin
CPT/HCPCS: 33274; 36415; 80048; 85025; 93005; A9270; C1769; C1786; C1894; J0690; J1644; J2003; J2250; J3010; J7040

== ENCOUNTER 2025-04-23 13:43 | Outpatient (CLI) | payer MEDICARE, SELFPAY ==
--- OUTSIDE RECORDS SUMMARY | 2025-04-23 13:51 | XMS_ITS | Clinical Summary ---
Author Organization [facility] miguelina [facility] Address [address] [place] [address] Care Team Providers Care Drawer In Name Role Phone Swati Oh MD Primary [...] Encounters Date Type Department Care Team Description 04/04/2025 External Device Data [facility] Provider, Abstract 04/04/2025 External Device Data [facility] Provider, Abstract 04/04/2025 External Device Data [place] [facility] Provider, Abstract 04/03/2025 External Device Data [facility] [facility] Provider, Abstract 03/07/2025 External Device Data [place] [facility] Provider, Abstract 03/06/2025 External Device Data [facility] [facility] Provider, Abstract 02/08/2025 External Device Data [facility] [facility] Provider, Abstract 02/07/2025 External Device Data [facility] [facility] Provider, Abstract 02/06/2025 External Device Data [facility] Provider, Abstract from Last 3 Months Family History Medical [...] on file Legal Sex Female 5:13 AM [employer] Gender Identity Not on file Sexual Orientation Not on file Last Filed Vital Signs Vital Sign Reading Time Taken Comments Blood Pressure 150/80 08/04/2023 11:35 AM [employer] Pulse 107 08/04/2023 11:27 AM [employer]ER Temperature 36.9 C (98.4 F) 08/04/2023 11:27 AM [employer]ER Respiratory Rate 18 08/04/2023 11:27 AM [employer]IRER Oxygen Saturation 98% 08/04/2023 11:27 AM [employer]IRER Inhaled Oxygen Concentration - - Weight 63.2 kg (139 lb 6.4 oz) 08/04/2023 11:27 AM [employer]IRER Height 161.3 cm (5' 3.5) 01/14/2022 10:00 AM CD T Body Mass Index 24.31 01/14/2022 10:00 AM CDT Plan of Treatment Upcoming Encounters Date Type Department Care Team (Late st Contact Info) Description 2025 11:00 AM [employer] [employer] Office Visit [facility] [place] [address] [facility] [address] [place] [address] Zhou Gustafson MD [address] [place] [address] Health Maintenance Due Date Last [...] MONTHS 06/27/2023 12/26/2022, 03/2023 INFLUENZA VACCINE (#1) 2025 9, 05/21/2019, 06/21/2018 PNEUMOCOCCAL VACCINE 50+ YEARS Completed 0 05/21/2017, 08/07/2015, 05/11/[address] [place] [id number] [place] [id number] Care Teams Drawer In Relationship Specialty Start Date End Date Swati Oh MD [address] [place] [id number] PCP - General Family Practice 10/17/19
--- OUTSIDE RECORDS SUMMARY | 2025-04-23 13:51 | XMS_ITS | Clinical Summary ---
Author Organization [facility] Address [address] [place] [address] Phone Care Team Providers Care Contract Technician Name Role Phone Swati Oh MD Primary Care Provider [phone] Allergies Active Allergy Reactions Criticality Noted Date [...] 11:15 AM CDT Height 160 cm (5' 3) 12/04/2019 11:15 AM CDT Body Mass Index 23.21 12/04/2019 11:15 AM CDT Plan of Treatment Health Maintenance Due Date Last Done Comments Influenza Vaccine (#1) 2025 05/21/2019, 2017 Pneumococcal PPSV23/PCV13 65 + Years / Low and Medium Risk Completed 08/08/2015, 05/11/2005 Insurance [employer] MED[employer]ARE Care Teams Contract Technician Relationship Specialty Start Date End Date Swati Oh MD [address] [place] [address] PCP - General Internal Medicine 08/31/19
--- OUTSIDE RECORDS SUMMARY | 2025-04-23 13:52 | XMS_ITS | Referral Summary ---
Author Organization [facility] [place] [address] Address [address] [place] [address] Care Team Providers Care Inner Tube Inserter Name Role Phone Agnieszka Franco MD Primary Care Provider [phone] Allergies Active Allergy Reactions Criticality Noted Date Comments Levetiracetam Other (See comments) Medium 12/26/2022 Caused severe mood/behavioral alterations after 2 doses, including hyperactive/disordered speech Oxycodone Nausea And Vomiting Low 03/08/2012 Tetracycline Nausea And Vomiting Low 02/09/2012 Medications baclofen (LIORESAL) 10 mg tablet Take 1 tablet (10 mg total) by mouth 2 (two) times a day as needed for muscle spasms Active acidophilus-pect in, citrus 100 million cell-10 mg capsule Take by mouth daily Active multivitamin capsule Take 1 capsule by mouth daily Active zinc 50 mg tablet Take 50 mg by mouth daily Active amitriptyline (ELAVIL) 25 mg tablet Take 1 tablet (25 mg total) by mouth nightly Active melatonin tablet Take 1 tablet (3 mg total) by mouth nightly as needed for sleep Active acetaminophen (TYLENOL) 325 mg tablet Take 1 tablet (325 mg total) by mouth every 6 (six) hours as needed for pain Active docusate sodium (COLACE) 100 mg capsule Take by mouth Take 2 tablets daily Active calcium carbonate (TUMS) 500 mg calcium (200 mg of elemental calcium) chewable tablet Take 1 tablet/chew tab (500 mg total) by mouth as needed Active metFORMIN XR (GLUCOPHAGE XR) 500 mg 24 hr tablet Take 2 tablets (1,000 mg total) by mouth every morning 2 Active solifenacin (VESIcare) 5 mg tablet THIS MEDICATION WAS HELD WHILE YOU WERE HOSPITALIZED. RESUME TOLERATED UNDER SUPERVISION OF PROVIDER 3 Active Additional Information Patient not taking.Reported on 12/20/2024 traZODone (DESYREL) 50 mg tablet Take 1 tablet (50 mg total) by mouth nightly 30 tablet 3 Active Additional Information Patient not taking.Reported on 05/07/2023 tamsulosin (FLOMAX) 0.4 mg extended release capsule Take 1 capsule (0.4 mg total) by mouth daily with dinner 3 Active Additional Information Patient not taking.Reported on 12/20/2024 senna-docusate (PERICOLACE) 8.6-50 mg Take 1 tablet by mouth 2 (two) times a day 3 Active Additional Information Patient not taking.Reported on 12/20/2024 ramelteon (ROZEREM) 8 mg tabletIndication s:Sleep-Onset Insomnia Take 1 tablet (8 mg total) by mouth nightly 30 tablet 11 3 Active Additional Information Patient not taking.Reported on 05/07/2023 heparin 5,000 unit/mL injectionIndicat ions:VTE Prophylaxis Inject 1 mL (5,000 Units total) under the skin every 12 (twelve) hours 3 Active Additional Information Patient not taking.Reported on 12/20/2024 insulin lispro (HumaLOG, ADMELOG) 100 unit/mL vial for injectionIndicat ions:Diabetes Mellitus Inject 0-5 Units under the skin 3 (three) times a day with meals 10 mL 3 Active Additional Information Patient not taking.Reported on 05/07/2023 insulin lispro (HumaLOG, ADMELOG) 100 unit/mL vial for injectionIndicat ions:Diabetes Mellitus Inject 0-4 Units under the skin nightly 10 mL 3 Active Additional Information Patient not taking.Reported on 05/07/2023 lacosamide (VIMPAT) 100 mg tablet Administer 1 tablet (100 mg total) per feeding tube 2 (two) times a day 3 Active Additional Information Patient not taking.Reported on 12/20/2024 FreeStyle Test strip USE TO CHECK GLUCOSE EVERY DAY DIRECTED 3 Active cephalexin (KEFTAB) 250 mg tablet Take 1 tablet (250 mg total) by mouth daily 3 Active aspirin 81 mg enteric coated tablet Take 1 tablet (81 mg total) by mouth daily Active atorvastatin (LIPITOR) 40 mg tablet TAKE 1 TABLET(40 MG) BY MOUTH DAILY 30 tablet 3 4 Active Additional Information Patient taking differently: 10 mgoral Daily, Reported on 12/20/2024 vibegron (GEMTESA ORAL) Take by mouth daily Active SITagliptin phosphate (JANUVIA) 50 mg tabletIndication s:type 2 diabetes mellitus Take 1 tablet (50 mg total) by mouth daily Active losartan (COZAAR) 100 mg tablet TAKE 1 TABLET(100 MG) BY MOUTH DAILY 30 tablet 11 5 Active Active Problems Patient Care Coordination No te Formatting of this note migh t be different from the original. Problem Noted Date Diagnosed Date Presence of leadless cardiac pacemaker 5 Overview (01/12/2025): Medtronic Micra Dx; Syncope, pause DOI 01/08/25-Enio Fabian Carelink remote monitoring. Paroxysmal atrial fibrillation 12/20/2024 H/O cardiomyopathy 11/09/2023 H/O syncope 11/09/2023 Subdural hemorrhage 01/13/2023 TIA (transient ischemic attack) 12/26/2022 Visit for wound check 12/14/2022 Status post placement of implantable loop record er 12/07/2022 Overview (12/07/2022): Medtronic LNQ22 Loop Recorder. Dx; Syncope, TIA. DOI 12/07/2022-Ivis Fabian. Carelink remote monitoring. 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 diabetes mellitus (CMS/HCC) 03/19/2020 Acute kidney failure 09/03/2019 Anemia in chronic kidney disease 09/03/2019 Essential tremor 09/06/2014 Malignant neoplasm of endometrium 03/08/2012 Resolved Problems Problem Noted Date Diagnosed Date Resolved Date Hyperlipidemia 04/22/2018 07/09/2023 Immunizations Immunization Administration Dates Next Due Influenza, Quadrivalent, Split, Intramuscular Influenza, Quadrivalent, Spl it, Preservative Free, Intramuscular 06/21/2018 Influenza, Trivalent, IM (MDV) 05/21/2019 Pneumococcal Conjugate 7-Valent 05/21/2017 Pneumococcal Conjugate PCV 13 08/07/2015 Pneumococcal Polysaccharide PPV23 05/11/2005 TD Preservative Free 05/11/2005 ZOSTER LIVE 04/12/2006 Social History Tobacco Use Types Packs/Day Years Used Date Smoking Tobacco: Never Smokeless Tobacco: Never Tobacco Cessation:Counseling Given: Not Answered Alcohol Use Standard Drinks/Week Comments Not Currently 0 (1 standard drink = 0.6 oz pur e alcohol) Social Connection and Isolat ion Panel [NHANES] Answer Date Recorded In a typical week, how many times do you talk on the phone with family, friends, or neighbors? More than three times a week 02/09/2023 How often do you get togethe r with friends or relatives? More than three times a week 02/09/2023 How often do you attend chur ch or alevism services? More than 4 times per year 02/09/2023 Do you belong to any clubs o r organizations such as catholic groups, unions, fraternal or athletic groups, or school groups? No 02/09/2023 How often do you attend meet ings of the clubs or organizations you belong to? Never 02/09/2023 Are you , , di vorced, , never , or living with a partner? 02/09/2023 AUDIT-C Answer Date Recorded Q1: How often do you have a drink containing alc ohol? Never 04/01/2023 Average Number of Drinks Not on file 023 Q3: How often do you have si x or more drinks on one occasion? Never 04/01/2023 Overall Financial Resource Strain (CARDIA) Answe r Date Recorded How hard is it for you to pa y for the very basics like food, housing, medical care, and heating? Not hard at all 02/09/2023 PHQ-2 Answer Date Recorded PHQ-2 Total Score 0 02/09/2023 Hunger Vital Sign Answer Date Recorded Within the past 12 months, y ou worried that your food would run out before you got the money to buy more. Never true 02/10/20 Within the past 12 months, t he food you bought just didn't last and you didn't have money to get more. Never true 02/09/2023 PRAPARE - Transportation Answer Date Re corded In the past 12 months, has l ack of transportation kept you from medical appointments or from getting medications? No 01/19 In the past 12 months, has l ack of transportation kept you from meetings, work, or from getting things needed for daily living? No 02/09/2023 Housing Stability Vital Sign Answer Humza e Recorded In the last 12 months, was t here a time when you were not able to pay the mortgage or rent on time? No 02/09/2023 In the last 12 months, how many places have you lived? 1 02/09/2023 In the last 12 months, was t here a time when you did not have a steady place to sleep or slept in a group home (including now)? No 02/09/2023 Personal Safety Answer Date Recorded Have you ever been in or are you currently in a harmful physical or emotional relationship or is someone making you feel afraid or unsafe? Denies 01/15/2023 Comments No Sex and Gender Information Value Date Recorded Sex Assigned at Not on file Legal Sex Female 9:25 AM DIRECTOR OF RETAIL ANALYTICS Gender Identity Not on file Sexual Orientation Not on file Last Filed Vital Signs Vital Sign Reading Time Taken Comments Blood Pressure 142/96 12/20/2024 9:15 AM CDT Pulse 103 12/20/2024 9:15 AM CDT Temperature 36.8 C (98.2 F) 02/09/2023 11:39 AM CDT Respiratory Rate 18 02/09/2023 11:39 AM CDT Oxygen Saturation 95% 12/20/2024 9:15 AM CDT Inhaled Oxygen Concentration - - Weight 60.3 kg (133 lb) 12/20/2024 9:15 AM CDT Height 160 cm (5' 3) 12/20/2024 9:15 AM CDT Body Mass Index 23.56 12/20/2024 9:15 AM CDT Plan of Treatment Not on file Medical Devices Implanted Type Area Concreter Device Identifier Shelf Expiration Date Model / Serial / Lot Whittaker Craniomaxillofacial Duramatrix-Onlay Plus 2x2in Regeneration Membrane Patch Dural Dmop22 - [id number] Implanted:Qty: 1 on 01/26/2023 by Vitaliy Johnston MD at [facility] Right: Cranial Whittaker Craniomaxillofacial [id number] 08/19/2025 DMOP22 / / [id number] Whittaker Craniomaxillofacial [place] Neuro Iii 16mmx.4mm 2 Hole Low Profile Bar 53-08567 - [id number] Implanted:Qty: 2 on 01/26/2023 by Vitaliy Johnston MD at [facility] Right: Cranial Whittaker Craniomaxillofacial 53-3421 6 / / Rainer Craniomaxillofacial [place]o Neuro Iii 14mm Tab Craniomaxillofacial Low Profile 53-33080 - [id number] Implanted:Qty: 1 on 01/26/2023 by Vitaliy Johnston MD at [facility] Right: Cranial Rainer Craniomaxillofacial 53-3451 4 / / Rainer Craniomaxillofacial 1.2mm 4mm Self Tap Axial Stability Lower Profile Screw Bone 56-28570 - [id number] Implanted:Qty: 14 on 01/26/2023 by Vitaliy Johnston MD at [facility] Right: Cranial Whittaker Craniomaxillofacial 56-1200 4 / / Whittaker Craniomaxillofacial [place]o Neuro Iii .4mm 16 Hole Low Profile Craniomaxillofacial 53-77285 - [id number] Implanted:Qty: 3 on 01/26/2023 by Vitaliy Johnston MD at [facility] Right: Cranial Whittaker Craniomaxillofacial 53-0037 4 / / Rainer Craniomaxillofacial [place]o Neuro Iii .4mm 2 Hole Low Profile Bar Tab 53-01231 - [id number] Implanted:Qty: 2 on 01/26/2023 by Vitaliy Johnston MD at [facility] Right: Cranial Rainer Craniomaxillofacial 53-2100 2 / / Procedures Procedure Name Priority Date/Time Associated Diagnosis Comments LIPID PANEL Routine 07/07/2024 2:16 PM CDT EGFR Routine 02/08/2023 12:34 AM CDT from Last 3 Months or Most Recently Relevant to Health Maintenance Results * (ABNORMAL) Lipid panel (07/07/2024 2:16 PM CDT) SCRIBED Cholesterol, Total 136 0 - 200 EXTERNAL LAB SCRIBED HDL 50 40 - 100 EXTERNAL LAB SCRIBED LDL 57 0 - 100 EXTERNAL LAB SCRIBED Triglycerides 174(A) 0 - 150 EXTERNAL LAB Blood 07/07/2024 2:16 PM CDT us Historical Provider LAB BLOOD ORDERABLES Lorenza l Result EXTERNAL LAB * (ABNORMAL) eGFR (02/08/2023 12:34 AM CDT) eGFR 89(L) 90 - 130 mL/min/1. 73 m2 [facility] Comment: Interpretive Data Reference Interval Normal >/= 90 mL/min/1.73m2 Mildly decreased* 60 - 89 mL/min/1.73m2 Mildly to moderately decreased 45 - 59 mL/min/1.73m2 Moderately to severely decreased 30 - 44 mL/min/1.73m2 Severely decreased 15 - 29 mL/min/1.73m2 Kidney Failure < 15 mL/min/1.73m2 *Relative to young adult level Estimated glomerular filtration rate is determined by the 2020 CKD-EPI equation recommended by the National Kidney Foundation (A Unifying Approach to GFR Estimation: Recommendations of the NKF-ASK Task Force on Reassessing the Inclusion of Race in Diagnosing Kidney Disease, JASN 2020). The CKD-EPI equation should not be used for patients with unstable renal function and has not been validated in children and those over 70. Current interpretive data was last reviewed 2021. Blood 02/08/2023 12:3 4 AM CDT 02/08/2023 1:29 AM CDT Tosha Echavarria NP LAB BLOOD ORDERABLES nal Result [facility] Department [place] [address] from Last 3 Months or Most Recently Relevant to Health Maintenance Insurance [facility] MEDICARE [facility] [place] [address] [facility] Advance Directives For more information, please contact: [phone] Documents on File Type Date Recorded Patient Clerical Office Expl anation ADVANCE DIRECTIVE 01/17/2023 2:26 PM POWER OF RIVETER [employer]LE [employer]KES-MEDICAL * Full Code (Latest Code Status on File) Date Activated Date Inactivated Comments 01/13/2023 5:43 PM 02/09/2023 7:22 PM Healthcare Agents on File Name Relationship Healthcare Agent Relationship Communication David Debra Spouse Health Care Agent [email or web address] Holly Richardson Daughter First Alternate Health Care Agent Asif Deejay Son Second Alternat e Health Care Agent [phone] ([phone] (Mobile)[email or web address].co m Care Teams Inner Tube Inserter Relationship Specialty Start Date End Date Agnieszka Franco MD PCP - General Family Medicine 05/26/22
--- OUTSIDE RECORDS SUMMARY | 2025-04-23 13:52 | XMS_ITS ---
Author Organization [facility] [place] [address] Address [address] [place] [address] Care Team Providers Care Shell Shop Supervisor Name Role Phone Agnieszka Franco MD Primary Care Provider [phone] Active Problems Patient Care Coordination No te Formatting of this note migh t be different from the original. Problem Noted Date Diagnosed Date Presence of leadless cardiac pacemaker Overview (01/12/2025): Medtronic Micra Dx; Syncope, pause [...] a associated with type 2 diabetes mellitus ([facility]/HCC) 03/19/2020 Acute kidney failure 09/03/2019 Anemia in chronic kidney disease 09/03/2019 Essential tremor 09/06/2014 Malignant neoplasm of endometrium 03/08/2012 Current Treatment and Therapy Plans No current plan information found. Past Treatment and Therapy Plans No past plan information found. Lifetime Dose Tracking * Chemical Lifetime Dose Automatic Entry Manual Entr y Fluoro Time 7.3 minutes 7.3 minutes 0 minutes Air kerma at the reference point (Ka,r) 32.5 mGy 3 2.5 mGy 0 mGy DLP 9,559 mGycm 9,559 mGycm 0 mGycm Resolved Problems Problem Noted Date Diagnosed Date Resolved Date Hyperlipidemia 04/22/2018 07/09/2023
--- OUTSIDE RECORDS SUMMARY | 2025-04-23 13:52 | XMS_ITS | Encounter Summary ---
Author Organization [facility] Address [address] [facility] Attn: Epic Prelude ADT NETO GARCIA [address] Care Team Providers Care Car Sealer Name Role Phone Swati Oh MD Primary Care Provi patricia Encounter Details Date Type Department Care Team (Late st Contact Info) Description 01/23/1995 Outpatient Historical Conversion, History Social History Tobacco Use Types Packs/Day Years Used Date Smoking Tobacco: Never Assessed Comments Unknown Sex and Gender Information Value Date Recorded Sex Assigned at Not on file Legal Sex Female 5:13 AM NURSE INTERN Gender Identity Not on file Sexual Orientation Not on file documented as of this encounter Plan of Treatment Upcoming Encounters Date Type Department Care Team (Late st Contact Info) Description 2025 11:00 AM NURSE INTERN Office Visit [facility] [place] [address] [facility] [address] [place] [address] Zhou Gustafson MD [address] [facility] [address] [place] [address] documented as of this encounter Visit Diagnoses Not on filedocumented in this encounter Care Teams Car Sealer Relationship Specialty Start Date End Date Swati Oh MD [address] [place] [address] PCP - General Family Practice 10/17/19 documented as of this encounter
--- OUTSIDE RECORDS SUMMARY | 2025-04-23 13:52 | XMS_ITS | Clinical Summary ---
Author Organization [facility] [place] [address] Address [address] [place] [address] Care Team Providers Care Ios Programmer Name Role Phone Agnieszka Franco MD Primary Care Provider [phone] Allergies Active Allergy Reactions Criticality Noted Date [...] TD Preservative Free 05/11/2005 ZOSTER LIVE 04/12/2006 Surgical History Surgery Date Site/Laterality Comments TONSILLECTOMY HYSTERECTOMY 02/19/2012 - 03/19/2012 HERNIA REPAIR BREAST BIOPSY BLADDER SUSPENSION CATARACT EXTRACTION, BILATERAL Medical History Medical History Date Comments Mitral valve prolapse Hypertension Hyperlipidemia Diabetes mellitus (HCC) Sleep apnea Kidney stones Cancer (HCC) 02/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 More than 4 times per year 02/09/2023 Do you belong to any clubs o r organizations such as yarsanism groups, unions, fraternal or athletic groups, or [...] place to sleep or slept in a long term (including now)? No 02/09/2023 Personal Safety Answer Date Recorded Have you ever been in or are you currently in a harmful physical or emotional relationship or is someone making you feel afraid or unsafe? Denies 01/15/2023 Comments No Sex and Gender Information Value Date Recorded Sex Assigned at Not on file Legal Sex Female 9:25 AM HUMAN RESOURCES EXECUTIVE Gender Identity Not on file Sexual Orientation Not on file Obstetrics History Last Filed Vital Signs Vital Sign Reading [...] 12/20/2024 9:15 AM CDT Plan of Treatment Health Maintenance Due Date Last Done Comments Albumin Creatinine Ratio, Urine 1939 Hemoglobin A1C 1939 Osteoporosis Screening-Bone Density Scan 1939 Dilated Eye Exam 1939 Foot Exam 1939 Hepatitis B Screening 1957 Well Visit 65+ 2004 DTaP/Tdap/Td Vaccine (1 - Tdap) 05/12/2005 5 Zoster Vaccine (2 of 3) 06/07/2006 04/12/2006 Depression Screening 01/14/2024 01/13/2023 Fall Risk Assessment 02/09/2024 02/08/2023 eGFR 02/09/2024 02/08/2023, 01/19, 02/06/2023, Additional history exists Covid-19 Vaccine (3 - 2023-2 5 season) 2024 11/27/2020, 10/30/2020 Influenza Vaccine (#1) 2025 9, 05/21/2019, 06/21/2018 Lipid Panel 07/07/2025 07/07/2024, 12/19, 12/25/2022, Additional history exists Pneumococcal vaccine 65+ Completed 017, 08/07/2015, 05/11/2005 Medical Devices Implanted Type Area Transit Planning Director Device Identifier Shelf Expiration Date Model / Serial / Lot [place] Craniomaxillofacial Duramatrix-Onlay Plus 2x2in Regeneration Membrane Patch Dural Dmop22 - [id number] Implanted:Qty: 1 on 01/26/2023 by Vitaliy Johnston MD at [facility] Right: Cranial Rainer Craniomaxillofacial [id number] 08/19/2025 DMOP22 / / [id number] [place] Craniomaxillofacial [place] Neuro Iii 16mmx.4mm 2 Hole Low Profile Bar 53-03899 - [id number] Implanted:Qty: 2 on 01/26/2023 by Vitaliy Johnston MD at [facility] Right: Cranial [place] Craniomaxillofacial 53-3421 6 / / Rainer Craniomaxillofacial Hemphill Neuro Iii 14mm Tab Craniomaxillofacial Low Profile 53-67466 - [id number] Implanted:Qty: 1 on 01/26/2023 by Vitaliy Johnston MD at [facility] Right: Cranial Rainer Craniomaxillofacial 53-3451 4 / / [place] Craniomaxillofacial 1.2mm 4mm Self Tap Axial Stability Lower Profile Screw Bone 56-73730 - [id number] Implanted:Qty: 14 on 01/26/2023 by Vitaliy Johnston MD at [facility] Right: Cranial Rainer Craniomaxillofacial 56-1200 4 / / Rainer Craniomaxillofacial Hemphill Neuro Iii .4mm 16 Hole Low Profile Craniomaxillofacial 53-75607 - [id number] Implanted:Qty: 3 on 01/26/2023 by Vitaliy Johnston MD at [facility] Right: Cranial Rainer Craniomaxillofacial 53-3416 4 / / Rainer Craniomaxillofacial Hemphill Neuro Iii .4mm 2 Hole Low Profile Bar Tab 53-93173 - [id number] Implanted:Qty: 2 on 01/26/2023 by Vitaliy Johnston MD at [facility] Right: Cranial Rainer Craniomaxillofacial 13-6172 2 / / Procedures Procedure Name Priority [...] 90 - 130 mL/min/1. 73 m2 [facility] Comment: Interpretive Data Reference Interval Normal [...] 4 AM CDT 02/08/2023 1:29 AM CDT us Tosha Echavarria J2EE ENGINEER LAB BLOOD ORDERABLES Fi nal Result [facility] [address] [facility] Department [place] [address] from Last 3 Months or Most Recently Relevant to [place] [address] [facility] [place] [address] T MEDICARE [employer] MEDICARE Advance Directives For more information, please contact: [phone] Documents on File Type Date Recorded Patient Gas Jockey Expl anation ADVANCE DIRECTIVE 01/17/2023 2:26 PM POWER OF CONTROLS PROJECT ENGINEER-MEDICAL * Full Code (Latest Code Status on File) Date Activated Date Inactivated Comments 01/13/2023 5:43 PM 02/09/2023 7:22 PM Healthcare Agents on File Name Relationship Healthcare Agent Relationship Communication David Debra Spouse Health Care Agent [email or web address] Holly Richardson Daughter First Alternate Health Care Agent Asif Deejay Son Second Alternat e Health Care Agent [phone] (Mobile)[email or web address] m Care Teams Ios Programmer Relationship Specialty Start Date End Date Agnieszka Franco MD PCP - General Family Medicine 05/26/22
[2025-04-23 15:30] LABS: Anion Gap 6 mmol/L (4-12); Blood Urea Nitrogen 29 mg/dL (7-17); Calcium 9.9 mg/dL (8.4-10.2); Carbon Dioxide 30 mmol/L (22-30); Chloride 105 mmol/L (98-107); Estimated Glomerular Filt Rate > 60; Glucose 128 mg/dL (65-110); Potassium 4.5 mmol/L (3.4-5.0); Sodium 141 mmol/L (137-145)
== END 2025-04-23 13:44 | disposition home or self-care (01) ==
LOC: ANHGOSHLAB 13:45
PROVIDERS: PCP Family Medicine; Visit Provider Family Medicine
DX: N18.30 Chronic kidney disease, stage 3 unspecified (principal)
CPT/HCPCS: 36415; 80048

== ENCOUNTER 2025-05-31 11:00 | Outpatient (RCR) | payer MEDICARE, SELFPAY ==
--- NOTE | 2025-03-06 13:00 | OPREHPOC ---
Outpatient Therapy Plan of Care This is a Multidisciplinary Plan of Care that may contain components documented by all disciplines (PT, OT, and ST.) PT Problem 1 PT Problem #1 Knowledge Deficit PT Goal 1 Goal / Goal Update [place] with HEP Target Visit 4 PT Problem 2 PT Problem #2 Impaired Balance PT Goal 1 Goal / Goal Update 1. Improve Tinetti score by 6 point to reduce fall risk 2. Improve 2 Minute walk test to 350 feet to improve mobility and reduce fall risk Target Visit 10 PT Problem 3 PT Problem #3 Impaired Strength PT Goal 1 Goal / Goal Update 1. Improve ayan hip flexion strength to 4+/5 to improve foot clearance and strength with home and community ambulation. 2. Improve ayan hip abduction strength to 4/5 to improve lateral stability with gait and transfers Target Visit 10
--- NOTE | 2025-03-06 13:01 | PTOPEVAL1 ---
Assessment and note entered by Carlitos Hoover, PT Evaluation Information Assessment Status Evaluation ICD-10 Condition Codes (PT) Difficulty Walking R26.2,Weakness R53.1 Onset Chronic Subjective Information Reports that she feels she is really slowing down. She has seen increase in shuffling and feels that her gait speed is slowing down. Denies falls. She has been walking with a quad cane all the time when she leaves the house. Denies pain and no concerns with sleeping but she is taking melatonin . She is having trouble getting up and down from chairs and getting barbara in the morning. Parlin therapy would be much more efficient than silver sneakers. Reported Pain Level Pain Score 0: Self Report Assessment PT Clinical Summary Patient presents with gross hip weakness, high fall risk, and decreased functional endurance indicated by functional outcome screening. Patient will benefit from skilled therapy with emphasis on hip stabilization and gross LE conditioning. She has had concerns with pelvic floor issues as well and will be scheduled for consultation with pelvic floor therapy. Plan of Care Interventions Gait Training,Manual Therapy,Neuro Re-education, Therapeutic Activities,Therapeutic Exercise PT Services Indicated Yes Treatment Frequency and 2x/week for 10 visits Duration These treatments will address the objective and functional deficits as defined above. The patient will be advanced safely and appropriately in order for the patient to progress towards his/her prior level of function. Additional exercises will be introduced and as well as a comprehensive home exercise program upon discharge, if needed, ?to ensure carryover of functional gains achieved in the clinic. This treatment plan has been reviewed and agreement upon by the patient.
--- NOTE | 2025-03-19 11:44 | OPREHPOC ---
Outpatient Therapy Plan of Care This is a Multidisciplinary Plan of Care that may contain components documented by all disciplines (PT, OT, and ST.) PT Problem 1 PT Problem #1 Knowledge Deficit PT Goal 1 Goal / Goal Update [place] with HEP Target Visit 4 PT Problem 2 PT Problem #2 Impaired Balance PT Goal 1 Goal / Goal Update 1. Improve Tinetti score by 6 point to reduce fall risk 2. Improve 2 Minute walk test to 350 feet to improve mobility and reduce fall risk Target Visit 10 PT Problem 3 PT Problem #3 Impaired Strength PT Goal 1 Goal / Goal Update 1. Improve ayan hip flexion strength to 4+/5 to improve foot clearance and strength with home and community ambulation. 2. Improve ayan hip abduction strength to 4/5 to improve lateral stability with gait and transfers new goals added 03/19/25 3. Improve pelvic floor strength to 4/5 to reduce incontinence 4. Improve pelvic floor endurance to 10 seconds to reduce incontinence Target Visit 14 PT Problem 4 PT Problem #4 Impaired Functional ADLs PT Goal 1 Goal / Goal Update 1. Patient will report incontinence no more than 1 time a week Target Visit 14
--- NOTE | 2025-03-19 11:44 | PTOPREEVAL ---
Assessment and note entered by Latha Van DPT Evaluation Information Assessment Status Re-evaluation ICD-10 Condition Codes (PT) Weakness R53.1,Stress incontinence N39.3 Onset Chronic Subjective Information Pt reports she is noticing incontinence a couple times a week. Needs to drink a lot of water due to her kidneys. Will avoid drinking water before going out in the community. Voids 5-6 times a day and 3-4 more at night. Can hold urge to void a couple minutes. Denies pain with urination. Uses pads and liners due to incontinence, has not had to change clothes. BM every other day and just started taking colace again. Patient goal: not leak as much Reported Pain Level Pain Score 0: Self Report Assessment PT Clinical Summary The patient is currently being re-evaluated to address urinary incontinence. She presents with decreased pelvic floor strength and endurance which are contributing to her incontinence multiple times a week and her need to use pads or liners. Patient reports she avoids fluid before going out in the community due to fear of incontinence. She will benefit from skilled therapy to address her strength in order to reduce incontinence and for education on urge suppression to reduce nocturia, in addition to ongoing therapy for gait to reduce fall risk. Plan of Care Interventions Gait Training,Manual Therapy,Neuro Re-education, Patient/Caregiver Education,Therapeutic Activities ,Therapeutic Exercise PT Services Indicated Yes Treatment Frequency and 2-3 times a week for 10 visits Duration These treatments will address the objective and functional deficits as defined above. The patient will be advanced safely and appropriately in order for the patient to progress towards his/her prior level of function. Additional exercises will be introduced and as well as a comprehensive home exercise program upon discharge, if needed, ?to ensure carryover of functional gains achieved in the clinic. This treatment plan has been reviewed and agreement upon by the patient.
--- NOTE | 2025-04-27 13:39 | PTOPPROG ---
Assessment and note entered by Ruiz Hernandez PT Evaluation Information Assessment Status Progress ICD-10 Condition Codes (PT) Weakness R53.1,Stress incontinence N39.3 Onset Chronic Subjective Information Pt arrives today with her son. Pt notes today her R heel pain is acting up and making it more difficult to walk and exercise. Pt states she feels therapy is helping with her balance but she does not like that we try to change the way she walks. Pt reports continued difficulty with losing her balance, but reports no falls to the floor. Pt states she has continued difficulty with having accidents both bowel and bladder but that does not happen too frequently. Assessment PT Clinical Summary Patient's has shown some improvements in functional mobility via 2 MWT and Tinnetti. However, some limitations are still present and therapy goals remain Unmet or partially met. Patient would benefit from continued skilled physical therapy services to address the above listed impairments and facilitate a return to their prior level of function. Patient required stand by assist during all balance tasks this date for optimal safety. Intermittent loss of balance/ sway noted requiring assist from physical therapist to prevent a fall during functional balance testing where required. Plan of Care Interventions Gait Training,Manual Therapy,Neuro Re-education, Patient/Caregiver Education,Therapeutic Activities ,Therapeutic Exercise PT Services Indicated Yes Treatment Frequency and 2x week 8 visits Duration These treatments will address the objective and functional deficits as defined above. The patient will be advanced safely and appropriately in order for the patient to progress towards his/her prior level of function. Additional exercises will be introduced and as well as a comprehensive home exercise program upon discharge, if needed, ?to ensure carryover of functional gains achieved in the clinic. This treatment plan has been reviewed and agreement upon by the patient.
--- NOTE | 2025-05-31 11:48 | PTOPDC ---
Assessment and note entered by Ruiz Hernandez, PT Evaluation Information Assessment Status Progress - Pt Not Present ICD-10 Condition Codes (PT) Weakness R53.1,Stress incontinence N39.3 Onset Chronic Subjective Information Pt states she is feeling ok today and does not have any pain but she feels nauseated. Pt states she feels like she has plateaued with therapy at this time. Reported Pain Level Pain Score 0: Self Report Assessment PT Clinical Summary Patient has functional deficits that persist but feels she has plateaued with therapy at this time. Patient to discharge from physical therapy this date and continue with updated home exercise program as instructed. Patient to contact physical therapist or primary care provider if questions or concerns arise. Plan of Care PT Services Indicated No
== END 2025-05-31 15:53 | disposition home or self-care (01) ==
LOC: ANHGOSHPT 11:00
PROVIDERS: PCP Family Medicine; Visit Provider Family Medicine
DX: R29.898 Other symptoms and signs involving the musculoskeletal system (principal)
CPT/HCPCS: 97110; 97112; 97116; 97140; 97161; 97530

== ENCOUNTER 2025-06-28 09:11 | Outpatient (CLI) | payer MEDICARE, SELFPAY ==
[2025-06-28 11:15] LABS: Hematocrit 48.7 % (37.0-47.0); Hemoglobin 15.2 g/dL (12.0-15.0)
[2025-06-28 11:21] LABS: Anion Gap 8 mmol/L (4-12); Blood Urea Nitrogen 29 mg/dL (7-17); Calcium 9.9 mg/dL (8.4-10.2); Carbon Dioxide 31 mmol/L (22-30); Chloride 103 mmol/L (98-107); Estimated Glomerular Filt Rate 59; Glucose 109 mg/dL (65-110); Potassium 4.4 mmol/L (3.4-5.0); Sodium 142 mmol/L (137-145)
[2025-06-28 11:25] LABS: INR 0.9; Prothrombin Time 12.6 Seconds (11.1-14.7)
[2025-06-28 11:26] LABS: Partial Thromboplastin Time 33.5 Seconds (22.3-36.8)
== END 2025-06-28 09:12 | disposition home or self-care (01) ==
LOC: ANHGOSHLAB 09:12
PROVIDERS: PCP Family Medicine Adolescent Medicine; Visit Provider Anesthesiology
DX: N18.9 Chronic kidney disease, unspecified (principal); D64.9 Anemia, unspecified; E11.9 Type 2 diabetes mellitus without complications
CPT/HCPCS: 36415; 80048; 85014; 85018; 85610; 85730

== ENCOUNTER 2025-07-02 03:58 | Day surgery (SDC) | payer MEDICARE, SELFPAY ==
--- OUTSIDE RECORDS SUMMARY | 2004-06-20 04:15 | XMS_ITS | Continuity of Care Document ---
Author Organization [facility] Address [id number] [place] [address] [address] [place] [address] Phone Care Team Providers Care Patent Prosecution Attorney Name Role Phone Kaden Goldman DO Unavailable Unavailable Advance Directives Directive Yes / No Effective Date File Name No Information Encounters Encounter Description Practice Location Reason(s) For Visit Diagnoses Date Provider Providers Copied on Encounter [facility], [address], [place], [place], [id number], [place] [phone] [facility] No Information Susi Loyola. [address] [facility], [place], [address], [place]. tel: [phone] Family History Family Member Type Diagnosis Age At Onset No Information Payers Payer name Insurance type Covered democrat ID Authoriza tion(s) [employer] SOI CI [id number] Social History Type Description Quantity Date Captured Comments Sex Female Smoking Status No Information Chief Complaint And Reason For Visit No Information Reason For Referral Reason For Referral No Information History Of Present Illness Encounter Date Complaint History Of Prese nt Illness No Information Functional Status Date Functional Assessmen t No Information Instructions Date Instruction Additional Infor mation No Information Assessments Type Assessment Date No Information Patient Care Teams Name Effective Dates (start - stop) Status Members No Information
[2025-06-27 09:38] VITALS: BMI 21.6
--- NOTE | 2025-06-27 12:22 | PC.NURSE ---
[facility] has started construction of its new state of the art ER which will open Spring 2026. With this, we anticipate parking may be a challenge for some our surgical patients and families. Parking spaces are limited but are available for all Surgical, obstetrics, and ER patients sharing this lot. If you arrive and find you are having a hard time finding a parking space, please note that we understand the challenges, please drive around the hospital and park near Hospital Entrance 1. When you enter this entrance, you can ask a volunteer to direct or take you back to the surgical waiting area to check in. We appreciate everyone?s understanding of these expected challenges while we build for your future. Report to the Outpatient Waiting Room, entrance under the green pavilion located off [address], at time __11:00AM on date ____07/02/25___. Planned Procedure Time: ___1:00PM .? Time changes happen often and if your time is changed the preop area will call you the afternoon before. - You and your visitor will be asked to self-screen and do not enter if you have any COVID symptoms. Please call surgeon if you need to reschedule. - A mask is optional within the hospital at this time. Patients may have clear liquids (water, carbonated beverages, clear teas, apple juice) until 3 hours prior to surgery (10:00AM) with a maximum of 20 ounces. - No food from midnight until time of surgery and no smoking, or chewing tobacco (or any form of nicotine). No chewing gum, candy or mints. Take only the following medications with a SIP of water on the morning of surgery: ____CEPHALEXIN DO NOT STOP ANY OF YOUR OTHER PRESCRIPTION MEDICATIONS PRIOR TO SURGERY EXCEPT THE FOLLOWING Hold all vitamins and supplements for 3 days per anesthesiologist. LAST DOSE 06/28/25 Medications to discontinue per physician HOLD ASPIRIN PER DR GENAO. Date to take last dose Please no make-up, nail upper sorbian, hairspray, perfume, deodorant, or body powder the day of surgery.? No jewelry (including any body piercings) or valuables the day of surgery, leave them at home.? Please take a shower or bath the night before, or the morning of, surgery with an antibacterial soap.? Wear comfortable, loose fitting clothing.? - Jewelry must be removed prior to entering the operating room.? Rings and piercings that are not removed may be cut off. - The hospital will not accept responsibility for valuables.? - Please leave all valuables, including medications, at home the day of surgery. If you are going home after surgery, a licensed driver courier must drive you home.? - NO public transportation without another adult if you receive anesthesia. - We recommend that an adult stay with you for 24 hours following discharge. - We also recommend that you do not drive, make important decision, drink alcoholic beverages, or take any drugs that were not prescribed by your health care provider for at least 24 hours after your discharge time. Follow any additional instructions given to you from your surgeon. Telephone instructions given to ___PATIENT and asked if any additional questions and then verbalized understanding. Patient advised to call surgeon office or pre surgery nurse liaison [phone] if any additional questions.
[2025-07-02] VITALS (8 sets, daily range): BP systolic 132–171; BP diastolic 72–98; PULSE 57–94; RESP 16–20; TEMP 36.2–36.7; O2SAT 94–100
--- OUTSIDE RECORDS SUMMARY | 2025-07-02 04:01 | XMS_ITS | Clinical Summary ---
Author Organization [facility] miguelina [facility] Address [address] [place] [address] Care Team Providers Care Pharmacy Graduate Intern Name Role Phone Swati Oh MD Primary [...] Encounters Date Type Department Care Team Description 05/22/2025 External Device Data STL ABSTRACTION Provider, Abstract 05/08/2025 External Device Data STL ABSTRACTION Provider, Abstract 04/25/2025 External Device Data STL ABSTRACTION Provider, Abstract [...] on file Legal Sex Female 5:13 AM UNDER CUTTING MACHINE OPERATOR Gender Identity Not on file Sexual Orientation Not on file Last Filed Vital Signs Vital Sign Reading Time Taken Comments Blood Pressure 150/80 08/04/2023 11:35 AM UNDER CUTTING MACHINE OPERATOR Pulse 107 08/04/2023 11:27 AM UNDER CUTTING MACHINE OPERATOR Temperature 36.9 C (98.4 F) 08/04/2023 11:27 AM UNDER CUTTING MACHINE OPERATOR Respiratory Rate 18 08/04/2023 11:27 AM UNDER CUTTING MACHINE OPERATOR Oxygen Saturation 98% 08/04/2023 11:27 AM UNDER CUTTING MACHINE OPERATOR Inhaled Oxygen Concentration - - Weight 63.2 kg (139 lb 6.4 oz) 08/04/2023 11:27 AM UNDER CUTTING MACHINE OPERATOR Height 161.3 cm (5' 3.5) 01/14/2022 10:00 AM CD T Body Mass Index 24.31 01/14/2022 10:00 AM CDT Plan of Treatment Upcoming Encounters Date Type Department Care Team (Late st Contact Info) Description 2025 11:00 AM UNDER CUTTING MACHINE OPERATOR Office Visit [facility] Oncology and Hematology - [place] [address] [facility] [address] [place] [address] Zhou Gustafson MD [address] [facility] [address] [place] [address] Health Maintenance Due Date Last [...] YEARS Completed 0 05/21/2017, 08/07/2015, 05/11/2005 Insurance [employer] PPO MCR Care Teams Pharmacy Graduate Intern Relationship Specialty Start Date End Date Swati Oh MD [address] [place] [id number] PCP - General Family Practice 10/17/19
--- OUTSIDE RECORDS SUMMARY | 2025-07-02 04:01 | XMS_ITS | Clinical Summary ---
Author Organization [facility] [address] Address [address] [place] [address] Care Team Providers Care Drill Operator Pneumatic Name Role Phone Agnieszka Franco MD Primary Care Provider [phone] Allergies Active Allergy Reactions Criticality Noted Date [...] Diagnosed Date Resolved Date Hyperlipidemia 04/22/2018 07/09/2023 Encounters Date Type Department Care Team Description 04/25/2025 7:15 AM CDT Ancillary Procedure [facility] Cardiology [address] [place] [id number] Presence of leadless cardiac pacemaker (Primary Dx); NICM (nonischemic cardiomyopathy) ([facility]); Ventricular fibrillation ([facility]); Syncope and collapse from Last 3 Months Immunizations Immunization Administration Dates Next Due Influenza, [...] Mitral valve prolapse Hypertension Hyperlipidemia Diabetes mellitus Sleep apnea Kidney stones Cancer (HCC) 02/2012 [...] oz pur e alcohol) Social Connection and Isolation Panel Answer Date Recorded In a typical week, how many times do you talk on the phone with family, friends, or neighbors? More than three times a week 02/09/2023 How often do you get togethe r with friends or relatives? More than three times a week 02/09/2023 How often do you attend chur or rastafari services? More than 4 times per year 02/09/2023 Do you belong to any clubs o r organizations such as shinto groups, unions, fraternal or athletic groups, or [...] place to sleep or slept in a fci (including now)? No 02/09/2023 Personal Safety Answer Date Recorded Have you ever been in or are you currently in a harmful physical or emotional relationship or is someone making you feel afraid or unsafe? Denies 01/15/2023 Comments No Sex and Gender Information Value Date Recorded Sex Assigned at Not on file Legal Sex Female 9:25 AM REPAIR ORDER CLERK Gender Identity Not on file Sexual Orientation [...] Additional history exists Covid-19 Vaccine (3 - 2024-2 6 season) 2025 11/27/2020, 10/30/2020 Influenza Vaccine (#1) 2025 9, 05/21/2019, 06/21/2018 Lipid Panel 07/07/2025 07/07/2024, 12/19, 12/25/2022, Additional history exists Pneumococcal vaccine 65+ Completed 017, 08/07/2015, 05/11/2005 Medical Devices Implanted Type Area Educational Consultant Device Identifier Shelf Expiration Date Model / Serial / Lot Payette Craniomaxillofacial Duramatrix-Onlay Plus 2x2in Regeneration Membrane Patch Dural Dmop22 - [id number] Implanted:Qty: 1 on 01/26/2023 by Vitaliy Johnston MD at [facility] Right: Cranial Payette Craniomaxillofacial [id number] 08/19/2025 DMOP22 / / [id number] Payette Craniomaxillofacial [place] Neuro Iii 16mmx.4mm 2 Hole Low Profile Bar 53-60713 - [id number] Implanted:Qty: 2 on 01/26/2023 by Vitaliy Johnston MD at [facility] Right: Cranial Rainer Craniomaxillofacial [id number] 6 / / Rainer Craniomaxillofacial [place] Neuro Iii 14mm Tab Craniomaxillofacial Low Profile 53-76798 - [id number] Implanted:Qty: 1 on 01/26/2023 by Vitaliy Johnston MD at [facility] Right: Cranial Payette Craniomaxillofacial 53-3451 4 / / Rainer Craniomaxillofacial 1.2mm 4mm Self Tap Axial Stability Lower Profile Screw Bone 56-99624 - [id number] Implanted:Qty: 14 on 01/26/2023 by Vitaliy Johnston MD at [facility] Right: Cranial Rainer Craniomaxillofacial 56-1200 4 / / Payette Craniomaxillofacial [place] Neuro Iii .4mm 16 Hole Low Profile Craniomaxillofacial 53-56834 - [id number] Implanted:Qty: 3 on 01/26/2023 by Vitaliy Johnston MD at [facility] Right: Cranial Payette Craniomaxillofacial [id number] 4 / / Rainer Craniomaxillofacial [place] Neuro Iii .4mm 2 Hole Low Profile Bar Tab [id number] - [id number] Implanted:Qty: 2 on 01/26/2023 by Vitaliy Johnston MD at [facility] Right: Cranial Payette Craniomaxillofacial [id number] 2 / / Procedures Procedure Name Priority Date/Time Associated Diagnosis Comments DEVICE CHECK - REMOTE Routine 04/25/2025 8:50 AM CDT NICM (nonischemic cardiomyopathy) (HCC) Ventricular fibrillation (HCC) Syncope and collapse LIPID PANEL Routine 07/07/2024 2:16 PM CDT EGFR Routine 02/08/2023 12:34 AM CDT from Last 3 Months or Most Recently Relevant to Health Maintenance Results * DEVICE CHECK - REMOTE (04/25/2025 8:50 AM CDT) Anatomical Region Laterality Modality Other Narrative 05/18/2025 1:13 PM CDT Medtronic Micra Dx; Syncope, pause DOI 01/08/25-Enio Fabian Carelink remote monitoring. Routine VDD Pacemaker Remote. Transmission attached. Battery status: 3.14 V, > 10.0 years remaining battery life to ABRAM. Stable electrode impedance, pacing and sensing thresholds. Presenting rhythm: VS AM/AGRONOMY INSTRUCTOR- < 0.1 %, AGRONOMY INSTRUCTOR- < 0.1 % Medications: ASA 81 mg, losartan 100 mg See scanned report. Office pacemaker follow up: 9 months [facility]Link remote f/u 08/01/25. us Jorge Ospina MD [facility] JON Final Result * (ABNORMAL) Lipid panel (07/07/2024 2:16 PM CDT) SCRIBED Cholesterol, Total 136 0 - 200 EXTERNAL LAB SCRIBED HDL 50 40 - 100 EXTERNAL LAB SCRIBED LDL 57 0 - 100 EXTERNAL LAB SCRIBED Triglycerides 174(A) 0 - 150 EXTERNAL LAB Blood 07/07/2024 2:16 PM CDT Historical Provider LAB BLOOD ORDERABLES Lorenza l Result EXTERNAL LAB * (ABNORMAL) eGFR (02/08/2023 12:34 AM CDT) eGFR 89(L) 90 - 130 mL/min/1. 73 m2 LIZ WEBER Comment: Interpretive Data Reference Interval Normal >/= [...] CDT Tosha Echavarria NP LAB BLOOD ORDERABLES Fi nal Result LIZ WEBER [facility] Department [place] [address] from Last 3 Months or Most Recently Relevant to Health Maintenance Insurance T MEDICARE Advance Directives For more information, please contact: [phone] Documents on File Type Date Recorded Patient Salesperson Corsets Expl anation ADVANCE DIRECTIVE 01/17/2023 2:26 PM POWER OF WATER FILTER CLEANER-MEDICAL * Full Code (Latest Code Status on File) Date Activated Date Inactivated Comments 01/13/2023 5:43 PM 02/09/2023 7:22 PM Healthcare Agents on File Name Relationship Healthcare Agent Relationship Communication David Richardson Spouse Health Care Agent Holly Richardson Daughter First Alternate Health Care Agent Asif Deejay Son Second Alternat e Health Care Agent [phone] (Work)+[phone] (Mobile) m Care Teams Drill Operator Pneumatic Relationship Specialty Start Date End Date Agnieszka Franco MD PCP - General Family Medicine 05/26/22
--- OUTSIDE RECORDS SUMMARY | 2025-07-02 04:01 | XMS_ITS | Encounter Summary ---
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 Gender Identity Not on file Sexual Orientation Not on file documented as of this encounter Plan of Treatment Upcoming Encounters Date Type Department Care Team (Late st Contact Info) Description 2025 11:00 AM FLATWORK FINISHER Office Visit [facility] Oncology and Hematology - [place] [address] [facility] [address] [place] [address] Zhou Gustafson MD [address] [facility] [address] [place] [address] documented as of this encounter Visit Diagnoses Not on filedocumented in this encounter Care Teams Rural Mail Contractor Relationship Specialty Start Date End Date Swati Oh MD [address] [place] [address] PCP - General Family Practice 10/17/19 documented as of this encounter
--- OUTSIDE RECORDS SUMMARY | 2025-07-02 04:01 | XMS_ITS ---
Author Organization [facility] [address] Address [address] [place] [address] Care Team Providers Care Warehouse Delivery Driver Name Role Phone Agnieszka Franco MD Primary Care Provider [phone] Active Problems Patient Care Coordination No te [...] a associated with type 2 diabetes mellitus ([facility]/HCC) 03/19/2020 Acute kidney failure 09/03/2019 Anemia in [...]
--- OUTSIDE RECORDS SUMMARY | 2025-07-02 04:01 | XMS_ITS | Clinical Summary ---
Author Organization [facility] Address [address] [place] [address] Phone Care Team Providers Care Bin Tripper Operator Name Role Phone Swati Oh MD Primary Care Provider [phone] Allergies Active Allergy Reactions Criticality Noted Date [...] 05/11/2005 Insurance [employer] MEDICARE Care Teams Bin Tripper Operator Relationship Specialty Start Date End Date Swati Oh MD [address] [place] [address] PCP - General Internal Medicine 08/31/19
--- NOTE | 2025-07-02 07:18 | WPDHPUPDATE1 ---
History and Physical Update Update Date/Time: 07/02/25 07:18 History and Physical has been reviewed, including an updated exam of the patient. There are NO changes in the patient's condition. Risks, benefits, and alternatives have been discussed and questions answered. Patient agrees to proceed with procedure.
--- NOTE | 2025-07-02 08:13 | WPDHPUPDATE1 ---
History and Physical Update Update Date/Time: 07/02/25 08:13 History and Physical has been reviewed, including an updated exam of the patient. There are NO changes in the patient's condition. Risks, benefits, and alternatives have been discussed and questions answered. Patient agrees to proceed with procedure. Planned procedure is an endoscopic septoplasty and a bilateral inferior turbinate reduction with outfracture.
[2025-07-02] MEDS: ACETAMINOPHEN 500 MG TABLET 1000 MG PO (11:35)
[2025-07-02] MEDS: LACTATED RINGERS 1,000 ML 30 ML IV CONT (11:45)
--- NOTE | 2025-07-02 11:49 | WPDANESEPPF ---
Anes - Initial Pre Proc Eval Procedure: Operation Date: 07/02/25 13:00 Proposed Procedures p Endoscopic Assisted Septoplasty, - Cruzito Mary MD s Bilateral Inferior Turbinate Reduction with Outfracture - Cruzito Mary MD Date/Time: 07/02/25 11:49 Surgeon: Cruzito Mary MD Pre Op Diagnosis: vasomotor rhinitis, nasal congestion Patient Data Age: 84 Gender: F Height: 1.65 m Weight: 59 kg Allergies Allergy/AdvReac Type Severity Reaction Status Date / Time tetracycline AdvReac Severe NAUSEA Verified 07/02/25 11:16 oxycodone AdvReac Unknown N&V Verified 07/02/25 11:16 Home Medications ?Medication ?Instructions ?Recorded ?Confirmed ?Type zinc 50 mg tablet 50 mg PO BID 12/04/22 07/02/25 History blood-glucose meter (FreeStyle #1 ea 12/08/22 06/28/25 Rx Precision Edward Meter) losartan 100 mg tablet 100 mg PO DAILY 01/11/23 07/02/25 History ascorbate calcium (vitamin C) 500 500 mg PO BID 06/22/24 07/02/25 History mg tablet aspirin 81 mg tablet,delayed 81 mg PO DAILY 06/22/24 07/02/25 History release docusate sodium 100 mg capsule 100 mg PO DAILY 06/22/24 07/02/25 History (Colace) melatonin 3 mg capsule 6 mg PO HS PRN Sleep 06/22/24 07/02/25 History multivit with minerals-iron 18 1 tablet PO DAILY 06/22/24 07/02/25 History mg-folic ac 400 mcg-vit K 25 mcg tablet (Adults Multivitamin) blood sugar diagnostic (FreeStyle #100 ea 08/04/24 06/28/25 Rx Test strips) lancets 28 gauge (FreeStyle #100 ea 08/04/24 06/28/25 Rx Lancets) metformin 500 mg tablet,extended 1,000 mg (2 x 500 mg) PO QAM #180 12/14/24 07/02/25 Rx release 24 hr tabs vibegron 75 mg tablet (Gemtesa) 75 mg PO DAILY 01/05/25 07/02/25 History Lactobacillus acidophilus 250 1,000 mmu cells PO DAILY 05/30/25 07/02/25 History million cell capsule (Probiotic Acidophilus) atorvastatin 40 mg tablet (Lipitor) 40 mg PO DAILY #90 tabs 05/30/25 07/02/25 Rx cephalexin 250 mg capsule 250 mg PO DAILY prevention of UTI 05/30/25 07/02/25 History ipratropium bromide 21 mcg (0.03 2 spray intranasal .qd-tid #30 mL 06/08/25 07/02/25 Rx %) nasal spray sitagliptin phosphate 50 mg tablet 50 mg PO DAILY #90 tabs 06/14/25 07/02/25 Rx (Januvia) acetaminophen 500 mg tablet 1,000 mg PO Q6H PRN pain 06/27/25 06/28/25 History (Acetaminophen Pain Relief) ferrous sulfate 325 mg (65 mg 325 mg PO .X3/WEEK 06/27/25 07/02/25 History iron) tablet mupirocin 2 % topical ointment 1 applic topical BID #22 grams 06/28/25 07/02/25 Rx (Centany) Patient hx anesthesia problems: none Family hx anesthesia problems: none Results Review: All pre-operative results and documents have been reviewed as part of the pre-operative evaluation. 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 Pt will need work up for anaemia if Dr Larson does not think it is related to kidney disease, pt baseline is 7.5. Polyneuropathy associated with critical illness Anxiety Acute renal failure (ARF) Patient received intermittent hemodialysis between 07/23/2019 and 07/29/2019 as well as 07/31/2019 and 08/02/2019. Patient is now on long-term hemodialysis schedule managed by Dr. Gianni Larson Obstructive sleep apnea Intolerant of CPAP Hypertension MVP (mitral valve prolapse) TIA (transient ischemic attack) Surgical History Surgical History H/O craniotomy H/O inguinal hernia repair H/O bilateral cataract extraction History of urethral stent X2 H/O lithotripsy S/P ureteral stent placement Hx of tonsillectomy H/O: hysterectomy S/P dialysis catheter insertion Right chest History of hysterectomy for malignancy PEG (percutaneous endoscopic gastrostomy) status Placed 08/04/[address] Arboleda History of bladder suspension procedure Two thousand four Family History Family History Father Acute myocardial infarction Family history of kidney disease Family history of aortic aneurysm Mother Cerebrovascular accident Father No problems noted. Mother No problems noted. Mother Cerebrovascular accident Social History Social History Social History: The patient lives with her Davi. She has 2 children. 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 She is lifelong nonsmoker. She does not drink alcohol or use illicit substances. Her primary care physician Dr. Franco/Agata Lopez PA-C. Code status is full code. Her daughter and live with her. The daughter is the Holly NICKERSON. Smoking status: Never smoker Second hand tobacco smoke exposure: Yes Alcohol intake: never Substance use: never Substance use type: does not use Do You Feel Safe in your Home?: Yes Lack of Transportation: No Lack of Food: Never True Current Housing: I Have Housing Concerned About Future Housing: No Difficulty Paying Gas/Electric Bills: No Difficulty Paying for Meds: No Currently Unemployed: No Education: Master's Degree or Higher Difficulty w/ Childcare or Family Care: No Living arrangements: with family Additional living arrangements comments: SPOUSE & DAUGHTER Occupation/Education: retired Gender identity (if verbalized by the patient): Female Spiritual care concerns: No Agree to blood products: Yes Anes - Eval Final PreProcedure Day of Procedure 07/02/25 11:49 Patient weight: normal Heart: regular rate and rhythm Lungs: clear to auscultation Airway: Mallampati scale class III Neurological: alert and oriented ASA classification: IV Emergent: no Anesthetic plan: proceed Anesthesia type and monitoring: general ETT and standard monitoring Results Review: All pre-operative results and documents have been reviewed as part of the pre-operative evaluation. Informed Consent: The patient's anesthetic plan and its attendant risks and benefits were discussed with the patient/family/POA. Questions were solicited and answers provided to the satisfaction of the patient/family/POA.
[2025-07-02] MEDS: ceFAZolin 2 GM in SODIUM CHLORIDE 0.9% IV 50 ML 100 ML IVPB (12:05)
[2025-07-02] MEDS: OXYMETAZOLINE HCL 0.05% NAS 15 ML BTL (*BKC) 1 SPRAY NASAL (12:35)
[2025-07-02] MEDS: LIDO 1%/EPINEPHRINE 1:100,000 20 ML VIAL 5 ML INFILTRATE (12:37)
--- NOTE | 2025-07-02 14:43 | P.OP_ITS ---
Procedure Note - Detailed Date of Procedure 07/02/25 Pre-op Diagnosis Nasal obstruction, nasal obstruction, septal deviation, turbinate hypertrophy Post-op Diagnosis Same Procedure Performed 1. Endoscopic assisted septoplasty 2. Bilateral inferior turbinate reduction with outfracture Surgeon Cruzito Mary MD Anesthesia General Indications Severely deviated rightward caudal septum, severe turbinate hypertrophy Findings Caudal septum and globally right septum septum deviated to the right. S incredibly difficult to get it straightened requiring multiple relaxing cuts and reinforcement with removed cartilage. Finally the septum was removed from the crest and sutured down to the left side of the crest. Normal bleeding. No left-sided perforation. Good result. Description of Procedure Patient identified consent verified in the preoperative holding area. Patient brought to the operating room. Time-out performed. General anesthesia induced endotracheal tube secured airway. Patient prepped draped position procedure confirmed 2nd time-out performed. Total 15 cc 1% lidocaine with 1 100,000 parts epinephrine injected in the bilateral nasal septum and bilateral inferior turbinates. Hemitransection made left side left nasal septal flap elevated no tear. The caudal strut was measured and kept intact osteotome utilized to outline the septal incision caudal utilized to elevate. Small tear over spur on the right side. Deviated septum removed Pepe forceps Mckenzie Valle forceps and osteotome bleed. Minimal bleeding. The crust was then scored sorry the caudal septum was then scored relaxed and placed over onto the left side sutured to the crest with a 4-0 interrupted Monocryl suture. [place] incision sorry sammy transfix and incision closed with 4 interrupted 5 0 fast gut sutures. Septum felt secure was no longer bed to the right. Turbinates were then stabbed anteriorly the 15 blade and reduced in the submucosal plane using [employer] 3 mm inferior turbinate blade. They were then outfractured using the [place] elevator. Bilateral nasal passages suction clean. Total blood loss 15 cc. Lee splints were then placed and sutured anteriorly using a 3-0 mattress nylon suture. I performed all dictated portions of procedure no complications. Care the patient given back to Anesthesiology. Patient taken to PACU in good condition. Estimated Blood Loss 15 Drains No Packing No Pathology None sent Complications No immediate complications Condition Stable Disposition PACU [facility] Billing Surgery - Charge Forward: Surgery Billing
== END 2025-07-02 15:36 | disposition home or self-care (01) ==
PROVIDERS: Visit Provider Otolaryngology
PROC: (CPT 30520; principal; 2025-07-02 13:00)
PROC: (CPT 30520; 2025-07-02 13:00)
DX: J34.2 Deviated nasal septum (principal); J34.3 Hypertrophy of nasal turbinates; G89.18 Other acute postprocedural pain; E78.5 Hyperlipidemia, unspecified; E11.9 Type 2 diabetes mellitus without complications; D64.9 Anemia, unspecified; K21.9 Gastro-esophageal reflux disease without esophagitis; I25.10 Atherosclerotic heart disease of native coronary artery without angina pectoris; N39.41 Urge incontinence; G25.0 Essential tremor; I25.2 Old myocardial infarction; F41.9 Anxiety disorder, unspecified; N19 Unspecified kidney failure; G47.33 Obstructive sleep apnea (adult) (pediatric); M85.88 Other specified disorders of bone density and structure, other site; M19.90 Unspecified osteoarthritis, unspecified site; Z79.82 Long term (current) use of aspirin; Z79.84 Long term (current) use of oral hypoglycemic drugs; Z98.890 Other specified postprocedural states; Z96.0 Presence of urogenital implants; Z93.1 Gastrostomy status; Z99.2 Dependence on renal dialysis; Z87.442 Personal history of urinary calculi; Z86.79 Personal history of other diseases of the circulatory system; Z85.42 Personal history of malignant neoplasm of other parts of uterus; Z86.73 Personal history of transient ischemic attack (TIA), and cerebral infarction without residual deficits; Z82.49 Family history of ischemic heart disease and other diseases of the circulatory system
CPT/HCPCS: 30520; 30140; 82948; J0690; A9270; J1100; J2003; J2004; J2371; J2405; J2704; J3010; J7050; J7120

== ENCOUNTER 2025-07-19 12:51 | Outpatient (CLI) | payer MEDICARE, SELFPAY ==
--- OUTSIDE RECORDS SUMMARY | 2004-06-20 04:15 | XMS_ITS | Continuity of Care Document ---
Author Organization [facility] Address [id number] [place] [address] [address] [place] [address] Phone Care Team Providers Care Ruby Developer Name Role Phone Kaden Goldman DO Unavailable Unavailable Advance Directives Directive Yes / No Effective Date File Name No Information Encounters Encounter Description Practice Location Reason(s) For Visit Diagnoses Date Provider Providers Copied on Encounter [facility], [address], [place], [place], [id number], [place] tel:[phone] [facility] No Information Susi Loyola. [address] [facility], [place], [address], [place]. tel: [phone] Family History Family Member Type Diagnosis Age At Onset No Information Payers Payer name Insurance type Covered constitution party ID Authoriza tion(s) [employer] SOI CI [id number] Social History Type Description Quantity Date Captured [...]
--- OUTSIDE RECORDS SUMMARY | 2025-07-19 13:26 | XMS_ITS ---
Author Organization [facility] [address] Address [address] [place] [address] Care Team Providers Care Leaf Stripper Name Role Phone Agnieszka Franco MD Primary Care Provider Active Problems Patient Care Coordination No te [...] a associated with type 2 diabetes mellitus ([facility]/HCC) 03/19/2020 Acute kidney failure 09/03/2019 Anemia in [...]
--- OUTSIDE RECORDS SUMMARY | 2025-07-19 13:26 | XMS_ITS | Encounter Summary ---
Author Organization [facility] Address [address] [place] [address] Care Team Providers Care News Content Specialist Name Role Phone Swati Oh MD Primary Care Provi patricia Encounter Details Date Type Department Care Team (Late st Contact Info) Description 07/17/2025 External Device Data ST[place] ABSTRACTION Provider, Abstract NO ADDRESS ON FILE Social History Tobacco Use Types Packs/Day Years Used Date Smoking Tobacco: Never Smokeless Tobacco: Never Alcohol Use Standard Drinks/Week Comments Not Currently 0 (1 standard drink = 0.6 oz pur e alcohol) Comments No Sex and Gender Information Value Date Recorded Sex Assigned at Not on file Legal Sex Female 5:13 AM CANAL BOAT OPERATOR Gender Identity Not on file Sexual Orientation Not on file documented as of this encounter Plan of Treatment Upcoming Encounters Date Type Department Care Team (Late st Contact Info) Description 2025 11:00 AM CANAL BOAT OPERATOR Office Visit [facility] Oncology and Hematology - [place] [address] [facility] [address] [place] [address] Zhou Gustafson MD [address] [facility] [address] [place] [address] documented as of this encounter Visit Diagnoses Not on filedocumented in this encounter Care Teams News Content Specialist Relationship Specialty Start Date End Date Swati Oh MD [address] [place] [address] PCP - General Family Practice 10/17/19 documented as of this encounter
--- OUTSIDE RECORDS SUMMARY | 2025-07-19 13:26 | XMS_ITS | Encounter Summary ---
Author Organization [facility] Address [address] [facility] Attn: Epic Prelude ADT NETO GARCIA [address] Care Team Providers Care Technical Writer Name Role Phone Swati Oh MD Primary Care Provi patricia Encounter Details Date Type Department Care Team (Late st Contact Info) Description 01/23/1995 Outpatient Historical Conversion, History Social History Tobacco Use Types Packs/Day Years Used Date Smoking Tobacco: Never Assessed Comments Unknown Sex and Gender Information Value Date Recorded Sex Assigned at Not on file Legal Sex Female 5:13 AM HELP DESK INTERN Gender Identity Not on file Sexual Orientation Not on file documented as of this encounter Plan of Treatment Upcoming Encounters Date Type Department Care Team (Late st Contact Info) Description 2025 11:00 AM HELP DESK INTERN Office Visit [facility] Oncology and Hematology - [place] [address] [facility] [address] [place] [address] Zhou Gustafson MD [address] [facility] [address] [place] [address] documented as of this encounter Visit Diagnoses Not on filedocumented in this encounter Care Teams Technical Writer Relationship Specialty Start Date End Date Swati Oh MD [address] [place] [address] PCP - General Family Practice 10/17/19 documented as of this encounter
--- OUTSIDE RECORDS SUMMARY | 2025-07-19 13:26 | XMS_ITS | Clinical Summary ---
Author Organization [facility] Address [address] [facility] [place] [address] Care Team Providers Care Public Area Supervisor Name Role Phone Swati hO MD Primary Care Provi patricia Allergies Active [...] Encounters Date Type Department Care Team Description 07/17/2025 External Device Data STL ABSTRACTION Provider, Abstract 07/10/2025 External Device Data STL ABSTRACTION Provider, Abstract 05/22/2025 External Device Data STL ABSTRACTION Provider, [...] on file Legal Sex Female 5:13 AM RN LACTATION CONSULTANT Gender Identity Not on file Sexual Orientation Not on file Last Filed Vital Signs Vital Sign Reading Time Taken Comments Blood Pressure 150/80 08/04/2023 11:35 AM RN LACTATION CONSULTANT Pulse 107 08/04/2023 11:27 AM RN LACTATION CONSULTANT Temperature 36.9 C (98.4 F) 08/04/2023 11:27 AM RN LACTATION CONSULTANT Respiratory Rate 18 08/04/2023 11:27 AM RN LACTATION CONSULTANT Oxygen Saturation 98% 08/04/2023 11:27 AM RN LACTATION CONSULTANT Inhaled Oxygen Concentration - - Weight 63.2 kg (139 lb 6.4 oz) 08/04/2023 11:27 AM RN LACTATION CONSULTANT Height 161.3 cm (5' 3.5) 01/14/2022 10:00 AM CD T Body Mass Index 24.31 01/14/2022 10:00 AM CDT Plan of Treatment Upcoming Encounters Date Type Department Care Team (Late st Contact Info) Description 2025 11:00 AM RN LACTATION CONSULTANT Office Visit [facility] Oncology and Hematology - [place] [address] [facility] [address] [place] [address] Zhou Gustafson MD [address] [facility] [address] [place] [address] Health Maintenance Due Date Last [...] 0 05/21/2017, 08/07/2015, 05/11/[address] [place] [address] [place] [address] Care Teams Public Area Supervisor Relationship Specialty Start Date End Date Swati Oh MD [address] [place] [id number] PCP - General Family Practice 10/17/19
--- OUTSIDE RECORDS SUMMARY | 2025-07-19 13:27 | XMS_ITS | Clinical Summary ---
Author Organization [facility] [address] Address [address] [place] [address] Care Team Providers Care Board Runner Name Role Phone Agnieszka Franco MD Primary Care Provider [phone] Allergies Active Allergy Reactions Criticality Noted Date [...] Description 04/25/2025 7:15 AM CDT Ancillary Procedure [facility] [address] [place] [phone] Presence of leadless cardiac pacemaker (Primary Dx); NICM (nonischemic cardiomyopathy) ([facility]); Ventricular fibrillation ([facility]); Syncope and collapse from Last 3 Months [...] How often do you attend chur or anabaptist services? More than 4 times per year 02/09/2023 Do you belong to any clubs o r organizations such as sikh groups, unions, fraternal or athletic groups, or [...] place to sleep or slept in a mcfp (including now)? No 02/09/2023 Personal Safety Answer Date Recorded Have you ever been in or are you currently in a harmful physical or emotional relationship or is someone making you feel afraid or unsafe? Denies 01/15/2023 Comments No Sex and Gender Information Value Date Recorded Sex Assigned at Not on file Legal Sex Female 9:25 AM SPACE SYSTEMS OPERATIONS SUPERINTENDENT Gender Identity Not on file Sexual Orientation [...] 08/07/2015, 05/11/2005 Medical Devices Implanted Type Area Senior Program Manager Device Identifier Shelf Expiration Date Model / Serial / Lot [place] Craniomaxillofacial Duramatrix-Onlay Plus 2x2in Regeneration Membrane Patch Dural Dmop22 - [id number] Implanted:Qty: 1 on 01/26/2023 by Vitaliy Johnston MD at [facility] Right: Cranial [place] Craniomaxillofacial [id number] 08/19/2025 DMOP22 / / [id number] [place] Craniomaxillofacial Mitchell Neuro Iii 16mmx.4mm 2 Hole Low Profile Bar 53-11588 - [id number] Implanted:Qty: 2 on 01/26/2023 by Vitaliy Johnston MD at [facility] Right: Cranial Rainer Craniomaxillofacial 53-3421 6 / / Rainer Craniomaxillofacial Mitchell Neuro Iii 14mm Tab Craniomaxillofacial Low Profile 53-22421 - [id number] Implanted:Qty: 1 on 01/26/2023 by Vitaliy Johnston MD at [facility] Right: Cranial [place] Craniomaxillofacial 53-3451 4 / / Rainer Craniomaxillofacial 1.2mm 4mm Self Tap Axial Stability Lower Profile Screw Bone 56-94880 - [id number] Implanted:Qty: 14 on 01/26/2023 by Vitaliy Johnston MD at [facility] Right: Cranial Rainer Craniomaxillofacial 56-1200 4 / / [place] Craniomaxillofacial Mitchell Neuro Iii .4mm 16 Hole Low Profile Craniomaxillofacial 53-39882 - [id number] Implanted:Qty: 3 on 01/26/2023 by Vitaliy Johnston MD at [facility] Right: Cranial [place] Craniomaxillofacial 53-9989 4 / / Rainer Craniomaxillofacial Mitchell Neuro Iii .4mm 2 Hole Low Profile Bar Tab 53-55286 - [id number] Implanted:Qty: 2 on 01/26/2023 by Vitaliy Johnston MD at [facility] Right: Cranial [place] Craniomaxillofacial 53-0892 2 / / Procedures Procedure Name Priority [...] pacing and sensing thresholds. Presenting rhythm: VS AM/ADVERTISING PHOTOGRAPHER- < 0.1 %, ADVERTISING PHOTOGRAPHER- < 0.1 % Medications: ASA 81 mg, losartan 100 mg See scanned report. Office pacemaker follow up: 9 months [facility] remote f/u 08/01/25. us Jorge Ospina MD [facility] JON Final Result * (ABNORMAL) Lipid [...] ORDERABLES Fi nal Result LIZ WEBER [facility] Department [place] [address] from Last 3 Months or Most Recently Relevant to Health Maintenance Insurance T MEDICARE Advance Directives For more information, please contact: [phone] Documents on File Type Date Recorded Patient Civilian Jail Officer Expl anation ADVANCE DIRECTIVE 01/17/2023 2:26 PM POWER OF HOSPICE CARE TRANSITIONS COORDINATOR-MEDICAL * Full Code (Latest Code Status on File) Date Activated Date Inactivated Comments 01/13/2023 5:43 PM 02/09/2023 7:22 PM Healthcare Agents on File Name Relationship Healthcare Agent Relationship Communication David Richardson Spouse Health Care Agent Holly Richardson Daughter First Alternate Health Care Agent Asif Deejay Son Second Alternat e Health Care Agent [phone] ([phone] (Mobile) m Care Teams Board Runner Relationship Specialty Start Date End Date Agnieszka Franco MD PCP - General Family Medicine 05/26/22
[2025-07-19 19:01] LABS: Hematocrit 50.7 % (37.0-47.0); Hemoglobin 15.7 g/dL (12.0-15.0); Immature Granulocyte Percent A 0.9 % (0-0.5); Lymphocytes Absolute Auto 2.31 K/mm3 (0.9-3.2); Mean Corpuscular HGB Conc 31.0 g/dl (32-36); Mean Corpuscular Hemoglobin 28.8 pg (26-34); Mean Corpuscular Volume 92.9 fl (80-100); Nucleated Red Blood Cells Absolute Auto 0.000 K/mm3 (0.0-0.012); Nucleated Red Blood Cells Perc 0.0 % (0.0-0.2); Platelet Count Result 293 k/mm3 (150-375); Red Blood Count 5.46 M/mm3 (4.2-5.4); White Blood Count 10.2 K/mm3 (4.5-10.0)
[2025-07-19 19:16] LABS: Alanine Aminotransferase 18 U/L (6-35); Albumin Level 4.6 g/dL (3.5-5.1); Alkaline Phosphatase 66 U/L (38-126); Anion Gap 8 mmol/L (4-12); Aspartate Amino Transferase 67 U/L (14-36); Bilirubin,Total 0.9 mg/dL (0.2-1.3); Blood Urea Nitrogen 34 mg/dL (7-17); Calcium 10.5 mg/dL (8.4-10.2); Carbon Dioxide 31 mmol/L (22-30); Chloride 102 mmol/L (98-107); Cholesterol 160 mg/dL (0-200); Estimated Glomerular Filt Rate 57; Glucose 94 mg/dL (65-110); HDL Direct 46 mg/dL; Potassium 4.8 mmol/L (3.4-5.0); Sodium 141 mmol/L (137-145); Total Protein 7.9 g/dL (6.3-8.2); Triglycerides 216 mg/dL (<150)
[2025-07-19 19:21] LABS: Hemoglobin A1C 6.1 % (<5.7)
== END 2025-07-19 12:52 | disposition home or self-care (01) ==
PROVIDERS: PCP Family Medicine Adolescent Medicine
DX: E11.9 Type 2 diabetes mellitus without complications (principal); R53.83 Other fatigue; E78.2 Mixed hyperlipidemia
CPT/HCPCS: 36415; 80053; 80061; 83036; 85025

== ENCOUNTER 2025-07-20 08:52 | Outpatient (NON) | payer MEDICARE, SELFPAY ==
--- OUTSIDE RECORDS SUMMARY | 2004-06-20 04:15 | XMS_ITS | Continuity of Care Document ---
Author Organization [facility] Address [address] [place] [address] [place] [address] Phone Care Team Providers Care Sheet Turner Name Role Phone Kaden Goldman DO Unavailable Unavailable Advance Directives Directive Yes / No Effective Date File Name No Information Encounters Encounter Description Practice Location Reason(s) For Visit Diagnoses Date Provider Providers Copied on Encounter [facility], [address], [place], [place], [id number], [place] [phone] [facility] No Information Susi Loyola. [address] [facility], [place], [address], [place]. tel: [phone] Family History Family Member Type Diagnosis Age At Onset No Information Payers Payer name Insurance type Covered alliance party ID Authoriza tion(s) [employer] SOI CI [id number] Social History Type Description Quantity Date Captured [...]
--- OUTSIDE RECORDS SUMMARY | 2025-07-20 09:10 | XMS_ITS | Encounter Summary ---
Author Organization [facility] Address [address] [facility] Attn: Epic Prelude ADT NETO GARCIA [address] Care Team Providers Care Utility Operator Name Role Phone Swati Oh MD Primary Care Provi patricia Encounter Details Date Type Department Care Team (Late st Contact Info) Description 01/23/1995 Outpatient Historical Conversion, History Social History Tobacco Use Types Packs/Day Years Used Date Smoking Tobacco: Never Assessed Comments Unknown Sex and Gender Information Value Date Recorded Sex Assigned at Not on file Legal Sex Female 5:13 AM HTML WEB DEVELOPER Gender Identity Not on file Sexual Orientation Not on file documented as of this encounter Plan of Treatment Upcoming Encounters Date Type Department Care Team (Late st Contact Info) Description 2025 11:00 AM HTML WEB DEVELOPER Office Visit [facility] Oncology and Hematology - [place] [address] [facility] [address] [place] [address] Zhou Gustafson MD [address] [facility] [address] [place] [address] documented as of this encounter Visit Diagnoses Not on filedocumented in this encounter Care Teams Utility Operator Relationship Specialty Start Date End Date Swati Oh MD [address] [place] [address] PCP - General Family Practice 10/17/19 documented as of this encounter
--- OUTSIDE RECORDS SUMMARY | 2025-07-20 09:10 | XMS_ITS | Encounter Summary ---
Author Organization [facility] Address [address] [place] [address] Care Team Providers Care Fibreglass Gun Hand Name Role Phone Swati Oh MD Primary Care Provi patricia Encounter Details Date Type Department Care Team (Late st Contact Info) Description 07/18/2025 External Device Data STL ABSTRACTION Provider, Abstract NO ADDRESS ON FILE Social History Tobacco Use Types Packs/Day Years Used Date Smoking Tobacco: Never Smokeless Tobacco: Never Alcohol Use Standard Drinks/Week Comments Not Currently 0 (1 standard drink = 0.6 oz pur e alcohol) Comments No Sex and Gender Information Value Date Recorded Sex Assigned at Not on file Legal Sex Female 5:13 AM EGG PROCESSING SUPERVISOR Gender Identity Not on file Sexual Orientation Not on file documented as of this encounter Plan of Treatment Upcoming Encounters Date Type Department Care Team (Late st Contact Info) Description 2025 11:00 AM EGG PROCESSING SUPERVISOR Office Visit [facility] Oncology and Hematology - [place] [address] [facility] [address] [place] [address] Zhou Gustafson MD [address] [facility] [address] [place] [address] documented as of this encounter Visit Diagnoses Not on filedocumented in this encounter Care Teams Fibreglass Gun Hand Relationship Specialty Start Date End Date Swati Oh MD [address] [place] [phone] PCP - General Family Practice 10/17/19 documented as of this encounter
--- OUTSIDE RECORDS SUMMARY | 2025-07-20 09:10 | XMS_ITS | Clinical Summary ---
Author Organization [facility] miguelina [facility] Address [address] [place] [place] [address] Care Team Providers Care Ediscovery Project Manager Name Role Phone Swati Oh MD [...] Encounters Date Type Department Care Team Description 07/18/2025 External Device Data [facility] ABSTRACTION Provider, Abstract 07/17/2025 External Device Data [facility] ABSTRACTION Provider, [...] on file Legal Sex Female 5:13 AM OCCUPATIONAL SAFETY AND HEALTH MANAGER Gender Identity Not on file Sexual Orientation Not on file Last Filed Vital Signs Vital Sign Reading Time Taken Comments Blood Pressure 150/80 08/04/2023 11:35 AM OCCUPATIONAL SAFETY AND HEALTH MANAGER Pulse 107 08/04/2023 11:27 AM OCCUPATIONAL SAFETY AND HEALTH MANAGER Temperature 36.9 C (98.4 F) 08/04/2023 11:27 AM OCCUPATIONAL SAFETY AND HEALTH MANAGER Respiratory Rate 18 08/04/2023 11:27 AM OCCUPATIONAL SAFETY AND HEALTH MANAGER Oxygen Saturation 98% 08/04/2023 11:27 AM OCCUPATIONAL SAFETY AND HEALTH MANAGER Inhaled Oxygen Concentration - - Weight 63.2 kg (139 lb 6.4 oz) 08/04/2023 11:27 AM OCCUPATIONAL SAFETY AND HEALTH MANAGER Height 161.3 cm (5' 3.5) 01/14/2022 10:00 AM CD T Body Mass Index 24.31 01/14/2022 10:00 AM CDT Plan of Treatment Upcoming Encounters Date Type Department Care Team (Late st Contact Info) Description 2025 11:00 AM OCCUPATIONAL SAFETY AND HEALTH MANAGER Office Visit [facility] Oncology and Hematology - [place] [address] [facility] [address] [place] [address] Zhou Gustafson MD [address] [place] [address] Health Maintenance Due Date Last [...] 05/11/2005 Insurance [employer] PPO MCR Care Teams Ediscovery Project Manager Relationship Specialty Start Date End Date Swati Oh MD [address] [place] [phone] PCP - General Family Practice 10/17/19
--- OUTSIDE RECORDS SUMMARY | 2025-07-20 09:10 | XMS_ITS | Clinical Summary ---
Author Organization [facility] [address] Address [address] [place] [address] Care Team Providers Care Boiler Technician Name Role Phone Agnieszka Franco MD Primary Care Provider [phone] Allergies Active Allergy Reactions Criticality Noted Date [...] Description 04/25/2025 7:15 AM CDT Ancillary Procedure [facility] Cardiology [address] [place] [id number] Presence of leadless cardiac pacemaker (Primary Dx); NICM (nonischemic cardiomyopathy) ([facility]); Ventricular fibrillation ([facility]); Syncope and collapse from Last 3 [...] How often do you attend chur or hinduism services? More than 4 times per year 02/09/2023 Do you belong to any clubs o r organizations such as gnosticism groups, unions, fraternal or athletic groups, or [...] place to sleep or slept in a fpc (including now)? No 02/09/2023 Personal Safety Answer Date Recorded Have you ever been in or are you currently in a harmful physical or emotional relationship or is someone making you feel afraid or unsafe? Denies 01/15/2023 Comments No Sex and Gender Information Value Date Recorded Sex Assigned at Not on file Legal Sex Female 9:25 AM CABLE TELEVISION PROGRAM DIRECTOR Gender Identity Not on file Sexual Orientation [...] 08/07/2015, 05/11/2005 Medical Devices Implanted Type Area Power Station Operator Device Identifier Shelf Expiration Date Model / Serial / Lot [employer] Craniomaxillofacial Duramatrix-Onlay Plus 2x2in Regeneration Membrane Patch Dural Dmop22 - [id number] Implanted:Qty: 1 on 01/26/2023 by Vitaliy Johnston MD at [facility] Right: Cranial [employer] Craniomaxillofacial [id number] 08/19/2025 DMOP22 / / [id number] [employer] Craniomaxillofacial [place] Neuro Iii 16mmx.4mm 2 Hole Low Profile Bar 53-37406 - [id number] Implanted:Qty: 2 on 01/26/2023 by Vitaliy Johnston MD at [facility] Right: Cranial Rainer Craniomaxillofacial 53-3421 6 / / Rainer Craniomaxillofacial [place] Neuro Iii 14mm Tab Craniomaxillofacial Low Profile 53-66096 - [id number] Implanted:Qty: 1 on 01/26/2023 by Vitaliy Johnston MD at [facility] Right: Cranial [employer] Craniomaxillofacial 53-3451 4 / / Rainer Craniomaxillofacial 1.2mm 4mm Self Tap Axial Stability Lower Profile Screw Bone 56-90441 - [id number] Implanted:Qty: 14 on 01/26/2023 by Vitaliy Johnston MD at [facility] Right: Cranial Rainer Craniomaxillofacial 56-1200 4 / / [employer] Craniomaxillofacial [place] Neuro Iii .4mm 16 Hole Low Profile Craniomaxillofacial 53-70255 - [id number] Implanted:Qty: 3 on 01/26/2023 by Vitaliy Johnston MD at [facility] Right: Cranial [employer] Craniomaxillofacial 53-2685 4 / / Rainer Craniomaxillofacial [place] Neuro Iii .4mm 2 Hole Low Profile Bar Tab 53-89820 - [id number] Implanted:Qty: 2 on 01/26/2023 by Vitaliy Johnston MD at [facility] Right: Cranial [employer] Craniomaxillofacial 53-9088 2 / / Procedures Procedure Name Priority [...] pacing and sensing thresholds. Presenting rhythm: VS AM/CLINICAL FIELD SPECIALIST- < 0.1 %, CLINICAL FIELD SPECIALIST- < 0.1 % Medications: ASA 81 mg, losartan 100 mg See scanned report. Office pacemaker follow up: 9 months [facility] remote f/u 08/01/25. us Jorge Ospina MD [facility] JON Final Result * (ABNORMAL) Lipid [...] ORDERABLES Fi nal Result LIZ WEBER [facility] [place] [address] from Last 3 Months or Most Recently Relevant to Health Maintenance Insurance T MEDICARE Advance Directives For more information, please contact: [phone] Documents on File Type Date Recorded Patient Gasoline Dragline Operator Expl anation ADVANCE DIRECTIVE 01/17/2023 2:26 PM POWER OF TRACK MANAGER-MEDICAL * Full Code (Latest Code Status on File) Date Activated Date Inactivated Comments 01/13/2023 5:43 PM 02/09/2023 7:22 PM Healthcare Agents on File Name Relationship Healthcare Agent Relationship Communication David Richardson Spouse Health Care Agent [email or web address] Holly Richardson Daughter First Alternate Health Care Agent Asif Deejay Son Second Alternat e Health Care Agent [phone] ([phone] (Mobile)[email or web address] m Care Teams Boiler Technician Relationship Specialty Start Date End Date Agnieszka Franco MD PCP - General Family Medicine 05/26/22
--- OUTSIDE RECORDS SUMMARY | 2025-07-20 09:10 | XMS_ITS ---
Author Organization [facility] [address] Address [address] [place] [address] Care Team Providers Care Broth Mixer Name Role Phone Agnieszka Franco MD Primary Care Provider [phone] Active Problems Patient Care Coordination No te [...] a associated with type 2 diabetes mellitus ([facility]/HCC) 03/19/2020 Acute kidney failure 09/03/2019 Anemia in [...]
[2025-07-20 15:07] LABS: MALB Creatinine Ratio 46.9 mg/g (0-30)
== END 2025-07-20 08:53 | disposition home or self-care (01) ==
LOC: ANHGOSHLAB 08:54
PROVIDERS: PCP Family Medicine Adolescent Medicine
DX: E11.9 Type 2 diabetes mellitus without complications (principal)
CPT/HCPCS: 82043

== ENCOUNTER 2025-08-31 12:20 | Outpatient (CLI) | payer MEDICARE, SELFPAY ==
--- NOTE | ~2025-08-31 | US_ITS ---
EXAMINATION: US soft tissue UE RT DATE: 08/31/2025 12:44 INDICATION: Other specified soft tissue disorder at the posterior lateral right forearm TECHNIQUE: Multiple grayscale and Doppler ultrasound images of the region of concern at the lateral right forearm were obtained. COMPARISON: None FINDINGS: There is a 3.1 x 1.5 x 0.8 cm complex very hypoechoic fluid collection centered in the subcutaneous fat at the region of concern without evident internal vascular flow or surrounding hyperemia on color Doppler most consistent with a post traumatic hematoma/seroma. Differential would include abscess in the appropriate clinical setting. IMPRESSION: 1. 3.1 x 1.5 x 0.8 similar likely hematoma/seroma versus less likely abscess in the lateral right forearm subcutaneous fat at the region of concern. Reviewed, dictated and finalized at location A. [facility]
== END 2025-08-31 12:21 | disposition home or self-care (01) ==
LOC: GOSHIMG 12:21
DX: M79.89 Other specified soft tissue disorders (principal)
CPT/HCPCS: 76882